=== PATIENT | female | born 1985 | race Caucasian/White ===

== ENCOUNTER 2023-06-25 07:50 | Outpatient (OUT) | payer OTHER, SELFPAY ==
--- NOTE | 2023-06-25 | US_ITS ---
The [address] [address] Patient Name: AMANUEL ERICKSON MRN: [id number] date: 1985 Sex: F Assigned Patient Location: [facility] Current Patient Location: [facility] Accession/Order Number: [id number] Exam Date: 06/25/2023 07:52 Report Date: 06/25/2023 08:45 At the request of: DELICIA ALMAGUER Procedure: US pelvis w/ transvaginal Ultrasound pelvis, non-obstetric CLINICAL: PELVIC PAIN TECHNIQUE: Transabdominal and transvaginal pelvic ultrasound was performed. FINDINGS: Comparison: None. Uterus is nonvisualized, surgically absent. The right ovary measures 2.3 x 1.4 x 1.7 cm with few tiny follicles and tiny amount of internal color flow but Doppler examination was not performed by board certified family physician. The left ovary measures 2.6 x 1.2 x 1.6 cm, with dopplerable arterial flow and resistive index of 0.44. There is a complex cyst with some internal echoes/debris measuring 1.5 x 1.0 cm, with few additional tiny follicles. No adnexal abnormality. No free pelvic fluid. US/US pelvis w/ transvaginal IMPRESSION: 1. 1.5 x 1.0 cm complicated cyst in left ovary that is probably an involuting hemorrhagic cyst . 2. Normal appearance of right ovary. 3. Hysterectomy. Electronically authenticated by: ABHI DEMARCO Date: 06/25/2023 08:45
== END 2023-06-25 07:51 | disposition home or self-care (01) ==
LOC: NOMS 07:50
PROVIDERS: PCP Nurse Practitioner; Visit Provider Obstetrics & Gynecology
DX: R10.2 Pelvic and perineal pain (principal); N83.292 Other ovarian cyst, left side
CPT/HCPCS: 76830; 76856

== ENCOUNTER 2023-07-04 09:48 | Outpatient (OUT) | payer OTHER, SELFPAY ==
--- OUTSIDE RECORDS SUMMARY | 2023-07-04 09:53 | XMS_ITS | CCD ---
Author Name Unknown Address [address] [place] [address] Organization [facility] Care Team Providers Care Software Development Analyst Name Role Phone ANASTASIIA DUNCAN JAN Unavailable Unavailable IZABEL EARL (OSWALDO) Unavailable UnavailIZABEL Marquez (OSWALDO) Unavailable UnavailHarry Tom Attending Physician Unavailable Doug Yeager Primary Care Physician Unavailab MEKA Sanchez Primary Care Physician [phone] NO FAMILY, PHYSICIAN Primary Care Provider Unava ilSANDEE Terrazas Attending Provider [phone] AICHHOLZ, TRANSMISSION BUILDER MEKA Admitting Unavailable AICHHOLZ, TRANSMISSION BUILDER MEKA Attending Unavailable AICHHOLZ, TRANSMISSION BUILDER MEKA Primary Care Unavailable AICHHOLZ, TRANSMISSION BUILDER MEKA Consulting Unavailable AICHHOLZ, TRANSMISSION BUILDER MEKA Primary Care Unavailable NITISH MCCALL Admitting Unavailable NITISH MCCALL Attending Unavailable NITISH MCCALL Consulting Unavailable NILL, DR GOLDEN Admitting Unavailable NILL, DR GOLDEN Attending Unavailable AICHHOLZ, TRANSMISSION BUILDER MEKA Primary Care Unavailable NILL, DR GOLDEN Admitting Unavailable NILL, DR GOLDEN Attending Unavailable AICHHOLZ, TRANSMISSION BUILDER MEKA Primary Care Unavailable NILL, DR GOLDEN Consulting Unavailable STEPHANIE CASTRO Consulting Unavailable ANTON VELÁZQUEZ Consulting Unavailable JERRY WEBB Consulting Unavailable AICHHOLZ, TRANSMISSION BUILDER MEKA Admitting Unavailable AICHHOLZ, TRANSMISSION BUILDER MEKA Attending Unavailable AICHHOLZ, TRANSMISSION BUILDER MEKA Primary Care Unavailable AICHHOLZ, TRANSMISSION BUILDER MEKA Consulting Unavailable DR KODI ROME Consulting Unavailable Gloria Jackson Unavailable Kamila Doung Unavailable NO FAMILY, PHYSICIAN Primary Care Unavailable Gloria Jackson Admitting Unavailable Gloria Jackson Attending Unavailable NO FAMILY, PHYSICIAN Primary Care Unavailable Ananda Vences Admitting Unavailab Ananda Thomson Attending Unavailab DELICIA Agrawal Attending Unavailable DELICIA ALMAGUER Attending Unavailable Allergies Allergy Classification Reported Allergen(s) Allergy Type Date of Onset Reaction(s) Facility (6 sources) nalbuphine; Translations: [Nubain] Drug Allergy 4 vomiting [facility] Repository (6 sources) nalbuphine; Translations: [NALBUPHINE] Drug Allergy 4 AOF, Vomiting, Unknown [facility] Repository (1 source) NO KNOWN ALLERGIES; Translations: [NO KNOWN ALLERGIES] Propensity to adverse reactions to drug (disorder) [facility] Repository (4 sources) nu Propensity to adverse reactions Unknown [employer] Other Medications Current Medications Medication Drug Class(es) Dates Sig (Normalized) Sig (Original) ARIPiprazole 5 mg oral tablet (2 sources) Atypical Antipsychotic Start: 10-08-2021 take 1 tablet by mouth once daily Abilify 5 mg Tab 5 mg = 1 tab(s), Oral, Daily, Refills(s) 0 Start Date: 10/08/21 Status: Ordered FLUoxetine 10 mg oral capsule (2 sources) Serotonin Reuptake Inhibitor Start: 10-08-2021 take 1 capsule by mouth once daily FLUoxetine 10 mg Cap 10 mg = 1 cap(s), Oral, Daily, Refills(s) 0 Start Date: 10/08/21 Status: Ordered traZODone hydrochloride 50 mg oral tablet (1 source) Serotonin Reuptake Inhibitor take 1 tablet by mouth at bedtime for sleep traZODone HCl 50 MG take 1 tablet by mouth at bedtime if needed for sleep Oral for 30 Days Active Completed/Discontinued Medications Medication Drug Class(es) Dates Sig (Normalized) Sig (Original) amoxicillin 875 mg / clavulanate 125 mg oral tablet (2 sources) Penicillin-class Antibacterial Start: 02-09-2023 take 1 tablet by mouth every twelve hours Amoxicillin-Pot Clavulanate 875-125 MG 1 tablet Orally every 12 hrs for 10 day(s) 17 Sep, 2023 Not-Taking busPIRone hydrochloride 10 mg oral tablet (3 sources) Start: 12-10-2018 take 10 mg by mouth three times daily Buspirone 10 MG Oral Three times daily 90 December 10, 2018 Active fluticasone propionate 0.05 mg/actuat metered dose nasal spray (2 sources) Corticosteroid Start: 02-09-2023 take 2 spray(s) nasal route once daily Fluticasone Propionate 50 MCG/ACT 2 sprays Nasally Once a day for 14 day(s) Jan, Not-Taking hydrOXYzine pamoate 50 mg oral capsule (3 sources) Antihistamine Start: 12-10-2018 take 50 mg by mouth every six hours as needed for anxiety Hydroxyzine Pamoate 50 MG Oral Q6H PRN For Anxiety December 10, 2018 Active 24 hr nicotine 0.875 mg/hr transdermal system (3 sources) Cholinergic Nicotinic Agonist Start: 12-10-2018 Nicotine 1 EACH Transdermal Daily December 10, 2018 Active predniSONE 20 mg oral tablet (2 sources) Start: 02-09-2023 take 1 tablet by mouth every twelve hours predniSONE 20 MG 1 tablet Orally bid for 5 day(s) Jan, Not-Taking Triamcinolone (4 sources) Corticosteroid Start: 01-15-2020 Kenalog -40 mg Dec, 60 mg 24 hr venlafaxine 75 mg extended release oral capsule (3 sources) Serotonin and Norepinephrine Reuptake Inhibitor Start: 12-10-2018 take 75 mg by mouth once daily Venlafaxine 75 MG Oral Daily December 10, 2018 Active Problems Active Problems Problem Classification Problem Date Documented Da te Episodic/Chronic Anxiety disorders (4 sources) Generalized anxiety disorder; Translations: [Anxiety] 10-08-2021 Chronic Disorders of teeth and jaw (1 source) Dental caries, unspecified; Translations: [DENTAL CARIES UNSPECIFIED] Onset: 3 Episodic Esophageal disorders (3 sources) Gastroesophageal reflux disease; Translations: [Gastro-esophageal reflux disease without esophagitis] Onset: 2 10-08-2021 Chronic Essential hypertension (3 sources) Hypertensive disorder; Translations: [Essential (primary) hypertension] Onset: 2 10-08-2021 Chronic Genitourinary symptoms and ill-defined conditions (1 source) Gross hematuria; Translations: [Gross hematuria] Onset: 8 Episodic Mood disorders (4 sources) Recurrent major depressive episodes; Translations: [Depressive disorder] 10-08-2021 Chronic Other aftercare (1 source) Other emt intermediate (current) drug therapy; Translations: [OTH PENITENTIARY CURRENT DRUG THERAPY] Onset: 3 Episodic Other ear and sense organ disorders (4 sources) Otalgia, left ear; Translations: [OTALGIA LEFT EAR] Onset: 3 Episodic Other gastrointestinal disorders (2 sources) Irritable bowel syndrome; Translations: [Irritable bowel syndrome without diarrhea] 12-07-2018 Chronic Other nutritional; endocrine; and metabolic disorders (2 sources) Body mass index 30+ - obesity 10-09-2021 Chronic Other nutritional; endocrine; and metabolic disorders (2 sources) Obesity 10-08-2021 Chronic Other nutritional; endocrine; and metabolic disorders (1 source) Obesity, unspecified; Translations: [OBESITY UNSPECIFIED] Onset: 2 Chronic Other skin disorders (4 sources) Hidradenitis suppurativa; Translations: [Hidradenitis suppurativa] Onset: 2 Episodic Other upper respiratory infections (1 source) Chronic sinusitis, unspecified; Translations: [CHRONIC SINUSITIS UNSPECIFIED] Onset: 3 Chronic Residual codes; unclassified (2 sources) Tobacco user 10-08-2021 Episodic Substance-related disorders (1 source) Nicotine dependence, other tobacco product, uncomplicated; Translations: [NICOTINE DEPEND OTH TOB PROD UNCOMP] Onset: 3 Chronic Thyroid disorders (9 sources) Hypothyroidism; Translations: [Hypothyroidism, unspecified] Onset: 2 10-08-2021 Chronic Past or Other Problems Problem Classification Problem Date Documented Da te Episodic/Chronic Nonmalignant breast conditions (4 sources) Unspecified lump in the right breast, upper outer quadrant; Translations: [UNS LUMP IN RT BREAST UP OUTR QUAD] Onset: 10-02-2021 Episodic Other skin disorders (4 sources) Hidradenitis suppurativa; Translations: [HIDRADENITIS SUPPURATIVA] Onset: 11-14-2021 Episodic Other skin disorders (1 source) Epidermal cyst; Translations: [EPIDERMAL CYST] Onset: 06-30-2022 Episodic Other upper respiratory infections (5 sources) Acute pharyngitis, unspecified; Translations: [Acute sinusitis, unspecified] Onset: 06-11-2022 Episodic Unclassified (1 source) Contact with and (suspected) exposure to covid-19 Z20.822 Viral infection (1 source) COVID-19 Results Test Name Value Interpretation Reference Range Facility COVID + FLU Quick Testingon 04-23-2023 SARS-CoV-2 (COVID-19) RNA BRANT+probe Ql (Unsp spec) Positive [facility] [employer] Other COVID + FLU Quick Testing Negative [employer] [facility] [employer] Other Quick Strepon 06-11-2022 S. pyogenes Org specific cx Ql (Throat) Negative [facility] [employer] Other Quick Strep [facility] [employer] Other Throat Cultureon 06-11-2022 Throat culture Moderate Normal Resp iratory Marti 2 Days PERFORMED BY: [place] [address] PATHOLOGIST TIMING ADJUSTER DOMENICO BELL M.D. Normal [facility] Comment on above: Performed By: #### C [place] #### [address] ALDOLASE [id number] 12-18-2021 ALDOLASE 4.6 U/L Normal 1.2-7.6 [facility] Comment on above: Result Comment: REFE RENCE INTERVAL: Aldolase Access complete set of age- and/or gender-specific reference intervals for this test in the [employer] [facility] Test Directory ([place]). Performed By: [facility] [address] [place] [address] Supervisor Slashing Department: Edgar Snell MD, PhD ANAon 12-18-2021 JAMIL PATTERN HOMOGENEOUS Normal [facility] Comment on above: Result Comment: The JACKI IFA JAMIL Hep-2 test utilizes the indirect fluorescent antibody (IFA) method that has been used extensively for detecting the presence of JAMIL in sera of patients with systemic lupus erythematosus (SLE), and other clinically similar connective tissue disorders. In addition, JAMIL may be associated with numerous drug-induced lupus syndromes which clinically mimic the spontaneous form of SLE. Positive JAMIL may be found in healthy individuals. It is therefore imperative that JAMIL results be interpreted in light of the patients clinical condition by medical authority. Performed By: #### 9 9850, 24991, 17995, 95106, 63930 ####[facility] [facility] [place] [address], [facility] JAMIL SCREEN 1:40 Normal <1:40,1:40 [facility] Comment on above: Result Comment: Test performed using [employer] IFA JAMIL Hep-2 Test, a pre-standardized assay designed for the qualitative and semi-quantitative detection of antinuclear antibodies. Performed By: #### 9 9850, 58575, 39023, 97763, 83171 ####[facility] [facility] [place] [address], [facility] ANTI CENTROMERE ABon 022 ANTI CENT AB Negative Normal NEGATIVE [facility] Comment on above: Performed By: #### 9 9850, 81700, 90689, 94125, 43384 ####[facility] [facility] [place] [address], [facility] ANTI DNAon 12-18-2021 ANTI DNA <1:10 Normal <1:10 [facility] Comment on above: Performed By: #### 9 9850, 98036, 89826, 40509, 36434 #### [facility] [address] [facility] [place] [address], [facility] ANTI-ENAon 12-18-2021 ANTI SM Negative Normal NEG,NEGATIVE ,Neg [facility] Comment on above: Performed By: #### 9 9850, 44256, 91605, 78372, 64133 #### [facility] [address] [facility] [place] [address], [facility] ANTI SM/ANTIRNP Negative Normal NEG,NEGATIVE ,Neg [facility] Comment on above: Performed By: #### 9 9850, 92368, 91495, 49770, 13395 #### [facility] [address] [place]. [address] C REACTIVE PROTEINon 022 CRP [Mass/Vol] 4.3 mg/L Normal 0.0-7.0 [facility] Comment on above: Performed By: #### 1 0204, 16560, 61198, 14648 #### [facility] [address] [facility] [place] [address], [facility] COMPLEMENT 3on 12-18-2021 COMPLEMENT 3 96 mg/dL Normal 79-152 [facility] Comment on above: Performed By: #### 1 0204, 76901, 86841, 44012 #### [facility] [address] [facility] [place] [address], [facility] COMPLEMENT 4on 12-18-2021 COMPLEMENT 4 19 mg/dL Normal 16-38 [facility] Comment on above: Performed By: #### 1 0204, 68894, 15662, 24394 #### [facility] [address] [facility]. [address] CPKon 12-18-2021 CK [Catalytic activity/Vol] 78 U/L Normal 30-223 [facility] Comment on above: Performed By: #### 2 5508 ####[facility] CYCLIC CITRULLINATED PEPTIDE AB [id number] 12-18-2021 CYCLIC CIT PEP 1 Units Normal 0-19 [facility] Comment on above: Result Comment: INTE RPRETIVE INFORMATION: Cyclic Citrullinated Peptide Antibody, IgG 19 Units or less ................... Negative 20-39 Units ........................ Weak Positive 40-59 Units ........................ Moderate Positive 60 Units or greater ................ Strong Positive Anti-cyclic citrullinated peptide (anti-CCP), IgG antibodies are present in about 69-83 percent of patients with rheumatoid arthritis (RA) and have specificities of 93-95 percent. These autoantibodies may be present in the preclinical phase of disease, are associated with future RA development, and may predict radiographic joint destruction. Patients with weak positive results should be monitored and testing repeated. Performed By: [facility] [address] [place] [address] Supervisor Slashing Department: Edgar Snell MD, PhD HEPATITIS B CORE ANTIBODYon 12-18-2021 HEP B CORE AB Non-Reactive Normal NONREACTIVE [facility] Comment on above: Performed By: #### 3 1568, 36088, 06225 ####[facility] [facility].[address] HEPATITIS B SURFACE ANTIGEN QUALon 12-18-2021 HEP B SURF AG QUAL Non-Reactive Normal NONREACTIVE [facility] Comment on above: Performed By: #### 3 1568, 77545, 88269 ####[facility] [facility].[address] HEPATITIS C SCREENon 022 ANTI-HCV Non-Reactive Normal NONREACTIVE [facility] Comment on above: Performed By: #### 3 1568, 68633, 42379 ####[facility] [facility].[address] HIV1 AND 2 COMBO 4Gon 2021 HIV COMBO Negative Normal NEGATIVE [facility] Comment on above: Performed By: #### 3 0623 ####[facility] [facility].[address] MPO/PR3 RFLX TO ANCA [id number] on 12-18-2021 MYELOPEROX AB (65515) 0 AU/mL Normal 0-19 [facility] Comment on above: Result Comment: INTE RPRETIVE INFORMATION: Myeloperoxidase Abs, IgG 19 AU/mL or Less ......... Negative 20-25 AU/mL .............. Equivocal 26 AU/mL or Greater ...... Positive Approximately 90% of patients with a P-ANCA pattern by IFA have antibodies specific for MPO. SERINE PROTEINASE 3 0 AU/mL Normal 0-19 [facility] Comment on above: Result Comment: Myel operoxidase (MPO) Antibodies , IgG and Serine Proteinase 3 (PR3), IgG are both negative; therefore, ANCA IFA testing will not be performed. INTERPRETIVE INFORMATION: Serine Proteinase 3, IgG 19 AU/mL or Less ........ Negative 20-25 AU/mL ............. Equivocal 26 AU/mL or Greater ..... Positive Approximately 85% of patients with a C-ANCA pattern by IFA have antibodies specific for PR3. Performed By: [facility] [address] [place] [address] Supervisor Slashing Department: Edgar Snell MD, PhD MYOSITIS EXTENDED PANEL 3001 781on 12-18-2021 EJ AB Negative Normal Negative [facility] FIBRILLARIN (U3 PLANT MAINTENANCE WORKER) AB, IgG Negative Normal Negative [facility] Comment on above: Result Comment: Inte rpretive Information: Fibrillarin (U3 PLANT MAINTENANCE WORKER) Antibody, IgG The presence of fibrillarin (U3-PLANT MAINTENANCE WORKER) IgG antibodies in association with an JAMIL IFA nucleolar pattern is suggestive of systemic sclerosis (SSc). In SSc, these antibodies are associated with distinct clinical features, such as younger age at disease onset, frequent internal organ involvement (pulmonary hypertension, myositis and renal disease). Fibrillarin antibodies are detected more frequently in patients with SSc compared to other ethnic groups. Strong correlation with JAMIL IFA results is recommended. In a multi-ethnic cohort of SSc patients (n=98), U3-PLANT MAINTENANCE WORKER antibodies detected by immunoblot had an agreement of 98.9 percent with the gold standard immunoprecipitation (IP) assay. Approximately 71 percent (5/7) of the borderline U3-PLANT MAINTENANCE WORKER results with JAMIL nucleolar pattern in this cohort were IP negative. This test was developed and its performance characteristics determined by [facility]. It has not been cleared or approved by the [place] Food and Drug Administration. This test was performed in a CLIA certified laboratory and is intended for clinical purposes. Performed By: [facility] [address] [place] [address] Supervisor Slashing Department: Edgar Snell MD, PHD ISAURA-1 AB IGG 0 AU/mL Normal 0-40 [facility] Comment on above: Result Comment: INTE RPRETIVE INFORMATION: Isaura-1 Antibody, IgG 29 AU/mL or less.........Negative 30-40 AU/mL..............Equivocal 41 AU/mL or greater......Positive Presence of Isaura-1 (antihistidyl transfer RNA [t-RNA] synthetase) antibody is associated with polymyositis and may also be seen in patients with dermatomyositis. Iasura-1 antibody is associated with pulmonary involvement (interstitial lung disease), Raynaud phenomenon, arthritis, and bowling alley mechanic's hands (implicated in antisynthetase syndrome). KU AB Negative Normal Negative [facility] MDA5 AB Negative Normal Negative [facility] OR-2 AB Negative Normal Negative [facility] MYOSITIS PANEL INTERP See Note Normal [facility] Comment on above: Result Comment: INTE RPRETIVE INFORMATION: Extended Myositis Panel If present, myositis-specific antibodies (MSA) are specific for myositis, and may be useful in establishing diagnosis as well as prognosis. MSAs are generally regarded as mutually exclusive with rare exceptions; the occurrence of two or more MSAs should be carefully evaluated in the context of patient's clinical presentation. Myositis-associated antibodies (MAA) may be found in patients with CTD including overlap syndromes, and are generally not specific for myositis. The following table will help in identifying the association of any antibodies found as either MSAs or Toni. Antibody Specificity . . . . . . . . . . . . MSA . . . . MAA SSA 52 (Ro) (CHRISTA) Antibody IgG . . . . . . . . . . . . . X SSA 60 (Ro) (CHRISTA) Antibody IgG . . . . . . . . . . . . . X Willoughby/PLANT MAINTENANCE WORKER (CHRISTA) Ab, IgG . . . . . . . . . . . . . . . . X Isaura-1 (histidyl-tRNA synthetase) Ab, IgG . . X PL-12 (alanyl-tRNA synthetase) Antibody . . X PL-7 (threonyl-tRNA synthetase) Antibody . . X EJ (glycyl-tRNA synthetase) Antibody . . . . X OJ (isoleucyl-tRNA synthetase) Antibody . . X SRP (Signal Recognition Particle) Ab . . . . X Ku Antibody . . . . . . . . . . . . . . . . . . . . . . X PM/SCL 100 Antibody, IgG . . . . . . . . . . . . . . . . X Fibrillarin (U3 PLANT MAINTENANCE WORKER) Ab, IgG . . . . . . . . . . . . . . X Mi-2 (nuclear helicase protein) Antibody . . X P155/140 Antibody . . . . . . . . . . . . . X TIF-1 gamma (155 kDa) Ab . . . . . . . . . . X SAE1 (SUMO activating enzyme) Ab . . . . . . X MDA5 (CADM-140) Ab . . . . . . . . . . . . X NXP2 (Nuclear matrix proten-2)Ab . . . . . . X This test was developed and its performance characteristics determined by [facility]. It has not been cleared or approved by the [place] Food and Drug Administration. This test was performed in a CLIA certified laboratory and is intended for clinical purposes. NXP2 AB Negative Normal Negative [facility] OJ AB Negative Normal Negative [facility] P155/140 AB Negative Normal Negative [facility] PL-12 AB Negative Normal Negative [facility] PL-7 AB Negative Normal Negative [facility] PM/SCL 100 AB, IgG Negative Normal Negative [facility] Comment on above: Result Comment: INTE RPRETIVE INFORMATION: PM/Scl-100 Antibody, IgG by Immunoblot The presence of PM/Scl-100 IgG antibody along with a positive JAMIL IFA nucleolar pattern is associated with connective tissue diseases such as polymyositis (PM), dermatomyositis (DM), systemic sclerosis (SSc), and polymyositis/systemic sclerosis overlap syndrome. The clinical relevance of PM/Scl-100 IgG antibody with a negative JAMIL IFA nucleolar pattern is unknown. PM/Scl-100 is the main target epitope of the PM/Scl complex, although antibodies to other targets not detected by this assay may occur. This test was developed and its performance characteristics determined by [facility]. It has not been cleared or approved by the US Food and Drug Administration. This test was performed in a CLIA certified laboratory and is intended for clinical purposes. PLANT MAINTENANCE WORKER AB IGG (CHRISTA) 2 Units Normal 0-19 [facility] Comment on above: Result Comment: INTE RPRETIVE INFORMATION: Willoughby/PLANT MAINTENANCE WORKER (CHRISTA) Antibody, IgG 19 Units or Less ............. Negative 20 to 39 Units ............... Weak Positive 40 to 80 Units ............... Moderate Positive 81 Units or greater .......... Strong Positive Willougbhy/PLANT MAINTENANCE WORKER antibodies are frequently seen in patients with mixed connective tissue disease (MCTD) and are also associated with other systemic autoimmune rheumatic diseases (SARDs) such as systemic lupus erythematosus (SLE), systemic sclerosis, and myositis. Antibodies targeting the Willoughby/PLANT MAINTENANCE WORKER antigenic complex also recognize Willoughby antigens, therefore, the [place]by antibody response must be considered when interpreting these results. SAE1 AB Negative Normal Negative [facility] SRP AB Negative Normal Negative [facility] SSA (RO) AB IGG 0 AU/mL Normal 0-40 [facility] Comment on above: Result Comment: INTE RPRETIVE INFORMATION: SSA-52 (Ro52) (CHRISTA) Antibody, IgG 29 AU/mL or Less ............. Negative 30 - 40 AU/mL ................ Equivocal 41 AU/mL or Greater .......... Positive SSA-52 (Ro52) and/or SSA-60 (Ro60) antibodies are associated with a diagnosis of Sjogren syndrome, systemic lupus erythematosus (SLE), and systemic sclerosis. SSA-52 antibody overlaps significantly with the major SSc-related antibodies. SSA-52 (Ro52) antibody occurs frequently in patients with inflammatory myopathies, often in the presence of interstitial lung disease. SSA 60 (RO) AB IGG 0 AU/mL Normal 0-40 [facility] Comment on above: Result Comment: REFE RENCE INTERVAL: SSA-60 (Ro60) (CHRISTA) Antibody, IgG 29 AU/mL or Less ............. Negative 30 - 40 AU/mL ................ Equivocal 41 AU/mL or Greater .......... Positive TIF-1 GAMMA AB Negative Normal Negative [facility] RHEUMATOID FACTOR SERUMon RA <20 Normal 0-20 [facility] Comment on above: Performed By: #### 1 0204, 00384, 93236, 44148 #### [facility] [address] [facility]. [address] SEDIMENTATION RATEon 022 SED RATE 4 mm/hr Normal 0-20 [facility] Comment on above: Performed By: #### 5 6506 #### [facility] [address] [facility]. [address] SJOGRENS ANTIBODIESon 2021 SS-A Negative Normal NEG,NEGATIVE ,Neg [facility] Comment on above: Performed By: #### 9 9850, 03175, 73855, 28491, 24928 #### [facility] [address] [facility]. [address] SS-B Negative Normal NEG,NEGATIVE ,Neg [facility] Comment on above: Performed By: #### 9 9850, 17972, 84567, 62844, 11132 #### [facility] [address] Ambulatory Visit Summaryon 0 11-23-2021 Ambulatory Visit Summary AMANUEL WRIGHT Deepika :1985 Visit Date:11/23/2021 Ambulatory Visit Instructions Your Care Team Attending Physician - ALEX SINGH, Chantel Lindsey Primary Care Physician - MEKA ROPER CNP This Is Your Medications List aripiprazole (Abilify 5 mg Tab) fluoxetine (FLUoxetine 10 mg Cap) Procedures Performed Arthroscopy of knee, Essure., Excision of cyst, Partial hysterectomy. Medications What How Much When Instructions Unchanged aripiprazole (Abilify 5 mg Tab) 1 Tablets By Mouth Every day Unchanged fluoxetine (FLUoxetine 10 mg Cap) 1 Capsules By Mouth Every day Allergies nalbuphine (Unknown) Problems Ongoing - Any problem that you are currently receiving treatment for. Anxiety BMI 39.0-39.9,adult Depression GERD (gastroesophageal reflux disease) Hidradenitis suppurativa HTN (hypertension) Hypothyroidism Obesity Tobacco user Normal [facility] General Surgery Office/Clini c Noteon 11-23-2021 General Surgery Office/Clinic Note Chief Complaint post operative follow up HPI Staff 9 day post operative follow up post excisional biopsy hidradenitis right breast. Minimal tenderness. Denies bleeding, drainage or significant bruising. History of Present Illness 9 days s/p excision right breast hidradenitis, doing well, mild soreness, no drainage from incision; not taking any pain meds; pathology consistent with scar, chronic inflammation adn small inclusion cyst. Physical Exam skin: incision healing well, no erythema or drainage, no ecchymoses. Assessment/Plan 1. Hidradenitis suppurativa (L73.2: Hidradenitis suppurativa) doing well, sutures removed; steri-strips applied, call with problems/questions. Follow-up No qualifying data available Problem List/Past Medical History Ongoing Anxiety BMI 39.0-39.9,adult Depression GERD (gastroesophageal reflux disease) Hidradenitis suppurativa HTN (hypertension) Hypothyroidism Obesity Tobacco user Historical No qualifying data Procedure/Surgical History Arthroscopy of knee, Essure., Excision of cyst, Partial hysterectomy. Medications Abilify 5 mg Tab, 5 mg= 1 tab(s), Oral, Daily FLUoxetine 10 mg Cap, 10 mg= 1 cap(s), Oral, Daily Allergies nalbuphine (Unknown) Social History Alcohol - Denies Alcohol Use, 10/09/2021 Substance Abuse Current, Marijuana, 1-2 times per week, 10/09/2021 Tobacco Former smoker, quit more than 30 days ago Tobacco Use:. Smokeless tobacco user within last 30 days Smokeless Tobacco Use:. Cigarettes, Vaping, Started age 18.0 Years. Yes, 10/09/2021 Family History Alcoholism: Father. Hypertension: Mother and Father. Normal [facility] Comment on above: Result Comment: Elec tronically Signed By: ALEX SINGH, Chantel Lindsey\.br\Date and Time Signed: 11/23/21 14:24 EDT Pathology Noteon 11-21-2021 Pathology Note [id number]#[id number]:127 [facility] Operative Reporton Operative Report [id number]#[id number]:127 [facility] Provider Letter FTon 11-16 [place] [facility] [place] AMANUEL WRIGHT [address] [place] [id number] AMANUEL WRIGHT 1985 To Whom It May Concern, Please excuse above patient from work 11/16/2021. Sincerely, Dr. Chantel Mayo MD General Surgery [facility] Pre-Certification Formon Pre-Certification Form [id number]:127 [facility] Consent for Procedure/Surger yon 10-11-2021 Consent for Procedure/Surgery [id number]#[id number]:127 [facility] Ambulatory Visit Summaryon 0 10-09-2021 Ambulatory Visit Summary AMANUEL WRIGHT :1985 Visit Date:10/09/2021 Ambulatory Visit Instructions Your Care Team Attending Physician - ALEX SINGH, Chantel Lindsey Primary Care Physician - MEKA ROPER CNP Referring Physician - WERO NOLEN MD This Is Your Medications List Contact prescribing physician if questions or concerns aripiprazole (Abilify 5 mg Tab) fluoxetine (FLUoxetine 10 mg Cap) Procedures Performed Arthroscopy of knee, Essure., Excision of cyst, Partial hysterectomy. Discharge Vitals Heart Rate (Peripheral) 72 Respiratory Rate 16 Blood Pressure 124/80 Height 157.48 cm Height 157.5 cm Weight 98 kg Weight 98.0 kg BMI 39.52 Medications What How Much When Instructions Unchanged aripiprazole (Abilify 5 mg Tab) 1 Tablets By Mouth Every day Contact prescribing physician if questions or concerns Unchanged fluoxetine (FLUoxetine 10 mg Cap) 1 Capsules By Mouth Every day Contact prescribing physician if questions or concerns Allergies nalbuphine (Unknown) Problems Ongoing - Any problem that you are currently receiving treatment for. Anxiety BMI 39.0-39.9,adult Depression GERD (gastroesophageal reflux disease) HTN (hypertension) Hypothyroidism Obesity Tobacco user Normal [facility] Physician Referralon 022 Physician Referral [id number]:127 Normal [facility] MG MAMM TERRENCE DIAG W CADon MG MAMM TERRENCE DIAG W CAD Patient: AMANUEL WRIGHT Exam Date: 10/02/2021 : 1985 Gender:F Ordering : RONY ROPER [facility] Admission #: [id number] Family : Order #: [id number] CLICK HERE TO VIEW EXAM RADIOLOGY REPORT PROCEDURE: MAMMOGRAM BILATERAL DIAGNOSTIC DIGITAL WITH COMPUTER AIDED DETECTION, 10/02/2021, 09:54 ULTRASOUND BREAST RIGHT LIMITED, 10/02/2021, 10:45 COMPARISON: None. INDICATIONS: Lump in upper outer quadrant of right breast Calculator Name NCI Breast Cancer Risk Assessment Tool 5 Year Breast Cancer Risk 0.20% Lifetime Breast Cancer Risk 8.20% Personal Breast Cancer No Personal Ovarian Cancer No Treatments None Family Cancers None LOCATION: [facility] BREAST COMPOSITION: Scattered areas fibroglandular density. FINDINGS: DIAGNOSTIC CATEGORY 3--PROBABLY BENIGN FINDING. THE FOLLOWING FINDING(S) HAS A HIGH PROBABILITY OF A BENIGN ETIOLOGY: RIGHT BREAST: Subtle area of opacity projecting over the upper outer quadrant with overlying skin surface marker corresponding to patient's palpable lump in area of erythema. No appreciable mass or suspicious calcifications on tomography. Ultrasound evaluation demonstrates a 3.0 x 1.9 x 0.4 cm well-defined heterogeneous mass versus fluid collection within the dermal layer of the skin, likely representing phlegmonous changes or abscess. Consider surgical consultation. Ultrasound-guided tissue sampling could be performed if clinically desired. LEFT BREAST: No significant suspicious finding. RECOMMENDATIONS: SURGICAL CONSULTATION. SHORT TERM FOLLOW-UP ULTRASOUND RIGHT BREAST IN 3 MONTHS. PLEASE NOTE: A NORMAL MAMMOGRAM DOES NOT EXCLUDE THE POSSIBILITY OF BREAST CANCER. A CLINICALLY SUSPICIOUS PALPABLE LUMP SHOULD BE BIOPSIED. Dictated by: Kodi Rome M.D. on 10/02/2021 at 10:50 Approved by: Kodi Rome M.D. on 10/02/2021 at 12:01 Normal [facility] US BREAST RIGHT LIMITEDon US BREAST RIGHT LIMITED Patient: AMANUEL WRIGHT Exam Date: 10/02/2021 : 1985 Gender:F Ordering : RONY MEKAMaryan HAYSKathyHEIDI [facility] Admission #: [id number] Family : Order #: [id number] CLICK HERE TO VIEW EXAM RADIOLOGY REPORT PROCEDURE: MAMMOGRAM BILATERAL DIAGNOSTIC DIGITAL WITH COMPUTER AIDED DETECTION, 10/02/2021, 09:54 ULTRASOUND BREAST RIGHT LIMITED, 10/02/2021, 10:45 COMPARISON: None. INDICATIONS: Lump in upper outer quadrant of right breast Calculator Name NCI Breast Cancer Risk Assessment Tool 5 Year Breast Cancer Risk 0.20% Lifetime Breast Cancer Risk 8.20% Personal Breast Cancer No Personal Ovarian Cancer No Treatments None Family Cancers None LOCATION: [facility] BREAST COMPOSITION: Scattered areas fibroglandular density. FINDINGS: DIAGNOSTIC CATEGORY 3--PROBABLY BENIGN FINDING. THE FOLLOWING FINDING(S) HAS A HIGH PROBABILITY OF A BENIGN ETIOLOGY: RIGHT BREAST: Subtle area of opacity projecting over the upper outer quadrant with overlying skin surface marker corresponding to patient's palpable lump in area of erythema. No appreciable mass or suspicious calcifications on tomography. Ultrasound evaluation demonstrates a 3.0 x 1.9 x 0.4 cm well-defined heterogeneous mass versus fluid collection within the dermal layer of the skin, likely representing phlegmonous changes or abscess. Consider surgical consultation. Ultrasound-guided tissue sampling could be performed if clinically desired. LEFT BREAST: No significant suspicious finding. RECOMMENDATIONS: SURGICAL CONSULTATION. SHORT TERM FOLLOW-UP ULTRASOUND RIGHT BREAST IN 3 MONTHS. PLEASE NOTE: A NORMAL MAMMOGRAM DOES NOT EXCLUDE THE POSSIBILITY OF BREAST CANCER. A CLINICALLY SUSPICIOUS PALPABLE LUMP SHOULD BE BIOPSIED. Dictated by: Kodi Rome M.D. on 10/02/2021 at 10:50 Approved by: Kodi Rome M.D. on 10/02/2021 at 12:01 Normal [facility] CBC AUTO DIFFon 09-14-2021 BASO # 0.1 103/ul Normal 0.0-0.1 [facility] Comment on above: Performed By: #### C BC #### [facility] [address] [address] [address] Jaylan Jones Basophils/100 WBC (Bld) 0.7 % Normal 0.2-2.0 [facility] Comment on above: Performed By: #### C BC #### [facility] [address] [address] [address] Jaylan Jones EO # 0.2 103/ul Normal 0.0-0.7 [facility] Comment on above: Performed By: #### C BC #### [facility] [address] [place] [address] Dr. Jaylan Jones Eosinophils/100 WBC (Bld) 3.1 % Normal 0.9-7.0 [facility] Comment on above: Performed By: #### C BC #### [facility] [address] [address] [address] Jaylan Jones Erythrocyte distribution width (RBC) [Ratio] 13.3 % Normal 11.0-15.0 [facility] Comment on above: Performed By: #### C BC #### [facility] [address] [place] [address] Dr. Jaylan Jones Hematocrit (Bld) [Volume fraction] 40.7 % Normal 36.0-48.0 [facility] Comment on above: Performed By: #### C BC #### [facility] [address] [address] [address] Jaylan Jones Hemoglobin (Bld) [Mass/Vol] 13.4 g/dL Normal 12.0-16.0 [facility] Comment on above: Performed By: #### C BC #### [facility] [address] [place] [address] Dr. Jaylan Jones IG # 0.03 10e3/ul Normal 0.00-0.03 [facility] Comment on above: Performed By: #### C BC #### [facility] [address] [place] [address] Dr. Jaylan Jones IG % 0.4 % Normal 0.0-0.5 [facility] Comment on above: Performed By: #### C BC #### [facility] [address] [place] [address] Dr. Jaylan Jones LYMPH # 1.9 103/ul Normal 1.2-3.8 [facility] Comment on above: Performed By: #### C BC #### [facility] [address] [place] [address] Dr. Jaylan Jones Lymphocytes/100 WBC (Bld) 25.4 % Normal 20.5-60.0 [facility] Comment on above: Performed By: #### C BC #### [facility] [address] [place] [address] Dr. Jaylan Jones MANUAL DIFF REQ NO Normal [facility] Comment on above: Performed By: #### C BC #### [facility] [address] [place] [address] Dr. Jaylan Jones MCH (RBC) [Entitic mass] 28.3 pg Normal 26.7-34.0 [facility] Comment on above: Performed By: #### C BC #### [facility] [address] [place] [address] Dr. Jaylan Jones MCHC (RBC) [Mass/Vol] 32.9 g/dL Normal 29.9-35.2 [facility] Comment on above: Performed By: #### C BC #### [facility] [address] [place] [address] Dr. Jaylan Jones MCV (RBC) [Entitic vol] 86.0 fL Normal 81.0-99.0 [facility] Comment on above: Performed By: #### C BC #### [facility] [address] [place] [address] Dr. Jaylan Jones MONO # 0.5 103/ul Normal 0.3-0.8 [facility] Comment on above: Performed By: #### C BC #### [facility] [address] [place] [address] Dr. Jaylan Jones Monocytes/100 WBC (Bld) 6.6 % Normal 1.7-12.0 [facility] Comment on above: Performed By: #### C BC #### [facility] [address] [place] [address] Dr. Jaylan Jones NEUT # 4.8 103/ul Normal 1.4-6.5 [facility] Comment on above: Performed By: #### C BC #### [facility] [address] [place] [address] Dr. Jaylan Jones Neutrophils/100 WBC (Bld) 63.8 % Normal 43.0-75.0 [facility] Comment on above: Performed By: #### C BC #### [facility] [address] [place] [address] Dr. Jaylan Jones Platelet mean volume (Bld) [Entitic vol] 10.1 fL Normal 9.5-13.5 [facility] Comment on above: Performed By: #### C BC #### [facility] [address] [place] [address] Dr. Jaylan Jones PLT 290 103/ul Normal 150-450 [facility] Comment on above: Performed By: #### C BC #### [facility] [address] [place] [address] Dr. Jaylan Jones RBC 4.73 106/ul Normal 4.20-5.40 [facility] Comment on above: Performed By: #### C BC #### [facility] [address] [place] [address] Dr. Jaylan Jones WBC 7.5 103/ul Normal 4.0-11.0 [facility] Comment on above: Performed By: #### C BC #### [facility] [address] [place] [address] Dr. Jaylan Jones FREE T4on 09-14-2021 Free T4 [Mass/Vol] 0.93 ng/dL Normal 0.78-2.19 [facility] Comment on above: Performed By: #### F T4 #### [facility] [address] [place] [address] Dr. Jaylan Jones GLYCOHEMOGLOBIN A1Con 2021 ADA RECOMMENDATION ADA THERAPEUTIC TARGET 6.0 - 7.0 ACTION SUGGESTED > 7.0 Normal [facility] Comment on above: Performed By: #### A 1C #### [facility] [address] [address] [address] Jaylan Jones Glucose [Mass/Vol] 105 mg/dL Normal [facility] Comment on above: Performed By: #### A 1C #### [facility] [address] [address] [address] Jaylan Jones HbA1c (Bld) [Mass fraction] 5.3 % Normal <=6.0 [facility] Comment on above: Performed By: #### A 1C #### [facility] [address] [address] [address] Jaylan Jones LIPID PROFILEon 09-14-2021 CHOL-HDL RATIO NORM SEE BELOW Normal [facility] Comment on above: Result Comment: 3.3 - 4.4 LOW RISK 4.4 - 7.1 AVERAGE RISK 7.1 - 11.0 MODERATE RISK >11.0 HIGH RISK Performed By: #### T SH, LIPID, CMP #### [facility] [address] [address] [address] Jaylan Jones Cholesterol [Mass/Vol] 122 mg/dL Normal <=200 [facility] Comment on above: Performed By: #### T SH, LIPID, CMP #### [facility] [address] [address] [address] Jaylan Jones Cholesterol in HDL [Mass/Vol] 55 mg/dL Normal 40-60 [facility] Comment on above: Performed By: #### T SH, LIPID, CMP #### [facility] [address] [address] [address] Jaylan Jones Cholesterol in LDL [Mass/Vol] 55.2 mg/dL Normal [facility] Comment on above: Performed By: #### T SH, LIPID, CMP #### [facility] [address] [place] [address] Dr. Jaylan Jones Cholesterol.total /Cholesterol in HDL [Mass ratio] 2.2 {ratio} Normal [facility] Comment on above: Performed By: #### T SH, LIPID, CMP #### [facility] [address] [address] [address] Jaylan Jones HDL NORMAL > or = 60 mg/dl - LO W CARDIOVASCULAR RISK <40 mg/dl - HIGH CARDIOVASCULAR RISK Normal [facility] Comment on above: Performed By: #### T SH, LIPID, CMP #### [facility] [address] [address] [address] Jaylan Jones LDL CALC NORMAL SEE BELOW Normal [facility] Comment on above: Result Comment: <100 mg/dl OPTIMAL 100 - 129 mg/dl NEAR OR ABOVE OPTIMAL 130 - 159 mg/dl BORDERLINE HIGH 160 - 189 mg/dl HIGH >190 mg/dl VERY HIGH Performed By: #### T PRISCILA, LIPID, CMP #### [facility] [address] [address] [address] Jaylan Jones Triglyceride [Mass/Vol] 59 mg/dL Normal <=150 [facility] Comment on above: Performed By: #### T PRISCILA, LIPID, CMP #### [facility] [address] [address] [address] Jaylan Jones VLDL CALC 11.8 mg/dL Normal [facility] Comment on above: Performed By: #### T PRISCILA, LIPID, CMP #### [facility] [address] [address] [address] Jaylan Jones PROF 14(COMP METB)on 022 Albumin [Mass/Vol] 3.9 g/dL Normal 3.4-5.0 [facility] Comment on above: Performed By: #### T SH, LIPID, CMP #### [facility] [address] [address] [address] Jaylan Jones Albumin/Globulin [Mass ratio] 1.1 {ratio} Normal [facility] Comment on above: Performed By: #### T SH, LIPID, CMP #### [facility] [address] [address] [address] Jaylan Jones ALP [Catalytic activity/Vol] 64 U/L Normal 46-116 [facility] Comment on above: Performed By: #### T SH, LIPID, CMP #### [facility] [address] [address] [address] Jaylan Jones ALT [Catalytic activity/Vol] 26 U/L Normal 14-59 [facility] Comment on above: Performed By: #### T SH, LIPID, CMP #### [facility] [address] [address] [address] Jaylan Jones Anion gap [Moles/Vol] 13.2 mmol/L Normal [facility] Comment on above: Performed By: #### T SH, LIPID, CMP #### [facility] [address] [address] [address] Jaylan Jones AST [Catalytic activity/Vol] 16 U/L Normal 15-37 [facility] Comment on above: Performed By: #### T SH, LIPID, CMP #### [facility] [address] [place] [address] Dr. Jaylan Jones Bilirubin [Mass/Vol] 0.5 mg/dL Normal 0.2-1.3 [facility] Comment on above: Performed By: #### T SH, LIPID, CMP #### [facility] [address] [place] [address] Dr. Jaylan Jones Calcium [Mass/Vol] 8.9 mg/dL Normal 8.5-10.1 [facility] Comment on above: Performed By: #### T SH, LIPID, CMP #### [facility] [address] [place] [address] Dr. Jaylan Jones Chloride [Moles/Vol] 102 mmol/L Normal 98-107 [facility] Comment on above: Performed By: #### T SH, LIPID, CMP #### [facility] [address] [place] [address] Dr. Jaylan Jones CO2 [Moles/Vol] 25.1 mmol/L Normal 22.0-30.0 [facility] Comment on above: Performed By: #### T SH, LIPID, CMP #### [facility] [address] [place] [address] Dr. Jaylan Jones Creatinine [Mass/Vol] 0.71 mg/dL Normal 0.55-1.02 [facility] Comment on above: Performed By: #### T SH, LIPID, CMP #### [facility] [address] [address] [address] Jaylan Jones EGFR-AF MOZAMBICAN >60 Normal >=60 [facility] Comment on above: Performed By: #### T SH, LIPID, CMP #### [facility] [address] [address] [address] Jaylan Jones EGFR-NON AF MOZAMBICAN >60 Normal >=60 [facility] Comment on above: Performed By: #### T SH, LIPID, CMP #### [facility] [address] [address] [address] Jaylan Jones Globulin (S) [Mass/Vol] 3.5 g/dL Normal [facility] Comment on above: Performed By: #### T SH, LIPID, CMP #### [facility] [address] [address] [address] Jaylan Jones Glucose [Mass/Vol] 85 mg/dL Normal 74-106 [facility] Comment on above: Performed By: #### T SH, LIPID, CMP #### [facility] [address] [address] [address] Jaylan oJnes Potassium [Moles/Vol] 4.3 mmol/L Normal 3.4-5.0 [facility] Comment on above: Performed By: #### T SH, LIPID, CMP #### [facility] [address] [address] [address] Jaylan Jones Protein [Mass/Vol] 7.4 g/dL Normal 6.1-8.2 [facility] Comment on above: Performed By: #### T SH, LIPID, CMP #### [facility] [address] [address] [address] Jaylan Jones Sodium [Moles/Vol] 136 mmol/L Critically low 137-145 [facility] Comment on above: Performed By: #### T SH, LIPID, CMP #### [facility] [address] [address] [address] Jaylan Jones Urea nitrogen [Mass/Vol] 14.0 mg/dL Normal 7.0-18.0 [facility] Comment on above: Performed By: #### T SH, LIPID, CMP #### [facility] [address] [place] [address] Dr. Jaylan Jones Urea nitrogen/Creatini ne [Mass ratio] 19.7 mg/mg Normal [facility] Comment on above: Performed By: #### T SH, LIPID, CMP #### [facility] [address] [place] [address] Dr. Jaylan Jones SED RATE HAZELTONERGRENon 2021 SED RATE 15 mm/hr Normal <=20 [facility] Comment on above: Performed By: #### S EDR #### [facility] [address] [place] [address] Dr. Jaylan Jones TSHon 09-14-2021 TSH 0.846 uIU/mL Normal 0.470-4.680 [facility] Comment on above: Performed By: #### T SH, LIPID, CMP #### [facility] [address] [place] [address] Dr. Jaylan Jones TSH RANGE SEE BELOW Normal [facility] Comment on above: Result Comment: <0.3 4 UIU/ml HYPERTHYROID 0.34-5.60 UIU/ml EUTHYROID >5.60 UIU/ml HYPOTHYROID Performed By: #### T SH, LIPID, CMP #### [facility] [address] [place] [address] UROGRAM WO/W IVCONon 12-25 CT UROGRAM WO/W IVCON * * *Final Report* * *DATE OF EXAM: Jan 16 2018 2:44PM [facility] 0560 - CT UROGRAM WO/W IVCON / REASON: Gross hematuria * * * * Physician Interpretation * * * * EXAMINATION: CT ABDOMEN AND PELVIS WITHOUT AND WITH IV CONTRAST, INCLUDING EXCRETORY PHASE IMAGING (CT UROGRAM)CLINICAL HISTORY: Gross hematuria.TECHNIQUE: CT urogram protocol including unenhanced, renal parenchymal phase and excretory phase renal imaging was obtained following IV contrast. Two-hundred ml of normal saline was also administered. No oral contrast was given.MQ: CTU_2Contrast:IV: 150 ml of Omnipaque 300Oral Contrast: NoneCT Radiation dose: Integrated dose-length product (DLP) for this visit = 2150 mGy*cm.CT Dose Reduction Employed: Automated exposure control(AEC) and iterative reconCOMPARISON: None.RESULT:Kidneys and urinary tract:Right: There are no renal calculi or masses. The opacified calices, renal pelvis and ureter are normal without dilation, filling defect, or stricture.Left: There are no renal calculi or masses. The opacified calices, renal pelvis and ureter are normal without dilation, filling defect, or stricture.Bladder: No filling defect, calculus, focal or diffuse wall thickening.Abdomen and Pelvis:Liver: No mass.Biliary: No bile duct dilation.Spleen: No mass. No splenomegaly.Pancreas: No mass or duct dilation.Adrenals: No mass.GI tract: No dilation or wall thickening.Lymph nodes: No abdominal or pelvic lymphadenopathy.Mesentery/Pe ritoneum: No ascites or mass.Retroperitoneum: No mass.Vasculature: The celiac axis and SMA are patent. The portal vein and branches, splenic vein, SMV, and hepatic veins are patent.Pelvis: No mass, ascites or fluid collection.Bones/Soft Tissues: Fat-containing supraumbilical hernia. Bone islands noted in the right ilium. No suspicious lytic or blastic osseous lesions.Lung Bases: No focal consolidation.IMPRESSION:1. No evidence of renal stones, renal mass, hydronephrosis or hydroureter.2. Fat-containing supraumbilical hernia. Transcripti onist: REED Transcribe Date/Time: Jan 19 2018 2:30PDictated by : VAHID LOGAN MDThis examination was interpreted and the report reviewed and electronically signed by: VAHID LOGAN MD on Jan 19 2018 4:03PM [id number] [facility] PRO[facility] 01-16-2018 Protein mass conc HNO ID: [id number] thor: Hoang (Ct) SHARAD Ruvalcabaervice: (none)Author Type: Clinical TechnicianType: Progress NotesFiled: 01/16/2018 2:46 PMNote Text: Radiology Service Progress NotePATIENT NAME: Amanuel WrightMRN: [id number] OF SERVICE: January 16, 2018TIME: 2:45 PMPATIENT IDENTITY VERIFICATION COMPLETED USING TWO (2) METHODS: Patientconfirmed name verbally and Date of .PATIENT GENDER DATA: Female. status: : NoBreastfeeding status: NO.PATIENT RELEVANT IMPLANT DATA REVIEWED: Not ApplicableCONTRAST INDUCED NEPHROPATHY RISK FACTORS: Not applicableCREATININE: No results found for: CREAT, EGFROTH, EGFRAAP.O.C.T. RESULTS: N/A January 16, 2018RADIOLOGIST NOTIFIED?: NoALLERGIES: Reviewed and unchangedCONTRAST ALLERGY: NO.PERIPHERAL IV ACCESS: Ambulatory: IV type: A peripheral IV was startedin the Right antecubital site with a Angio cath: 22 gauge., Siteassessment: Clean,Dry and Intact, Site disposition DiscontinuedRADIOLOGY DEPARTMENT: CT; Exam(s) Completed: urogram wo/wSIGNED BY: Radha ZAVALETA 2017 2:45 PM Normal [facility] CNOVon 01-13-2018 CNOV Office Visit (UROLAV) ----[facility]AN[facility] WRIGHT ([id number]) 1985 [facility] Department01/13/18 10:20 AM IZABEL EARL) UROLAV During your visit today, we recorded the following information about you: Temperature Pulse Blood pressure Weight 99 degrees 76/minute 131/87 86.2 [facility] 01/13/[facility] 10:23 AM SignedPressure in abdomen. Pt states she can't hold her urine. Has been seeing bloodon and off in urine for about a year.Bilateral flank pain.Izabel Earl PA-C 01/13/2018 12:28 PM Signed [facility] UROLOGICAL INSTITUTEHEMATURIA EVALUATIONAugust 2017 ========CHIEF COMPLAINT: pelvic pressure, flank pain, urinary urgency, gross hematuriaHPI:The patient is 32 year old and is referred for evaluation of gross hematuria,urinary urgency, flank pain, and pelvic pressure.She has had gross hematuria 1-2x per week since September.Was told by multiple doctors that I have blood in my urine. Uncertain if it's blood in urine or vaginal bleeding, but has had hysterectomyand horse riding coach or instructor has told her it's not from that area. She has not tried tampon test.Urine changes from dark and cloudy some days to clear on other days.Denies blood in stool.Hysterectomy September 2015 - for Essure and a lot of issues with the Essure.Adenomyosis history. Heavy bleeding and pain.The pelvic pain started prior to September 2015 - physician said it was due to theEssure device.When her bladder gets full, she has a lot of pressure in her bladder. Then whenher bladder empties - feels a deflating sensation.Pressure in the pelvic area never goes away, but it will lessen.She presented to the ED yesterday for the pelvic pressure but didn't want towait the 3 hours to be seen. She called today to get a sooner appointment.She lives in the [facility] and some results are in Care Everywhere.DTF: 10+NTF: 4-5x per nightUrgency: yesUUI: NOSUI: [id number] - vaginal birthPreeclampsiaBowel movements vary - change all the timeDiarrhea - constipation. I will go days without eatings. No appetite, sometimes in too much pain toeat.(Determine 4 of 8)1-Duration: 94533-Bhvgnwfy: bladder3-Severity: worse4-Quality: Irritative5-Context: Void6-Timing: constantly7-Modifying factors: No treatment prior to referral8-Associated signs AND symptoms: irritative, obstructive and hematuriaPRESENTING HISTORY:Obstructive voiding symptoms: straining to void, feeling of incomplete emptying.Irritative voiding symptoms: frequency, urgency, nocturia and dysuriaFlank Pain: Yes, bilaterallyUrinary retention: noUrinary incontinence: noUrinary tract infection: noRenal calculi: noUrine results from Care Everywhere06/09/17: dipstick - moderate blood06/24/17: dipstick trace blood, moderate bili, ketones, protein DATA REVIEW: RECENT IMAGING:Through CareEverywhereCT abd and pelvis without IV contrast 06/24/16:IMPRESSION:1. No acute abnormalities in the abdomen or pelvis. Specifically, no urinarytract stones or collecting system dilatation.2. There is a small appendicolith in the appendix, however the appendix is notdilated and there is no periappendiceal inflammation.3. Status post hysterectomy.Ultrasound pelvic with transvaginal 09/27/16:IMPRESSION:1.??Status post hysterectomy.2.??Normal ovaries.RECENT URINALYSIS:None in our systemRECENT URINE CULTURE:None in our systemRECENT URINE CYTOLOGY:NoneRECENT CYSTOSCOPY:None PAST MEDICAL HISTORY/COMORBIDITIES:====== Hypothyroidism, thyroid goiterDepressionHysterectomy in 2012[facility].IBUPROFEN (MOTRIN ORAL) Take by mouth as needed. 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 Status: Children: 3Smoker: Active smoker, not every day, but the most she ever did was half packper dayAlcohol Use: NoneCarcinogen Exposure/Second-hand: None=====ROS=====GENERAL: Positive for unintentional weight loss and recent chillsSKIN: Negative for lesions, rash, and itching.RESPIRATORY: Positive for chronic coughingCARDIOVASCULAR: Negative for chest pain or MIGI: Positive for diarrhea, constipationGENITOURINARY: SEE HPIENDOCRINE:Positive for thyroid issuesNEURO: Negative for numbness, tingling, tremorsMUSCULOSKELETAL: Positive for joint pain, back painBLOOD/LYMPHATIC: Easily bruisesPSYCH: anxiety, depression ==PHYSICAL EXAMINATION ===BP 131/87 Pulse 76 Temp 37.2 ?C (99 ?F) (Oral) Wt 86.2 kg (190 lb) BMI 31.66 kg/m?General appearance: Well appearing, alert, in no acute distress andwell-hydrated, well nourishedSkin: Skin color, texture, turgor normal, no suspicious rashes or lesionsHead: Normocephalic, no masses, lesions, tenderness or abnormalitiesNeck: Supple, no adenopathyRespiratory: Normal, no labored breathingCardiovascular: No extremity swelling varices, edema, pallor, or erythemaAbdomen: mild RLQ tenderness to palpation.Extremities: Extremities normal. No deformities, edema, or skin discoloration.Genitourinary: FEMALE EXAM: External genitalia: nl. Hair distribution, nolesionsUrethra without mass, tenderness, scarring.Bladder non-palpable without masses/tenderness.Vaginal appearance normal without discharge. Estrogen normal limitStress Incontinence: noTenderness to palpation of pelvic floor muscles.Urine: trace bloodPVR: 0 ccAssessment AND Plan:ASSESSMENT/PLAN:1. Gross hematuria - ICD9: 599.71, ICD10: R31.0 (primary diagnosis)- I have discussed hematuria with patient and discussed the AUA guidelinesregarding work up with upper tract imaging and cystoscopy if 3 or greater rbcon one properly collected urine specimens or gross hematuria.- Well informed decision on this and plan will proceed accordingly.- Risks of smoking well known and described regarding not only urinary tractdisease but overall health and non-smoking status absolutely indicated.- Patient understands that meticulous followup is mandatory based on the riskof serious conditions being present or developing in certain circumstances.- The procedure, office cystoscopy, and risks including but not limited tobleeding and infection, were reviewed and all questions were answered. Patientwishes to proceed and has been informed that the procedure will be performed bythe staff urologist.- CT urogram described in detail including possible adverse reaction to IVcontrast dye. Patient is agreeable to proceed.- CT UROGRAM WO/W IVCON- IV CONTRAST (RADIOLOGY PROCEDURE)- CYSTO.PANENDO- MYCOPLASMA CULT2. Urinary urgency - ICD9: 788.63, ICD10: R39.15- Patient with intermittent urinary urgency. Varies by the day- Briefly discussed OAB medications.- MYCOPLASMA CULT - rule out infection- CONSULT TO PHYSICAL THERAPY - to help improve urgency3. Pelvic pain - ICD9: [id number], ICD10: R10.2- Patient with multiple year history of pelvic pain which started prior to herhysterectomy in 2016.- Tight pelvic floor muscles on examination; discussed PFPT to help alleviatesome discomfort and loosen up multiples.- CONSULT TO PHYSICAL THERAPY- RTC after 3-4 PFPT sessions.4. Pelvic floor dysfunction - ICD9: 618.83, ICD10: M62.89- See above.- CONSULT TO PHYSICAL THERAPY5. Screening for genitourinary condition - ICD9: V81.6, ICD10: Z13.89- UA DIP, URINE (POC)- URINALYSIS WITH MICROSCOPIC- CYTOLOGY, URINE (XTUBE)- URINE CYTOLOGY VOIDEDElizaOSWALDO Cheng-CReferring Provider: SELF [200]Allergies As of Date: 01/13/2018 Noted Allergy ReactionNALBUPHINE 06/09/2017 11 - VomitingDate Reviewed: 01/13/2018Reviewed by: Kelly Cross Ma - Fully AssessedReason for Visit: Initial Consult [665] Cmt: Gross hematuriaPrimary Visit Diagnosis:Gross hematuria [R31.0] Other Visit Diagnoses:Urinary urgency [R39.15] Pelvic pain [R10.2] Pelvic floor dysfunction [M62.89] Screening for genitourinary condition [Z13.89]Order(s):UA DIP, URINE (POC) [4574482] Order #: [id number]. #:[id number] URINALYSIS WITH MICROSCOPIC [SQUAWMIC] Order #: [id number] CYTOLOGY, URINE (XTUBE) [SQUCYTOL] Order #: [id number] FUTURE URINE CYTOLOGY VOIDED [4126087] Order #: [id number] CT UROGRAM WO/W IVCON [9263059] Order #: [id number] FUTURE iv contrast (will be provided with radiology test)CT Urogram WO/W Inject, intravenously, once for 1 dose.No IV access, insert saline lock prior to the beginning of sedation, infusion, injection of imaging exam. Discontinue saline lock post exam. If Pt. has a central line or IVAD, may access for administration according to line specific nursing protocol. Once exam is complete flush line and de-access according to line specific nursing protocol in the CT contrast administration guidelines link.Disp: 1 EachRfl: 0 CYSTO.PANENDO [59244NUO] Order #: [id number] MYCOPLASMA CULT [SQMYPLAS] Order #: [id number] CONSULT TO PHYSICAL THERAPY [9032] Order #: [id number]: 1Prescriptions as of 01/13/2018 Sig: MOTRIN ORAL Take by mouth as needed. IV CONTRAST (RADIOLOGY PROCED* CT Urogram WO/W Inject, intra*Problem List As Of Date: 01/13/2018(None)Visit Notes:>> Kelly Cross Nalini citlalli Jan 13, 2018 10:13 AM Status: SignedPressure in abdomen. Pt states she can't hold her urine. Has been seeingblood on and off in urine for about a year.Bilateral flank pain.Prescriptions ordered this encounter Disp Refills Start End IV CONTRAST (RADIOLOGY PROCEDURE) 1 Ea* 0 01/13/2018 01/14/2018 Class: In Office Sig: CT Urogram WO/W Inject, intravenously, once for 1 dose.No IV access, insert saline lock prior to the beginning of sedation, infusion, injection of imaging exam. Discontinue saline lock post exam. If Pt. has a central line or IVAD, may access for administration according to line specific nursing protocol. Once exam is complete flush line and de-access according to line specific nursing protocol in the CT contrast administration guidelines link.Disposition: Return in about 3 months (around 04/15/2018) for f/u PF, gross hematuria.Follow-up and Disposition History RecordedEncounter Number: [id number] Status:Closed by IZABEL EARL PA-C on 01/13/18 Normal [facility] CYTOLOGYon 01-13-2018 Body mass index (BMI) [Ratio] [facility] #: [id number] Physician: IZABEL EARLSPECIMEN SUBMITTEDA: URINE, VOIDED FINAL DIAGNOSISA. URINE, VOIDED: - Negative for malignant cells.Tate Joseph MD (Electronic Signature) CLINICAL DATA Gross hematuriaGROSS [id number] clear slight yellow tinged fluidSTAINSA: URINE, VOIDED THIN PREP Non-GynPatient ID #: [id number] of Report: 01/15/2018Date of Procedure: 01/13/2018Date of Receipt: 01/13/2018Submitted by: IZABEL EARLLocation: JOSUE [id number] interpretation performed at [facility], [address] [place] [id number]. Normal [facility] Mycoplasma Culton 01-13-2018 Mycoplasma Cult Sp. Request/Comment: - Specimen received in [place] [facility]. Test Result - Culture negative for Mycoplasma hominis and Ureaplasma urealyticum Normal [facility] Comment on above: Performed By: #### [facility] ####[facility] [address] [place], [place] [phone] PROGRESSon 01-13-2018 Protein mass conc HNO ID: [id number] thor: Izabel Hamilton (Pa): (none)Author Type: Physician AssistantType: Progress NotesFiled: 01/13/2018 12:28 PMNote Text: [facility] UROLOGICAL INSTITUTEHEMATURIA EVALUATIONAugust 2017 ========CHIEF COMPLAINT: pelvic pressure, flank pain, urinary urgency, grosshematuriaHPI:The patient is 32 year old and is referred for evaluation of grosshematuria, urinary urgency, flank pain, and pelvic pressure.She has had gross hematuria 1-2x per week since September.Was told by multiple doctors that I have blood in my urine. Uncertain if it's blood in urine or vaginal bleeding, but has hadhysterectomy and horse riding coach or instructor has told her it's not from that area. She has nottried tampon test.Urine changes from dark and cloudy some days to clear on other days.Denies blood in stool.Hysterectomy September 2015 - for Essure and a lot of issues with the Essure.Adenomyosis history. Heavy bleeding and pain.The pelvic pain started prior to September 2015 - physician said it was due tothe Essure device.When her bladder gets full, she has a lot of pressure in her bladder. Thenwhen her bladder empties - feels a deflating sensation.Pressure in the pelvic area never goes away, but it will lessen.She presented to the ED yesterday for the pelvic pressure but didn't wantto wait the 3 hours to be seen. She called today to get a soonerappointment.She lives in the [facility] and some results are in Care Everywhere.DTF: 10+NTF: 4-5x per nightUrgency: yesUUI: NOSUI: [id number] - vaginal birthPreeclampsiaBowel movements vary - change all the timeDiarrhea - constipation. I will go days without eatings. No appetite, sometimes in too much painto eat.(Determine 4 of 8)1-Duration: 13744-Byswrmqd: bladder3-Severity: worse4-Quality: Irritative5-Context: Void6-Timing: constantly7-Modifying factors: No treatment prior to referral8-Associated signs AND symptoms: irritative, obstructive and hematuriaPRESENTING HISTORY:Obstructive voiding symptoms: straining to void, feeling of incompleteemptying.Irritativ e voiding symptoms: frequency, urgency, nocturia and dysuriaFlank Pain: Yes, bilaterallyUrinary retention: noUrinary incontinence: noUrinary tract infection: noRenal calculi: noUrine results from Care Everywhere06/09/17: dipstick - moderate blood06/24/17: dipstick trace blood, moderate bili, ketones, protein DATA REVIEW: RECENT IMAGING:Through CareEverywhereCT abd and pelvis without IV contrast 06/24/16:IMPRESSION:1. No acute abnormalities in the abdomen or pelvis. Specifically, nourinarytract stones or collecting system dilatation.2. There is a small appendicolith in the appendix, however the appendix isnotdilated and there is no periappendiceal inflammation.3. Status post hysterectomy.Ultrasound pelvic with transvaginal 09/27/16:IMPRESSION:1.??Status post hysterectomy.2.??Normal ovaries.RECENT URINALYSIS:None in our systemRECENT URINE CULTURE:None in our systemRECENT URINE CYTOLOGY:NoneRECENT CYSTOSCOPY:None PAST MEDICAL HISTORY/COMORBIDITIES:====== Hypothyroidism, thyroid goiterDepressionHysterectomy in 2012[facility] surgeries for patellar dislocation.IBUPROFEN (MOTRIN ORAL) Take by mouth as needed. 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 Status: Children: 3Smoker: Active smoker, not every day, but the most she ever did was halfpack per dayAlcohol Use: NoneCarcinogen Exposure/Second-hand: None=====ROS=====GENERAL: Positive for unintentional weight loss and recent chillsSKIN: Negative for lesions, rash, and itching.RESPIRATORY: Positive for chronic coughingCARDIOVASCULAR: Negative for chest pain or MIGI: Positive for diarrhea, constipationGENITOURINARY: SEE HPIENDOCRINE:Positive for thyroid issuesNEURO: Negative for numbness, tingling, tremorsMUSCULOSKELETAL: Positive for joint pain, back painBLOOD/LYMPHATIC: Easily bruisesPSYCH: anxiety, depression ==PHYSICAL EXAMINATION ===BP 131/87 Pulse 76 Temp 37.2 ?C (99 ?F) (Oral) Wt 86.2 kg (190lb) BMI 31.66 kg/m?General appearance: Well appearing, alert, in no acute distress andwell-hydrated, well nourishedSkin: Skin color, texture, turgor normal, no suspicious rashes or lesionsHead: Normocephalic, no masses, lesions, tenderness or abnormalitiesNeck: Supple, no adenopathyRespiratory: Normal, no labored breathingCardiovascular: No extremity swelling varices, edema, pallor, or erythemaAbdomen: mild RLQ tenderness to palpation.Extremities: Extremities normal. No deformities, edema, or skindiscoloration.Genitourin franci: FEMALE EXAM: External genitalia: nl. Hair distribution, nolesionsUrethra without mass, tenderness, scarring.Bladder non-palpable without masses/tenderness.Vaginal appearance normal without discharge. Estrogen normal limitStress Incontinence: noTenderness to palpation of pelvic floor muscles.Urine: trace bloodPVR: 0 ccAssessment AND Plan:ASSESSMENT/PLAN:1. Gross hematuria - ICD9: 599.71, ICD10: R31.0 (primary diagnosis)- I have discussed hematuria with patient and discussed the AUA guidelinesregarding work up with upper tract imaging and cystoscopy if 3 or greaterrbc on one properly collected urine specimens or gross hematuria.- Well informed decision on this and plan will proceed accordingly.- Risks of smoking well known and described regarding not only urinarytract disease but overall health and non-smoking status absolutelyindicated.- Patient understands that meticulous followup is mandatory based on therisk of serious conditions being present or developing in certaincircumstances.- The procedure, office cystoscopy, and risks including but not limited tobleeding and infection, were reviewed and all questions were answered.Patient wishes to proceed and has been informed that the procedure will beperformed by the staff urologist.- CT urogram described in detail including possible adverse reaction to IVcontrast dye. Patient is agreeable to proceed.- CT UROGRAM WO/W IVCON- IV CONTRAST (RADIOLOGY PROCEDURE)- CYSTO.PANENDO- MYCOPLASMA CULT2. Urinary urgency - ICD9: 788.63, ICD10: R39.15- Patient with intermittent urinary urgency. Varies by the day- Briefly discussed OAB medications.- MYCOPLASMA CULT - rule out infection- CONSULT TO PHYSICAL THERAPY - to help improve urgency3. Pelvic pain - ICD9: QMU1336, ICD10: R10.2- Patient with multiple year history of pelvic pain which started prior toher hysterectomy in 2016.- Tight pelvic floor muscles on examination; discussed PFPT to helpalleviate some discomfort and loosen up multiples.- CONSULT TO PHYSICAL THERAPY- RTC after 3-4 PFPT sessions.4. Pelvic floor dysfunction - ICD9: 618.83, ICD10: M62.89- See above.- CONSULT TO PHYSICAL THERAPY5. Screening for genitourinary condition - ICD9: V81.6, ICD10: Z13.89- UA DIP, URINE (POC)- URINALYSIS WITH MICROSCOPIC- CYTOLOGY, URINE (XTUBE)- URINE CYTOLOGY Willy Earl PA-C Normal [facility] Urinalysis with Microscopico n 01-13-2018 Bilirubin, Urine Negative Normal Negative [facility] Comment on above: Performed By: #### U AWMIC ####[facility] [address] [place] [phone] Clarity Clear Normal Clear [facility] Comment on above: Performed By: #### U AWMIC ####[facility] [address] [place] [phone] Color Yellow Normal Yellow [facility] Comment on above: Performed By: #### U AWMIC ####[facility] [address] [place] [phone] Comments SEE COMMENT Normal [facility] Comment on above: Result Comment: N/A Performed By: #### U AWMIC ####[facility] [address] [place] [phone] Glucose Ql (U) Negative Normal Negative [facility] Comment on above: Performed By: #### U AWMIC ####[facility] [phone] Hemoglobin/Blood, Ur 1+ Critically abnormal Negative [facility] Comment on above: Performed By: #### U AWMIC ####[place] [id number] [place] [phone] INR Coag RelTime (Bld) 0-3 Normal 0-3 [facility] Comment on above: Performed By: #### U AWMIC ####[place] [id number] [place] [phone] Ketones Ql (U) Negative Normal Negative [facility] Comment on above: Performed By: #### U AWMIC ####[place] [address] [phone] Leukest Negative Normal Negative [facility] Comment on above: Performed By: #### U AWMIC ####[place] [address] [phone] Nitrites Negative Normal Negative [facility] Comment on above: Performed By: #### U AWMIC ####[place] [address] [address] [phone] pH 7.0 Normal 4.5-8.0 [facility] Comment on above: Performed By: #### U AWMIC ####[place] [address] [address] [place] [phone] Protein, Urine Negative Normal Negative [facility] Comment on above: Performed By: #### U AWMIC ####[place] [address], [place] [phone] Specific [place], Ur 1.008 Normal 1.005-1.030 [facility] Comment on above: Performed By: #### U AWMIC ####[place] [address] [address] [place] [phone] Urine Lazaro Comment SEE COMMENT Normal [facility] Comment on above: Result Comment: N/A Performed By: #### U AWMIC ####[place] [id number], [place] [phone] Urobilinogen Normal Normal Normal [facility] Comment on above: Performed By: #### U AWMIC ####[place] [address] [place], [place] [phone] WBC 0-5 Normal 0-5 [facility] Comment on above: Performed By: #### U AWMIC ####[address] [phone] .UA Microscp Aon 06-09-2017 UA Mucus Present Abnormal Absent [facility] Comment on above: Performed By: #### C [id number] ####[address] [address] UA Squepi Cells Quant 7 /HPF Normal 0-29 [facility] Comment on above: Performed By: #### C [id number] ####[address] [address] UA WBC Quant 0 /HPF Normal 0-5 [facility] Comment on above: Performed By: #### C [id number] ####[address] [address] Urine, erythrocytes 17 /HPF High 0-5 [facility] Comment on above: Performed By: #### C D:[id number] ####[address] [address] .eGFRon 06-09-2017 eGFR (non-black) mL/min/{1.73_m2} Normal >=60 [facility] Comment on above: Result Comment: Resu lt = 0-14.9 mL/min/1.73 m2 Kidney failure or DialysisResult = 15-29 mL/min/1.73 m2 Severe decrease in GFRResult = 30-59 mL/min/1.73 m2 Moderate decrease in GFRResult >= 60 mL/min/1.73 m2 Normal or increased GFRChronic kidney disease is defined as either kidney damage or GFR < 60 mL/min/1.73 m2 for >= 3 months. Kidney damage is defined as pathologic abnormalities or markers of damage including abnormalities in blood or urine tests or imaging studies. This GFR is NOT used for medication dosing. Performed By: #### E GFR ####[place] [address] Result Comment: Resu lt = 0-14.9 mL/min/1.73 m2 Kidney failure or DialysisResult = 15-29 mL/min/1.73 m2 Severe decrease in GFRResult = 30-59 mL/min/1.73 m2 Moderate decrease in GFRResult >= 60 mL/min/1.73 m2 Normal or increased GFR CBC w/ Diffon 06-09-2017 Erythrocyte distribution width Auto Ratio (RBC) 14.0 % Normal 11.6-14.8 [facility] Comment on above: Performed By: #### C BC ####[place] [address] Erythrocytes (RBC) 5.00 x10*6/mcL Normal 3.80-5.20 [facility] Comment on above: Performed By: #### C BC ####[place] [address] Hematocrit (HCT) 42.4 % Normal 36.0-46.[address] [facility] Comment on above: Performed By: #### C BC ####[place] [id number] Hemoglobin mass conc (Bld) 14.6 g/dL Normal 12.0-16.0 [facility] Comment on above: Performed By: #### C BC ####[place] [id number] MCH 29.3 pg Normal 27.0-35.0 [facility] Comment on above: Performed By: #### C BC ####[place] [address] MCHC mass conc (RBC) 34.5 % Normal 31.0-37.0 [facility] Comment on above: Performed By: #### C BC ####[address] [address] MCV 84.9 fL Normal 80.0-100.0 [facility] Comment on above: Performed By: #### C BC ####[address] [address] Platelet mean volume (PMV) 8.1 fL Normal 6.7-10.6 [facility] Comment on above: Performed By: #### C BC ####[address] [address] Platelets 242 x10*3/mcL Normal 150-350 [facility] Comment on above: Performed By: #### C BC ####[address] [address] WBC (Leukocytes) 9.2 x10*3/mcL Normal 4.5-11.0 [facility] Comment on above: Performed By: #### C BC ####[address] [address] CMPon 06-09-2017 Alanine aminotransferase (ALT) 15 U/L Normal 14-54 [facility] Comment on above: Performed By: #### C OMP ####[address] [address] Albumin 4.0 g/dL Normal 3.2-4.9 [facility] Comment on above: Performed By: #### C OMP ####[address] [address] Albumin/Globulin Ratio 1.4 {ratio} Normal 1.1-2.2 [facility] Comment on above: Performed By: #### C OMP ####[address] [address] Alk Phos 40 IU/L Normal 32-91 [facility] Comment on above: Performed By: #### C OMP ####[address] [address] Anion gap 9 mmol/L Normal 7-17 [facility] Comment on above: Performed By: #### C OMP ####[address] [address] Aspartate aminotransferase (AST) 22 U/L Normal 15-41 [facility] Comment on above: Performed By: #### C OMP ####[address] [address] Bili Total 0.5 mg/dL Normal 0.3-1.2 [facility] Comment on above: Performed By: #### C OMP ####[address] [address] BUN/Creatinine Ratio 25.8 mg/mg High 15.0-25.0 [facility] Comment on above: Performed By: #### C OMP ####[address] [address] Calcium 9.0 mg/dL Normal 8.5-10.3 [facility] Comment on above: Performed By: #### C OMP ####[address] [address] Chloride 108 mmol/L Normal 98-110 [facility] Comment on above: Performed By: #### C OMP ####[address] [address] CO2 24 mmol/L Normal 22-32 [facility] Comment on above: Performed By: #### C OMP ####[address] [address] Creatinine 0.66 mg/dL Normal 0.44-1.03 [facility] Comment on above: Performed By: #### C OMP ####[address] [address] Glucose mass conc 95 mg/dL Normal 74-118 [facility] Comment on above: Performed By: #### C OMP ####[address] [address] Potassium molar conc 3.7 mmol/L Normal 3.4-4.8 [facility] Comment on above: Performed By: #### C OMP ####[place] [address] [place] [address] Protein 6.8 g/dL Normal 6.5-8.1 [facility] Comment on above: Performed By: #### C OMP ####[address] [address] [place] [address] Sodium 137 mmol/L Normal 133-142 [facility] Comment on above: Performed By: #### C OMP ####[address] [address] Urea nitrogen 17 mg/dL Normal 8-26 [facility] Comment on above: Performed By: #### C OMP ####[address] [address] [address] Abdomen Pelvis w/ IV Cont kalyn 06-09-2017 CT Abdomen Pelvis w/ IV Contrast HISTORY: Patient is a 31-year-old female with abdominal pain, nausea, vomiting, and diarrhea.TECHNIQUE: CT of the abdomen and pelvis with axial, coronal, and sagittal imaging.CONTRAST ADMINISTERED: 100 mL of Omnipaque 300.COMPARISON: None.FINDINGS: The lung bases are without consolidation or effusion. The visualized cardiac structures are unremarkable without pericardial effusion.The liver and spleen are normal size and overall attenuation. The gallbladder is mildly contracted. The pancreas and adrenal glands are unremarkable. Kidneys are without hydronephrosis, renal calculi, or focal renal lesions. The ureters are nondilated and the urinary bladder is unremarkable. The uterus and adnexal structures appear age-appropriate.Stomach is unremarkable. Loops of small bowel are normal in caliber without evidence for obstruction. The colon contains air and fecal residue and is otherwise unremarkable. There is no intraperitoneal free air or free fluid. The psoas muscles are symmetric. The abdominal aorta is normal in caliber. Inferior vena cava is unremarkable. There is no retroperitoneal or mesenteric adenopathy. The extra-abdominal soft tissues are unremarkable. There is no acute osseous abnormality.IMPRESSION:No acute abdominal or pelvic abnormality.Radiation Dose Estimate:CTDI(mGy):0.852493 / / / kVp:120.264176 / mAs:0.561587 / / / DLP(mGy-cm):6.937247Nczc Part: AbdomenCTDI(mGy):12.188416 / / / kVp:100.448480 / mAs:167.853252 / / / DLP(mGy-cm):598.683639Odcj Part: Abdomen Final Dictated by: Herrera House MD DT/TM: 06.09.2017 9:57 amSigned by: Herrera House MDigned (Electronic Signature): 06.09.2017 10:00 am(If Report Is Signed, Electronically Signed in Other Vendor System) Normal [facility] Diff Autoon 06-09-2017 Baso Absolute 0.1 x10*3/mcL Normal 0.0-0.[address] [facility] Comment on above: Performed By: #### . Automated Diff ####[address] [address] Basophils/100 WBC Auto (Bld) 1.0 % Normal 0.0-1.5 [facility] Comment on above: Performed By: #### . Automated Diff ####[address] [address] Eos Absolute 0.5 x10*3/mcL High 0.0-0.4 [facility] Comment on above: Performed By: #### . Automated Diff ####[address] [address] Eosinophils/100 leukocytes 5.4 % Normal 0.0-5.4 [facility] Comment on above: Performed By: #### . Automated Diff ####[address] [address] Lymphocytes 2.8 x10*3/mcL Normal 1.0-4.8 [facility] Comment on above: Performed By: #### . Automated Diff ####[address] [address] Lymphocytes/100 leukocytes 30.4 % Normal 27.2-40.8 [facility] Comment on above: Performed By: #### . Automated Diff ####[address] [address] [place] Absolute 0.7 x10*3/mcL Normal 0.1-1.[address] [facility] Comment on above: Performed By: #### . Automated Diff ####[place] [address] Monocytes/100 leukocytes 8.0 % Normal 3.7-11.9 [facility] Comment on above: Performed By: #### . Automated Diff ####[place] [address] Neutro Absolute 5.1 x10*3/mcL Normal 1.8-7.7 [facility] Comment on above: Performed By: #### . Automated Diff ####[place] [address] Neutro Auto 55.2 % Normal 47.2-70.8 [facility] Comment on above: Performed By: #### . Automated Diff ####[place] [address] ED Clinical Summaryon 2017 [place] [address] ED Clinical SummaryPerson InformationName: Amanuel Wright/Mary Ellen Age: 31 Years : 1985Sex: Female PCP:Marital Status:Single race:White Ethnicity:Not or Language:EnglishMRN: [id number] Reason:Abdominal pain; Abdominal pain Acuity: 3Enc Type: Emergency Med Service: Emergency MedicineArrival:06/08/2017 21:47:00 Discharge: 06/09/2017 00:51:00 LOS: 000 03:04Checkin:06/08/2017 21:47:00 Checkout: 06/09/2017 00:51:00 Dispo Type: Home or Self CareAddress[facility] [address] [facility] [address] Provider Notes: History of Present IllnessPatient is a?31 year old?female presenting to the emergency department by?private vehicle?complaining of abdominal pain. Patient states the symptoms started 2 days ago. Patient describes the the quality of the symptoms as worsening. Patient rates the symptoms as 7/10. Patient symptoms are aggravated by eating. Patient complains of nausea, vomiting x1, heart burn, diarrhea, constipation, 102F fever. Patient states her son was ill last week. Patient?does have a history of similar symptoms secondary to cholelithiasis 2 months ago diagnosed at [facility]. Patient???s past medical history includes cholelithiasis. Patient denies using EtOH tonight but did have one drink yesterday which caused her symptoms to flare. Patient has an appointment with her PCP tomorrow. Review of SystemsGENERAL: [Positive for 102F fever; Negative for weakness, malaise]EYES: [Negative for injury, pain, redness, discharge]ENT: [Negative for injury, pain , sore throat and discharge]NECK: [Negative for injury, pain, swelling, and stiffness]CARDIOVASCULAR: [Negative for chest pain, palpitations]RESPIRATORY: [Negative for shortness of breath, cough, wheezing, and pleuritic chest pain]ABDOMEN/GI: [Positive for pain, nausea, vomiting x1, diarrhea, constipation, heart burn]BACK: [Negative for injury or bruising]: [Negative for injury, bleeding, discharge, frequency, hematuria, urgency]MUSCULOSKELETAL: [Negative for arthralgias, injury and deformity]SKIN: [Negative for injury, rash, discoloration]NEURO: [Negative for focal weakness, numbness, tingling, and seizure] Physical ExamConstitutional: the patient appears in no acute distress, alert, awake, non-toxic ?Head/face:?exam is negative for obvious evidence of injury or deformity ?Eyes:?Pupils: equal, round, and reactive to light. ?Sclera: no appreciated abnormality ?ENT:?Exam is negative for injury or acute deformity ?Neck:?External neck: no acute changes, Trachea: is midline with no obvious abnormalities, ROM/movement: no acute changes, Meningeal signs: are not present. ?Cardiovascular:?Rate: normal, Rhythm: regular, Pulses: no pulse deficits are appreciated, Heart sounds: normal, Edema: is not appreciated, JVD: is not appreciated. ?Respiratory:?Exam negative for respiratory distress, Respirations: normal, Breath sounds: are normal, no acute changes, throughout. ?Abdomen / GI Exam:?epigastric and RUQ tenderness, voluntary guarding, no peritoneal signs, negative for pulsatile mass, rebound tenderness, Inspection: abdomen appears normal, Bowel sounds: normal, active, Palpitation: abdomen is soft, Indicators: Collier???s sign is negative, McBurney???s point is not-tender. ?Back:?Exam negative for acute changes, CVA tenderness. ?Musculoskeletal/extremity:? Extremities: all appear grossly normal, with no appreciated pain with palpation, Perfusion: the patient is warm, the extremity is warm. ?Sensation intact. DVT exam: no swelling no tenderness,Calves: are non-tender. ?Skin:?Exam negative for cyanosis, any evidence of obvious injury, Appearance: appears normal. ?Neuro:??Orientation: is normal, appropriate for stated age, no acute changes, Mentation: able to follow commands, cerebellar function: is grossly normal, no acute changes, Motor: strength is normal, strength is 5/5 in all extremities, Sensation: no obvious gross deficits. ?Psych:?Exam negative for acute changes, delusions, inappropriate behavior.Diagnosis:1:Abdomin al pain; 2:Constipation; 3:Gallbladder contractionProblems No Problems DocumentedSmoking Status: Smoking Status Current every day smokerFunctional Status:Sensory Deficits:History of Falls:Mobility Assistance Prior to Admission:ADLs:Current Level of Assistance for Self-Care/Mobility:Cognitive Status:Allergies Nubain (Vomiting)Laboratory or Other Results This Visit (last charted value for your 06/08/2017 visit) Hematology 06/08/2017 10:17 PM WBC: 9.2 x10 RBC: 5.00 x10 Neutro Auto: 55.2 % -- Normal range between ( 47.2 and 70.8 ) Lymph Auto: 30.4 % -- Normal range between ( 27.2 and 40.8 ) [place] Auto: 8.0 % -- Normal range between ( 3.7 and 11.9 ) Eos Auto: 5.4 % -- Normal range between ( 0.0 and 5.4 ) Basophil Auto: 1.0 % -- Normal range between ( 0.0 and 1.5 ) Baso Absolute: 0.1 x10 MCV: 84.9 fL -- Normal range between ( 80.0 and 100.0 ) MCHC: 34.5 % -- Normal range between ( 31.0 and 37.0 ) Lymph Absolute: 2.8 x10 Hct: 42.4 % -- Normal range between ( 36.0 and 46.0 ) [place] Absolute: 0.7 x10 MCH: 29.3 pg -- Normal range between ( 27.0 and 35.0 ) Neutro Absolute: 5.1 x10 Hgb: 14.6 g/dL -- Normal range between ( 12.0 and 16.0 ) Mean Platelet Volume: 8.1 fL -- Normal range between ( 6.7 and 10.6 ) Platelet: 242 x10 Eos Absolute: 0.5 x10 RDW: 14.0 % -- Normal range between ( 11.6 and 14.8 ) Urinalysis 06/08/2017 10:17 PM UA Color: Yellow UA Urobilinogen: 0.2 mg/dL UA Bili: Negative UA Ketones: Trace mg/dL UA Leukocyte Esterase: Negative UA Nitrite: Negative UA Glucose: Negative mg/dL UA Protein: Negative mg/dL UA Blood: Small UA Spec Grav: 1.034 -- Normal range between ( 1.003 and 1.035 ) UA pH: 5.0 UA Clarity: Clear UA Source: Clean Catch UA Mucus: Present /LPF UA WBC Quant: 0 /HPF -- Normal range between ( 0 and 5 ) UA RBC Quant: 17 /HPF -- Normal range between ( 0 and 5 ) UA Squepi Cells Quant: 7 /HPF -- Normal range between ( 0 and 29 ) Chemistry 06/08/2017 10:17 PM Creatinine Lvl: 0.66 mg/dL -- Normal range between ( 0.44 and 1.03 ) BUN: 17 mg/dL -- Normal range between ( 8 and 26 ) Glucose Lvl: 95 mg/dL -- Normal range between ( 74 and 118 ) Potassium Lvl: 3.7 mmol/L -- Normal range between ( 3.4 and 4.8 ) AST: 22 IU/L -- Normal range between ( 15 and 41 ) ALT: 15 IU/L -- Normal range between ( 14 and 54 ) Sodium Lvl: 137 mmol/L -- Normal range between ( 133 and 142 ) Lipase Lvl: 20 IU/L -- Normal range between ( 22 and 51 ) Calcium Lvl: 9.0 mg/dL -- Normal range between ( 8.5 and 10.3 ) Albumin Lvl: 4.0 g/dL -- Normal range between ( 3.2 and 4.9 ) Total Protein: 6.8 g/dL -- Normal range between ( 6.5 and 8.1 ) Bili Total: 0.5 mg/dL -- Normal range between ( 0.3 and 1.2 ) Alk Phos: 40 IU/L -- Normal range between ( 32 and 91 ) Chloride: 108 mmol/L -- Normal range between ( 98 and 110 ) CO2: 24 mmol/L -- Normal range between ( 22 and 32 ) Anion Gap: 9 -- Normal range between ( 7 and 17 ) eGFR Non-AA: >60 mL/min/1.73m? eGFR AA: >60 mL/min/1.73m? BUN Crea Ratio: 25.8 -- Normal range between ( 15.0 and 25.0 ) Urine Preg: Negative AG Ratio: 1.4 -- Normal range between ( 1.1 and 2.2 )Measurements:Height:Weight: 86.2 kgBlood Pressure: /85 mmHgBMI:Procedures No Procedures DocumentedImmunizations No Immunizations Documented This VisitFinal Med List:[facility]ations[facility] [address], [address] [place], [place] [phone], [phone] (Bentyl 20 mg oral tablet) 1 Tabs Oral (given by mouth) 3 times a day for 7 Days. Refills: 0.Last Dose: doc usate (Colace 100 mg oral capsule) 1 Capsules Oral (given by mouth) 2 times a day as needed as needed for constipation for 10 Days. Refills: 0.Last Dose: ond ansetron (Zofran 4 mg oral tablet) 1 Tabs Oral (given by mouth) every 8 hours as needed nausea/vomiting for 5 Days. Refills: 0.Last Dose: pol yethylene glycol 3350 (MiraLax oral powder for reconstitution) 17 Gram Oral (given by mouth) every day. dissolve in water before taking. Refills: 0.Last Dose: Med ications that have not changedOther Medicationsacetaminophen (Tylenol Extra Strength 500 mg oral tablet) 2 Tabs Oral (given by mouth) every 4 hours as needed as needed for fever.Last Dose: hyd rocodone-acetaminophen (Vicodin 5 mg-300 mg oral tablet) 1 Tabs Oral (given by mouth) every 6 hours.Last Dose: nap roxen (Aleve 220 mg oral tablet) 2 Tabs Oral (given by mouth) every 8 hours as needed as needed for pain.Last Dose: [facility] [address], [address] [place], [place] [id number], [phone] (Bentyl 20 mg oral tablet) 1 Tabs Oral (given by mouth) 3 times a day for 7 Days. Refills: 0.docusate (Colace 100 mg oral capsule) 1 Capsules Oral (given by mouth) 2 times a day as needed as needed for constipation for 10 Days. Refills: 0.ondansetron (Zofran 4 mg oral tablet) 1 Tabs Oral (given by mouth) every 8 hours as needed nausea/vomiting for 5 Days. Refills: 0.polyethylene glycol 3350 (MiraLax oral powder for reconstitution) 17 Gram Oral (given by mouth) every day. dissolve in water before taking. Refills: 0.Other Medicationsacetaminophen (Tylenol Extra Strength 500 mg oral tablet) 2 Tabs Oral (given by mouth) every 4 hours as needed as needed for fever.hydrocodone-acetaminop hen (Vicodin 5 mg-300 mg oral tablet) 1 Tabs Oral (given by mouth) every 6 hours.naproxen (Aleve 220 mg oral tablet) 2 Tabs Oral (given by mouth) every 8 hours as needed as needed for pain.Care Team Members:Attending Physician: Dakota SINGH, Anastasiia MortonConsulting Physician:Referring Physician:Provider Role Assigned UnassignedDakota SINGH, Anastasiia Morton ED Provider 06/08/2017 21:51:24Penny Watts ED Nurse 06/08/2017 22:10:49Follow up:With: Address: When:Please Follow up with your PCP within 2-3 dyasDischarge Orders:Discharge Patient 06/09/17 0:13:00 EST, Discharge to Home, SelfPatient Education Information:CONSTIPATION (Adult); Abdominal Pain, AdultAAPCC Poison Help line: .[facility] Hotline: [place] Tobacco Quit Line: [facility] ([place], [place]) [address]: [phone] ([place], [place]) [address]: [phone] [place] [address] [address] [place], [place]: [phone] Normal [facility] ED Note-Physicianon 06-09-19 ED Note-Physician Chief Complaint lowe r right side abdominal pain radiating to her backHistory of Present Illness Patient is a 31 year old female presenting to the emergency department by private vehicle complaining of abdominal pain. Patient states the symptoms started 2 days ago. Patient describes the the quality of the symptoms as worsening. Patient rates the symptoms as 7/10. Patient symptoms are aggravated by eating. Patient complains of nausea, vomiting x1, heart burn, diarrhea, constipation, 102F fever. Patient states her son was ill last week. Patient does have a history of similar symptoms secondary to cholelithiasis 2 months ago diagnosed at [facility]. Patient?s past medical history includes cholelithiasis. Patient denies using EtOH tonight but did have one drink yesterday which caused her symptoms to flare. Patient has an appointment with her PCP tomorrow.Review of Systems GENERAL: [Positive for 102F fever; Negative for weakness, malaise] EYES: [Negative for injury, pain, redness, discharge] ENT: [Negative for injury, pain , sore throat and discharge] NECK: [Negative for injury, pain, swelling, and stiffness] CARDIOVASCULAR: [Negative for chest pain, palpitations] RESPIRATORY: [Negative for shortness of breath, cough, wheezing, and pleuritic chest pain] ABDOMEN/GI: [Positive for pain, nausea, vomiting x1, diarrhea, constipation, heart burn] BACK: [Negative for injury or bruising] : [Negative for injury, bleeding, discharge, frequency, hematuria, urgency] MUSCULOSKELETAL: [Negative for arthralgias, injury and deformity] SKIN: [Negative for injury, rash, discoloration] NEURO: [Negative for focal weakness, numbness, tingling, and seizure]Physical Exam Constitutional: the patient appears in no acute distress, alert, awake, non-toxic Head/face: exam is negative for obvious evidence of injury or deformity Eyes: Pupils: equal, round, and reactive to light. Sclera: no appreciated abnormality ENT: Exam is negative for injury or acute deformity Neck: External neck: no acute changes, Trachea: is midline with no obvious abnormalities, ROM/movement: no acute changes, Meningeal signs: are not present. Cardiovascular: Rate: normal, Rhythm: regular, Pulses: no pulse deficits are appreciated, Heart sounds: normal, Edema: is not appreciated, JVD: is not appreciated. Respiratory: Exam negative for respiratory distress, Respirations: normal, Breath sounds: are normal, no acute changes, throughout. Abdomen / GI Exam: epigastric and RUQ tenderness, voluntary guarding, no peritoneal signs, negative for pulsatile mass, rebound tenderness, Inspection: abdomen appears normal, Bowel sounds: normal, active, Palpitation: abdomen is soft, Indicators: Collier?s sign is negative, McBurney?s point is not-tender. Back: Exam negative for acute changes, CVA tenderness. Musculoskeletal/extremity: Extremities: all appear grossly normal, with no appreciated pain with palpation, Perfusion: the patient is warm, the extremity is warm. Sensation intact. DVT exam: no swelling no tenderness,Calves: are non-tender. Skin: Exam negative for cyanosis, any evidence of obvious injury, Appearance: appears normal. Neuro: Orientation: is normal, appropriate for stated age, no acute changes, Mentation: able to follow commands, cerebellar function: is grossly normal, no acute changes, Motor: strength is normal, strength is 5/5 in all extremities, Sensation: no obvious gross deficits. Psych: Exam negative for acute changes, delusions, inappropriate behavior.Vitals & Measurements T: 37.3 ?C (Oral) RR: 16 BP: 130/87 SpO2: 100% HT: 157.7 cm DOSE WT: 86.2 kg Additional Vitals Peripheral Pulse Rate: 77 bpmProcedure No qualifying data available. ASA DocumentationMedical Decision Making Flaquito Monique scribing for and in the presence of Dr. Anastasiia Duncan.Reexamination/Reevalua tion Scribe Attestation: The information in this document, created by the medical technician for me, accurately reflects the services I personally performed and the decisions made by me. This report has been created using voice recognition software. It may contain minor errors which are inherent in voice recognition technology.Assessment/Plan This is a 31-year-old female presented to the emergency department for abdominal pain, on presentation to the emergency department she was noted to be hemodynamically stable, noted to have tenderness to the right upper quadrant, Collier, also noted to have epigastric tenderness, no rebound, or peritoneal signs, laboratory studies which indicated no leukocytosis, no liver enzyme elevation, normal lipase levels, the rest of the laboratory studies were reassuring, I did obtain CT scan of the abdomen and pelvis with by mouth and IV contrast which was consistent with no acute findings per the radiologist noted to have a contracted gallbladder, no evidence of acute cholecystitis, noted to have moderate amount of fecal matter in the colon, I did start the patient on Bentyl Zofran as well as Colace and MiraLAX, she remained hemodynamically stable, her pain improved significantly here in the emergency department and she was discharged in no acute distress to follow-up with her PCP was in one to 2 days. The results of pertinent diagnostic studies and exam findings were discussed. The patient?s provisional diagnosis and plan of care were discussed with the patient and present family. The patient and/or present family expressed understanding of the diagnosis and plan. The nurse was instructed to provide written instructions and appropriate follow-up information. The patient understands their need and responsibility to obtain additional follow-up as instructed. The risks of medications administered and prescribed were discussed with the patient and family present. Patient was discharged in no acute distress and hemodynamically stable. 1. Abdominal pain Ordered: dicyclomine, 1 tabs, Oral, TID, # 21 tabs, 0 Refill(s), Pharmacy: [facility] [id number] docusate, 1 caps, Oral, BID, PRN, # 20 caps, 0 Refill(s), Pharmacy: [facility] [id number] ondansetron, 1 tabs, Oral, q8hr, PRN, # 15 tabs, 0 Refill(s), Pharmacy: [facility] [id number] polyethylene glycol 3350, 17 g, Oral, Daily, dissolve in water before taking, # 527 g, 0 Refill(s), Pharmacy: [facility] [id number] 2. Constipation 3. Gallbladder contraction Orders: sodium chloride, 10 mL, IV Push, Injection, As Indicated, PRN flush, First Dose: 06/08/17 22:02:00 EST, Dispense From Location: [id number] CT Abdomen Pelvis w/ IV Contrast Discharge Patient NPO Peripheral IV Insert and Maintain Vital SignsProblem List/Past Medical History Ongoing No qualifying data Historical No qualifying dataMedications Home Aleve 220 mg oral tablet, 440 mg, 2 tabs, Oral, q8hr, PRN Tylenol Extra Strength 500 mg oral tablet, 1000 mg, 2 tabs, Oral, q4hr, PRN Vicodin 5 mg-300 mg oral tablet, 1 tabs, Oral, q6hr Inpatient morphine preservative-free, 4 mg, 1 mL, IV Push, Once Normal Saline Flush 0.9% injectable solution, 10 mL, IV Push, As Indicated, PRN NS Bolus, 1000 mL, IV Bolus, Once Omnipaque 300, 30 mL, Oral, Once ondansetron, 4 mg, 2 mL, IV Push, Once Prescriptions No active PrescriptionsAllergies Nubain (Vomiting)Diagnostic Results XRay No qualifying data available. Computerized Tomagraphy No qualifying data available. Ultrasound No qualifying data available. Magnetic Resonance Imaging No qualifying data available. ___Flaquito Monique RElectronically signed by Anastasiia Duncan MD 06/09/2017 00:17 EST [facility] Lipaseon 06-09-2017 Lipase Lvl 20 IU/L Low 22-51 [facility] Comment on above: Performed By: #### L IP ####[place] [address] UA w Culture if Indon 2017 UA Blood Small Abnormal Negative [facility] Comment on above: Performed By: #### U CI ####[place] [address] UA Clarity Clear Normal [facility] Comment on above: Performed By: #### U CI ####[place] [id number] UA Leukocyte Esterase Negative Normal Negative [facility] Comment on above: Performed By: #### U CI ####[place] [id number] UA Nitrite Negative Normal Negative [facility] Comment on above: Performed By: #### U CI ####[place] [address] UA pH 5.0 Normal 4.5 - 7.8 [facility] Comment on above: Performed By: #### U CI ####[address] [address] UA Protein Negative Normal Negative [facility] Comment on above: Performed By: #### U CI ####[address] [address] UA Source Clean Catch Normal [facility] Comment on above: Performed By: #### U CI ####[address] [address] UA Spec Grav 1.034 Normal 1.003-1.035 [facility] Comment on above: Performed By: #### U CI ####[address] [address] UA Urobilinogen 0.2 mg/dL Normal 0.2 - 1.0 [facility] Comment on above: Performed By: #### U CI ####[address] [place] [address] Urine, color Yellow Normal [facility] Comment on above: Performed By: #### U CI ####[facility] [facility] [place] [address] Urine, glucose Negative Normal Negative [facility] Comment on above: Performed By: #### U CI ####[facility] [facility] [place] [address] Urine, ketones presence Trace Abnormal Negative [facility] Comment on above: Performed By: #### U CI ####[address] [place] [address] Urine, urobilinogen Negative Normal Negative [facility] Comment on above: Performed By: #### U CI ####[address] [place] [address] Vital Signs Date Time Vital Sign Value Performing Clinician Facility 04-23-2023 09:00-0500 Body height 160.02 cm Kamila Duong Other [facility] Other 04-23-2023 09:00-0500 Body mass index (BMI) [Ratio] 39.14 kg/m2 Kamila Duong Other [facility] Other 04-23-2023 09:00-0500 Body temperature 97.4 [degF] Kamila Duong Other [facility] Other 04-23-2023 09:00-0500 Body weight 100.25 kg Kamila Duong Other [facility] Other 04-23-2023 09:00-0500 Diastolic blood pressure 94 mm[Hg] Kamila Duong Other [facility] Other 04-23-2023 09:00-0500 Respiratory rate 18 /min Kamila Duong Other [facility] Other 04-23-2023 09:00-0500 SaO2% (BldA) [Mass fraction] 99 % Kamila Rhoda Other [facility] Other 04-23-2023 09:00-0500 Systolic blood pressure 143 mm[Hg] Kamila Rhoda Other [facility] Other 02-09-2023 09:00-0400 Body height 160.02 cm Kamila Rhoda Other [facility] Other 02-09-2023 09:00-0400 Body mass index (BMI) [Ratio] 36.77 kg/m2 Kamila Rhoda Other [facility] Other 02-09-2023 09:00-0400 Body temperature 97.4 [degF] Kamila Rhoda Other [facility] Other 02-09-2023 09:00-0400 Body weight 94.17 kg Kamila Rhoda Other [facility] Other 02-09-2023 09:00-0400 Diastolic blood pressure 88 mm[Hg] Kamila Rhoda Other [facility] Other 02-09-2023 09:00-0400 Respiratory rate 18 /min Kamila Rhoda Other [facility] Other 02-09-2023 09:00-0400 SaO2% (BldA) [Mass fraction] 98 % Kamila Rhoda Other [facility] Other 02-09-2023 09:00-0400 Systolic blood pressure 126 mm[Hg] Kamila Rhoda Other [facility] Other 06-11-2022 10:00-0500 Body height 157.48 cm Gloria Jackson Other [facility] Other 06-11-2022 10:00-0500 Body mass index (BMI) [Ratio] 40.23 kg/m2 Gloria Jackson Other [facility] Other 06-11-2022 10:00-0500 Body temperature 97.8 [degF] Gloria Jackson Other [facility] Other 06-11-2022 10:00-0500 Body weight 99.79 kg Gloria Jackson Other [facility] Other 06-11-2022 10:00-0500 Respiratory rate 18 /min Gloria Jackson Other [facility] Other 06-11-2022 10:00-0500 SaO2% (BldA) [Mass fraction] 99 % Gloria Jackson Other [facility] Other 10-09-2021 13:49-0400 Blood Pressure Location Chantel NILL [facility] 10-09-2021 13:49-0400 Diastolic blood pressure 80 mm[Hg] Chantel NILL [facility] [place] 10-09-2021 13:49-0400 Heart rate 72 /min Chantel NILL [facility] [place] 10-09-2021 13:49-0400 Respiratory rate 16 /min Chantel NILL [facility] [place] 10-09-2021 13:49-0400 Systolic blood pressure 124 mm[Hg] Chantel MAYO [facility] [place] NEGATED: Highlighted row BMI (Body Mass Index) [facility] NEGATED: Highlighted row Body Temperature [facility] NEGATED: Highlighted row Body weight Harry Printy [facility] NEGATED: Highlighted row BP Diastolic Harry Printy [facility] NEGATED: Highlighted row BP Systolic Harry Printy [facility] NEGATED: Highlighted row Height Harry Printy [facility] NEGATED: Highlighted row Pulse (Heart Rate) Harry Printy [facility] NEGATED: Highlighted row Pulse Oximetry Harry Printy [facility] NEGATED: Highlighted row Respiratory Rate Harry Printy [facility] Encounters Encounter Date Encounter Type Care Provider Facility Start: 06-23-2023 End: 06-23-2023 ambulatory DELICIA TRIPP Not Available Start: 06-03-2023 End: 06-03-2023 ambulatory DELICIA TRIPP Not Available Start: 04-23-2023 (URG) Urgent Care Visit Kamila herring [facility] Start: 04-23-2023 End: 04-23-2023 ambulatory Kamila Duong Other [facility] Other Start: 02-09-2023 End: 02-09-2023 ambulatory Kamila Duong Other [facility] Other Start: 02-09-2023 Office outpatient vi sit 15 minutes Kamila Duong [facility] Start: 01-07-2023 ambulatory PHYSICIAN NO FAMILY Fac ility:[facility] Start: 06-17-2022 End: 06-17-2022 ambulatory [employer] MEKA SAÚLHHOLPhu Facility: Start: 06-14-2022 End: 06-14-2022 ambulatory Gloria Jackson Other [facility] Other Start: 06-14-2022 Telephone encounter Gloria Jackson [facility] [address] Start: 06-11-2022 Office outpatient vi sit 25 minutes Gloria Jackson [facility] Start: 06-11-2022 End: 06-11-2022 ambulatory PHYSICIAN NO [facility] Facility:[facility] Start: 06-11-2022 End: 06-11-2022 ambulatory PHYSICIAN NO [facility] Work Phone: Start: 06-11-2022 End: 06-11-2022 Departed Referred PHYSICIAN NO [facility] [place] Work Phone: Start: 11-23-2021 End: 11-23-2021 Patient encounter procedure Chantel MAYO [facility] [place] Start: 11-14-2021 End: 11-14-[address] CHANTEL MAYO Facility:[facility] Start: 11-06-2021 Encounter for other preprocedural examination DR CHANTEL MAYO [facility] Start: 11-02-2021 End: 11-03-[address] CHANTEL MAYO Facility:[facility] Start: 11-02-2021 End: 11-03-2021 Encounter for other preprocedural examination DR CHANTEL MAYO Facility:[facility] Start: 10-09-2021 End: 10-09-2021 Patient encounter procedure Chantel MAYO [facility] [place] Start: 10-02-2021 End: 10-03-2021 ambulatory RONY ROPER Facility:[facility] Start: 09-14-2021 End: 09-15-2021 ambulatory RONY ROPER Facility:[facility] Start: 01-16-2018 End: 01-16-2018 Patient encounter IZABEL EARL (PA) [facility] Start: 01-13-2018 End: 01-14-2018 Patient encounter IZABEL EARL (PA) [facility] Start: 06-08-2017 End: 06-09-2017 Emergency department patient visit ANASTASIIA DUNCAN Facility:[facility] Start: 10-02-2015 End: 10-03-2015 Admission to day surgery Harry Huffman [facility] Start: 08-11-2015 End: 08-11-2015 Admission to day surgery Harry Huffman [facility] Start: 12-01-2013 End: 12-01-2013 [facility] Start: 04-06-2013 End: 04-06-2013 Patient encounter procedure [facility] Start: 04-28-2012 End: 04-28-2012 Patient encounter procedure [facility] Start: 10-07-2011 End: 10-07-2011 Emergency department patient visit Harry Huffman [facility] Start: 04-23-2011 End: 04-23-2011 Emergency department patient visit [facility] Start: 04-09-2011 End: 04-09-2011 Emergency department patient visit [facility] Start: 12-10-2010 End: 12-10-2010 Emergency department patient visit [facility] Start: 11-01-2010 End: 11-01-2010 Emergency department patient visit [facility] Start: 03-05-2010 End: 03-05-2010 Emergency department patient visit Harry [facility] Start: 12-12-2009 End: 12-12-2009 Admission to day surgery Harry Huffman [facility] Start: 10-10-2009 End: 10-10-2009 Emergency department patient visit [facility] Start: 03-06-2009 End: 03-06-2009 Emergency department patient visit [facility] Start: 11-09-2008 End: 11-09-2008 Emergency department patient visit [facility] Start: 09-14-2008 Patient encounter procedure [facility] Start: 07-07-2008 End: 07-07-2008 Emergency department patient visit [facility] Start: 06-24-2008 End: 06-24-2008 Emergency department patient visit [facility] Start: 06-04-2008 End: 06-04-2008 Emergency department patient visit [facility] Start: 04-09-2008 End: 04-09-2008 Emergency department patient visit [facility] Start: 12-15-2007 End: 12-28-2007 Discharged Recurring [facility] Start: 12-15-2007 End: 12-15-2007 Emergency department patient visit [facility] Start: 12-05-2007 End: 12-05-2007 Emergency department patient visit [facility] Start: 10-12-2007 End: 10-12-2007 Emergency department patient visit [facility] Start: 09-18-2007 End: 09-18-2007 [facility] Start: 08-16-2007 End: 08-16-2007 [facility] Start: 07-23-2007 End: 07-23-2007 Emergency department patient visit [facility] Start: 06-24-2007 End: 06-25-2007 Emergency department patient visit [facility] Start: 05-23-2007 End: 05-23-2007 Emergency department patient visit [facility] Start: 04-25-2007 End: 05-25-2007 [facility] Start: 04-17-2007 End: 04-17-2007 Emergency department patient visit [facility] Start: 04-04-2007 End: 04-03-2007 Emergency department patient visit [facility] Start: 02-23-2007 End: 03-25-2007 [facility] Start: 02-02-2007 End: 02-01-2007 Emergency department patient visit [facility] Start: 01-24-2007 End: 02-22-2007 Discharged Recurring [facility] Start: 01-20-2007 End: 01-21-2007 Emergency department patient visit [facility] Start: 01-05-2007 End: 01-23-2007 [facility] Start: 12-24-2006 End: 12-24-2006 [facility] Start: 12-18-2006 End: 12-18-2006 [facility] Start: 07-11-2006 End: 07-11-2006 Emergency department patient visit [facility] Start: 03-20-2006 End: 03-20-2006 Emergency department patient visit [facility] Start: 02-27-2006 End: 02-27-2006 [facility] Start: 02-11-2006 End: 02-11-2006 [facility] Start: 01-06-2006 End: 01-06-2006 Emergency department patient visit [facility] Start: 11-23-2005 Patient encounter procedure [facility] Start: 09-07-2005 End: 09-06-2005 [facility] Start: 08-02-2005 End: 08-02-2005 [facility] Start: 07-21-2005 End: 07-20-2005 Emergency [facility] Start: 04-02-2005 End: 04-24-2005 [facility]charged [facility] Start: 02-14-2005 End: 02-14-2005 Emergency department patient visit [facility] Start: 02-02-2005 End: 02-02-2005 Emergency department patient visit [facility] Start: 11-21-2004 End: 11-21-2004 Emergency department patient visit [facility] Start: 02-23-2004 Evaluation and management of inpatient [facility] Start: 02-21-2004 Evaluation and management of inpatient [facility] Start: 02-07-2004 Evaluation and management of inpatient [facility] Start: 03-20-1993 End: 03-26-1993 Discharged Recurring [facility] Procedures Date Procedure Procedure Detail Performing Clinician Start: 03-05-2010 Other incision with drainage of skin and subcutaneous tissue Harry Huffman Start: 12-12-2009 Arthroscopic knee operation Harry Huffman Start: 12-12-2009 Division of joint ca psule, ligament, or cartilage, knee Harry Huffman Arthroscopy of knee Chantel MAYO Excision of cyst Chantel Poe Comment on above: left armpit Partial hysterectomy Chantel MAYO Throat culture Gloria Jackson Other Transcervical sterilization Chantel MAYO Plan of Treatment Date Care Activity Detail Author Start: 06-11-2022 Throat culture Throat Culture [facility] Bacteria identified in Throat by Aerobe culture [facility] Immunizations Immunization Date Immunization Notes Care Provider Wendy meyer 03-31-2022 tetanus toxoid, reduced diphtheria toxoid, and acellular pertussis vaccine, adsorbed Gloria Jackson Other [facility] Other Payers Date Payer Category Payer Self-pay 2022 Medicaid [id number] 2. [id number] 2017 Unknown 1986 Unknown [id number] 2.16.84 [id number] 1986 Unknown [id number] 2.16.84 [id number] 1986 Unknown [id number] 2.16.84 [id number] 1986 Unknown [id number] 2.16.84 [id number] 1986 Unknown [id number] 2.16.84 [id number] 1986 Unknown [id number] 2.16.84 [id number] 1986 Unknown [id number] 2.16.84 [id number] 1959 Unknown [id number] Private Health Insurance [id number] Unknown [id number] Unknown [id number] 2.16.8 [id number] Unknown [id number] 2.16.8 [id number] Social History Date Type Detail Facility Start: 10-09-2021 Tobacco smoking status Ex-smoker (fi nding) [facility] Tobacco smoking status Smokeless tobacco user within last 30 days [facility] Sex Assigned At Female [facility] [place] Start: 12-07-2018 [facility] Start: 1985 Sex Assigned At Female F [facility] Clinical Notes 10-09-2021 to 04-23-2023 Note Date & Type Note Facility 04-23-2023 Evaluation note Encounter Date Diagnosis Assessment Notes Mar, Contact with and (suspected) exposure to covid-19 (ICD-10 - Z20.822) Mar, COVID-19 (ICD-10 - U07.1) Discharge Instructions for COVID-19 (Suspected or Confirmed ) material was printed Drink plenty fluids, get plenty of rest. Take Tylenol or Motrin as needed for aches pains or fevers. You must quarantine for 5 days after the onset of your symptoms of COVID. Follow-up with your family physician if no improvement in 2 to 3 days [facility] Other 09-17-2023 Evaluation note* Encounter Date Diagnosis Assessment Notes Treatment Notes Treatment Clinical Notes Jan, Sore throat (ICD-10 - J02.9) Jan, Acute sinusitis, recurrence not specified, unspecified location (ICD-10 - J01.90) Sinusitis home care material was printed Drink plenty fluids, get plenty of rest. Take the amoxicillin with clavulanate as prescribed until gone. Take the prednisone as prescribed until gone. Use the fluticasone nasal spray until your symptoms improved. Continue take Tylenol or Motrin as needed for aches pains or fevers. You may take Mucinex and/or Sudafed for congestion. Follow-up with your family physician if no improvement in 2 to 3 days [facility] Other 01-17-2023 Evaluation note* Encounter Date Diagnosis Assessment Notes Treatment Notes Treatment Clinical Notes May, Sore throat (ICD-10 - J02.9) May, Viral pharyngitis (ICD-10 - J02.9) Advised patient that rapid Strep test was negative. Will send for throat culture, will call with results in 2-5 days. At time of results, treatment plan may change. Supportive care as directed, increase fluids and rest, Tylenol/Motrin as directed, OTC cough/cold remedies as directed on packaging, cool mist humidifier, throat lozenges. Discussed infection control practices such as good hand washing and mask wearing. Patient to follow up with PCP if symptoms persist or worsen despite treatment. Immediate eval for SOB, difficulty, chest pain, fevers that do not break with antipyretic or any other concerning symptoms as reviewed on patient education handout. Patient verbalizes understanding and is agreeable to treatment plan. Patient left in stable condition [facility] Other 06-22-2022 NoteOPERATIVE NOTE OPERATION DATE: 11/14/2021 PREOPERATIVE DIAGNOSIS: Right breast scar/hidradenitis. POSTOPERATIVE DIAGNOSIS: Right breast scar/hidradenitis. PROCEDURE: Excisional biopsy of scarred hidradenitis right upper outer breast. SURGEON: Chantel Mayo M.D. ANESTHESIA: Local with 0.5% Marcaine plain as well as monitored anesthesia care. ESTIMATED BLOOD LOSS: Less than 5 mL. INDICATIONS AND CONSENT: Patient is a 36-year-old female with a six month history of scarring, intermittent infections of the skin of the right breast in the upper outer quadrant. She does have a history of hidradenitis. Indications, risks, benefits, alternatives of proceeding with excision of the scarred area of hidradenitis explained extensively to the patient, including the risks of bleeding, infection, scarring, pain, recurrence, need for further surgery or anesthetic complications. All of her questions were answered. Informed consent was obtained. PROCEDURE: Patient brought to the operating room, placed in the supine position. The area was prepped and draped in the usual sterile fashion. It was anesthetized with 0.5% Marcaine plain. The scarred area was excised in elliptical fashion down through subcutaneous tissue. Total length of the incision was 3 cm. The wound was irrigated. There was no purulence. Subcutaneous tissue was re-approximated with interrupted 3-0 Monocryl suture. The skin was then closed with 4-0 nylon mattress suture as well as simple sutures, Adaptic with some small amount of Bacitracin and 4 x 4's was applied, as well as Medipore tape. The patient tolerated procedure well, was sent to recovery room in good condition. CC: Meka Roper, [facility] Signed and Approved by: DR CHANTEL MAYO . 11/15/2021 14:02:00[facility]05-17-2022 NoteChief Complaint consultation for breast mass vs infection [facility] Staff 36 year old female presents on consultation from Meka Roper for right breast mass vs infection. Several month history of redness and tenderness to breast. Area has never been biopsied. US completed 09/06- cat. 3. Has seen dermatology and infectious disease specialist without resolution. Was on Doxycycline and a second antibiotic for 4 month duration with no change in redness. History of Present Illness 36 yo female with h/o htn, hypothyroidism, GERD, depression/anxiety, referred for possible breast abscess; recent US with 3 cm area in right breast upper outer quadrant in subcutaneous fat, felt to be phlegmon verses abscess; patient reportedly had been on several doses of antibiotics in past with no change in lump; no drainage, did have some purulent drainage when first started; patient has h/o Hidradenitis involving both axillae; improved; has lost 20 lbs and stopped smoking, but does vape nicotine products, trying to quit; mammogram without suspicious areas; no fmhx of breast or ovarian cancer; denies hormone therapy or ocp use. Review of Systems PHQ Score Initial Depression Screen Score: 0 ROS - Provider Constitutional: no fever, no sweats, no weight loss. Eyes: no glasses, no blurred vision, no visual loss. ENMT: no dentures, no hoarseness, no swallowing difficulties, no hearing loss, no ear infection(s),no nose bleeds. Cardiovascular: normal blood pressure, no chest pain, regular heartbeat, no heart murmur. Respiratory: no shortness of breath, no cough, no asthma, no wheezing. Gastrointestinal: no nausea, no vomiting, no diarrhea, no constipation, no blood in stool, no change in bowel habits, no abdominal pain, no hepatitis. Genitourinary: no kidney stones, no urine infection, no dysuria. Musculoskeletal: no pain, no weakness. Skin: no changing moles, no rash, no skin lumps. Neurologic: no seizures, no epilepsy, no headache. Psychiatric: no emotional or psychiatric problem. Heme/Lymph: no bleeding problems, no anemia, no blood clots, no transfusions. Allergy/Immunologic: no swollen lymph nodes/glands, no IV drug abuse. Other: Additional ROS info: Except as noted in the above Review of Systems and in the History of Present Illness, all other systems have been reviewed and are negative or noncontributory. Physical Exam Vitals & Measurements HR: 72(Peripheral) RR: 16 BP: 124/80 HT: 157.48 cm HT: 157.5 cm WT: 98 kg WT: 98.0 kg BMI: 39.52 HEENT: normal conjunctiva, sclera clear, no scleral icterus, EOM intact, PERRLA. oral mucosa moist without lesions Neck: trachea midline , no mass, symmetric, no thyromegaly or nodules. no adenopathy Respiratory: lungs CTA, respirations non labored. Cardiovascular: regular rate and rhythm, no murmur, , no pedal edema or varicosities. Chest (Breasts): , no discharge, right upper outer quadrant with 2.5 cm firm, irregular, erythematous scar, no fluctuance, no cellulitis, no drainage; no dominant breast masses, no nipple discharge or retraction; left breast without dominant masses, no skin or nipple changes Gastrointestinal: obese, soft, non distended, no tenderness, no masses, no palpable hernias, diastasis recti no, no hepatosplenomegaly. normal bs Lymphatic: no cervical adenopathy, no axillary adenopathy, bilateral axillae with scars from Hidradenitis Musculoskeletal: normalgait, digits and nails without infection, nodes, cyanosis, clubbing. Skin: no rashes, no lesions, no ulcers, no subcutaneous nodules, induration. see breast Psychiatric/Neuro: oriented to time, place, person, judgement normal, affect appropriate for age, insight intact, no focal deficits. Tests: x-rays reviewed, review of old records completed, Discussed surgical options, risks, and possible complications with patient. Assessment/Plan 1. Hidradenitis suppurativa (L73.2: Hidradenitis suppurativa) refractory, painful scarred area right upper outer breast; plan excisional biopsy with primary closure under monitored anesthesia care for definitive diagnosis and treatment, informed consent obtained. Clindamycin 900 mg IV prior to OR. Follow-up No qualifying data available Problem List/Past Medical History Ongoing Anxiety BMI 39.0-39.9,adult Depression GERD (gastroesophageal reflux disease) Hidradenitis suppurativa HTN (hypertension) Hypothyroidism Obesity Tobacco user Historical No qualifying data Procedure/Surgical History Arthroscopy of knee, Essure., Excision of cyst, Partial hysterectomy. Medications Abilify 5 mg Tab, 5 mg= 1 tab(s), Oral, Daily FLUoxetine 10 mg Cap, 10 mg= 1 cap(s), Oral, Daily Allergies nalbuphine (Unknown) Social History Alcohol - Denies Alcohol Use, 10/09/2021 Substance Abuse Current, Marijuana, 1-2 times per week, 10/09/2021 Tobacco Former smoker, quit more than 30 days ago Tobacco Use:. Smokeless tobacco user within last 30 days Smokeless Tobacco Use:. Cigarettes, [place] (more content not included)...[facility]Result Comment: Electronically Signed By: ALEX SIGNH, Chantel Cuevas\Date and Time Signed: 10/09/21 15:43 EDTEvaluation + Plan note No data available for this section General Surgery [place] Evaluation noteNo assessment information available [facility] Work Phone: Evaluation noteNo InformationNortLancaster Rehabilitation Hospital [employer] Other History general Narrative - Reported* Type Description Date Medical History Hypothyroidism Surgical History hysterectomy Surgical History knee arthroscopy Hospitalization History SEE ABOVE [facility] [employer] Other Hospital Discharge instructions No data available for this section General Surgery [place] note No data available for this section General Surgery [place] Summary Purpose Family History No Family History Records Found Relationship Condition Age at Onset Recorded Date/T nichelle Not Specified Bipolar affective disorder Unknown father Depression Unknown Advance Directives No Advanced Directives Records Found Advance Directive Response Recorded Date/ Time Advance Directives No December 07 12:28am Additional Source Comments INFORMATION SOURCE (unrecogn ized section and content) DATE CREATED AUTHOR 11/17/2017 [facility] DATE CREATED AUTHOR AUTHOR'S ORGANIZ ATION 01/21/2018 [facility] DATE CREATED AUTHOR AUTHOR'S ORGANIZ ATION 11/24/2021 [facility] DATE CREATED AUTHOR AUTHOR'S ORGANIZ ATION 12/29/[address] [facility] DATE CREATED AUTHOR AUTHOR'S ORGANIZ ATION 07/02/2022 [facility] DATE CREATED AUTHOR AUTHOR'S ORGANIZ ATION 05/02/2023 [facility] DATE CREATED AUTHOR AUTHOR'S ORGANIZ ATION 06/26/2023 [facility] EPIC Care Team (unrecognized sect ion and content) Team Status: Inactive Member Role Status Dates PHYSICIAN NO FAMILY Primary Care Provider Active Gloria Jackson APRN Attending Provider Active Team Status: Active Member Role Status Dates PHYSICIAN NO FAMILY Primary Care Provider Active Goals (unrecognized section and content) Goals may be documented in a n alternate section REASON FOR VISIT (unrecogniz ed section and content) sore throat, white dots - po ssible strepNo Informationsore throat, head and chest congestionsinus infection, runny nose, fever FOR RECORDS PERTAINING TO PATIENTS WHO ARE OR HAVE BEEN ENROLLED IN A CHEMICAL DEPENDENCY/SUBSTANCEABUSE PROGRAM, SOME INFORMATION MAY BE OMITTED. This clinical summary was aggregated from multiple sources. Caution should be exercised in using it in the provision of clinical care. This summary normalizes information from multiple sources, and as a consequence, information in this document may materially change the coding, format and clinical context of patient data. In addition, data may be omitted in some cases. CLINICAL DECISIONS SHOULD BE BASED ON THE PRIMARY CLINICAL RECORDS. [facility] [employer] [facility]. provides no warranty or guarantee of the accuracy or completeness of information in this document.
--- NOTE | 2023-07-04 10:55 | XR_ITS ---
The [address] [address] Patient Name: AMANUEL ERICKSON MRN: [id number] date: 1985 Sex: F Assigned Patient Location: SURGOUT Current Patient Location: [facility] Accession/Order Number: [id number] Exam Date: 07/04/2023 10:50 Report Date: 07/04/2023 11:05 At the request of: DELICIA ALMAGUER Procedure: XR chest 2V EXAM: XR chest 2V HISTORY: Preop exam COMPARISON: None. TECHNIQUE: PA and lateral views of the chest. FINDINGS: The cardiomediastinal silhouette is normal. No focal consolidation is identified. There is no pneumothorax. No pleural effusion is noted. The osseous structures are intact. XR/XR chest 2V IMPRESSION: No acute cardiopulmonary process. Electronically authenticated by: STEPHIE CONRAD Date: 07/04/2023 11:05
== END 2023-07-04 09:49 | disposition home or self-care (01) ==
LOC: PST 09:51
PROVIDERS: Visit Provider Obstetrics & Gynecology
DX: Z01.810 Encounter for preprocedural cardiovascular examination (principal); R10.2 Pelvic and perineal pain
CPT/HCPCS: 71046

== ENCOUNTER 2023-07-18 07:54 | Day surgery (SDC) | payer OTHER, SELFPAY ==
[2023-07-04 10:31] VITALS: BP 121/85; PULSE 74; RESP 18; TEMP 36.4; O2SAT 98; BMI 36.4
[2023-07-18] VITALS (9 sets, daily range): BP systolic 103–149; BP diastolic 65–100; PULSE 56–79; RESP 14–20; TEMP 35.9–36.4; O2SAT 63–99; BMI 38.4
--- OUTSIDE RECORDS SUMMARY | 2023-07-18 07:56 | XMS_ITS | CCD ---
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 Name Role Phone ANASTASIIA DUNCAN JAN Unavailable Unavailable IZABEL EARL (OSWALDO) Unavailable UnavailIZABEL Marquez (OSWALDO) Unavailable UnavailHarry Tom Attending Physician Unavailable Doug Yeager Primary Care Physician Unavailab MEKA Sanchez Primary Care Physician [phone] NO FAMILY, PHYSICIAN Primary Care Provider Unava ilSANDEE Terrazas Attending Provider AICHHOLZ, POLITICAL ANALYST MEKA Admitting Unavailable AICHHOLZ, POLITICAL ANALYST MEKA Attending Unavailable AICHHOLZ, POLITICAL ANALYST MEKA Primary Care Unavailable AICHHOLZ, POLITICAL ANALYST MEKA Consulting Unavailable AICHHOLZ, POLITICAL ANALYST MEKA Primary Care Unavailable NITISH MCCALL Admitting Unavailable NITISH MCCALL Attending Unavailable NITISH MCCALL Consulting Unavailable NILL, DR GOLDEN Admitting Unavailable NILL, DR GOLDEN Attending Unavailable AICHHOLZ, POLITICAL ANALYST MEKA Primary Care Unavailable NILL, DR GOLDEN Admitting Unavailable NILL, DR GOLDEN Attending Unavailable AICHHOLZ, POLITICAL ANALYST MEKA Primary Care Unavailable NILL, DR GOLDEN Consulting Unavailable STEPHANIE CASTRO Consulting Unavailable ANTON VELÁZQUEZ Consulting Unavailable JERRY WEBB Consulting Unavailable AICHHOLZ, POLITICAL ANALYST MEKA Admitting Unavailable AICHHOLZ, POLITICAL ANALYST MKEA Attending Unavailable AICHHOLZ, POLITICAL ANALYST MEKA Primary Care Unavailable AICHHOLZ, POLITICAL ANALYST MEKA Consulting Unavailable DR KODI ROME Consulting Unavailable Gloria Jackson Unavailable Kamila Duong Unavailable NO FAMILY, PHYSICIAN Primary Care Unavailable Gloria Jackson Admitting Unavailable Gloria Jackson Attending Unavailable NO FAMILY, PHYSICIAN Primary Care Unavailable Ananda Vences Admitting Unavailab Ananda Thomson Attending Unavailab DELICIA Agrawal Attending Unavailable DELICIA ALMAGUER Attending Unavailable Allergies Allergy Classification Reported Allergen(s) Allergy Type Date of Onset Reaction(s) Facility (6 sources) nalbuphine; Translations: [Nubain] Drug Allergy 4 vomiting [facility] Repository (6 sources) nalbuphine; Translations: [NALBUPHINE] Drug Allergy 4 AOF, Vomiting, Unknown [facility] Repository (1 source) NO KNOWN ALLERGIES; Translations: [NO KNOWN ALLERGIES] Propensity to adverse reactions to drug (disorder) [facility] Repository (4 sources) nu Propensity to adverse reactions Unknown [facility] Other Medications Current Medications Medication Drug Class(es) [...] 10-08-2021 Chronic Other aftercare (1 source) Other usp (current) drug therapy; Translations: [[facility] CURRENT DRUG THERAPY] Onset: 3 Episodic Other [...] (COVID-19) RNA BRANT+probe Ql (Unsp spec) Positive [facility] MOBITRAC Other COVID + FLU Quick Testing Negative [facility] MOBITRAC Other Quick Strepon 06-11-2022 S. pyogenes Org specific cx Ql (Throat) Negative [facility] Other Quick Strep [facility] Other Throat Cultureon 06-11-2022 Throat culture Moderate Normal Resp iratory Marti 2 Days PERFORMED BY: [place] [address] PATHOLOGIST MAINTENANCE SERVICE TECHNICIAN DOMENICO BELL M.D. Normal [facility] Comment on above: Performed By: #### C HI #### [address] ALDOLASE [id number] 12-18-2021 ALDOLASE 4.6 U/L Normal 1.2-7.6 [facility] Comment on above: Result Comment: REFE RENCE INTERVAL: Aldolase Access complete set of age- and/or gender-specific reference intervals for this test in the [facility] Test Directory ([facility]). Performed By: [facility] [address] [place] [address] 15133 Coat Padder: Edgar Snell MD, PhD ANAon 12-18-2021 JAMIL PATTERN HOMOGENEOUS Normal [facility] Comment on above: Result Comment: The JACKI [...] medical authority. Performed By: #### 9 9850, 08207, 91767, 83690, 40469 ####[facility] [place] [address], [facility] JAMIL SCREEN 1:40 Normal <1:40,1:40 [facility] Comment on above: Result Comment: Test performed using [employer] IFA JAMIL Hep-2 Test, a pre-standardized assay designed for the qualitative and semi-quantitative detection of antinuclear antibodies. Performed By: #### 9 9850, 55466, 99137, 13578, 01925 ####[facility] [place] [place] [address], [facility] ANTI CENTROMERE ABon 022 ANTI CENT AB Negative Normal NEGATIVE [facility] Comment on above: Performed By: #### 9 9850, 49946, 38362, 12127, 11343 ####[facility] [place] [address], [facility] ANTI DNAon 12-18-2021 ANTI DNA <1:10 Normal <1:10 [facility] Comment on above: Performed By: #### 9 9850, 21417, 47934, 82395, 69276 #### [facility] [address] [facility] [place] [place] [address], [facility] ANTI-ENAon 12-18-2021 ANTI SM Negative Normal NEG,NEGATIVE ,Neg [facility] Comment on above: Performed By: #### 9 9850, 93535, 71634, 53921, 19121 #### [facility] [address] [facility] [place] [address], [facility] ANTI SM/ANTIRNP Negative Normal NEG,NEGATIVE ,Neg [facility] Comment on above: Performed By: #### 9 9850, 83250, 08644, 03507, 37213 #### [facility] [address] [employer] [address]. [address] C REACTIVE PROTEINon 022 CRP [Mass/Vol] 4.3 mg/L Normal 0.0-7.0 [facility] Comment on above: Performed By: #### 1 0204, 27495, 31623, 80094 #### [facility] [address] [facility] [place] [address], [facility] COMPLEMENT 3on 12-18-2021 COMPLEMENT 3 96 mg/dL Normal 79-152 [facility] Comment on above: Performed By: #### 1 0204, 09001, 10691, 42013 #### [facility] [address] [facility] [place] [address], [facility] COMPLEMENT 4on 12-18-2021 COMPLEMENT 4 19 mg/dL Normal 16-38 [facility] Comment on above: Performed By: #### 1 0204, 66525, 61805, 00740 #### [facility] [address] [facility] [address] CPKon 12-18-2021 CK [Catalytic activity/Vol] 78 U/L Normal 30-223 [facility] Comment on above: Performed By: #### 2 5508 ####[facility] [address] [place] [id number] 12-18-2021 CYCLIC CIT PEP 1 Units Normal 0-19 [facility] Comment on above: Result Comment: INTE [...] be monitored and testing repeated. Performed By: [facility] [address] [place] [address] Coat Padder: Edgar Snell MD, PhD HEPATITIS B CORE ANTIBODYon 12-18-2021 HEP B CORE AB Non-Reactive Normal NONREACTIVE [facility] Comment on above: Performed By: #### 3 1568, 42378, 18564 ####[facility].[address] HEPATITIS B SURFACE ANTIGEN QUALon 12-18-2021 HEP B SURF AG QUAL Non-Reactive Normal NONREACTIVE [facility] Comment on above: Performed By: #### 3 1568, 85800, 99497 ####[facility].[address] HEPATITIS C SCREENon 022 ANTI-HCV Non-Reactive Normal NONREACTIVE [facility] Comment on above: Performed By: #### 3 1568, 27968, 20221 ####[facility].[address] HIV1 AND 2 COMBO 4Gon 2021 HIV COMBO Negative Normal NEGATIVE [facility] Comment on above: Performed By: #### 3 0615 ####[facility].[address] MPO/PR3 RFLX TO ANCA [id number] on 12-18-2021 MYELOPEROX AB (06322) 0 AU/mL Normal 0-19 [facility] Comment on above: Result Comment: INTE RPRETIVE INFORMATION: Myeloperoxidase Abs, IgG 19 AU/mL or Less ......... Negative 20-25 AU/mL .............. Equivocal 26 AU/mL or Greater ...... Positive Approximately 90% of patients with a P-ANCA pattern by IFA have antibodies specific for MPO. SERINE PROTEINASE 3 0 AU/mL Normal 0-19 [facility] Comment on above: Result Comment: Myel operoxidase [...] have antibodies specific for PR3. Performed By: [facility] [address] [place] [address]86 Coat Padder: Edgar Snell MD, PhD MYOSITIS EXTENDED PANEL 3001 781on 12-18-2021 EJ AB Negative Normal Negative [facility] FIBRILLARIN (U3 MARKETING DATA SPECIALIST) AB, IgG Negative Normal Negative [facility] Comment on above: Result Comment: Inte rpretive Information: Fibrillarin (U3 MARKETING DATA SPECIALIST) Antibody, IgG The presence of fibrillarin (U3-MARKETING DATA SPECIALIST) IgG antibodies in association with an JAMIL [...] a multi-ethnic cohort of SSc patients (n=98), U3-MARKETING DATA SPECIALIST antibodies detected by immunoblot had an agreement of 98.9 percent with the gold standard immunoprecipitation (IP) assay. Approximately 71 percent (5/7) of the borderline U3-MARKETING DATA SPECIALIST results with JAMIL nucleolar pattern in this cohort were IP negative. This test was developed and its performance characteristics determined by [facility]. It has not been cleared or approved by the [place] Food and Drug Administration. This test was performed in a CLIA certified laboratory and is intended for clinical purposes. Performed By: [facility] [address] [place] [address]457 Coat Padder: Edgar Snell MD, PHD ISAURA-1 AB IGG 0 AU/mL Normal 0-40 [facility] Comment on above: Result Comment: INTE RPRETIVE INFORMATION: Isaura-1 Antibody, IgG 29 AU/mL or less.........Negative 30-40 AU/mL..............Equivocal 41 AU/mL or greater......Positive Presence of Isaura-1 (antihistidyl transfer RNA [t-RNA] synthetase) antibody is associated with polymyositis and may also be seen in patients with dermatomyositis. Isaura-1 antibody is associated with pulmonary involvement (interstitial lung disease), Raynaud phenomenon, arthritis, and dental equipment mechanic's hands (implicated in antisynthetase syndrome). KU AB Negative Normal Negative [facility] MDA5 AB Negative Normal Negative [facility] MD-2 AB Negative Normal Negative [facility] MYOSITIS PANEL INTERP See Note Normal [facility] Comment on above: Result Comment: INTE [...] . . . . . . X [place]/MARKETING DATA SPECIALIST (CHRISTA) Ab, IgG . . . . [...] . . . . X Fibrillarin (U3 MARKETING DATA SPECIALIST) Ab, IgG . . . . . [...] developed and its performance characteristics determined by [facility]. It has not been cleared or approved by the [place] Food and Drug Administration. This test was performed in a CLIA certified laboratory and is intended for clinical purposes. NXP2 AB Negative Normal Negative [facility] OJ AB Negative Normal Negative [facility] P155/140 AB Negative Normal Negative [facility] PL-12 AB Negative Normal Negative [facility] PL-7 AB Negative Normal Negative [facility] PM/SCL 100 AB, IgG Negative Normal Negative [facility] Comment on above: Result Comment: INTE [...] developed and its performance characteristics determined by [facility]. It has not been cleared or approved by the [place] Food and Drug Administration. This test was performed in a CLIA certified laboratory and is intended for clinical purposes. MARKETING DATA SPECIALIST AB IGG (CHRISTA) 2 Units Normal 0-19 [facility] Comment on above: Result Comment: INTE RPRETIVE INFORMATION: [place]by/MARKETING DATA SPECIALIST (CHRISTA) Antibody, IgG 19 Units or Less ............. Negative 20 to 39 Units ............... Weak Positive 40 to 80 Units ............... Moderate Positive 81 Units or greater .......... Strong Positive [place]oughby/MARKETING DATA SPECIALIST antibodies are frequently seen in patients with mixed connective tissue disease (MCTD) and are also associated with other systemic autoimmune rheumatic diseases (SARDs) such as systemic lupus erythematosus (SLE), systemic sclerosis, and myositis. Antibodies targeting the Willoughby/MARKETING DATA SPECIALIST antigenic complex also recognize Willoughby antigens, therefore, the [place] antibody response must be considered when interpreting these results. SAE1 AB Negative Normal Negative [facility] SRP AB Negative Normal Negative [facility] SSA (RO) AB IGG 0 AU/mL Normal 0-40 [facility] Comment on above: Result Comment: INTE [...] AB IGG 0 AU/mL Normal 0-40 [facility] Comment on above: Result Comment: REFE RENCE INTERVAL: SSA-60 (Ro60) (CHRISTA) Antibody, IgG 29 AU/mL or Less ............. Negative 30 - 40 AU/mL ................ Equivocal 41 AU/mL or Greater .......... Positive TIF-1 GAMMA AB Negative Normal Negative [facility] RHEUMATOID FACTOR SERUMon RA <20 Normal 0-20 [facility] Comment on above: Performed By: #### 1 0204, 42248, 19905, 05728 #### [facility] [address] [facility]. [address] SEDIMENTATION RATEon 022 SED RATE 4 mm/hr Normal 0-20 [facility] Comment on above: Performed By: #### 5 6506 #### [facility] [address] [facility]. [address] SJOGRENS ANTIBODIESon 2021 SS-A Negative Normal NEG,NEGATIVE ,Neg [facility] Comment on above: Performed By: #### 9 9850, 91716, 21297, 01564, 20623 #### [facility] [address] [facility]. [address] SS-B Negative Normal NEG,NEGATIVE ,Neg [facility] Comment on above: Performed By: #### 9 9850, 71360, 51421, 10324, 26894 #### [facility] [address] Ambulatory Visit Summaryon 0 11-23-2021 Ambulatory [...] HTN (hypertension) Hypothyroidism Obesity Tobacco user Normal [facility] General Surgery Office/Clini c Noteon 11-23-2021 General [...] Alcoholism: Father. Hypertension: Mother and Father. Normal [facility] Comment on above: Result Comment: Elec tronically Signed By: ALEX SINGH, Chantel Lindsey\.br\Date and Time Signed: 11/23/21 14:24 EDT Pathology Noteon 11-21-2021 Pathology Note [id number]:127 [facility] Operative Reporton Operative Report [id number]:127 [facility] Provider Letter FTon 11-16 Provider Letter [facility] November 16, 2021 AMANUEL WRIGHT [address] [place] [id number] AMANUEL WRIGHT 1985 To Whom It May Concern, Please excuse above patient from work 11/16/2021. Sincerely, Dr. Chantel Mayo MD General Surgery [facility] Pre-Certification Formon Pre-Certification Form [id number]:127 [facility] Consent for Procedure/Surger yon 10-11-2021 Consent for Procedure/Surgery [id number]:127 [facility] Ambulatory Visit Summaryon 0 10-09-2021 Ambulatory Visit [...] HTN (hypertension) Hypothyroidism Obesity Tobacco user Normal [facility] Physician Referralon 022 Physician Referral [id number]:127 Normal [facility] MG MAMM TERRENCE DIAG W CADon MG MAMM TERRENCE DIAG W CAD Patient: AMANUEL WRIGHT Exam Date: 10/02/2021 : 1985 Gender:F Ordering : RONY ROPER [facility] Admission #: [id number] Family : Order #: [id number] CLICK HERE TO VIEW EXAM RADIOLOGY REPORT [...] Treatments None Family Cancers None LOCATION: [facility] BREAST COMPOSITION: Scattered areas fibroglandular density. FINDINGS: [...] M.D. on 10/02/2021 at 12:01 Normal [facility] US BREAST RIGHT LIMITEDon US BREAST RIGHT LIMITED Patient: AMANUEL WRIGHT Exam Date: 10/02/2021 : 1985 Gender:F Ordering : RONY MEKAMaryan HAYSKathyHEIDI [facility] Admission #: [id number] Family : Order #: [id number] CLICK HERE TO VIEW EXAM RADIOLOGY REPORT [...] Treatments None Family Cancers None LOCATION: [facility] BREAST COMPOSITION: Scattered areas fibroglandular density. FINDINGS: [...] M.D. on 10/02/2021 at 12:01 Normal [facility] CBC AUTO DIFFon 09-14-2021 BASO # 0.1 103/ul Normal 0.0-0.[address] [facility] Comment on above: Performed By: #### C BC #### [facility] [address] [address] [address] Jaylan Jones Basophils/100 WBC (Bld) 0.7 % Normal 0.2-2.0 [facility] Comment on above: Performed By: #### C BC #### [facility] [address] [address] [address] Jaylan Jones EO # 0.2 103/ul Normal 0.0-0.7 [facility] Comment on above: Performed By: #### C BC #### [facility] [address] [place] [address] Dr. Jaylan Jones Eosinophils/100 WBC (Bld) 3.1 % Normal 0.9-7.0 [facility] Comment on above: Performed By: #### C BC #### [facility] [address] [address] [address] Jaylan Jones Erythrocyte distribution width (RBC) [Ratio] 13.3 % Normal 11.0-15.[address] [facility] Comment on above: Performed By: #### C BC #### [facility] [address] [place] [address] Dr. Jaylan Jones Hematocrit (Bld) [Volume fraction] 40.7 % Normal 36.0-48.[address] [facility] Comment on above: Performed By: #### C BC #### [facility] [address] [address] [address] Jaylan Jones Hemoglobin (Bld) [Mass/Vol] 13.4 g/dL Normal 12.0-16.0 [facility] Comment on above: Performed By: #### C BC #### [facility] [address] [place] [address] Dr. Jaylan Jones IG # 0.03 10e3/ul Normal 0.00-0.03 [facility] Comment on above: Performed By: #### C BC #### [facility] [address] [place] [address] Dr. Jaylan Jones IG % 0.4 % Normal 0.0-0.5 [facility] Comment on above: Performed By: #### C BC #### [facility] [address] [place] [address] Dr. Jaylan Jones LYMPH # 1.9 103/ul Normal 1.2-3.8 [facility] Comment on above: Performed By: #### C BC #### [facility] [address] [place] [address] Dr. Jaylna Jones Lymphocytes/100 WBC (Bld) 25.4 % Normal 20.5-60.0 [facility] Comment on above: Performed By: #### C BC #### [facility] [address] [place] [address] Dr. Jaylan Jones MANUAL DIFF REQ NO Normal [facility] Comment on above: Performed By: #### C BC #### [facility] [address] [place] [address] Dr. Jaylan Jones MCH (RBC) [Entitic mass] 28.3 pg Normal 26.7-34.[address] [facility] Comment on above: Performed By: #### C BC #### [facility] [address] [place] [address] Dr. Jaylan Jones MCHC (RBC) [Mass/Vol] 32.9 g/dL Normal 29.9-35.2 [facility] Comment on above: Performed By: #### C BC #### [facility] [address] [place] [address] Dr. Jaylan Jones MCV (RBC) [Entitic vol] 86.0 fL Normal 81.0-99.0 [facility] Comment on above: Performed By: #### C BC #### [facility] [address] [place] [address] Dr. Jaylan Jones MONO # 0.5 103/ul Normal 0.3-0.8 [facility] Comment on above: Performed By: #### C BC #### [facility] [address] [place] [address] Dr. Jaylan Jones Monocytes/100 WBC (Bld) 6.6 % Normal 1.7-12.0 [facility] Comment on above: Performed By: #### C BC #### [facility] [address] [place] [address] Dr. Jaylan Jones NEUT # 4.8 103/ul Normal 1.4-6.[address] [facility] Comment on above: Performed By: #### C BC #### [facility] [address] [place] [address] Dr. Jaylan Jones Neutrophils/100 WBC (Bld) 63.8 % Normal 43.0-75.0 [facility] Comment on above: Performed By: #### C BC #### [facility] [address] [place] [address] Dr. Jaylan Jones Platelet mean volume (Bld) [Entitic vol] 10.1 fL Normal 9.5-13.5 [facility] Comment on above: Performed By: #### C BC #### [facility] [address] [place] [address] Dr. Jaylan Jones PLT 290 103/ul Normal 150-450 [facility] Comment on above: Performed By: #### C BC #### [facility] [address] [place] [address] Dr. Jaylan Jones RBC 4.73 106/ul Normal 4.20-5.40 [facility] Comment on above: Performed By: #### C BC #### [facility] [address] [place] [address] Dr. Jaylan Jones WBC 7.5 103/ul Normal 4.0-11.0 [facility] Comment on above: Performed By: #### C BC #### [facility] [address] [place] [address] Dr. Jaylan Jones FREE T4on 09-14-2021 Free T4 [Mass/Vol] 0.93 ng/dL Normal 0.78-2.19 [facility] Comment on above: Performed By: #### F T4 #### [facility] [address] [place] [address] Dr. Jaylan Jones GLYCOHEMOGLOBIN A1Con 2021 ADA RECOMMENDATION ADA THERAPEUTIC TARGET 6.0 - 7.0 ACTION SUGGESTED > 7.[address] [facility] Comment on above: Performed By: #### A 1C #### [facility] [address] [address] [address] Jaylan Jones Glucose [Mass/Vol] 105 mg/dL Normal [facility] Comment on above: Performed By: #### A 1C #### [facility] [address] [address] [address] Jaylan Jones HbA1c (Bld) [Mass fraction] 5.3 % Normal <=6.[address] [facility] Comment on above: Performed By: #### A 1C #### [facility] [address] [address] [address] Jaylan Jones LIPID PROFILEon 09-14-2021 CHOL-HDL RATIO NORM SEE BELOW Normal [facility] Comment on above: Result Comment: 3.3 - 4.4 LOW RISK 4.4 - 7.1 AVERAGE RISK 7.1 - 11.0 MODERATE RISK >11.0 HIGH RISK Performed By: #### T SH, LIPID, CMP #### [facility] [address] [address] [address] Jaylan Jones Cholesterol [Mass/Vol] 122 mg/dL Normal <=[address] [facility] Comment on above: Performed By: #### T SH, LIPID, CMP #### [facility] [address] [address] [address] Jaylan Jones Cholesterol in HDL [Mass/Vol] 55 mg/dL Normal 40-60 [facility] Comment on above: Performed By: #### T SH, LIPID, CMP #### [facility] [address] [address] [address] Jaylan Jones Cholesterol in LDL [Mass/Vol] 55.2 mg/dL Normal [facility] Comment on above: Performed By: #### T SH, LIPID, CMP #### [facility] [address] [place] [address] Dr. Jaylan Jones Cholesterol.total /Cholesterol in HDL [Mass ratio] 2.2 {ratio} Normal [facility] Comment on above: Performed By: #### T SH, LIPID, CMP #### [facility] [address] [address] [address] Jaylan Jones HDL NORMAL > or = 60 mg/dl - LO W CARDIOVASCULAR RISK <40 mg/dl - HIGH CARDIOVASCULAR RISK Normal [facility] Comment on above: Performed By: #### T SH, LIPID, CMP #### [facility] [address] [address] [address] Jaylan Jones LDL CALC NORMAL SEE BELOW Normal [facility] Comment on above: Result Comment: <100 mg/dl OPTIMAL 100 - 129 mg/dl NEAR OR ABOVE OPTIMAL 130 - 159 mg/dl BORDERLINE HIGH 160 - 189 mg/dl HIGH >190 mg/dl VERY HIGH Performed By: #### T PRISCILA, LIPID, CMP #### [facility] [address] [address] [address] Jaylan Jones Triglyceride [Mass/Vol] 59 mg/dL Normal <=150 [facility] Comment on above: Performed By: #### T PRISCILA, LIPID, CMP #### [facility] [address] [address] [address] Jaylan Jones VLDL CALC 11.8 mg/dL Normal [facility] Comment on above: Performed By: #### T PRISCILA, LIPID, CMP #### [facility] [address] [address] [address] Jaylan Jones PROF 14(COMP METB)on 022 Albumin [Mass/Vol] 3.9 g/dL Normal 3.4-5.[address] [facility] Comment on above: Performed By: #### T SH, LIPID, CMP #### [facility] [address] [address] [address] Jaylan Jones Albumin/Globulin [Mass ratio] 1.1 {ratio} Normal [facility] Comment on above: Performed By: #### T SH, LIPID, CMP #### [facility] [address] [address] [address] Jaylan Jones ALP [Catalytic activity/Vol] 64 U/L Normal 46-116 [facility] Comment on above: Performed By: #### T SH, LIPID, CMP #### [facility] [address] [address] [address] Jaylan Jones ALT [Catalytic activity/Vol] 26 U/L Normal 14-59 [facility] Comment on above: Performed By: #### T SH, LIPID, CMP #### [facility] [address] [address] [address] Jaylan Jones Anion gap [Moles/Vol] 13.2 mmol/L Normal [facility] Comment on above: Performed By: #### T SH, LIPID, CMP #### [facility] [address] [address] [address] Jaylan Jones AST [Catalytic activity/Vol] 16 U/L Normal 15-37 [facility] Comment on above: Performed By: #### T SH, LIPID, CMP #### [facility] [address] [place] [address] Dr. Jaylan Jones Bilirubin [Mass/Vol] 0.5 mg/dL Normal 0.2-1.3 [facility] Comment on above: Performed By: #### T SH, LIPID, CMP #### [facility] [address] [place] [address] Dr. Jaylan Jones Calcium [Mass/Vol] 8.9 mg/dL Normal 8.5-10.1 [facility] Comment on above: Performed By: #### T SH, LIPID, CMP #### [facility] [address] [place] [address] Dr. Jaylan Jones Chloride [Moles/Vol] 102 mmol/L Normal 98-107 [facility] Comment on above: Performed By: #### T SH, LIPID, CMP #### [facility] [address] [place] [address] Dr. Jaylan Jones CO2 [Moles/Vol] 25.1 mmol/L Normal 22.0-30.0 [facility] Comment on above: Performed By: #### T SH, LIPID, CMP #### [facility] [address] [place] [address] Dr. Jaylan Jones Creatinine [Mass/Vol] 0.71 mg/dL Normal 0.55-1.02 [facility] Comment on above: Performed By: #### T SH, LIPID, CMP #### [facility] [address] [address] [address] Jaylan Jones EGFR-AF ST LUCIAN >60 Normal >=60 [facility] Comment on above: Performed By: #### T SH, LIPID, CMP #### [facility] [address] [address] [address] Jaylan Jones EGFR-NON AF ST LUCIAN >60 Normal >=60 [facility] Comment on above: Performed By: #### T SH, LIPID, CMP #### [facility] [address] [address] [address] Jaylan Jones Globulin (S) [Mass/Vol] 3.5 g/dL Normal [facility] Comment on above: Performed By: #### T SH, LIPID, CMP #### [facility] [address] [address] [address] Jaylan Jones Glucose [Mass/Vol] 85 mg/dL Normal 74-[address] [facility] Comment on above: Performed By: #### T SH, LIPID, CMP #### [facility] [address] [address] [address] Jaylan Jones Potassium [Moles/Vol] 4.3 mmol/L Normal 3.4-5.[address] [facility] Comment on above: Performed By: #### T SH, LIPID, CMP #### [facility] [address] [address] [address] Jaylan Jones Protein [Mass/Vol] 7.4 g/dL Normal 6.1-8.2 [facility] Comment on above: Performed By: #### T SH, LIPID, CMP #### [facility] [address] [address] [address] Jaylan Jones Sodium [Moles/Vol] 136 mmol/L Critically low 137-145 [facility] Comment on above: Performed By: #### T SH, LIPID, CMP #### [facility] [address] [address] [address] Jaylan Jones Urea nitrogen [Mass/Vol] 14.0 mg/dL Normal 7.0-18.[address] [facility] Comment on above: Performed By: #### T SH, LIPID, CMP #### [facility] [address] [place] [address] Dr. Jaylan Jones Urea nitrogen/Creatini ne [Mass ratio] 19.7 mg/mg Normal [facility] Comment on above: Performed By: #### T SH, LIPID, CMP #### [facility] [address] [place] [address] Dr. Jaylan Jones SED RATE MAZEPPAERGRENon 2021 SED RATE 15 mm/hr Normal <=[address] [facility] Comment on above: Performed By: #### S EDR #### [facility] [address] [place] [address] Dr. Jaylan Jones TSHon 09-14-2021 TSH 0.846 uIU/mL Normal 0.470-4.680 [facility] Comment on above: Performed By: #### T SH, LIPID, CMP #### [facility] [address] [place] [address] Dr. Jaylan Jones TSH RANGE SEE BELOW Normal [facility] Comment on above: Result Comment: <0.3 4 UIU/ml HYPERTHYROID 0.34-5.60 UIU/ml EUTHYROID >5.60 UIU/ml HYPOTHYROID Performed By: #### T SH, LIPID, CMP #### [facility] [address] [place] [address] UROGRAM WO/W IVCONon 12-25 CT UROGRAM WO/W IVCON * * *Final Report* * *DATE OF EXAM: Jan 16 2018 2:44PM [facility] 0560 - CT UROGRAM WO/W IVCON [...] LOGAN MD on Jan 19 2018 4:03PM [id number] Normal [facility] PROGRESSon 01-16-2018 Protein mass conc HNO ID: [id number] thor: Hoang (Ct) SHARAD Ruvalcabaervice: (none)Author Type: Clinical TechnicianType: Progress NotesFiled: 01/16/2018 2:46 PMNote Text: Radiology Service Progress NotePATIENT NAME: Amanuel WrightMRN: [id number] OF SERVICE: January 16, 2018TIME: 2:45 PMPATIENT [...] BY: Radha ZAVALETA 2017 2:45 PM Normal [facility] CNOVon 01-13-2018 CNOV Office Visit (UROLAV) ----AMANUEL WRIGHT ([id number]) [address] [facility] Provider Department01/13/18 10:20 AM IZABEL EARL) UROLAV During your visit today, we recorded the following information about you: Temperature Pulse Blood pressure Weight 99 degrees 76/minute 131/87 86.[facility] 01/13/[facility] 10:23 AM SignedPressure in abdomen. Pt states she can't hold her urine. Has been seeing bloodon and off in urine for about a year.Bilateral flank pain.Izabel Earl PA-C 01/13/2018 12:28 PM Signed [facility] UROLOGICAL INSTITUTEHEMATURIA EVALUATIONAugust 2017 ========CHIEF COMPLAINT: pelvic [...] or vaginal bleeding, but has had hysterectomyand executive vice president and chief financial officer has told her it's not from that [...] get a sooner appointment.She lives in the [facility] and some results are in Care Everywhere.DTF: 10+NTF: 4-5x per nightUrgency: yesUUI: NOSUI: [id number] - vaginal birthPreeclampsiaBowel movements vary - change all the timeDiarrhea - constipation. I will go days without eatings. No appetite, sometimes in too much pain toeat.(Determine 4 of 8)1-Duration: 12799-Ovnceejq: bladder3-Severity: worse4-Quality: Irritative5-Context: Void6-Timing: constantly7-Modifying factors: No [...] PAST MEDICAL HISTORY/COMORBIDITIES:====== Hypothyroidism, thyroid goiterDepressionHysterectomy in 2012Formerly [facility].IBUPROFEN (MOTRIN ORAL) [...] help improve urgency3. Pelvic pain - ICD9: [id number], ICD10: R10.2- Patient with multiple year history [...] for genitourinary condition [Z13.89]Order(s):UA DIP, URINE (POC) [7794721] Order #: [id number]. #:[id number] URINALYSIS WITH MICROSCOPIC [SQUAWMIC] Order #: [id number] CYTOLOGY, URINE (XTUBE) [SQUCYTOL] Order #: [id number] FUTURE URINE CYTOLOGY VOIDED [2803085] Order #: [id number] CT UROGRAM WO/W IVCON [6378144] Order #: [id number] FUTURE iv contrast (will be provided with [...] administration guidelines link.Disp: 1 EachRfl: 0 CYSTO.PANENDO [26168IEQ] Order #: [id number] MYCOPLASMA CULT [SQMYPLAS] Order #: [id number] CONSULT TO PHYSICAL THERAPY [9032] Order #: [id number]: 1Prescriptions as of 01/13/2018 Sig: MOTRIN ORAL [...] gross hematuria.Follow-up and Disposition History RecordedEncounter Number: [id number] Status:Closed by IZABEL EARL PA-C on 01/13/18 Normal [facility] CYTOLOGYon 01-13-2018 Body mass index (BMI) [Ratio] [facility] ansonn #: [id number] Physician: IZABEL EARLSPECIMEN SUBMITTEDA: URINE, VOIDED FINAL DIAGNOSISA. URINE, VOIDED: - Negative for malignant cells.Tate Joseph MD (Electronic Signature) CLINICAL DATA Gross hematuriaGROSS [id number] clear slight yellow tinged fluidSTAINSA: URINE, VOIDED THIN PREP Non-GynPatient ID #: [id number] of Report: 01/15/2018Date of Procedure: 01/13/2018Date of Receipt: 01/13/2018Submitted by: IZABEL EARLLocation: JOSUE CYK52Nmalzlgklu interpretation performed at [facility], [address] [place] [address]. Normal [facility] Mycoplasma Culton 01-13-2018 Mycoplasma Cult Sp. Request/Comment: - Specimen received in [employer] [facility]. Test Result - Culture negative for Mycoplasma hominis and Ureaplasma urealyticum Normal [facility] Comment on above: Performed By: #### M [facility] ####[facility] [address] [place], [place] [phone] PROGRESSon 01-13-2018 Protein mass conc HNO ID: [id number] thor: Izabel Hamilton (Pa): (none)Author Type: Physician AssistantType: Progress NotesFiled: 01/13/2018 12:28 PMNote Text: [facility] UROLOGICAL INSTITUTEHEMATURIA EVALUATIONAugust 2017 ========CHIEF COMPLAINT: pelvic [...] or vaginal bleeding, but has hadhysterectomy and executive vice president and chief financial officer has told her it's not from that [...] to get a soonerappointment.She lives in the [facility] and some results are in Care Everywhere.DTF: 10+NTF: 4-5x per nightUrgency: yesUUI: NOSUI: [id number] - vaginal birthPreeclampsiaBowel movements vary - change all the timeDiarrhea - constipation. I will go days without eatings. No appetite, sometimes in too much painto eat.(Determine 4 of 8)1-Duration: 02600-Owwipavc: bladder3-Severity: worse4-Quality: Irritative5-Context: Void6-Timing: constantly7-Modifying factors: No [...] help improve urgency3. Pelvic pain - ICD9: [id number], ICD10: R10.2- Patient with multiple year history [...] (XTUBE)- URINE CYTOLOGY Willy Earl PA-C Normal [facility] Urinalysis with Microscopico n 01-13-2018 Bilirubin, Urine Negative Normal Negative [facility] Comment on above: Performed By: #### U AWMIC ####[facility] [address] [place] [phone] Clarity Clear Normal Clear [facility] Comment on above: Performed By: #### U AWMIC ####[facility] [address] [phone] Color Yellow Normal Yellow [facility] Comment on above: Performed By: #### U AWMIC ####[facility] [address] [phone] Comments SEE COMMENT Normal [facility] Comment on above: Result Comment: N/A Performed By: #### U AWMIC ####[facility] [address] [phone] Glucose Ql (U) Negative Normal Negative [facility] Comment on above: Performed By: #### U AWMIC ####[facility] [phone] Hemoglobin/Blood, Ur 1+ Critically abnormal Negative [facility] Comment on above: Performed By: #### U AWMIC ####[address] [phone] INR Coag RelTime (Bld) 0-3 Normal 0-3 [facility] Comment on above: Performed By: #### U AWMIC ####[address] [phone] Ketones Ql (U) Negative Normal Negative [facility] Comment on above: Performed By: #### U AWMIC ####[address] [address] [address] [phone] Leukest Negative Normal Negative [facility] Comment on above: Performed By: #### U AWMIC ####[address] [address] [address] [phone] Nitrites Negative Normal Negative [facility] Comment on above: Performed By: #### U AWMIC ####[address] [address] [address] [phone] pH 7.0 Normal 4.5-8.0 [facility] Comment on above: Performed By: #### U AWMIC ####[address] [address] [address] [phone] Protein, Urine Negative Normal Negative [facility] Comment on above: Performed By: #### U AWMIC ####[address] [address] [address]CB[place], [place] [phone] Specific [place], Ur 1.008 Normal 1.005-1.030 [facility] Comment on above: Performed By: #### U AWMIC ####[address] [address] [address] [phone] Urine Lazaro Comment SEE COMMENT Normal [facility] Comment on above: Result Comment: N/A Performed By: #### U AWMIC ####[address] [place], [place] [phone] Urobilinogen Normal Normal Normal [facility] Comment on above: Performed By: #### U AWMIC ####[address] [place], [place] [phone] WBC 0-5 Normal 0-5 [facility] Comment on above: Performed By: #### U AWMIC ####[address] [phone] .UA Microscp Aon 06-09-2017 UA Mucus Present Abnormal Absent [facility] Comment on above: Performed By: #### C D:[id number] ####[address] [address] UA Squepi Cells Quant 7 /HPF Normal 0-29 [facility] Comment on above: Performed By: #### C D:[id number] ####[address] [address] UA WBC Quant 0 /HPF Normal 0-5 [facility] Comment on above: Performed By: #### C D:[id number] ####[address] [address] Urine, erythrocytes 17 /HPF High 0-5 [facility] Comment on above: Performed By: #### C D:[id number] ####[address] [address] .eGFRon 06-09-2017 eGFR (non-black) mL/min/{1.73_m2} Normal >=60 [facility] Comment on above: Result Comment: Resu lt [...] medication dosing. Performed By: #### E GFR ####[place] [address] Result Comment: Resu lt = 0-14.9 mL/min/1.73 m2 Kidney failure or DialysisResult = 15-29 mL/min/1.73 m2 Severe decrease in GFRResult = 30-59 mL/min/1.73 m2 Moderate decrease in GFRResult >= 60 mL/min/1.73 m2 Normal or increased GFR CBC w/ Diffon 06-09-2017 Erythrocyte distribution width Auto Ratio (RBC) 14.0 % Normal 11.6-14.8 [facility] Comment on above: Performed By: #### C BC ####[place] [address] Erythrocytes (RBC) 5.00 x10*6/mcL Normal 3.80-5.20 [facility] Comment on above: Performed By: #### C BC ####[place] [address] Hematocrit (HCT) 42.4 % Normal 36.0-46.0 [facility] Comment on above: Performed By: #### C BC ####[address] [id number] Hemoglobin mass conc (Bld) 14.6 g/dL Normal 12.0-16.0 [facility] Comment on above: Performed By: #### C BC ####[address] [address] MCH 29.3 pg Normal 27.0-35.0 [facility] Comment on above: Performed By: #### C BC ####[address] [address] MCHC mass conc (RBC) 34.5 % Normal 31.0-37.0 [facility] Comment on above: Performed By: #### C BC ####[address] [address] MCV 84.9 fL Normal 80.0-100.0 [facility] Comment on above: Performed By: #### C BC ####[address] [address] Platelet mean volume (PMV) 8.1 fL Normal 6.7-10.6 [facility] Comment on above: Performed By: #### C BC ####[address] [address] Platelets 242 x10*3/mcL Normal 150-350 [facility] Comment on above: Performed By: #### C BC ####[address] [address] WBC (Leukocytes) 9.2 x10*3/mcL Normal 4.5-11.0 [facility] Comment on above: Performed By: #### C BC ####[address] [address] CMPon 06-09-2017 Alanine aminotransferase (ALT) 15 U/L Normal 14-54 [facility] Comment on above: Performed By: #### C OMP ####[address] [address] Albumin 4.0 g/dL Normal 3.2-4.9 [facility] Comment on above: Performed By: #### C OMP ####[address] [address] Albumin/Globulin Ratio 1.4 {ratio} Normal 1.1-2.2 [facility] Comment on above: Performed By: #### C OMP ####[address] [address] Alk Phos 40 IU/L Normal 32-91 [facility] Comment on above: Performed By: #### C OMP ####[address] [address] Anion gap 9 mmol/L Normal 7-17 [facility] Comment on above: Performed By: #### C OMP ####[address] [address] Aspartate aminotransferase (AST) 22 U/L Normal 15-41 [facility] Comment on above: Performed By: #### C OMP ####[address] [address] Bili Total 0.5 mg/dL Normal 0.3-1.2 [facility] Comment on above: Performed By: #### C OMP ####[address] [address] BUN/Creatinine Ratio 25.8 mg/mg High 15.0-25.0 [facility] Comment on above: Performed By: #### C OMP ####[address] [address] Calcium 9.0 mg/dL Normal 8.5-10.3 [facility] Comment on above: Performed By: #### C OMP ####[address] [address] Chloride 108 mmol/L Normal 98-110 [facility] Comment on above: Performed By: #### C OMP ####[address] [address] CO2 24 mmol/L Normal 22-32 [facility] Comment on above: Performed By: #### C OMP ####[address] [address] Creatinine 0.66 mg/dL Normal 0.44-1.03 [facility] Comment on above: Performed By: #### C OMP ####[address] [address] Glucose mass conc 95 mg/dL Normal 74-118 [facility] Comment on above: Performed By: #### C OMP ####[address] [address] Potassium molar conc 3.7 mmol/L Normal 3.4-4.8 [facility] Comment on above: Performed By: #### C OMP ####[address] [place] [address] Protein 6.8 g/dL Normal 6.5-8.1 [facility] Comment on above: Performed By: #### C OMP ####[address] [place] [address] Sodium 137 mmol/L Normal 133-142 [facility] Comment on above: Performed By: #### C OMP ####[address] [address] Urea nitrogen 17 mg/dL Normal 8-26 [facility] Comment on above: Performed By: #### C OMP ####[address] [address] [address] Abdomen Pelvis w/ IV Cont kalyn [...] abnormality.IMPRESSION:No acute abdominal or pelvic abnormality.Radiation Dose Estimate:CTDI(mGy):0.786937 / / / kVp:120.289967 / mAs:0.080915 / / / DLP(mGy-cm):6.346807Tdrq Part: AbdomenCTDI(mGy):12.055653 / / / kVp:100.485216 / mAs:167.727123 / / / DLP(mGy-cm):598.463373Idde Part: Abdomen Final Dictated by: Herrera House MD DT/TM: 06.09.2017 9:57 amSigned by: Herrera House MDigned (Electronic Signature): 06.09.2017 10:00 am(If Report Is Signed, Electronically Signed in Other Vendor System) Normal [facility] Diff Autoon 06-09-2017 Baso Absolute 0.1 x10*3/mcL Normal 0.0-0.2 [facility] Comment on above: Performed By: #### . Automated Diff ####[address] [address] Basophils/100 WBC Auto (Bld) 1.0 % Normal 0.0-1.5 [facility] Comment on above: Performed By: #### . Automated Diff ####[address] [address] Eos Absolute 0.5 x10*3/mcL High 0.0-0.4 [facility] Comment on above: Performed By: #### . Automated Diff ####[address] [address] Eosinophils/100 leukocytes 5.4 % Normal 0.0-5.4 [facility] Comment on above: Performed By: #### . Automated Diff ####[address] [address] Lymphocytes 2.8 x10*3/mcL Normal 1.0-4.8 [facility] Comment on above: Performed By: #### . Automated Diff ####[address] [address] Lymphocytes/100 leukocytes 30.4 % Normal 27.2-40.8 [facility] Comment on above: Performed By: #### . Automated Diff ####[address] [address] [place] Absolute 0.7 x10*3/mcL Normal 0.1-1.1 [facility] Comment on above: Performed By: #### . Automated Diff ####[place] [address] Monocytes/100 leukocytes 8.0 % Normal 3.7-11.9 [facility] Comment on above: Performed By: #### . Automated Diff ####[place] [address] Neutro Absolute 5.1 x10*3/mcL Normal 1.8-7.7 [facility] Comment on above: Performed By: #### . Automated Diff ####[place] [address] Neutro Auto 55.2 % Normal 47.2-70.8 [facility] Comment on above: Performed By: #### . Automated Diff ####[place] [address] ED Clinical Summaryon 2017 [place] [address] ED Clinical SummaryPerson InformationName: Amanuel Wright/Mary Ellen Age: 31 Years : 1985Sex: Female PCP:Marital Status:Single race:White Ethnicity:Not or Language:EnglishMRN: [id number] Reason:Abdominal pain; Abdominal pain Acuity: 3Enc Type: Emergency Med Service: Emergency MedicineArrival:06/08/2017 21:47:00 Discharge: 06/09/2017 00:51:00 LOS: 000 03:04Checkin:06/08/2017 21:47:00 Checkout: 06/09/2017 00:51:00 Dispo Type: Home or Self CareAddress:[facility] [address] Provider Notes: History of Present IllnessPatient is [...] to cholelithiasis 2 months ago diagnosed at [facility]. Patient???s past medical history includes cholelithiasis. [...] range between ( 27.2 and 40.8 ) [place] Auto: 8.0 % -- Normal range between [...] range between ( 36.0 and 46.0 ) [place] Absolute: 0.7 x10 MCH: 29.3 pg -- [...] No Immunizations Documented This VisitFinal Med List:New MedicationsK[facility] CenterTravel [facility], [address] [place], [place] [id number], [phone] (Bentyl 20 mg oral tablet) 1 Tabs [...] as needed as needed for pain.Last Dose: [facility] [address], [address] [place], [place] [id number], [phone] (Bentyl 20 mg oral tablet) 1 Tabs [...] (Adult); Abdominal Pain, AdultAAPCC Poison Help line: .[facility] Hotline: [place] Tobacco Quit Line: [facility] ([place], [place]) [address]: [phone] ([place], [place]) [address]: [phone] [place] [place] [address] [address], [place]: [phone] Normal [facility] ED Note-Physicianon 06-09-19 ED Note-Physician Chief Complaint [...] to cholelithiasis 2 months ago diagnosed at [facility]. Patient?s past medical history includes cholelithiasis. [...] in this document, created by the medical reimbursement manager for me, accurately reflects the services I [...] TID, # 21 tabs, 0 Refill(s), Pharmacy: [facility] [id number] docusate, 1 caps, Oral, BID, PRN, # 20 caps, 0 Refill(s), Pharmacy: [facility] [id number] ondansetron, 1 tabs, Oral, q8hr, PRN, # 15 tabs, 0 Refill(s), Pharmacy: [facility] [id number] polyethylene glycol 3350, 17 g, Oral, Daily, dissolve in water before taking, # 527 g, 0 Refill(s), Pharmacy: [facility] [id number] 2. Constipation 3. Gallbladder contraction Orders: sodium chloride, 10 mL, IV Push, Injection, As Indicated, PRN flush, First Dose: 06/08/17 22:02:00 EST, Dispense From Location: [id number] CT Abdomen Pelvis w/ IV Contrast Discharge [...] by Anastasiia Duncan MD 06/09/2017 00:17 EST [facility] Lipaseon 06-09-2017 Lipase Lvl 20 IU/L Low 22-51 [facility] Comment on above: Performed By: #### L IP ####[place] [address] UA w Culture if Indon 2017 UA Blood Small Abnormal Negative [facility] Comment on above: Performed By: #### U CI ####[place] [address] UA Clarity Clear Normal [facility] Comment on above: Performed By: #### U CI ####[place] [id number] UA Leukocyte Esterase Negative Normal Negative [facility] Comment on above: Performed By: #### U CI ####[place] [id number] UA Nitrite Negative Normal Negative [facility] Comment on above: Performed By: #### U CI ####[place] [address] UA pH 5.0 Normal 4.5 - 7.8 [facility] Comment on above: Performed By: #### U CI ####[address] [address] UA Protein Negative Normal Negative [facility] Comment on above: Performed By: #### U CI ####[address] [address] UA Source Clean Catch Normal [facility] Comment on above: Performed By: #### U CI ####[address] [address] UA Spec Grav 1.034 Normal 1.003-1.035 [facility] Comment on above: Performed By: #### U CI ####[address] [address] UA Urobilinogen 0.2 mg/dL Normal 0.2 - 1.0 [facility] Comment on above: Performed By: #### U CI ####[address] [place] [address] Urine, color Yellow Normal [facility] Comment on above: Performed By: #### U CI ####[facility] [place] [address] Urine, glucose Negative Normal Negative [facility] Comment on above: Performed By: #### U CI ####[facility] [place] [address] Urine, ketones presence Trace Abnormal Negative [facility] Comment on above: Performed By: #### U CI ####[address] [place] [address] Urine, urobilinogen Negative Normal Negative [facility] Comment on above: Performed By: #### U CI ####[address] [place] [address] Vital Signs Date Time Vital Sign Value Performing Clinician Facility 04-23-2023 09:00-0500 Body height 160.02 cm Kamila Duong Other [facility] Other 04-23-2023 09:00-0500 Body mass index (BMI) [Ratio] 39.14 kg/m2 Kamila Duong Other [facility] Other 04-23-2023 09:00-0500 Body temperature 97.4 [degF] Kamila Duong Other [facility] Other 04-23-2023 09:00-0500 Body weight 100.25 kg Kamila Duong Other [facility] Other 04-23-2023 09:00-0500 Diastolic blood pressure 94 mm[Hg] Kamila Duong Other [facility] Other 04-23-2023 09:00-0500 Respiratory rate 18 /min Kamila Duong Other [facility] Other 04-23-2023 09:00-0500 SaO2% (BldA) [Mass fraction] 99 % Kamila Rhoda Other [facility] Other 04-23-2023 09:00-0500 Systolic blood pressure 143 mm[Hg] Kamila Rhoda Other [facility] Other 02-09-2023 09:00-0400 Body height 160.02 cm Kamila Rhoda Other [facility] Other 02-09-2023 09:00-0400 Body mass index (BMI) [Ratio] 36.77 kg/m2 Kamila Rhoda Other [facility] Other 02-09-2023 09:00-0400 Body temperature 97.4 [degF] Kamila Rhoda Other [facility] Other 02-09-2023 09:00-0400 Body weight 94.17 kg Kamila Rhoda Other [facility] Other 02-09-2023 09:00-0400 Diastolic blood pressure 88 mm[Hg] Kamila Rhoda Other [facility] Other 02-09-2023 09:00-0400 Respiratory rate 18 /min Kamila Rhoda Other [facility] Other 02-09-2023 09:00-0400 SaO2% (BldA) [Mass fraction] 98 % Kamila Rhoda Other [facility] Other 02-09-2023 09:00-0400 Systolic blood pressure 126 mm[Hg] Kamila Rhoda Other [facility] Other 06-11-2022 10:00-0500 Body height 157.48 cm Gloria Jackson Other [facility] Other 06-11-2022 10:00-0500 Body mass index (BMI) [Ratio] 40.23 kg/m2 Gloria Jackson Other [facility] Other 06-11-2022 10:00-0500 Body temperature 97.8 [degF] Gloria Jackson Other [facility] Other 06-11-2022 10:00-0500 Body weight 99.79 kg Gloria Jackson Other [facility] Other 06-11-2022 10:00-0500 Respiratory rate 18 /min Gloria Jackson Other [facility] Other 06-11-2022 10:00-0500 SaO2% (BldA) [Mass fraction] 99 % Gloria Jackson Other [facility] Other 10-09-2021 13:49-0400 Blood Pressure Location Chantel NILL [facility] 10-09-2021 13:49-0400 Diastolic blood pressure 80 mm[Hg] Chantel NILL [facility] [place] 10-09-2021 13:49-0400 Heart rate 72 /min Chantel NILL [facility] [place] 10-09-2021 13:49-0400 Respiratory rate 16 /min Chantel NILL [facility] [place] 10-09-2021 13:49-0400 Systolic blood pressure 124 mm[Hg] Chantel MAYO [facility] NEGATED: Highlighted row BMI (Body Mass Index) [facility] NEGATED: Highlighted row Body Temperature [facility] NEGATED: Highlighted row Body weight Harry Printy [facility] NEGATED: Highlighted row BP Diastolic Harry Printy [facility] NEGATED: Highlighted row BP Systolic Harry Printy [facility] NEGATED: Highlighted row Height Harry Printy [facility] NEGATED: Highlighted row Pulse (Heart Rate) Harry Printy [facility] NEGATED: Highlighted row Pulse Oximetry Harry Printy [facility] NEGATED: Highlighted row Respiratory Rate Harry Printy [facility] Encounters Encounter Date Encounter Type Care Provider Facility Start: 06-23-2023 End: 06-23-2023 ambulatory DELICIA TRIPP Not Available Start: 06-03-2023 End: 06-03-2023 ambulatory DELICIA TRIPP Not Available Start: 04-23-2023 (URG) Urgent Care Visit Kamila herring [facility] Start: 04-23-2023 End: 04-23-2023 ambulatory Kamila Duong Other [facility] Other Start: 02-09-2023 End: 02-09-2023 ambulatory Kamila Duong Other [facility] Other Start: 02-09-2023 Office outpatient vi sit 15 minutes Kamila Duong [facility] Start: 01-07-2023 ambulatory PHYSICIAN NO FAMILY Fac ility:[facility] Start: 06-17-2022 End: 06-17-2022 ambulatory POLITICAL ANALYST MEKA SAÚLHHOLPhu Facility: Start: 06-14-2022 End: 06-14-2022 ambulatory Gloria Jackson Other [facility] Other Start: 06-14-2022 Telephone encounter Gloria Jackson [facility] [address] Start: 06-11-2022 Office outpatient vi sit 25 minutes Gloria Jackson [facility] Start: 06-11-2022 End: 06-11-2022 ambulatory PHYSICIAN NO [facility] Facility:[facility] Start: 06-11-2022 End: 06-11-2022 ambulatory PHYSICIAN NO [facility] Work Phone: Start: 06-11-2022 End: 06-11-2022 Departed Referred PHYSICIAN NO [facility] [place] Work Phone: Start: 11-23-2021 End: 11-23-2021 Patient encounter procedure Chantel MAYO [facility]aid [place] Start: 11-14-2021 End: 11-14-[address] CHANTEL MAYO Facility:[facility] Start: 11-06-2021 Encounter for other preprocedural examination DR CHANTEL MAYO [facility] Start: 11-02-2021 End: 11-03-[address] CHANTEL MAYO Facility:[facility] Start: 11-02-2021 End: 11-03-2021 Encounter for other preprocedural examination DR CHANTEL MAYO Facility:[facility] Start: 10-09-2021 End: 10-09-2021 Patient encounter procedure Chantel MAYO [facility] N[facility]Said [place] Start: 10-02-2021 End: 10-03-2021 ambulatory RONY ROPER Facility:[facility] Start: 09-14-2021 End: 09-15-2021 ambulatory RONY ROPER Facility:[facility] Start: 01-16-2018 End: 01-16-2018 Patient encounter IZABEL EARL (PA) [facility] Start: 01-13-2018 End: 01-14-2018 Patient encounter IZABEL EARL (PA) [facility] Start: 06-08-2017 End: 06-09-2017 Emergency department patient visit ANASTASIIA DUNCAN Facility:[facility] Start: 10-02-2015 End: 10-03-2015 Admission to day surgery Harry Huffman [facility] Start: 08-11-2015 End: 08-11-2015 Admission to day surgery Harry Huffman [facility] Start: 12-01-2013 End: 12-01-2013 Emergency department [facility] Start: 04-06-2013 End: 04-06-2013 Patient encounter procedure [facility] Start: 04-28-2012 End: 04-28-2012 Patient encounter procedure [facility] Start: 10-07-2011 End: 10-07-2011 Emergency department patient visit Harry Huffman [facility] Start: 04-23-2011 End: 04-23-2011 Emergency department patient visit [facility] Start: 04-09-2011 End: 04-09-2011 Emergency department patient visit [facility] Start: 12-10-2010 End: 12-10-2010 Emergency department patient visit [facility] Start: 11-01-2010 End: 11-01-2010 Emergency department patient visit [facility] Start: 03-05-2010 End: 03-05-2010 Emergency department patient visit Harry [facility] Start: 12-12-2009 End: 12-12-2009 Admission to day surgery Harry Huffman [facility] Start: 10-10-2009 End: 10-10-2009 Emergency department patient visit [facility] Start: 03-06-2009 End: 03-06-2009 Emergency department patient visit [facility] Start: 11-09-2008 End: 11-09-2008 Emergency department patient visit [facility] Start: 09-14-2008 Patient encounter procedure [facility] Start: 07-07-2008 End: 07-07-2008 Emergency department patient visit [facility] Start: 06-24-2008 End: 06-24-2008 Emergency department patient visit [facility] Start: 06-04-2008 End: 06-04-2008 Emergency department patient visit [facility] Start: 04-09-2008 End: 04-09-2008 Emergency department patient visit [facility] Start: 12-15-2007 End: 12-28-2007 Discharged Recurring [facility] Start: 12-15-2007 End: 12-15-2007 Emergency department patient visit [facility] Start: 12-05-2007 End: 12-05-2007 Emergency department patient visit [facility] Start: 10-12-2007 End: 10-12-2007 Emergency department patient visit [facility] Start: 09-18-2007 End: 09-18-2007 [facility] Start: 08-16-2007 End: 08-16-2007 Emergency department [facility] Start: 07-23-2007 End: 07-23-2007 Emergency department patient visit [facility] Start: 06-24-2007 End: 06-25-2007 Emergency department patient visit [facility] Start: 05-23-2007 End: 05-23-2007 Emergency department patient visit [facility] Start: 04-25-2007 End: 05-25-2007 Discharged Recurring [facility] Start: 04-17-2007 End: 04-17-2007 Emergency department patient visit [facility] Start: 04-04-2007 End: 04-03-2007 Emergency department patient visit [facility] Start: 02-23-2007 End: 03-25-2007 Discharged Recurring [facility] Start: 02-02-2007 End: 02-01-2007 Emergency department patient visit [facility] Start: 01-24-2007 End: 02-22-2007 Discharged Recurring [facility] Start: 01-20-2007 End: 01-21-2007 Emergency department patient visit [facility] Start: 01-05-2007 End: 01-23-2007 Discharged Recurring [facility] Start: 12-24-2006 End: 12-24-2006 Emergency department [facility] visit [facility] Start: 12-18-2006 End: 12-18-2006 Emergency department [facility] Start: 07-11-2006 End: 07-11-2006 Emergency department patient visit [facility] Start: 03-20-2006 End: 03-20-2006 Emergency department patient visit [facility] Start: 02-27-2006 End: 02-27-2006 Emergency department [facility] Start: 02-11-2006 End: 02-11-2006 Emergency department [facility] visit [facility] Start: 01-06-2006 End: 01-06-2006 Emergency department patient visit [facility] Start: 11-23-2005 Patient encounter procedure [facility] Start: 09-07-2005 End: 09-06-2005 Emergency department [facility] Start: 08-02-2005 End: 08-02-2005 Emergency department patient visit [facility] Start: 07-21-2005 End: 07-20-2005 Emergency department patient visit [facility] Start: 04-02-2005 End: 04-24-2005 Discharged Recurring [facility] Start: 02-14-2005 End: 02-14-2005 Emergency department patient visit [facility] Start: 02-02-2005 End: 02-02-2005 Emergency department patient visit [facility] Start: 11-21-2004 End: 11-21-2004 Emergency department patient visit [facility] Start: 02-23-2004 Evaluation and management of inpatient [facility] Start: 02-21-2004 Evaluation and management of inpatient [facility] Start: 02-07-2004 Evaluation and management of inpatient [facility] Start: 03-20-1993 End: 03-26-1993 Discharged Recurring [facility] Procedures Date Procedure Procedure Detail [...] Author Start: 06-11-2022 Throat culture Throat Culture [facility] Bacteria identified in Throat by Aer[facility] culture [facility] Immunizations Immunization Date Immunization Notes Care Provider Wendy meyer 03-31-2022 tetanus toxoid, reduced diphtheria toxoid, and acellular pertussis vaccine, adsorbed Gloria Jackson Other [facility] Other Payers Date Payer Category Payer Self-pay 2022 Medicaid [id number] 2. [id number] 2017 Unknown 1986 Unknown [id number] 2.16.84 [id number] 1986 Unknown [id number] 2.16.84 [id number] 1986 Unknown [id number] 2.16.84 [id number] 1986 Unknown [id number] 2.16.84 [id number] 1986 Unknown [id number] 2.16.84 [id number] 1986 Unknown [id number] 2.16.84 [id number] 1986 Unknown [id number] 2.16.84 [id number] 1959 Unknown [id number] Private Health Insurance [id number] Unknown [id number] Unknown [id number] 2.16.8 [id number] Unknown [id number] 2.16.8 [id number] Social History Date Type Detail Facility Start: 10-09-2021 Tobacco smoking status Ex-smoker (fi nding) [facility] Tobacco smoking status Smokeless tobacco user within last 30 days [facility] [place] Sex Assigned At Female Gen[facility] Start: 12-07-2018 [facility] Start: 1985 Sex Assigned At Female [facility] Clinical Notes 10-09-2021 to 04-23-2023 Note Date [...] no improvement in 2 to 3 days [facility] Other 09-17-2023 Evaluation note* Encounter Date Diagnosis [...] no improvement in 2 to 3 days [facility] Other 01-17-2023 Evaluation note* Encounter Date Diagnosis [...] treatment plan. Patient left in stable condition [facility] Other 06-22-2022 NoteOPERATIVE NOTE OPERATION DATE: 11/14/2021 [...] room in good condition. CC: Meka Roper, [facility] Signed and Approved by: DR CHANTEL MAYO . 11/15/2021 14:02:00[facility]05-17-2022 NoteChief Complaint consultation for breast mass vs infection [facility] Staff 36 year old female presents [...] Tobacco Use:. [place]ig[place], [place] (more content not included)...[facility]Result Comment: Electronically Signed By: ALEX SINGH, Chantel Cuevas\Date and Time Signed: 10/09/21 15:43 EDTEvaluation + Plan note No data available for this section [facility] Evaluation noteNo assessment information available [facility] Work Phone: Evaluation noteNo InformationNortAmerican [facility] Other History general Narrative - Reported* Type Description Date Medical History Hypothyroidism Surgical History hysterectomy Surgical History knee arthroscopy Hospitalization History SEE ABOVE [facility] Other Hospital Discharge instructions No data available for this section [facility] Progress note No data available for this section [facility] [place] Summary Purpose Family History No Family History Records Found Relationship Condition Age at Onset Recorded Date/T nichelle Not Specified Bipolar affective disorder Unknown father Depression Unknown Advance Directives No Advanced Directives Records Found Advance Directive Response Recorded Date/ Time Advance Directives No December 07 12:28am Additional Source Comments INFORMATION SOURCE (unrecogn ized section and content) DATE CREATED AUTHOR 11/17/2017 [facility] DATE CREATED AUTHOR AUTHOR'S ORGANIZ ATION 01/21/2018 [facility] DATE CREATED AUTHOR AUTHOR'S ORGANIZ ATION 11/24/2021 [facility] DATE CREATED AUTHOR AUTHOR'S ORGANIZ ATION 12/29/2021 [facility] DATE CREATED AUTHOR AUTHOR'S ORGANIZ ATION 07/02/2022 [facility] DATE CREATED AUTHOR AUTHOR'S ORGANIZ ATION 05/02/2023 [facility] DATE CREATED AUTHOR AUTHOR'S ORGANIZ ATION 06/26/2023 [facility] dical Specialists EPIC Care Team (unrecognized [...] BE BASED ON THE PRIMARY CLINICAL RECORDS. [facility]. provides no warranty or guarantee of the accuracy or completeness of information in this document.
[2023-07-18 08:07] LABS: Basophils Absolute Auto 0.1 10^3/uL (0.0-0.1); Basophils Percent Auto 0.6 % (0.2-2.0); Eosinophils Absolute Auto 0.2 10^3/uL (0.0-0.7); Hematocrit 42.7 % (36.0-48.0); Hemoglobin 14.1 g/dL (12.0-16.0); Immature Granulocytes Abs Auto 0.02 10^3/uL (0.00-0.03); Immature Granulocytes Pct Auto 0.2 % (0.0-0.5); Lymphocytes Absolute Auto 2.2 10^3/uL (1.2-3.8); Lymphocytes Percent Auto 22.3 % (20.5-60.0); Mean Corpuscular Hemoglobin 28.3 pg (26.7-34.0); Mean Corpuscular Volume 85.7 fL (81.0-99.0); Mean Platelet Volume 9.3 fL (9.5-13.5); Monocytes Absolute Auto 0.5 10^3/uL (0.3-0.8); Monocytes Percent Auto 5.1 % (1.7-12.0); Neutrophils Percent Auto 69.8 % (43.0-75.0); Platelet Count 325 10^3/uL (150-450); Red Blood Count 4.98 10^6/uL (4.20-5.40); Red Cell Distribution Width 13.4 % (11.0-15.0); White Blood Count 10.1 10^3/uL (4.0-11.0)
[2023-07-18] MEDS: LACTATED RINGER'S SOLUTION 1,000 ML 50 ML IV (08:25)
--- NOTE | 2023-07-18 10:00 | PM.ONB ---
Brief Operative Note Date of procedure: 07/18/23 Pre-op diagnosis: pelvic pain Post-op diagnosis: same as pre-op Procedure: NAME OF PROCEDURE: [diagnostic laparoscopy ] PROCEDURE: The patient was taken back to the Operating Room where she was placed in dorsal lithotomy position after given general anesthesia. The patient was prepped and draped in normal sterile fashion. A sponge stick was placed into the patient's vagina. Attention was turned to the patient's abdomen, where a small umbilical incision was made. The fascia was tented using Ralph clamps and the fascia was entered sharply. Confirmation of intraabdominal placement of the 10 mm port was confirmed under direct visualization using a laparoscope. The patient's abdomen was then insufflated using CO2 gas with approximately 4 liters. A second port was placed left laterally, this was done under direct visualization with a 5 mm port. Survey of the patient's abdomen demonstrated normal liver and gallbladder. Survey of the patient's pelvic anatomy demonstrated normal appearing rt and lt ovary, absent uterus and tubes, normal appearing appendix. No endometrial implants could be noted, no evidence of any pelvic disease was seen, normal appearing pelvic cavity. All instruments were removed from the patient's abdomen. The patient's abdomen was deinsufflated of CO2 gas. The patient tolerated the procedure well. Sponge stick was removed from the patient's vagina. The patient's infraumbilical fascia was closed using #0 Vicryl on a GI needle. The patient's skin was closed laterally and infraumbilically using 4-0 Vicryl. The patient tolerated the procedure well. Sponge, lap and needle counts were correct x 2. The patient was taken to Recovery Room in stable condition. Anesthesia: CAMPOS Surgeon: Cl Estrada Manager Terminal: Sophia Alejandro Estimated blood loss (mL): 5 Pathology: none sent Condition: stable Disposition: PACU Urinary Catheter Management Urinary Catheter Management Urethral: Cath placed during this visit: no
[2023-07-18] MEDS: PROMETHAZINE HCL 25 MG TABLET PO (10:19)
== END 2023-07-18 11:03 | disposition home or self-care (01) ==
PROVIDERS: Visit Provider Obstetrics & Gynecology
PROC: (CPT 840; principal; 2023-07-18 08:35)
DX: R10.2 Pelvic and perineal pain (principal); E03.9 Hypothyroidism, unspecified; F41.9 Anxiety disorder, unspecified; F17.210 Nicotine dependence, cigarettes, uncomplicated; Z90.710 Acquired absence of both cervix and uterus
CPT/HCPCS: 49320; 36415; 85025; J1100; J1885; J2250; J2405; J2704; J3010; Q0169

== ENCOUNTER 2023-07-19 18:42 | Emergency (ER) | payer OTHER, SELFPAY ==
[2023-07-19 18:45] VITALS: BP 161/100; PULSE 81; RESP 24; TEMP 36.5; O2SAT 100; BMI 39.0
[2023-07-19 18:52] VITALS: PULSE 69
--- OUTSIDE RECORDS SUMMARY | 2023-07-19 18:52 | XMS_ITS | CCD ---
Author Name Unknown Address [address] [place] [address] Organization [facility] Care Team Providers Care Family Law Attorney Name Role Phone ANASTASIIA DUNCAN JAN Unavailable Unavailable IZABEL EARL (OSWALDO) Unavailable UnavailIZABEL Marquez (OSWALDO) Unavailable UnavailHarry Tom Attending Physician Unavailable Doug Yeager Primary Care Physician Unavailab MEKA Sanchez Primary Care Physician NO FAMILY, PHYSICIAN Primary Care Provider Unava ilSANDEE Terrazas Attending Provider AICHHOLZ, PROFESSOR OF SURGERY MEKA Admitting Unavailable AICHHOLZ, PROFESSOR OF SURGERY MEKA Attending Unavailable AICHHOLZ, PROFESSOR OF SURGERY MEKA Primary Care Unavailable AICHHOLZ, PROFESSOR OF SURGERY MEKA Consulting Unavailable AICHHOLZ, PROFESSOR OF SURGERY MEKA Primary Care Unavailable NITISH MCCALL Admitting Unavailable NITISH MCCALL Attending Unavailable NITISH MCCALL Consulting Unavailable NILL, DR GOLDEN Admitting Unavailable NILL, DR GOLDEN Attending Unavailable AICHHOLZ, PROFESSOR OF SURGERY MEKA Primary Care Unavailable NILL, DR GOLDEN Admitting Unavailable NILL, DR GOLDEN Attending Unavailable AICHHOLZ, PROFESSOR OF SURGERY MEKA Primary Care Unavailable NILL, DR GOLDEN Consulting Unavailable STEPHANIE CASTRO Consulting Unavailable ANTON VELÁZQUEZ Consulting Unavailable JERRY WEBB Consulting Unavailable AICHHOLZ, PROFESSOR OF SURGERY MEKA Admitting Unavailable AICHHOLZ, PROFESSOR OF SURGERY MEKA Attending Unavailable AICHHOLZ, PROFESSOR OF SURGERY MEKA Primary Care Unavailable AICHHOLZ, PROFESSOR OF SURGERY MEKA Consulting Unavailable DR KODI ROME Consulting [...] nalbuphine; Translations: [Nubain] Drug Allergy 4 vomiting [facility] Repository (6 sources) nalbuphine; Translations: [NALBUPHINE] Drug Allergy 4 AOF, Vomiting, Unknown [facility] Repository (1 source) NO KNOWN ALLERGIES; Translations: [NO KNOWN ALLERGIES] Propensity to adverse reactions to drug (disorder) [facility] Repository (4 sources) nu Propensity to adverse reactions Unknown [employer] Other Medications Current Medications Medication Drug Class(es) [...] 10-08-2021 Chronic Other aftercare (1 source) Other alf (current) drug therapy; Translations: [OTH LONGTERM CURRENT DRUG THERAPY] Onset: 3 Episodic Other [...] (COVID-19) RNA BRANT+probe Ql (Unsp spec) Positive [facility] [employer] Other COVID + FLU Quick Testing Negative [employer] [facility] Other Quick Strepon 06-11-2022 S. pyogenes Org specific cx Ql (Throat) Negative [facility] [employer] Other Quick Strep [facility] [employer] Other Throat Cultureon 06-11-2022 Throat culture Moderate Normal Resp iratory Marti 2 Days PERFORMED BY: [place] [address] PATHOLOGIST SILVERWARE WASHER DOMENICO BELL M.D. Normal [facility] Comment on above: Performed By: #### C [place] #### [address] ALDOLASE 53100oc 12-18-2021 ALDOLASE 4.6 U/L Normal 1.2-7.6 [facility] Comment on above: Result Comment: REFE RENCE INTERVAL: Aldolase Access complete set of age- and/or gender-specific reference intervals for this test in the [facility] Test Directory ([employer]). Performed By: [facility] [address] [place] [id number] System Development Engineer: Edgar Snell MD, PhD ANAon 12-18-2021 JAMIL PATTERN HOMOGENEOUS Normal [facility] Comment on above: Result Comment: The [...] medical authority. Performed By: #### 9 9850, 85758, 55255, 97059, 71608 ####[facility] [place] [address], [facility] JAMIL SCREEN 1:40 Normal <1:40,1:40 [facility] Comment on above: Result Comment: Test performed using [employer] IFA JAMIL Hep-2 Test, a pre-standardized assay designed for the qualitative and semi-quantitative detection of antinuclear antibodies. Performed By: #### 9 9850, 29057, 95911, 12155, 28088 ####[facility] [place] [address], [facility] ANTI CENTROMERE ABon 022 ANTI CENT AB Negative Normal NEGATIVE [facility] Comment on above: Performed By: #### 9 9850, 35231, 80650, 88620, 93585 ####[facility] [facility] [place] [address], [facility] ANTI DNAon 12-18-2021 ANTI DNA <1:10 Normal <1:10 [facility] Comment on above: Performed By: #### 9 9850, 08390, 26835, 67046, 77216 #### [facility] [address] [place] [address], [facility] ANTI-ENAon 12-18-2021 ANTI SM Negative Normal NEG,NEGATIVE ,Neg [facility] Comment on above: Performed By: #### 9 9850, 32786, 62556, 23111, 57817 #### [facility] [address] [place] [address], [facility] ANTI SM/ANTIRNP Negative Normal NEG,NEGATIVE ,Neg [facility] Comment on above: Performed By: #### 9 9850, 70214, 34334, 43267, 36392 #### [facility] [address] [place]. [address] C REACTIVE PROTEINon 022 CRP [Mass/Vol] 4.3 mg/L Normal 0.0-7.0 [facility] Comment on above: Performed By: #### 1 0204, 06245, 93770, 92274 #### [facility] [address] [place] [address], [facility] COMPLEMENT 3on 12-18-2021 COMPLEMENT 3 96 mg/dL Normal 79-152 [facility] Comment on above: Performed By: #### 1 0204, 42077, 26243, 62545 #### [facility] [address] [facility] [place] [address], [facility] COMPLEMENT 4on 12-18-2021 COMPLEMENT 4 19 mg/dL Normal 16-38 [facility] Comment on above: Performed By: #### 1 0204, 50912, 47045, 96680 #### [facility] [address] CPKon 12-18-2021 CK [Catalytic activity/Vol] 78 U/L Normal 30-223 [facility] Comment on above: Performed By: #### 2 5508 ####[facility] CYCLIC [place]IN[place] PEPT[place] [address]rd 12-18-2021 CYCLIC CIT PEP 1 Units Normal 0-19 [facility] Comment on above: Result Comment: [...] be monitored and testing repeated. Performed By: [facility] [address] [place] [address] System Development Engineer: Edgar Snell MD, PhD HEPATITIS B CORE ANTIBODYon 12-18-2021 HEP B CORE AB Non-Reactive Normal NONREACTIVE [facility] Comment on above: Performed By: #### 3 1568, 23307, 23009 ####[facility] [facility].[address] HEPATITIS B SURFACE ANTIGEN QUALon 12-18-2021 HEP B SURF AG QUAL Non-Reactive Normal NONREACTIVE [facility] Comment on above: Performed By: #### 3 1568, 97413, 45522 ####[facility] [facility].[address] HEPATITIS C SCREENon 022 ANTI-HCV Non-Reactive Normal NONREACTIVE [facility] Comment on above: Performed By: #### 3 1568, 57817, 27316 ####[facility] [facility].[address] HIV1 AND 2 COMBO 4Gon 2021 HIV COMBO Negative Normal NEGATIVE [facility] Comment on above: Performed By: #### 3 0638 ####[facility] [facility].[address] MPO/PR3 RFLX TO ANCA [id number] on 12-18-2021 MYELOPEROX AB (62285) 0 AU/mL Normal 0-19 [facility] Comment on above: Result Comment: INTE RPRETIVE INFORMATION: Myeloperoxidase Abs, IgG 19 AU/mL or Less ......... Negative 20-25 AU/mL .............. Equivocal 26 AU/mL or Greater ...... Positive Approximately 90% of patients with a P-ANCA pattern by IFA have antibodies specific for MPO. SERINE PROTEINASE 3 0 AU/mL Normal 0-19 [facility] Comment on above: Result Comment: Myel [...] have antibodies specific for PR3. Performed By: [facility] [address] [place] [address] System Development Engineer: Edgar Snell MD, PhD MYOSITIS EXTENDED PANEL 3001 781on 12-18-2021 EJ AB Negative Normal Negative [facility] FIBRILLARIN (U3 AUTO BODY PAINTER) AB, IgG Negative Normal Negative [facility] Comment on above: Result Comment: Inte rpretive Information: Fibrillarin (U3 AUTO BODY PAINTER) Antibody, IgG The presence of fibrillarin (U3-AUTO BODY PAINTER) IgG antibodies in association with an JAMIL [...] a multi-ethnic cohort of SSc patients (n=98), U3-AUTO BODY PAINTER antibodies detected by immunoblot had an agreement of 98.9 percent with the gold standard immunoprecipitation (IP) assay. Approximately 71 percent (5/7) of the borderline U3-AUTO BODY PAINTER results with JAMIL nucleolar pattern in this cohort were IP negative. This test was developed and its performance characteristics determined by [facility]. It has not been cleared or approved by the [place] Food and Drug Administration. This test was performed in a CLIA certified laboratory and is intended for clinical purposes. Performed By: [facility] [address] [place] [address] System Development Engineer: Edgar Snell MD, PHD ISAURA-1 AB IGG 0 AU/mL Normal 0-40 [facility] Comment on above: Result Comment: INTE RPRETIVE INFORMATION: Isaura-1 Antibody, IgG 29 AU/mL or less.........Negative 30-40 AU/mL..............Equivocal 41 AU/mL or greater......Positive Presence of Isaura-1 (antihistidyl transfer RNA [t-RNA] synthetase) antibody is associated with polymyositis and may also be seen in patients with dermatomyositis. Isaura-1 antibody is associated with pulmonary involvement (interstitial lung disease), Raynaud phenomenon, arthritis, and avionics mechanic's hands (implicated in antisynthetase syndrome). KU AB Negative Normal Negative [facility] MDA5 AB Negative Normal Negative [facility] WI-2 AB Negative Normal Negative [facility] MYOSITIS PANEL INTERP See Note Normal [facility] Comment on above: Result Comment: [...] . . . . . . X [place]by/AUTO BODY PAINTER (CHRISTA) Ab, IgG . . . . [...] . . . . X Fibrillarin (U3 AUTO BODY PAINTER) Ab, IgG . . . . . [...] developed and its performance characteristics determined by [facility]. It has not been cleared or approved by the [place] Food and Drug Administration. This test was performed in a CLIA certified laboratory and is intended for clinical purposes. NXP2 AB Negative Normal Negative [facility] OJ AB Negative Normal Negative [facility] P155/140 AB Negative Normal Negative [facility] PL-12 AB Negative Normal Negative [facility] PL-7 AB Negative Normal Negative [facility] PM/SCL 100 AB, IgG Negative Normal Negative [facility] Comment on above: Result Comment: [...] developed and its performance characteristics determined by [facility]. It has not been cleared or approved by the US Food and Drug Administration. This test was performed in a CLIA certified laboratory and is intended for clinical purposes. AUTO BODY PAINTER AB IGG (CHRISTA) 2 Units Normal 0-19 [facility] Comment on above: Result Comment: INTE RPRETIVE INFORMATION: Willoughby/AUTO BODY PAINTER (CHRISTA) Antibody, IgG 19 Units or Less ............. Negative 20 to 39 Units ............... Weak Positive 40 to 80 Units ............... Moderate Positive 81 Units or greater .......... Strong Positive Willoughby/AUTO BODY PAINTER antibodies are frequently seen in patients with mixed connective tissue disease (MCTD) and are also associated with other systemic autoimmune rheumatic diseases (SARDs) such as systemic lupus erythematosus (SLE), systemic sclerosis, and myositis. Antibodies targeting the Willoughby/AUTO BODY PAINTER antigenic complex also recognize Willoughby antigens, therefore, the [place]by antibody response must be considered when interpreting these results. SAE1 AB Negative Normal Negative [facility] SRP AB Negative Normal Negative [facility] SSA (RO) AB IGG 0 AU/mL Normal 0-40 [facility] Comment on above: Result Comment: INTE RPRETIVE [...] AB IGG 0 AU/mL Normal 0-40 [facility] Comment on above: Result Comment: REFE RENCE INTERVAL: SSA-60 (Ro60) (CHRISTA) Antibody, IgG 29 AU/mL or Less ............. Negative 30 - 40 AU/mL ................ Equivocal 41 AU/mL or Greater .......... Positive TIF-1 GAMMA AB Negative Normal Negative [facility] RHEUMATOID FACTOR SERUMon RA <20 Normal 0-20 [facility] Comment on above: Performed By: #### 1 0204, 18369, 58180, 94309 #### [facility] [address] [facility]. [address] SEDIMENTATION RATEon 022 SED RATE 4 mm/hr Normal 0-20 [facility] Comment on above: Performed By: #### 5 6506 #### [facility] [address] [facility]. [address] SJOGRENS ANTIBODIESon 2021 SS-A Negative Normal NEG,NEGATIVE ,Neg [facility] Comment on above: Performed By: #### 9 9850, 14643, 21045, 83717, 91487 #### [facility] [address] [facility]. [address] SS-B Negative Normal NEG,NEGATIVE ,Neg [facility] Comment on above: Performed By: #### 9 9850, 64298, 17144, 28327, 99794 #### [facility] [address] Ambulatory Visit Summaryon 0 11-23-2021 Ambulatory [...] HTN (hypertension) Hypothyroidism Obesity Tobacco user Normal [facility] General Surgery Office/Clini c Noteon 11-23-2021 [...] Alcoholism: Father. Hypertension: Mother and Father. Normal [facility] Comment on above: Result Comment: Elec tronically Signed By: ALEX SINGH, Chantel Lindsey\.br\Date and Time Signed: 11/23/21 14:24 EDT Pathology Noteon 11-21-2021 Pathology Note [id number]#1.00CD:127 [facility] Operative Reporton Operative Report [id number]#1.00CD:127 [facility] Provider Letter FTon 11-16 Provider Letter [facility] November 16, 2021 AMANUEL WRIGHT [address] [place] [id number] AMANUEL WRIGHT 1985 To Whom It May Concern, Please excuse above patient from work 11/16/2021. Sincerely, Dr. Chantel Mayo MD General Surgery [facility] Pre-Certification Formon Pre-Certification Form [id number]#1.00CD:127 [facility] Consent for Procedure/Surger yon 10-11-2021 Consent for Procedure/Surgery [id number]#1.00CD:127 [facility] Ambulatory Visit Summaryon 0 10-09-2021 Ambulatory [...] HTN (hypertension) Hypothyroidism Obesity Tobacco user Normal [facility] Physician Referralon 022 Physician Referral [id number]#[id number]:127 Normal [facility] MG MAMM TERRENCE DIAG W CADon MG MAMM TERRENCE DIAG W CAD Patient: AMANUEL WRIGHT Exam Date: 10/02/2021 : 1985 Gender:F Ordering : RONY ROPER [facility] Admission #: [id number] Family : Order #: [id number] CLICK HERE TO VIEW EXAM RADIOLOGY REPORT [...] Treatments None Family Cancers None LOCATION: The BREAST COMPOSITION: Scattered areas fibroglandular density. FINDINGS: [...] M.D. on 10/02/2021 at 12:01 Normal The US BREAST RIGHT LIMITEDon US BREAST RIGHT LIMITED Patient: AMANUEL WRIGHT Exam Date: 10/02/2021 : 1985 Gender:F Ordering : RONY MEKAMaryan HAYSKathyHEIDI [facility] Admission #: [id number] Family : Order #: [id number] CLICK HERE TO VIEW EXAM RADIOLOGY REPORT [...] Treatments None Family Cancers None LOCATION: The BREAST COMPOSITION: Scattered areas fibroglandular density. FINDINGS: [...] M.D. on 10/02/2021 at 12:01 Normal The CBC AUTO DIFFon 09-14-2021 BASO # 0.1 103/ul Normal 0.0-0.[address] [facility] Comment on above: Performed By: #### C BC #### Laboratory [address] [address] [address] Jaylan Jones Basophils/100 WBC (Bld) 0.7 % Normal 0.2-2.0 The Comment on above: Performed By: #### C BC #### Laboratory [address] [address] [address] Jaylan Jones EO # 0.2 103/ul Normal 0.0-0.7 The Comment on above: Performed By: #### C BC #### Laboratory [address] [place] [address] Dr. Jaylan Jones Eosinophils/100 WBC (Bld) 3.1 % Normal 0.9-7.0 The Comment on above: Performed By: #### C BC #### [facility] [address] [address] [address] Jaylan Jones Erythrocyte distribution width (RBC) [Ratio] 13.3 % Normal 11.0-15.[address] [facility] Comment on above: Performed By: #### C BC #### Laboratory [address] [place] [address] Dr. Jaylan Jones Hematocrit (Bld) [Volume fraction] 40.7 % Normal 36.0-48.[address] [facility] Comment on above: Performed By: #### C BC #### [facility] [address] [address] [address] Jaylan Jones Hemoglobin (Bld) [Mass/Vol] 13.4 g/dL Normal 12.0-16.0 The Comment on above: Performed By: #### C BC #### Laboratory [address] [place] [address] Dr. Jaylan Jones IG # 0.03 10e3/ul Normal 0.00-0.03 The Comment on above: Performed By: #### C BC #### Laboratory [address] [place] [address] Dr. Jaylan Jones IG % 0.4 % Normal 0.0-0.5 The Comment on above: Performed By: #### C BC #### Laboratory [address] [place] [address] Dr. Jaylan Jones LYMPH # 1.9 103/ul Normal 1.2-3.8 The Comment on above: Performed By: #### C BC #### Laboratory [address] [place] [address] Dr. Jaylan Jones Lymphocytes/100 WBC (Bld) 25.4 % Normal 20.5-60.0 The Comment on above: Performed By: #### C BC #### Laboratory [address] [place] [address] Dr. Jaylan Jones MANUAL DIFF REQ NO Normal [facility] Comment on above: Performed By: #### C BC #### Laboratory [address] [place] [address] Dr. Jaylan Jones MCH (RBC) [Entitic mass] 28.3 pg Normal 26.7-34.[address] [facility] Comment on above: Performed By: #### C BC #### Laboratory [address] [place] [address] Dr. Jaylan Jones MCHC (RBC) [Mass/Vol] 32.9 g/dL Normal 29.9-35.2 The Comment on above: Performed By: #### C BC #### Laboratory [address] [place] [address] Dr. Jaylan Jones MCV (RBC) [Entitic vol] 86.0 fL Normal 81.0-99.0 The Comment on above: Performed By: #### C BC #### Laboratory [address] [place] [address] Dr. Jaylan Jones MONO # 0.5 103/ul Normal 0.3-0.8 The Comment on above: Performed By: #### C BC #### Laboratory [address] [place] [address] Dr. Jaylan Jones Monocytes/100 WBC (Bld) 6.6 % Normal 1.7-12.0 The Comment on above: Performed By: #### C BC #### Laboratory [address] [place] [address] Dr. Jaylan Jones NEUT # 4.8 103/ul Normal 1.4-6.[address] [facility] Comment on above: Performed By: #### C BC #### Laboratory [address] [place] [address] Dr. Jaylan Jones Neutrophils/100 WBC (Bld) 63.8 % Normal 43.0-75.0 The Comment on above: Performed By: #### C BC #### Laboratory [address] [place] [address] Dr. Jaylan Jones Platelet mean volume (Bld) [Entitic vol] 10.1 fL Normal 9.5-13.5 The Comment on above: Performed By: #### C BC #### Laboratory [address] [place] [address] Dr. Jaylan Jones PLT 290 103/ul Normal 150-450 The Comment on above: Performed By: #### C BC #### Laboratory [address] [place] [address] Dr. Jaylan Jones RBC 4.73 106/ul Normal 4.20-5.40 The Comment on above: Performed By: #### C BC #### Laboratory [address] [place] [address] Dr. Jaylan Jones WBC 7.5 103/ul Normal 4.0-11.0 The Comment on above: Performed By: #### C BC #### Laboratory [address] [place] [address] Dr. Jaylan Jones FREE T4on 09-14-2021 Free T4 [Mass/Vol] 0.93 ng/dL Normal 0.78-2.19 The Comment on above: Performed By: #### F T4 #### Laboratory [address] [place] [address] Dr. Jaylan Jones GLYCOHEMOGLOBIN A1Con 2021 ADA RECOMMENDATION ADA THERAPEUTIC TARGET 6.0 - 7.0 ACTION SUGGESTED > 7.[address] [facility] Comment on above: Performed By: #### A 1C #### Laboratory [address] [address] [address] Jaylan Jones Glucose [Mass/Vol] 105 mg/dL Normal [facility] Comment on above: Performed By: #### A 1C #### Laboratory [address] [address] [address] Jaylan Jones HbA1c (Bld) [Mass fraction] 5.3 % Normal <=6.[address] [facility] Comment on above: Performed By: #### A 1C #### Laboratory [address] [address] [address] Jaylan Jones LIPID PROFILEon 09-14-2021 CHOL-HDL RATIO NORM SEE BELOW Normal [facility] Comment on above: Result Comment: 3.3 - 4.4 LOW RISK 4.4 - 7.1 AVERAGE RISK 7.1 - 11.0 MODERATE RISK >11.0 HIGH RISK Performed By: #### T SH, LIPID, CMP #### [facility] [address] [address] [address] Jaylan Jones Cholesterol [Mass/Vol] 122 mg/dL Normal <=[address] [facility] Comment on above: Performed By: #### T SH, LIPID, CMP #### [facility] [address] [address] [address] Jaylan Jones Cholesterol in HDL [Mass/Vol] 55 mg/dL Normal 40-60 The Comment on above: Performed By: #### T SH, LIPID, CMP #### [facility] [address] [address] [address] Jaylan Jones Cholesterol in LDL [Mass/Vol] 55.2 mg/dL Normal [facility] Comment on above: Performed By: #### T SH, LIPID, CMP #### Laboratory [address] [place] [address] Dr. Jaylan Jones Cholesterol.total /Cholesterol in HDL [Mass ratio] 2.2 {ratio} Normal [facility] Comment on above: Performed By: #### T SH, LIPID, CMP #### [facility] [address] [address] [address] Jaylan Jones HDL NORMAL > or = 60 mg/dl - LO W CARDIOVASCULAR RISK <40 mg/dl - HIGH CARDIOVASCULAR RISK Normal [facility] Comment on above: Performed By: #### T SH, LIPID, CMP #### Laboratory [address] [address] [address] Jaylan Jones LDL CALC NORMAL SEE BELOW Normal [facility] Comment on above: Result Comment: <100 mg/dl OPTIMAL 100 - 129 mg/dl NEAR OR ABOVE OPTIMAL 130 - 159 mg/dl BORDERLINE HIGH 160 - 189 mg/dl HIGH >190 mg/dl VERY HIGH Performed By: #### T PRISCILA, LIPID, CMP #### [facility] [address] [address] [address] Jaylan Jones Triglyceride [Mass/Vol] 59 mg/dL Normal <=150 The Comment on above: Performed By: #### T PRISCILA, LIPID, CMP #### [facility] [address] [address] [address] Jaylan Jones VLDL CALC 11.8 mg/dL Normal [facility] Comment on above: Performed By: #### T PRISCILA, LIPID, CMP #### Laboratory [address] [address] [address] Jaylan Jones PROF 14(COMP METB)on 022 Albumin [Mass/Vol] 3.9 g/dL Normal 3.4-5.[address] [facility] Comment on above: Performed By: #### T SH, LIPID, CMP #### Laboratory [address] [address] [address] Jaylan Jones Albumin/Globulin [Mass ratio] 1.1 {ratio} Normal The Comment on above: Performed By: #### T SH, LIPID, CMP #### Laboratory [address] [address] [address] Jaylan Jones ALP [Catalytic activity/Vol] 64 U/L Normal 46-116 The Comment on above: Performed By: #### T SH, LIPID, CMP #### Laboratory [address] [address] [address] Jaylan Jones ALT [Catalytic activity/Vol] 26 U/L Normal 14-59 The Comment on above: Performed By: #### T SH, LIPID, CMP #### Laboratory [address] [address] [address] Jaylan Jones Anion gap [Moles/Vol] 13.2 mmol/L Normal The Comment on above: Performed By: #### T SH, LIPID, CMP #### Laboratory [address] [address] [address] Jaylan Jones AST [Catalytic activity/Vol] 16 U/L Normal 15-37 The Comment on above: Performed By: #### T SH, LIPID, CMP #### Laboratory [address] [place] [address] Dr. Jaylan Jones Bilirubin [Mass/Vol] 0.5 mg/dL Normal 0.2-1.3 The Comment on above: Performed By: #### T SH, LIPID, CMP #### Laboratory [address] [place] [address] Dr. Jaylan Jones Calcium [Mass/Vol] 8.9 mg/dL Normal 8.5-10.1 The Comment on above: Performed By: #### T SH, LIPID, CMP #### Laboratory [address] [place] [address] Dr. Jaylan Jones Chloride [Moles/Vol] 102 mmol/L Normal 98-107 The Comment on above: Performed By: #### T SH, LIPID, CMP #### Laboratory [address] [place] [address] Dr. Jaylan Jones CO2 [Moles/Vol] 25.1 mmol/L Normal 22.0-30.0 [facility] Comment on above: Performed By: #### T SH, LIPID, CMP #### Laboratory [address] [place] [address] Dr. Jaylan Jones Creatinine [Mass/Vol] 0.71 mg/dL Normal 0.55-1.02 The Comment on above: Performed By: #### T SH, LIPID, CMP #### Laboratory [address] [address] [address] Jaylan Jones EGFR-AF ARGENTINE >60 Normal >=60 [facility] Comment on above: Performed By: #### T SH, LIPID, CMP #### Laboratory [address] [address] [address] Jaylan Jones EGFR-NON AF ARGENTINE >60 Normal >=60 The Comment on above: Performed By: #### T SH, LIPID, CMP #### Laboratory [address] [address] [address] Jaylan Jones Globulin (S) [Mass/Vol] 3.5 g/dL Normal [facility] Comment on above: Performed By: #### T SH, LIPID, CMP #### Laboratory [address] [address] [address] Jaylan Jones Glucose [Mass/Vol] 85 mg/dL Normal 74-[address] [facility] Comment on above: Performed By: #### T SH, LIPID, CMP #### Laboratory [address] [address] [address] Jaylan Jones Potassium [Moles/Vol] 4.3 mmol/L Normal 3.4-5.[address] [facility] Comment on above: Performed By: #### T SH, LIPID, CMP #### Laboratory [address] [address] [address] Jaylan Jones Protein [Mass/Vol] 7.4 g/dL Normal 6.1-8.2 The Comment on above: Performed By: #### T SH, LIPID, CMP #### Laboratory [address] [address] [address] Jaylan Jones Sodium [Moles/Vol] 136 mmol/L Critically low 137-145 The Comment on above: Performed By: #### T SH, LIPID, CMP #### Laboratory [address] [address] [address] Jaylan Jones Urea nitrogen [Mass/Vol] 14.0 mg/dL Normal 7.0-18.[address] [facility] Comment on above: Performed By: #### T SH, LIPID, CMP #### Laboratory [address] [place] [address] Dr. Jaylan Jones Urea nitrogen/Creatini ne [Mass ratio] 19.7 mg/mg Normal [facility] Comment on above: Performed By: #### T SH, LIPID, CMP #### Laboratory [address] [place] [address] Dr. Jaylan Jones SED RATE KENTERGRENon 2021 SED RATE 15 mm/hr Normal <=[address] [facility] Comment on above: Performed By: #### S EDR #### Laboratory [address] [place] [address] Dr. Jaylan Jones TSHon 09-14-2021 TSH 0.846 uIU/mL Normal 0.470-4.680 [facility] Comment on above: Performed By: #### T SH, LIPID, CMP #### Laboratory [address] [place] [address] Dr. Jaylan Jones TSH RANGE SEE BELOW Normal [facility] Comment on above: Result Comment: <0.3 4 UIU/ml HYPERTHYROID 0.34-5.60 UIU/ml EUTHYROID >5.60 UIU/ml HYPOTHYROID Performed By: #### T SH, LIPID, CMP #### Laboratory [address] [place] [address] UROGRAM WO/W IVCONon 12-25 CT UROGRAM WO/W IVCON * * *Final Report* * *DATE OF EXAM: Jan 16 2018 2:44PM [facility] 0560 - CT UROGRAM WO/W IVCON [...] Date/Time: Jan 19 2018 2:30PDictated by : VAHDI LOGAN MDThis examination was interpreted and the report reviewed and electronically signed by: VAHID LOGAN MD on Jan 19 2018 4:03PM [id number] [facility] PROGRESSon 01-16-2018 Protein mass conc HNO ID: [id number] thor: Hoang (Ct) SHARAD Ruvalcabaervice: (none)Author Type: Clinical TechnicianType: Progress NotesFiled: 01/16/2018 2:46 PMNote Text: Radiology Service Progress NotePATIENT NAME: Amanuel WrightMRN: [id number] OF SERVICE: January 16, 2018TIME: 2:45 PMPATIENT [...] BY: Radha ZAVALETA 2017 2:45 PM Normal [facility] CNOVon 01-13-2018 CNOV Office Visit (UROLAV) ----AMANUEL WRIGHT ([id number]) 1985 [facility] Department01/13/18 10:20 AM IZABEL EARL) UROLAV During your visit today, we recorded the following information about you: Temperature Pulse Blood pressure Weight 99 degrees 76/minute 131/87 86.2 kgErica [facility] 01/13/2018 10:23 AM SignedPressure in abdomen. Pt states she can't hold her urine. Has been seeing bloodon and off in urine for about a year.Bilateral flank pain.Izabel Earl PA-C 01/13/2018 12:28 PM Signed [facility] EVALUATIONAugust 2017 ========CHIEF COMPLAINT: pelvic [...] or vaginal bleeding, but has had hysterectomyand bruise trimmer has told her it's not from that [...] get a sooner appointment.She lives in the [facility] and some results are in Care Everywhere.DTF: 10+NTF: 4-5x per nightUrgency: yesUUI: NOSUI: [id number] - vaginal birthPreeclampsiaBowel movements vary - change all the timeDiarrhea - constipation. I will go days without eatings. No appetite, sometimes in too much pain toeat.(Determine 4 of 8)1-Duration: 86094-Eqbbvoib: bladder3-Severity: worse4-Quality: Irritative5-Context: Void6-Timing: constantly7-Modifying factors: No [...] PAST MEDICAL HISTORY/COMORBIDITIES:====== Hypothyroidism, thyroid goiterDepressionHysterectomy in 2012[facility].IBUPROFEN (MOTRIN ORAL) [...] help improve urgency3. Pelvic pain - ICD9: FRG8025, ICD10: R10.2- Patient with multiple year history [...] for genitourinary condition [Z13.89]Order(s):UA DIP, URINE (POC) [2779059] Order #: [id number]. #:[id number] URINALYSIS WITH MICROSCOPIC [SQUAWMIC] Order #: [id number] CYTOLOGY, URINE (XTUBE) [SQUCYTOL] Order #: [id number] FUTURE URINE CYTOLOGY VOIDED [1818943] Order #: [id number] CT UROGRAM WO/W IVCON [8426697] Order #: [id number] FUTURE iv contrast (will be provided with [...] administration guidelines link.Disp: 1 EachRfl: 0 CYSTO.PANENDO [49176NTI] Order #: [id number] MYCOPLASMA CULT [SQMYPLAS] Order #: [id number] CONSULT TO PHYSICAL THERAPY [9032] Order #: [id number]: 1Prescriptions as of 01/13/2018 Sig: MOTRIN ORAL [...] gross hematuria.Follow-up and Disposition History RecordedEncounter Number: [id number] Status:Closed by IZABEL EARL PA-C on 01/13/18 Normal [facility] CYTOLOGYon 01-13-2018 Body mass index (BMI) [Ratio] [facility] #: [id number] Physician: IZABEL EARLSPECIMEN SUBMITTEDA: URINE, VOIDED FINAL DIAGNOSISA. URINE, VOIDED: - Negative for malignant cells.Tate Joseph MD (Electronic Signature) CLINICAL DATA Gross hematuriaGROSS HPDSPZBQNHC04al clear slight yellow tinged fluidSTAINSA: URINE, VOIDED THIN PREP Non-GynPatient ID #: [id number] of Report: 01/15/2018Date of Procedure: 01/13/2018Date of Receipt: 01/13/2018Submitted by: IZABEL EARLLocation: JOSUE [id number] interpretation performed at [facility], [address] [place] [address]. Normal [facility] Mycoplasma Culton 01-13-2018 Mycoplasma Cult Sp. Request/Comment: - Specimen received in [employer]. Test Result - Culture negative for Mycoplasma hominis and Ureaplasma urealyticum Normal [facility] Comment on above: Performed By: #### M [facility] ####[facility] [address] [place], [place] [phone] PROGRESSon 01-13-2018 Protein mass conc HNO ID: [id number] thor: Izabel Hamilton (Pa): (none)Author Type: Physician AssistantType: Progress NotesFiled: 01/13/2018 12:28 PMNote Text: [facility] EVALUATIONAugust 2017 ========CHIEF COMPLAINT: pelvic [...] or vaginal bleeding, but has hadhysterectomy and bruise trimmer has told her it's not from that [...] to get a soonerappointment.She lives in the [facility] and some results are in Care Everywhere.DTF: 10+NTF: 4-5x per nightUrgency: yesUUI: NOSUI: firnexU8J3 - vaginal birthPreeclampsiaBowel movements vary - change all the timeDiarrhea - constipation. I will go days without eatings. No appetite, sometimes in too much painto eat.(Determine 4 of 8)1-Duration: 59074-Bmcdjtzd: bladder3-Severity: worse4-Quality: Irritative5-Context: Void6-Timing: constantly7-Modifying factors: No [...] Extremities normal. No deformities, edema, or skindiscoloration.Genitourin farnci: FEMALE EXAM: External genitalia: nl. Hair distribution, [...] help improve urgency3. Pelvic pain - ICD9: KPT4618, ICD10: R10.2- Patient with multiple year history [...] (XTUBE)- URINE CYTOLOGY Willy Earl PA-C Normal [facility] Urinalysis with Microscopico n 01-13-2018 Bilirubin, Urine Negative Normal Negative [facility] Comment on above: Performed By: #### U AWMIC ####[facility] [address] [place] [phone] Clarity Clear Normal Clear [facility] Comment on above: Performed By: #### U AWMIC ####[facility] [address] [phone] Color Yellow Normal Yellow [facility] Comment on above: Performed By: #### U AWMIC ####[facility] [address] [phone] Comments SEE COMMENT Normal [facility] Comment on above: Result Comment: N/A Performed By: #### U AWMIC ####[facility] [address] [phone] Glucose Ql (U) Negative Normal Negative [facility] Comment on above: Performed By: #### U AWMIC ####[facility] [phone] Hemoglobin/Blood, Ur 1+ Critically abnormal Negative [facility] Comment on above: Performed By: #### U AWMIC ####[address] [phone] INR Coag RelTime (Bld) 0-3 Normal 0-3 [facility] Comment on above: Performed By: #### U AWMIC ####[address] [phone] Ketones Ql (U) Negative Normal Negative [facility] Comment on above: Performed By: #### U AWMIC ####[address] [address] [address] [phone] Leukest Negative Normal Negative [facility] Comment on above: Performed By: #### U AWMIC ####[address] [address] [address] [phone] Nitrites Negative Normal Negative [facility] Comment on above: Performed By: #### U AWMIC ####[address] [address] [address] [phone] pH 7.0 Normal 4.5-8.0 [facility] Comment on above: Performed By: #### U AWMIC ####[address] [address] [address] [phone] Protein, Urine Negative Normal Negative [facility] Comment on above: Performed By: #### U AWMIC ####[address] [address] [address], [place] [phone] Specific [place], Ur 1.008 Normal 1.005-1.030 [facility] Comment on above: Performed By: #### U AWMIC ####[address] [address] [address] [phone] Urine Lazaro Comment SEE COMMENT Normal [facility] Comment on above: Result Comment: N/A Performed By: #### U AWMIC ####[address], [place] [phone] Urobilinogen Normal Normal Normal [facility] Comment on above: Performed By: #### U AWMIC ####[address] [place], [place] [phone] WBC 0-5 Normal 0-5 [facility] Comment on above: Performed By: #### U AWMIC ####[address] [phone] .UA Microscp Aon 06-09-2017 UA Mucus Present Abnormal Absent [facility] Comment on above: Performed By: #### C D:[id number] ####[address] [address] UA Squepi Cells Quant 7 /HPF Normal 0-29 [facility] Comment on above: Performed By: #### C D:[id number] ####[address] [address] UA WBC Quant 0 /HPF Normal 0-5 [facility] Comment on above: Performed By: #### C D:[id number] ####[address] [address] Urine, erythrocytes 17 /HPF High 0-5 [facility] Comment on above: Performed By: #### C D:[id number] ####[address] [address] .eGFRon 06-09-2017 eGFR (non-black) mL/min/{1.73_m2} Normal >=60 [facility] Comment on above: Result Comment: Resu lt [...] medication dosing. Performed By: #### E GFR ####[place] [address] Result Comment: Resu lt = 0-14.9 mL/min/1.73 m2 Kidney failure or DialysisResult = 15-29 mL/min/1.73 m2 Severe decrease in GFRResult = 30-59 mL/min/1.73 m2 Moderate decrease in GFRResult >= 60 mL/min/1.73 m2 Normal or increased GFR CBC w/ Diffon 06-09-2017 Erythrocyte distribution width Auto Ratio (RBC) 14.0 % Normal 11.6-14.8 [facility] Comment on above: Performed By: #### C BC ####[place] [address] Erythrocytes (RBC) 5.00 x10*6/mcL Normal 3.80-5.20 [facility] Comment on above: Performed By: #### C BC ####[place] [address] Hematocrit (HCT) 42.4 % Normal 36.0-46.0 [facility] Comment on above: Performed By: #### C BC ####[address] [address] Hemoglobin mass conc (Bld) 14.6 g/dL Normal 12.0-16.0 [facility] Comment on above: Performed By: #### C BC ####[address] [address] MCH 29.3 pg Normal 27.0-35.0 [facility] Comment on above: Performed By: #### C BC ####[address] [address] MCHC mass conc (RBC) 34.5 % Normal 31.0-37.0 [facility] Comment on above: Performed By: #### C BC ####[address] [address] MCV 84.9 fL Normal 80.0-100.0 [facility] Comment on above: Performed By: #### C BC ####[address] [address] Platelet mean volume (PMV) 8.1 fL Normal 6.7-10.6 [facility] Comment on above: Performed By: #### C BC ####[address] [address] Platelets 242 x10*3/mcL Normal 150-350 [facility] Comment on above: Performed By: #### C BC ####[address] [address] WBC (Leukocytes) 9.2 x10*3/mcL Normal 4.5-11.0 [facility] Comment on above: Performed By: #### C BC ####[address] [address] CMPon 06-09-2017 Alanine aminotransferase (ALT) 15 U/L Normal 14-54 [facility] Comment on above: Performed By: #### C OMP ####[address] [address] Albumin 4.0 g/dL Normal 3.2-4.9 [facility] Comment on above: Performed By: #### C OMP ####[address] [address] Albumin/Globulin Ratio 1.4 {ratio} Normal 1.1-2.2 [facility] Comment on above: Performed By: #### C OMP ####[address] [address] Alk Phos 40 IU/L Normal 32-91 [facility] Comment on above: Performed By: #### C OMP ####[address] [address] Anion gap 9 mmol/L Normal 7-17 [facility] Comment on above: Performed By: #### C OMP ####[address] [address] Aspartate aminotransferase (AST) 22 U/L Normal 15-41 [facility] Comment on above: Performed By: #### C OMP ####[address] [address] Bili Total 0.5 mg/dL Normal 0.3-1.2 [facility] Comment on above: Performed By: #### C OMP ####[address] [address] BUN/Creatinine Ratio 25.8 mg/mg High 15.0-25.0 [facility] Comment on above: Performed By: #### C OMP ####[address] [address] Calcium 9.0 mg/dL Normal 8.5-10.3 [facility] Comment on above: Performed By: #### C OMP ####[address] [address] Chloride 108 mmol/L Normal 98-110 [facility] Comment on above: Performed By: #### C OMP ####[address] [address] CO2 24 mmol/L Normal 22-32 [facility] Comment on above: Performed By: #### C OMP ####[address] [address] Creatinine 0.66 mg/dL Normal 0.44-1.03 [facility] Comment on above: Performed By: #### C OMP ####[address] [address] Glucose mass conc 95 mg/dL Normal 74-118 [facility] Comment on above: Performed By: #### C OMP ####[address] [address] Potassium molar conc 3.7 mmol/L Normal 3.4-4.8 [facility] Comment on above: Performed By: #### C OMP ####[address] [place] [address] Protein 6.8 g/dL Normal 6.5-8.1 [facility] Comment on above: Performed By: #### C OMP ####[address] [place] [address] Sodium 137 mmol/L Normal 133-142 [facility] Comment on above: Performed By: #### C OMP ####[address] [address] Urea nitrogen 17 mg/dL Normal 8-26 [facility] Comment on above: Performed By: #### C OMP ####[address] [address] [address] Abdomen Pelvis w/ IV Cont kalyn [...] abnormality.IMPRESSION:No acute abdominal or pelvic abnormality.Radiation Dose Estimate:CTDI(mGy):0.722010 / / / kVp:120.238773 / mAs:0.426579 / / / DLP(mGy-cm):6.067380Inrq Part: AbdomenCTDI(mGy):12.282628 / / / kVp:100.374187 / mAs:167.684406 / / / DLP(mGy-cm):598.256043Sfjv Part: Abdomen Final Dictated by: Herrera House MD DT/TM: 06.09.2017 9:57 amSigned by: Herrera House MDigned (Electronic Signature): 06.09.2017 10:00 am(If Report Is Signed, Electronically Signed in Other Vendor System) Normal [facility] Diff Autoon 06-09-2017 Baso Absolute 0.1 x10*3/mcL Normal 0.0-0.2 [facility] Comment on above: Performed By: #### . Automated Diff ####[address] [address] Basophils/100 WBC Auto (Bld) 1.0 % Normal 0.0-1.5 [facility] Comment on above: Performed By: #### . Automated Diff ####[address] [address] Eos Absolute 0.5 x10*3/mcL High 0.0-0.4 [facility] Comment on above: Performed By: #### . Automated Diff ####[address] [address] Eosinophils/100 leukocytes 5.4 % Normal 0.0-5.4 [facility] Comment on above: Performed By: #### . Automated Diff ####[address] [address] Lymphocytes 2.8 x10*3/mcL Normal 1.0-4.8 [facility] Comment on above: Performed By: #### . Automated Diff ####[address] [address] Lymphocytes/100 leukocytes 30.4 % Normal 27.2-40.8 [facility] Comment on above: Performed By: #### . Automated Diff ####[address] [address] [place] Absolute 0.7 x10*3/mcL Normal 0.1-1.1 [facility] Comment on above: Performed By: #### . Automated Diff ####[address] [place] [address] Monocytes/100 leukocytes 8.0 % Normal 3.7-11.9 [facility] Comment on above: Performed By: #### . Automated Diff ####[address] [address] Neutro Absolute 5.1 x10*3/mcL Normal 1.8-7.7 [facility] Comment on above: Performed By: #### . Automated Diff ####[place] [address] Neutro Auto 55.2 % Normal 47.2-70.8 [facility] Comment on above: Performed By: #### . Automated Diff ####[address] [place] [id number] ED Clinical Summaryon 2017 [place] [address] ED Clinical SummaryPerson InformationName: Amanuel Wright/Mary Ellen Age: 31 Years : 1985Sex: Female PCP:Marital Status:Single race:White Ethnicity:Not or Language:EnglishMRN: [id number] Reason:Abdominal pain; Abdominal pain Acuity: 3Enc Type: Emergency Med Service: Emergency MedicineArrival:06/08/2017 21:47:00 Discharge: 06/09/2017 00:51:00 LOS: 000 03:04Checkin:06/08/2017 21:47:00 Checkout: 06/09/2017 00:51:00 Dispo Type: Home or Self CareAddress:[facility] [address] Provider Notes: History of Present IllnessPatient is [...] range between ( 27.2 and 40.8 ) [place] Auto: 8.0 % -- Normal range between [...] range between ( 36.0 and 46.0 ) [place] Absolute: 0.7 x10 MCH: 29.3 pg -- [...] No Immunizations Documented This VisitFinal Med List:[facility]ations[facility] [address], [address] [place], [place] [id number], [phone] (Bentyl 20 mg oral tablet) 1 Tabs [...] as needed as needed for pain.Last Dose: [facility] [address], [address], [place] [id number], [phone] (Bentyl 20 mg oral tablet) 1 Tabs [...] Abdominal Pain, AdultAAPCC Poison Help line: .[facility] Hotline: [place] Tobacco Quit Line: [facility] ([place], [place]) [address]: [phone] ([place], [place]) [address]: [phone] [place] [address] [address] [place], [place]: [phone] Normal [facility] ED Note-Physicianon 06-09-19 ED Note-Physician Chief [...] in this document, created by the medical research associate for me, accurately reflects the services I [...] TID, # 21 tabs, 0 Refill(s), Pharmacy: [facility] [address] docusate, 1 caps, Oral, BID, PRN, # 20 caps, 0 Refill(s), Pharmacy: [facility] [address] ondansetron, 1 tabs, Oral, q8hr, PRN, # 15 tabs, 0 Refill(s), Pharmacy: [facility] [address] polyethylene glycol 3350, 17 g, Oral, Daily, dissolve in water before taking, # 527 g, 0 Refill(s), Pharmacy: [facility] [address] 2. Constipation 3. Gallbladder contraction Orders: sodium chloride, 10 mL, IV Push, Injection, As Indicated, PRN flush, First Dose: 06/08/17 22:02:00 EST, Dispense From Location: [id number] CT Abdomen Pelvis w/ IV Contrast Discharge [...] by Anastasiia Duncan MD 06/09/2017 00:17 EST [facility] Lipaseon 06-09-2017 Lipase Lvl 20 IU/L Low 22-51 [facility] Comment on above: Performed By: #### L IP ####[place] [address] UA w Culture if Indon 2017 UA Blood Small Abnormal Negative [facility] Comment on above: Performed By: #### U CI ####[place] [address] UA Clarity Clear Normal [facility] Comment on above: Performed By: #### U CI ####[address] [address] UA Leukocyte Esterase Negative Normal Negative [facility] Comment on above: Performed By: #### U CI ####[address] [address] UA Nitrite Negative Normal Negative [facility] Comment on above: Performed By: #### U CI ####[place] [address] UA pH 5.0 Normal 4.5 - 7.8 [facility] Comment on above: Performed By: #### U CI ####[address] [address] UA Protein Negative Normal Negative [facility] Comment on above: Performed By: #### U CI ####[address] [address] UA Source Clean Catch Normal [facility] Comment on above: Performed By: #### U CI ####[address] [address] UA Spec Grav 1.034 Normal 1.003-1.035 [facility] Comment on above: Performed By: #### U CI ####[address] [address] UA Urobilinogen 0.2 mg/dL Normal 0.2 - 1.0 [facility] Comment on above: Performed By: #### U CI ####[address] [place] [address] Urine, color Yellow Normal [facility] Comment on above: Performed By: #### U CI ####[facility] [facility] [place] [address] Urine, glucose Negative Normal Negative [facility] Comment on above: Performed By: #### U CI ####[facility] [facility] [place] [address] Urine, ketones presence Trace Abnormal Negative [facility] Comment on above: Performed By: #### U CI ####[address] [place] [address] Urine, urobilinogen Negative Normal Negative [facility] Comment on above: Performed By: #### U CI ####[address] [place] [address] Vital Signs Date Time Vital Sign Value Performing Clinician Facility 04-23-2023 09:00-0500 Body height 160.02 cm Kamila Duong Other [facility] Other 04-23-2023 09:00-0500 Body mass index (BMI) [Ratio] 39.14 kg/m2 Kamila Duong Other [facility] Other 04-23-2023 09:00-0500 Body temperature 97.4 [degF] Kamila Duong Other [facility] Other 04-23-2023 09:00-0500 Body weight 100.25 kg Kamila Duong Other [facility] Other 04-23-2023 09:00-0500 Diastolic blood pressure 94 mm[Hg] Kamila Duong Other [facility] Other 04-23-2023 09:00-0500 Respiratory rate 18 /min Kamila Duong Other [facility] Other 04-23-2023 09:00-0500 SaO2% (BldA) [Mass fraction] 99 % Kamila Rhoda Other [facility] Other 04-23-2023 09:00-0500 Systolic blood pressure 143 mm[Hg] Kamila Rhoda Other [facility] Other 02-09-2023 09:00-0400 Body height 160.02 cm Kamila Rhoda Other [facility] Other 02-09-2023 09:00-0400 Body mass index (BMI) [Ratio] 36.77 kg/m2 Kamila Rhoda Other [facility] Other 02-09-2023 09:00-0400 Body temperature 97.4 [degF] Kamila Rhoda Other [facility] Other 02-09-2023 09:00-0400 Body weight 94.17 kg Kamila Rhoda Other [facility] Other 02-09-2023 09:00-0400 Diastolic blood pressure 88 mm[Hg] Kamila Rhoda Other [facility] Other 02-09-2023 09:00-0400 Respiratory rate 18 /min Kamila Rhoda Other [facility] Other 02-09-2023 09:00-0400 SaO2% (BldA) [Mass fraction] 98 % Kamila Rhoda Other [facility] Other 02-09-2023 09:00-0400 Systolic blood pressure 126 mm[Hg] Kamila Rhoda Other [facility] Other 06-11-2022 10:00-0500 Body height 157.48 cm Gloria Jackson Other [facility] Other 06-11-2022 10:00-0500 Body mass index (BMI) [Ratio] 40.23 kg/m2 Gloria Jackson Other [facility] Other 06-11-2022 10:00-0500 Body temperature 97.8 [degF] Gloria Jackson Other [facility] Other 06-11-2022 10:00-0500 Body weight 99.79 kg Gloria Jackson Other [facility] Other 06-11-2022 10:00-0500 Respiratory rate 18 /min Gloria Jackson Other [facility] Other 06-11-2022 10:00-0500 SaO2% (BldA) [Mass fraction] 99 % Gloria Jackson Other [facility] Other 10-09-2021 13:49-0400 Blood Pressure Location Chantel NILL [facility] 10-09-2021 13:49-0400 Diastolic blood pressure 80 mm[Hg] Chantel NILL General Surgery [address] 10-09-2021 13:49-0400 Heart rate 72 /min Chantel NILL General Surgery [address] 10-09-2021 13:49-0400 Respiratory rate 16 /min Chantel NILL General Surgery [facility] 10-09-2021 13:49-0400 Systolic blood pressure 124 mm[Hg] Chantel MAYO General Surgery [facility] NEGATED: Highlighted row BMI (Body Mass Index) [facility] NEGATED: Highlighted row Body Temperature [facility] NEGATED: Highlighted row Body weight [facility] NEGATED: Highlighted row BP Diastolic [facility] NEGATED: Highlighted row BP Systolic [facility] NEGATED: Highlighted row Height [facility] NEGATED: Highlighted row Pulse (Heart Rate) [facility] NEGATED: Highlighted row Pulse Oximetry [facility] NEGATED: Highlighted row Respiratory Rate [facility] Encounters Encounter Date Encounter Type Care Provider Facility Start: 06-23-2023 End: 06-23-2023 ambulatory DELICIA TRIPP Not Available Start: 06-03-2023 End: 06-03-2023 ambulatory DELICIA TRIPP Not Available Start: 04-23-2023 (URG) Urgent Care Visit Kamila herring [facility] Start: 04-23-2023 End: 04-23-2023 ambulatory Kamila Duong Other [facility] Other Start: 02-09-2023 End: 02-09-2023 ambulatory Kamila Duong Other [facility] Other Start: 02-09-2023 Office outpatient vi sit 15 minutes Kamila Duong [facility] Start: 01-07-2023 ambulatory PHYSICIAN NO FAMILY Fac ility:[facility] Start: 06-17-2022 End: 06-17-2022 ambulatory PROFESSOR OF SURGERY MEKA SAÚLHHOLPhu Facility: Start: 06-14-2022 End: 06-14-2022 ambulatory Gloria Jackson Other [facility] Other Start: 06-14-2022 Telephone encounter Gloria Jackson [facility] [address] Start: 06-11-2022 Office outpatient vi sit 25 minutes Gloria Jackson [facility] Start: 06-11-2022 End: 06-11-2022 ambulatory PHYSICIAN NO [facility] Facility:[facility] Start: 06-11-2022 End: 06-11-2022 ambulatory PHYSICIAN NO [facility] Work Phone: Start: 06-11-2022 End: 06-11-2022 Departed Referred PHYSICIAN NO [facility] [place] Work Phone: Start: 11-23-2021 End: 11-23-2021 Patient encounter procedure Chantel MAYO General Surgery Nill/Said [facility] Start: 11-14-2021 End: 11-14-[address] CHANTEL MAYO Facility:[facility] Start: 11-06-2021 Encounter for other preprocedural examination DR CHANTEL MAYO [facility] Start: 11-02-2021 End: 11-03-[address] CHANTEL MAYO Facility:[facility] Start: 11-02-2021 End: 11-03-2021 Encounter for other preprocedural examination DR CHANTEL MAYO Facility:[facility] Start: 10-09-2021 End: 10-09-2021 Patient encounter procedure Chantel MAYO General Surgery Nill/Said [facility] Start: 10-02-2021 End: 10-03-2021 ambulatory RONY ROPER Facility:[facility] Start: 09-14-2021 End: 09-15-2021 ambulatory RONY ROPER Facility:[facility] Start: 01-16-2018 End: 01-16-2018 Patient encounter IZABEL EARL ([place]) [facility] Start: 01-13-2018 End: 01-14-2018 Patient encounter IZABEL EARL ([place]) [facility] Start: 06-08-2017 End: 06-09-2017 Emergency department patient visit ANASTASIIA DUNCAN Facility:[facility] Start: 10-02-2015 End: 10-03-2015 Admission to day surgery Harry Huffman [facility] Start: 08-11-2015 End: 08-11-2015 Admission to day surgery Harry Huffman [facility] Start: 12-01-2013 End: 12-01-2013 [facility] Start: 04-06-2013 End: 04-06-2013 Patient encounter procedure Harry [facility] Start: 04-28-2012 End: 04-28-2012 Patient encounter procedure Harry [facility] Start: 10-07-2011 End: 10-07-2011 Emergency department patient visit Harry Huffman [facility] Start: 04-23-2011 End: 04-23-2011 Emergency department patient visit Harry [facility] Start: 04-09-2011 End: 04-09-2011 Emergency department patient visit Harry [facility] Start: 12-10-2010 End: 12-10-2010 Emergency department patient visit Harry [facility] Start: 11-01-2010 End: 11-01-2010 Emergency department patient visit Harry [facility] Start: 03-05-2010 End: 03-05-2010 Emergency department patient visit Harry [facility] Start: 12-12-2009 End: 12-12-2009 Admission to day surgery Harry Huffman [facility] Start: 10-10-2009 End: 10-10-2009 Emergency department patient visit Harry [facility] Start: 03-06-2009 End: 03-06-2009 Emergency department patient visit Harry [facility] Start: 11-09-2008 End: 11-09-2008 Emergency department patient visit Harry [facility] Start: 09-14-2008 Patient encounter procedure Harry [facility] Start: 07-07-2008 End: 07-07-2008 Emergency department patient visit Harry [facility] Start: 06-24-2008 End: 06-24-2008 Emergency department patient visit Harry [facility] Start: 06-04-2008 End: 06-04-2008 Emergency department patient visit Harry [facility] Start: 04-09-2008 End: 04-09-2008 Emergency department patient visit Harry [facility] Start: 12-15-2007 End: 12-28-2007 Discharged Recurring Harry [facility] Start: 12-15-2007 End: 12-15-2007 Emergency department patient visit Harry [facility] Start: 12-05-2007 End: 12-05-2007 Emergency department patient visit Harry [facility] Start: 10-12-2007 End: 10-12-2007 Emergency department patient visit Harry [facility] Start: 09-18-2007 End: 09-18-2007 [facility] Start: 08-16-2007 End: 08-16-2007 [facility] Start: 07-23-2007 End: 07-23-2007 Emergency department patient visit Harry [facility] Start: 06-24-2007 End: 06-25-2007 Emergency department patient visit Harry [facility] Start: 05-23-2007 End: 05-23-2007 Emergency department patient visit Harry [facility] Start: 04-25-2007 End: 05-25-2007 [facility] Start: 04-17-2007 End: 04-17-2007 Emergency department patient visit Harry [facility] Start: 04-04-2007 End: 04-03-2007 Emergency department patient visit Harry [facility] Start: 02-23-2007 End: 03-25-2007 [facility] Start: 02-02-2007 End: 02-01-2007 Emergency department patient visit Harry [facility] Start: 01-24-2007 End: 02-22-2007 Discharged Recurring [facility] Start: 01-20-2007 End: 01-21-2007 Emergency department patient visit Harry [facility] Start: 01-05-2007 End: 01-23-2007 [facility] Start: 12-24-2006 End: 12-24-2006 [facility] Start: 12-18-2006 End: 12-18-2006 [facility] Start: 07-11-2006 End: 07-11-2006 Emergency department patient visit [facility] Start: 03-20-2006 End: 03-20-2006 Emergency department patient visit Harry [facility] Start: 02-27-2006 End: 02-27-2006 [facility] Start: 02-11-2006 End: 02-11-2006 [facility] Start: 01-06-2006 End: 01-06-2006 Emergency department patient visit [facility] Start: 11-23-2005 Patient encounter procedure [facility] Start: 09-07-2005 End: 09-06-2005 [facility] Start: 08-02-2005 End: 08-02-2005 [facility] Start: 07-21-2005 End: 07-20-2005 [facility] Start: 04-02-2005 End: 04-24-2005 [facility] Start: 02-14-2005 End: 02-14-2005 Emergency department patient visit [facility] Start: 02-02-2005 End: 02-02-2005 Emergency department patient visit [facility] Start: 11-21-2004 End: 11-21-2004 Emergency department patient visit [facility] Start: 02-23-2004 Evaluation and management of inpatient [facility] Start: 02-21-2004 Evaluation and management of inpatient [facility] Start: 02-07-2004 Evaluation and management of inpatient [facility] Start: 03-20-1993 End: 03-26-1993 Discharged Recurring [facility] Procedures Date Procedure Procedure Detail [...] Author Start: 06-11-2022 Throat culture Throat Culture [facility] Bacteria identified in Throat by Aerobe culture [facility] Immunizations Immunization Date Immunization Notes Care Provider Wendy meyer 03-31-2022 tetanus toxoid, reduced diphtheria toxoid, and acellular pertussis vaccine, adsorbed Gloria Jackson Other [facility] Other Payers Date Payer Category Payer Self-pay 2022 Medicaid [id number] 2. [id number] 2017 Unknown 1985 Unknown [id number] 2.16.84 [id number] 1985 Unknown [id number] 2.16.84 [id number] 1986 Unknown [id number] 2.16.84 [id number] 1986 Unknown [id number] 2.16.84 [id number] 1986 Unknown [id number] 2.16.84 [id number] 1986 Unknown [id number] 2.16.84 [id number] 1986 Unknown [id number] 2.16.84 [id number] 1959 Unknown [id number] Private Health Insurance [id number] Unknown [id number] Unknown [id number] 2.16.8 [id number] Unknown [id number] 2.16.8 [id number] Social History Date Type Detail Facility Start: 10-09-2021 Tobacco smoking status Ex-smoker (fi nding) [facility] Tobacco smoking status Smokeless tobacco user within last 30 days [address] Sex Assigned At Female Genera l Surgery [facility] Start: 12-07-2018 Tobacco smoking stat [email or web address]IS Smoker (finding) [facility] Start: 1985 Sex Assigned At Female F [facility] Clinical Notes 10-09-2021 to 04-23-2023 Note [...] no improvement in 2 to 3 days [facility] Other 09-17-2023 Evaluation note* Encounter Date Diagnosis [...] no improvement in 2 to 3 days [facility] Other 01-17-2023 Evaluation note* Encounter Date Diagnosis [...] treatment plan. Patient left in stable condition [facility] Other 06-22-2022 NoteOPERATIVE NOTE OPERATION DATE: 11/14/2021 [...] room in good condition. CC: Meka Roper, [facility] Signed and Approved by: DR CHANTEL MAYO . 11/15/2021 14:02:00[facility]05-17-2022 NoteChief Complaint consultation for breast mass vs infection [facility] Staff 36 year old female presents on [...] Tobacco Use:. Cig[place], [place] (more content not included)...[facility]Result Comment: Electronically Signed By: ALEX SINGH, Chantel Cuevas\Date and Time Signed: 10/09/21 15:43 EDTEvaluation + Plan note No data available for this section General Surgery [facility] Evaluation noteNo assessment information available [facility] Work Phone: Evaluation noteNo InformationNortEncompass Health [facility] Other History general Narrative - Reported* Type Description Date Medical History Hypothyroidism Surgical History hysterectomy Surgical History knee arthroscopy Hospitalization History SEE ABOVE [facility] Other Hospital Discharge instructions No data available for this section General Surgery [facility] Progress note No data available for this section General Surgery [address] Summary Purpose Family History No Family History Records Found Relationship Condition Age at Onset Recorded Date/T nichelle Not Specified Bipolar affective disorder Unknown father Depression Unknown Advance Directives No Advanced Directives Records Found Advance Directive Response Recorded Date/ Time Advance Directives No December 07 12:28am Additional Source Comments INFORMATION SOURCE (unrecogn ized section and content) DATE CREATED AUTHOR 11/17/2017 [facility] DATE CREATED AUTHOR AUTHOR'S ORGANIZ ATION 01/21/2018 [facility] DATE CREATED AUTHOR AUTHOR'S ORGANIZ ATION 11/24/2021 [facility] DATE CREATED AUTHOR AUTHOR'S ORGANIZ ATION 12/29/2021 [facility] DATE CREATED AUTHOR AUTHOR'S ORGANIZ ATION 07/02/2022 [facility] DATE CREATED AUTHOR AUTHOR'S ORGANIZ ATION 05/02/2023 [facility] DATE CREATED AUTHOR AUTHOR'S ORGANIZ ATION 06/26/2023 [facility] Care Team (unrecognized [...] BE BASED ON THE PRIMARY CLINICAL RECORDS. [facility] [employer] [facility]. provides no warranty or guarantee of the accuracy or completeness of information in this document.
--- NOTE | 2023-07-19 18:59 | ECG_ITS ---
[facility] Test Date: 2023-07-19 Pat Name: AMANUEL ERICKSON Department: Room: - Gender: Female Car Stower: : 1985 Requested By: [id number] Order Number: [id number] Reading MD: LAMAR MCKNIGHT Measurements Intervals [place] Rate: 69 P: 66 NM: 138 QRS: 68 QRSD: 90 T: 60 QT: 374 QTc: 393 Interpretive Statements 1100 Sinus rhythm 9110 normal ECG No previous ECG available for comparison Electronically Signed On 07-20-2023 7:36:56 EST by LAMAR MCKNIGHT
--- NOTE | 2023-07-19 19:00 | ED_ITS ---
HPI - Chest Pain General Chief Complaint: Chest Pain Stated Complaint: CHEST PRESSURE, DIZZINESS Time Seen by Provider: 07/19/23 18:45 Source: patient Mode of arrival: walk-in Limitations: no limitations History of Present Illness HPI narrative: Patient is a 37-year-old female who presents to the emergency department for chest pain, dizziness, palpitations after a diagnostic laparoscopy yesterday. She had the procedure performed for pelvic pain. She states since the procedure she has been feeling chest discomfort, palpitations, dizziness. She was anxious prior to the procedure and has a history of anxiety but states since the procedure she is feeling different than her typical anxiety. She reports some tenderness to the abdomen but no severe pain. No fevers or vomiting. Related Data Home Medications Medication Instructions Recorded Confirmed cariprazine 1.5 mg capsule 1.5 mg PO DAILY 07/04/23 07/19/23 (Vraylar) metformin 500 mg tablet,extended 500 mg PO DAILY 07/04/23 07/19/23 release 24 hr Previous Rx's Medication Instructions Recorded hydrocodone 5 mg-acetaminophen 325 1 tab PO Q4H PRN pain 4 days #16 07/18/23 mg tablet tabs ibuprofen 800 mg tablet 800 mg PO Q8H PRN pain 14 days #40 07/18/23 tabs ketorolac 10 mg tablet 10 mg PO TID PRN pain #10 tabs 07/19/23 lorazepam 0.5 mg tablet (Ativan) 0.5 mg PO TID PRN anxiety 3 days 07/19/23 #10 tabs ondansetron 4 mg disintegrating 4 mg PO Q6H PRN nausea and 07/19/23 tablet vomiting #12 tabs Allergies Allergy/AdvReac Type Severity Reaction Status Date / Time codeine Allergy Rash Verified 07/04/23 10:09 [email or web address] [From Nubain] AdvReac Vomiting Verified 07/04/23 10:14 Review of Systems ROS Constitutional Denies: fever or chills Ears, nose, mouth, and throat Denies: throat pain or nasal congestion Cardiovascular Reports: chest pain, palpitations and lightheadedness Respiratory Denies: shortness of breath or cough Gastrointestinal Reports: abdominal pain; Denies: nausea or vomiting Musculoskeletal Denies: back pain or neck pain Integumentary/Breast Denies: rash Neurological Reports: dizziness; Denies: headache Endocrine Denies: excessive urination Hematologic/Lymphatic Denies: easy bruising or easy bleeding PFSH PFSH Medical History (Updated 07/19/23 @ 20:54 by OSWALDO Sexton) Anemia ?D64.9 - Anemia, unspecified (ICD-10) Insomnia ?G47.00 - Insomnia, unspecified (ICD-10) PTSD (post-traumatic stress disorder) ?F43.10 - Post-traumatic stress disorder, unspecified (ICD-10) OCD (obsessive compulsive disorder) ?F42.9 - Obsessive-compulsive disorder, unspecified (ICD-10) Bipolar disorder ?F31.9 - Bipolar disorder, unspecified (ICD-10) Depression ?F32.A - Depression, unspecified (ICD-10) Electronic cigarette use ?Z78.9 - Other specified health status (ICD-10) COVID-19 ?U07.1 - COVID-19 (ICD-10) Pelvic pain ?R10.2 - Pelvic and perineal pain (ICD-10) Heartburn ?R12 - Heartburn (ICD-10) GERD (gastroesophageal reflux disease) ?K21.9 - Gastro-esophageal reflux disease without esophagitis (ICD-10) Goiter ?E04.9 - Nontoxic goiter, unspecified (ICD-10) Hypothyroidism ?E03.9 - Hypothyroidism, unspecified (ICD-10) Panic attacks ?F41.0 - Panic disorder [episodic paroxysmal anxiety] (ICD-10) Anxiety ?F41.9 - Anxiety disorder, unspecified (ICD-10) Surgical History (Updated 07/04/23 @ 10:21 by Angelic Sears NP) H/O removal of cyst ?Z98.890 - Other specified postprocedural states (ICD-10) History of arthroscopy of knee ?Z98.890 - Other specified postprocedural states (ICD-10) History of dilation and curettage ?Z98.890 - Other specified postprocedural states (ICD-10) History of tubal ligation ?Z98.51 - Tubal ligation status (ICD-10) History of hysterectomy ?Z90.710 - Acquired absence of both cervix and uterus (ICD-10) Family History (Updated 07/04/23 @ 10:21 by Angelic Sears NP) Other Bipolar 1 disorder CHF (congestive heart failure) Family history of DVT Family history of diabetes mellitus Family history of hypertension Family history of myocardial infarction Motorcycle accident Social History Within the past year, how often did you have a drink containing alcohol: monthly or less Do you use any of these nicotine containing products: vaping products Non-prescribed substance use: cannabis (any form) 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 Steri-Strips in place, no bleeding or dehiscence, no erythema Extremities: Moves extremities equally, no pedal edema Psych: Normal mood and affect Neuro: No focal neuro deficit Skin: Warm, dry, intact Constitutional Vital Signs, click to edit/add: Last Vital Signs Temp 97.7 F 07/19/23 18:45 Pulse 63 07/19/23 20:26 Resp 16 07/19/23 20:26 BP 141/90 07/19/23 20:26 Pulse Ox 100 07/19/23 20:26 O2 Del Method Room Air 07/19/23 20:26 Course Vital Signs Vital signs: Vital Signs Temperature 97.7 F 07/19/23 18:45 Pulse Rate 81 07/19/23 18:45 Respiratory Rate 24 07/19/23 18:45 Blood Pressure 161/100 H 07/19/23 18:45 Pulse Oximetry 100 07/19/23 18:45 Oxygen Delivery Method Room Air 07/19/23 18:45 Temperature 97.7 F 07/19/23 18:45 Pulse Rate 63 07/19/23 20:26 Respiratory Rate 16 07/19/23 20:26 Blood Pressure 141/90 07/19/23 20:26 Pulse Oximetry 100 07/19/23 20:26 Oxygen Delivery Method Room Air 07/19/23 20:26 MDM - Chest Pain MDM Narrative Medical decision making narrative: Patient medicated with IV fluids, Ativan. She had improvement of her anxiety and was resting more comfortably but did continue to have chest discomfort. Lab studies including D-dimer and troponin are within normal limits. Additional Toradol and Norflex given for comfort. Abdominal incisions appear to be healing well, patient with no pain out of proportion on abdominal exam. She has stable vital signs in the ER. She was given education and reassurance and discharged home To follow-up with PCP and [facility] [employer]. Return to the ER if symptoms change or worsen. Medical Records Data Attestation: I reviewed the patient's medical records. Lab Data Attestation: I reviewed the patient's lab results. Labs: Lab Results 07/19/23 Range/Units 18:58 WBC 11.6 H (4.0-11.0) 10^3/uL RBC 4.44 (4.20-5.40) 10^6/uL Hgb 12.5 (12.0-16.0) g/dL Hct 37.9 (36.0-48.0) % MCV 85.4 (81.0-99.0) fL MCH 28.2 (26.7-34.0) pg MCHC 33.0 (29.9-35.2) g/dL RDW 13.6 (11.0-15.0) % Plt Count 298 (150-450) 10^3/uL MPV 9.6 (9.5-13.5) fL Neut % (Auto) 56.7 (43.0-75.0) % Lymph % (Auto) 35.6 (20.5-60.0) % [place] % (Auto) 5.9 (1.7-12.0) % Eos % (Auto) 0.9 (0.9-7.0) % Baso % (Auto) 0.6 (0.2-2.0) % Neut # (Auto) 6.6 H (1.4-6.5) 10^3/uL Lymph # (Auto) 4.1 H (1.2-3.8) 10^3/uL [place] # (Auto) 0.7 (0.3-0.8) 10^3/uL Eos # (Auto) 0.1 (0.0-0.7) 10^3/uL Baso # (Auto) 0.1 (0.0-0.1) 10^3/uL Abs Immat Gran (auto) 0.03 (0.00-0.03) 10^3/uL Imm/Tot Granulo (auto) 0.3 (0.0-0.5) % PT 10.5 (9.0-11.6) sec INR 0.99 D-Dimer 0.24 (<=0.59) mg/L FEU Sodium 144 (136-145) mmol/L Potassium 3.3 L (3.5-5.1) mmol/L Chloride 106 (98-107) mmol/L Carbon Dioxide 27.3 (21.0-32.0) mmol/L Anion Gap 14.0 BUN 19.0 H (7.0-18.0) mg/dL Creatinine 0.89 (0.55-1.02) mg/dL Est GFR ( Amer) >60 (>=60) Est GFR (Non-Af Amer) >60 (>=60) BUN/Creatinine Ratio 21.3 Glucose 92 (74-106) mg/dL Lactate 1.0 (0.4-2.0) mmol/L Calcium 8.7 (8.5-10.1) mg/dL Magnesium 2.0 (1.8-2.4) mg/dL Total Bilirubin 0.4 (0.2-1.0) mg/dL AST 16 (15-37) U/L ALT 14 (14-59) U/L Alkaline Phosphatase 53 (46-116) U/L Troponin I High Sens 6.2 (4.0-51.3) pg/mL Total Protein 7.2 (6.4-8.2) g/dL Albumin 3.6 (3.4-5.0) g/dL Globulin 3.6 g/dL Albumin/Globulin Ratio 1.0 TSH 1.594 (0.358-3.740) uIU/mL Imaging Data Chest x-ray: Attestation: I have reviewed the pertinent imaging results. Radiologist's impression: ITS Impressions Chest X-Ray 07/19/23 19:38 IMPRESSION: No acute findings. Electronically authenticated by: CARMEN BURTON Date: 07/19/2023 20:47 ECG Data Attestation: I personally reviewed and interpreted this ECG as follows: (Normal sinus rhythm at a rate of 69, no acute ST elevation or ectopy. EKG reviewed by attending physician) Heart Score History: Slightly/Non-Suspicious ECG: Normal Age: <45 years Risk Factors: 1 or 2 Risk Factors Troponin: <Normal Limit Total Heart Score Recommendations & Risks:: 1 Discharge Plan Discharge Chief Complaint: Chest Pain Clinical Impression: Chest pain Patient Disposition: Home, Self-Care Time of Disposition Decision: 21:02 Condition: Good Prescriptions / Home Meds: New ketorolac 10 mg tablet 10 mg PO TID PRN (Reason: pain) Qty: 10 0RF Rx Instructions: Do not take with other NSAIDS lorazepam [Ativan] 0.5 mg tablet 0.5 mg PO TID PRN (Reason: anxiety) 3 Days Qty: 10 0RF Rx Instructions: DX: F41.9 ondansetron 4 mg tablet,disintegrating 4 mg PO Q6H PRN (Reason: nausea and vomiting) Qty: 12 0RF No Action Vraylar 1.5 mg capsule 1.5 mg PO DAILY metformin 500 mg tablet extended release 24 hr 500 mg PO DAILY ibuprofen 800 mg tablet 800 mg PO Q8H PRN (Reason: pain) 14 Days Qty: 40 0RF hydrocodone-acetaminophen 5-325 mg tablet 1 tab PO Q4H PRN (Reason: pain) 4 Days Qty: 16 0RF Instructions: Chest Pain (ED) Stand Alone Forms: Portal Instructions Referrals: Physician,Non-Staff, MD [Primary Care Provider] - 1 week
[2023-07-19 19:15] LABS: Basophils Absolute Auto 0.1 10^3/uL (0.0-0.1); Basophils Percent Auto 0.6 % (0.2-2.0); Eosinophils Absolute Auto 0.1 10^3/uL (0.0-0.7); Eosinophils Percent Auto 0.9 % (0.9-7.0); Hematocrit 37.9 % (36.0-48.0); Hemoglobin 12.5 g/dL (12.0-16.0); Immature Granulocytes Abs Auto 0.03 10^3/uL (0.00-0.03); Immature Granulocytes Pct Auto 0.3 % (0.0-0.5); Lymphocytes Absolute Auto 4.1 10^3/uL (1.2-3.8); Lymphocytes Percent Auto 35.6 % (20.5-60.0); Mean Corpuscular Hemoglobin 28.2 pg (26.7-34.0); Mean Corpuscular Volume 85.4 fL (81.0-99.0); Mean Platelet Volume 9.6 fL (9.5-13.5); Monocytes Absolute Auto 0.7 10^3/uL (0.3-0.8); Monocytes Percent Auto 5.9 % (1.7-12.0); Neutrophils Absolute Auto 6.6 10^3/uL (1.4-6.5); Neutrophils Percent Auto 56.7 % (43.0-75.0); Platelet Count 298 10^3/uL (150-450); Red Blood Count 4.44 10^6/uL (4.20-5.40); Red Cell Distribution Width 13.6 % (11.0-15.0); White Blood Count 11.6 10^3/uL (4.0-11.0)
[2023-07-19] MEDS: 0.9 % SODIUM CHLORIDE 1,000 ML 999 ML IV (19:16)
[2023-07-19] MEDS: LORAZEPAM 2 MG/ML 1 ML VIAL 1 MG IV (19:17)
--- NOTE | 2023-07-19 19:27 | PC.NURSE ---
Patient was diaphoretic and was doing pursed lip breathing to try and calm herself.
[2023-07-19 19:30] LABS: D Dimer 0.24 mg/L FEU (<=0.59); INR 0.99; Prothrombin Time 10.5 sec (9.0-11.6)
--- NOTE | 2023-07-19 19:38 | XR_ITS ---
[address] [address] Patient Name: AMANUEL ERICKSON MRN: [id number] date: 1985 Sex: F Assigned Patient Location: ER Current Patient Location: ER Accession/Order Number: [id number] Exam Date: 07/19/2023 19:45 Report Date: 07/19/2023 20:47 At the request of: JORGE AYALA Procedure: XR chest 1V PORTABLE CHEST X-RAY. INDICATION: Chest pain. COMPARISON: None. TECHNIQUE: Single AP portable chest radiograph. FINDINGS: TUBES AND LINES: None. LUNGS: Lungs are clear. PLEURA: No effusions or pneumothorax. HEART AND MEDIASTINUM: Within normal limits for portable technique. OSSEOUS STRUCTURES: No acute abnormality. XR/XR chest 1V IMPRESSION: No acute findings. Electronically authenticated by: CARMEN BURTON Date: 07/19/2023 20:47
[2023-07-19 19:40] LABS: Alanine Aminotransferase 14 U/L (14-59); Albumin Level 3.6 g/dL (3.4-5.0); Alkaline Phosphatase 53 U/L (46-116); Aspartate Amino Transferase 16 U/L (15-37); BUN Creatinine Ratio 21.3; Bilirubin Total 0.4 mg/dL (0.2-1.0); Calcium 8.7 mg/dL (8.5-10.1); Carbon Dioxide 27.3 mmol/L (21.0-32.0); Chloride 106 mmol/L (98-107); Estimated GFR (African America >60 (>=60); Estimated GFR (Non-African Ame >60 (>=60); Globulin 3.6 g/dL; Glucose 92 mg/dL (74-106); Potassium 3.3 mmol/L (3.5-5.1); Sodium 144 mmol/L (136-145); Thyroid Stimulating Hormone 1.594 uIU/mL (0.358-3.740); Total Protein 7.2 g/dL (6.4-8.2); Troponin I High Sensitivity 6.2 pg/mL (4.0-51.3)
[2023-07-19 20:02] VITALS: BP 125/78; PULSE 63; RESP 18; O2SAT 97
[2023-07-19] MEDS: KETOROLAC TROMETHAMINE 30 MG/ML VIAL IVP (20:21)
[2023-07-19] MEDS: ORPHENADRINE 60 MG/ 2 ML VIAL IV (20:22)
[2023-07-19 20:26] VITALS: BP 141/90; PULSE 63; RESP 16; O2SAT 100
[2023-07-19 21:20] VITALS: BP 118/80; PULSE 67; RESP 20; TEMP 36.8; O2SAT 98
[2023-07-19] MEDS: ONDANSETRON 4 MG RAPDIS TABLET SL (21:26)
[2023-07-19] MEDS: LORAZEPAM 0.5 MG TABLET PO (21:26)
== END 2023-07-19 21:32 | disposition home or self-care (01) ==
PROVIDERS: Physician Assistant; Emergency Provider Emergency Medicine
DX: R07.9 Chest pain, unspecified (principal); Z98.890 Other specified postprocedural states; F41.9 Anxiety disorder, unspecified; Z79.84 Long term (current) use of oral hypoglycemic drugs; G47.00 Insomnia, unspecified; F43.10 Post-traumatic stress disorder, unspecified; F31.9 Bipolar disorder, unspecified; F42.9 Obsessive-compulsive disorder, unspecified; Z86.16 Personal history of COVID-19; F17.290 Nicotine dependence, other tobacco product, uncomplicated; R12 Heartburn; K21.9 Gastro-esophageal reflux disease without esophagitis; E03.9 Hypothyroidism, unspecified; F41.0 Panic disorder [episodic paroxysmal anxiety]; Z98.51 Tubal ligation status; Z90.710 Acquired absence of both cervix and uterus
CPT/HCPCS: 36415; 71045; 80053; 83605; 83735; 84443; 84484; 85025; 85378; 85610; 93005; 96361; 96374; 96375; 99285; J1885; J2060; J2360; Q0162

== ENCOUNTER 2023-11-20 04:13 | Emergency (ER) | payer OTHER, SELFPAY ==
[2023-11-20 04:16] VITALS: BP 133/97; PULSE 84; TEMP 36.7; O2SAT 99; BMI 38.8
--- OUTSIDE RECORDS SUMMARY | 2023-11-20 04:23 | XMS_ITS ---
Patient Summarization (C-CDA 2.1 CCD) Created on: November 20, 2023 AMANUEL WRIGHT : 1985 Sex: Female Author Organization Sample organization Care Team Providers Care Check Inspector Name Role Phone ANASTASIIA DUNCAN Unavailable Unavailable IZABEL EARL (OSWALDO) Unavailable UnavailIZABEL Marquez (OSWALDO) Unavailable UnavailHarry Tom Attending Physician Unavailable Doug Yeager Primary Care Physician Unavailab MEKA Sanchez Primary Care Physician NO FAMILY, PHYSICIAN Primary Care Provider Unava ilable SANDEE Jackson Attending Provider [phone] AICHHOLZ, [employer] MEKA Admitting Unavailable AICHHOLZ, [employer] MEKA Attending Unavailable AICHHOLZ, [employer] MEKA Primary Care Unavailable AICHHOLZ, [employer] MEKA Consulting Unavailable AICHHOLZ, [employer] MEKA Primary Care Unavailable NITISH MCCALL Admitting Unavailable NITISH MCCALL Attending Unavailable NITISH MCCALL Consulting Unavailable NILLDR GOLDEN Admitting Unavailable NILL, DR GOLDEN Attending Unavailable AICHHOLZ, [employer] MEKA Primary Care Unavailable NILLDR GOLDEN Admitting Unavailable NILL, DR GOLDEN Attending Unavailable AICHHOLZ, [employer]ER MEKA Primary Care Unavailable NILL, DR GOLDEN Consulting Unavailable AGUBRAMSES, STEPHANIE Consulting Unavailable ANTON VELÁZQUEZ Consulting Unavailable JERRY WEBB Consulting Unavailable AICHHOLZ, [employer] MEKA Admitting Unavailable AICHHOLZ, [employer] MEKA Attending Unavailable AICHHOLZ, [employer] MEKA Primary Care Unavailable AICHHOLZ, [employer]ER MEKA Consulting Unavailable DR KODI ROME Consulting Unavailable Gloria Jackson Unavailable Kamila Duong Unavailable NO FAMILY, PHYSICIAN Primary Care Unavailable Gloria Jackson Admitting Unavailable Gloria Jackson Attending Unavailable NO FAMILY, PHYSICIAN Primary Care Unavailable Ananda Vences Admitting Unavailab Ananda Thomson Attending Unavailab DELICIA Agrawal Attending Unavailable DELICIA ALMAGUER Attending Unavailable [place] EM Attending Unavailable [place] EM Attending Unavailable Allergies Allergy Classification Reported Allergen(s) Allergy Type Date of Onset Reaction(s) Facility (6 sources) nalbuphine; Translations: [Nubain] Drug Allergy 4 vomiting [facility] Repository (6 sources) nalbuphine; Translations: [NALBUPHINE] Drug Allergy 4 AOF, Vomiting, Unknown [facility] Repository (1 source) NO KNOWN ALLERGIES; Translations: [NO KNOWN ALLERGIES] Propensity to adverse reactions to drug (disorder) [facility] Repository (4 sources) nu Propensity to adverse reactions Unknown Track Other Encounters Encounter Date Encounter Type Care Provider Facility Start: 08-14-2023 End: 08-14-2023 ambulatory [place] EM Not Available Start: 08-04-2023 End: 08-04-2023 ambulatory [place] MARIA ANTONIA Not Available Start: 06-23-2023 End: 06-23-2023 ambulatory DELICIA TRIPP Not Available Start: 06-03-2023 End: 06-03-2023 ambulatory DELICIA TRIPP Not Available Start: 04-23-2023 (URG) Urgent Care Visit Kamila herring [facility] Start: 04-23-2023 End: 04-23-2023 ambulatory Kamila Duong Other Track Other Start: 02-09-2023 End: 02-09-2023 ambulatory Kamila Duong Other Track Other Start: 02-09-2023 Office outpatient vi sit 15 minutes Kamila Duong [facility] Start: 01-07-2023 ambulatory PHYSICIAN NO FAMILY Fac ility:[facility] Start: 06-17-2022 End: 06-17-2022 ambulatory RONY ROPER Facility:[facility] Start: 06-14-2022 End: 06-14-2022 ambulatory Gloria Jackson Other [facility] Other Start: 06-14-2022 Telephone encounter Gloria Jackson [facility] [address] Start: 06-11-2022 Office outpatient vi sit 25 minutes Gloria Jackson [facility] Start: 06-11-2022 End: 06-11-2022 ambulatory PHYSICIAN NO [facility] Facility:[facility] Start: 06-11-2022 End: 06-11-2022 ambulatory PHYSICIAN NO [facility] Work Phone: Start: 06-11-2022 End: 06-11-2022 Departed Referred PHYSICIAN NO [facility] [place] Work Phone: Start: 11-23-2021 End: 11-23-2021 Patient encounter procedure Chantel MAYO General [facility] Nill/Said Lance Start: 11-14-2021 End: 11-14-[address] CHANTEL MAYO Facility:[facility] Start: 11-06-2021 Encounter for other preprocedural examination DR CHANTEL MAYO [facility] Start: 11-02-2021 End: 11-03-[address] CHANTEL MAYO Facility:[facility] Start: 11-02-2021 End: 11-03-2021 Encounter for other preprocedural examination DR CHANTEL MAYO Facility:[facility] Start: 10-09-2021 End: 10-09-2021 Patient encounter procedure Chantel MAYO General Surgery Nill/Said [facility] Start: 10-02-2021 End: 10-03-2021 ambulatory RONY ROPER Facility:[facility] Start: 09-14-2021 End: 09-15-2021 ambulatory [employer] MEKA AUDREY Facility:[facility] Start: 01-16-2018 End: 01-16-2018 Patient encounter IZABEL EARL ([place]) [facility] Start: 01-13-2018 End: 01-14-2018 Patient encounter IZABEL EARL ([place]) [facility] Start: 06-08-2017 End: 06-09-2017 Emergency department patient visit ANASTASIIA AMINBRIDGETT Facility:[facility] Start: 10-02-2015 End: 10-03-2015 Admission to day surgery Harry Huffman [facility] Start: 08-11-2015 End: 08-11-2015 Admission to day surgery Harry [facility] Start: 12-01-2013 End: 12-01-2013 Emergency department patient visit Harry [facility] Start: 04-06-2013 End: 04-06-2013 Patient encounter procedure Harry [facility] Start: 04-28-2012 End: 04-28-2012 Patient encounter procedure Harry [facility] Start: 10-07-2011 End: 10-07-2011 Emergency department patient visit Harry [facility] Start: 04-23-2011 End: 04-23-2011 Emergency department patient visit Harry [facility] Start: 04-09-2011 End: 04-09-2011 Emergency department patient visit Harry [facility] Start: 12-10-2010 End: 12-10-2010 Emergency department patient visit Harry [facility] Start: 11-01-2010 End: 11-01-2010 Emergency department patient visit Harry [facility] Start: 03-05-2010 End: 03-05-2010 Emergency department patient visit Harry [facility] Start: 12-12-2009 End: 12-12-2009 Admission to day surgery Harry [facility] Start: 10-10-2009 End: 10-10-2009 [facility] Start: 03-06-2009 End: 03-06-2009 [facility] Start: 11-09-2008 End: 11-09-2008 [facility] Start: 09-14-2008 Patient encounter procedure [facility] Start: 07-07-2008 End: 07-07-2008 Emergency department patient visit [facility] Start: 06-24-2008 End: 06-24-2008 Emergency department patient visit [facility] Start: 06-04-2008 End: 06-04-2008 Emergency department patient visit [facility] Start: 04-09-2008 End: 04-09-2008 Emergency department patient visit [facility] Start: 12-15-2007 End: 12-28-2007 Discharged Recurring [facility] Start: 12-15-2007 End: 12-15-2007 Emergency department patient visit [facility] Start: 12-05-2007 End: 12-05-2007 Emergency department patient visit [facility] Start: 10-12-2007 End: 10-12-2007 Emergency department patient visit [facility] Start: 09-18-2007 End: 09-18-2007 Emergency department patient visit [facility] Start: 08-16-2007 End: 08-16-2007 Emergency department patient visit Harry [facility] Start: 07-23-2007 End: 07-23-2007 Emergency department patient visit Harry [facility] Start: 06-24-2007 End: 06-25-2007 [facility] Start: 05-23-2007 End: 05-23-2007 [facility] Start: 04-25-2007 End: 05-25-2007 Discharged Recurring [facility] Start: 04-17-2007 End: 04-17-2007 Emergency department patient visit [facility] Start: 04-04-2007 End: 04-03-2007 Emergency department patient visit [facility] Start: 02-23-2007 End: 03-25-2007 Discharged Recurring [facility] Start: 02-02-2007 End: 02-01-2007 [facility] Start: 01-24-2007 End: 02-22-2007 Discharged Recurring [facility] Start: 01-20-2007 End: 01-21-2007 Emergency department patient visit [facility] Start: 01-05-2007 End: 01-23-2007 Discharged Recurring [facility] Start: 12-24-2006 End: 12-24-2006 Emergency department patient visit [facility] Start: 12-18-2006 End: 12-18-2006 Emergency department patient visit Harry [facility] Start: 07-11-2006 End: 07-11-2006 Emergency department patient visit Harry [facility] Start: 03-20-2006 End: 03-20-2006 Emergency department patient visit Harry [facility] Start: 02-27-2006 End: 02-27-2006 Emergency department patient visit Harry [facility] Start: 02-11-2006 End: 02-11-2006 Emergency department patient visit Harry [facility] Start: 01-06-2006 End: 01-06-2006 Emergency department patient visit Harry [facility] Start: 11-23-2005 Patient encounter procedure Harry [facility] Start: 09-07-2005 End: 09-06-2005 Emergency department patient visit Harry [facility] Start: 08-02-2005 End: 08-02-2005 Emergency department patient visit Harry [facility] Start: 07-21-2005 End: 07-20-2005 Emergency department patient visit Harry [facility] Start: 04-02-2005 End: 04-24-2005 Discharged Recurring Harry [facility] Start: 02-14-2005 End: 02-14-2005 Emergency department patient visit Harry [facility] Start: 02-02-2005 End: 02-02-2005 [facility] Start: 11-21-2004 End: 11-21-2004 [facility] Start: 02-23-2004 Evaluation and management of inpatient [facility] Start: 02-21-2004 Evaluation and management of inpatient [facility] Start: 02-07-2004 Evaluation and management of inpatient [facility] Start: 03-20-1993 End: 03-26-1993 Discharged Recurring [facility] Immunizations Immunization Date Immunization Notes Care Provider Wendy meyer 03-31-2022 tetanus toxoid, reduced diphtheria toxoid, and acellular pertussis vaccine, adsorbed Gloria Jackson Other Track Other Medications Current Medications Medication Drug Class(es) [...] Orally every 12 hrs for 10 day(s) Jan, Not-Taking busPIRone hydrochloride 10 mg oral tablet [...] once daily Venlafaxine 75 MG Oral Daily 30 December 10, 2018 Active Payers Date Payer Category Payer Self-pay 2022 Medicaid [id number] 2017 Unknown 1985 Unknown [id number] 2.16.84 [id number] 1985 Unknown [id number] 2.16.84 [id number] 1985 Unknown [id number] 2.16.84 [id number] 1985 Unknown [id number] 2.16.84 [id number] 1985 Unknown [id number] 2.16.84 [id number] 1985 Unknown [id number] 2.16.84 [id number] 1985 Unknown [id number] 2.16.84 [id number] 1985 Unknown [id number] 2.16.84 [id number] 1985 Unknown [id number] 2.16.84 [id number] 1959 Unknown [id number] Private Health Insurance [id number] Unknown [id number] Unknown [id number] 2.16.8 [id number] Unknown [id number] 2.16.8 [id number] Plan of Treatment Date Care Activity Detail Author Start: 06-11-2022 Throat culture Throat Culture [facility] Bacteria identified in Throat by Aerobe culture [facility] Problems Active Problems Problem Classification Problem Date [...] 10-08-2021 Chronic Other aftercare (1 source) Other [facility] (current) drug therapy; Translations: [OTH CUSTODIAL CURRENT DRUG THERAPY] Onset: 3 Episodic Other [...] source) Epidermal cyst; Translations: [EPIDERMAL CYST] Onset: 11-22-2021 Episodic Other upper respiratory infections (5 sources) Acute pharyngitis, unspecified; Translations: [Acute sinusitis, unspecified] Onset: 06-11-2022 Episodic Unclassified (1 source) Contact with and (suspected) exposure to covid-19 Z20.822 Viral infection (1 source) COVID-19 Procedures Date Procedure Procedure Detail Performing Clinician Start: 03-05-2010 Other incision with drainage of skin and subcutaneous tissue Harry Nathanael Start: 12-12-2009 Arthroscopic knee operation Harry Huffman Start: 12-12-2009 Division of joint ca psule, ligament, or cartilage, knee Harry Nathanael Arthroscopy of knee Chantel MAYO Excision of cyst Chantel Poe Comment on above: left armpit Partial hysterectomy Chantel MAYO Throat culture Gloria Jackson Other Transcervical sterilization Chantel MAYO Results Test Name Value Interpretation Reference Range Facility COVID + FLU Quick Testingon 04-23-2023 SARS-CoV-2 (COVID-19) RNA BRANT+probe Ql (Unsp spec) Positive [facility] Other COVID + FLU Quick Testing Negative [facility] Other Quick Strepon 06-11-2022 S. pyogenes Org specific cx Ql (Throat) Negative [facility] Other Quick Strep [facility] Other Throat Cultureon 06-11-2022 Throat culture Moderate Normal Resp iratory Marti 2 Days PERFORMED BY: [place] [address] PATHOLOGIST DYE BECK REEL OPERATOR DOMENICO BELL M.D. Normal [facility] Comment on above: Performed By: #### C [place] #### [address] ALDOLASE [id number] 12-18-2021 ALDOLASE 4.6 U/L Normal 1.2-7.6 [facility] Comment on above: Result Comment: REFE RENCE INTERVAL: Aldolase Access complete set of age- and/or gender-specific reference intervals for this test in the [facility] Test Directory (Social Media Simplified). Performed By: [facility] [address] [place] [id number] User Interface Engineer: Edgar Snell MD, PhD ANAon 12-18-2021 JAMIL PATTERN HOMOGENEOUS Normal [facility] Comment on above: Result Comment: The [...] medical authority. Performed By: #### 9 9850, 55940, 39315, 96788, 57170 ####[facility] [address] JAMIL SCREEN 1:40 Normal <1:40,1:40 [facility] Comment on above: Result Comment: Test performed using JACKI IFA JAMIL Hep-2 Test, a pre-standardized assay designed for the qualitative and semi-quantitative detection of antinuclear antibodies. Performed By: #### 9 9850, 53572, 44682, 00622, 97772 ####[facility] [address] ANTI CENTROMERE ABon 022 ANTI CENT AB Negative Normal NEGATIVE [facility] Comment on above: Performed By: #### 9 9850, 47105, 77342, 27929, 12174 ####[facility] [place] [address], [facility] ANTI DNAon 12-18-2021 ANTI DNA <1:10 Normal <1:10 [facility] Comment on above: Performed By: #### 9 9850, 53079, 96495, 92869, 00629 #### [facility] [address] [place] [address], [facility] ANTI-ENAon 12-18-2021 ANTI SM Negative Normal NEG,NEGATIVE ,Neg [facility] Comment on above: Performed By: #### 9 9850, 90609, 63845, 18251, 23542 #### [facility] [address] [place] [address], [facility] ANTI SM/ANTIRNP Negative Normal NEG,NEGATIVE ,Neg [facility] Comment on above: Performed By: #### 9 9850, 04262, 02613, 31826, 39968 #### [facility] [address] [place] [address], [facility] C REACTIVE PROTEINon 022 CRP [Mass/Vol] 4.3 mg/L Normal 0.0-7.0 [facility] Comment on above: Performed By: #### 1 0204, 04280, 68840, 99333 #### [facility] [address] [facility] [place] [place] [address], [facility] COMPLEMENT 3on 12-18-2021 COMPLEMENT 3 96 mg/dL Normal 79-152 [facility] Comment on above: Performed By: #### 1 0204, 81937, 03984, 96343 #### [facility] [address] [facility] [place] [address], [facility] COMPLEMENT 4on 12-18-2021 COMPLEMENT 4 19 mg/dL Normal 16-38 [facility] Comment on above: Performed By: #### 1 0204, 43635, 73251, 06645 #### [facility] [address] [place] [id number], [facility] CPKon 12-18-2021 CK [Catalytic activity/Vol] 78 U/L Normal 30-223 [facility] Comment on above: Performed By: #### 2 5508 ####[facility] [place] [address], [facility] CYCLIC CITRULLINATED PEPTIDE [place] [id number] 12-18-2021 CYCLIC CIT PEP 1 Units Normal 0-19 [facility] Comment on above: Result Comment: INTE RPRETIVE [...] be monitored and testing repeated. Performed By: [facility] [address] [place] [id number] User Interface Engineer: Edgar Snell MD, PhD HEPATITIS B CORE ANTIBODYon 12-18-2021 HEP B CORE AB Non-Reactive Normal NONREACTIVE [facility] Comment on above: Performed By: #### 3 1568, 09805, 60870 ####[facility] [address] HEPATITIS B SURFACE ANTIGEN QUALon 12-18-2021 HEP B SURF AG QUAL Non-Reactive Normal NONREACTIVE [facility] Comment on above: Performed By: #### 3 1568, 40769, 02831 ####[facility].[address] HEPATITIS C SCREENon 022 ANTI-HCV Non-Reactive Normal NONREACTIVE [facility] Comment on above: Performed By: #### 3 1568, 92640, 65645 ####[facility] [address] HIV1 AND 2 COMBO 4Gon 2021 HIV COMBO Negative Normal NEGATIVE [facility] Comment on above: Performed By: #### 3 0625 ####[facility] [place] [address] MPO/PR3 RFLX TO ANCA [id number] on 12-18-2021 MYELOPEROX AB (11012) 0 AU/mL Normal 0-19 [facility] Comment on above: Result Comment: INTE RPRETIVE INFORMATION: Myeloperoxidase Abs, IgG 19 AU/mL or Less ......... Negative 20-25 AU/mL .............. Equivocal 26 AU/mL or Greater ...... Positive Approximately 90% of patients with a P-ANCA pattern by IFA have antibodies specific for MPO. SERINE PROTEINASE 3 0 AU/mL Normal 0-19 [facility] Comment on above: Result Comment: Myel [...] have antibodies specific for PR3. Performed By: [facility] [address] [place] [address] User Interface Engineer: Edgar Snell MD, PhD MYOSITIS EXTENDED PANEL 3001 781on 12-18-2021 EJ AB Negative Normal Negative [facility] FIBRILLARIN (U3 FLAME BRAZING MACHINE OPERATOR) AB, IgG Negative Normal Negative [facility] Comment on above: Result Comment: Inte rpretive Information: Fibrillarin (U3 FLAME BRAZING MACHINE OPERATOR) Antibody, IgG The presence of fibrillarin (U3-FLAME BRAZING MACHINE OPERATOR) IgG antibodies in association with an JAMIL [...] a multi-ethnic cohort of SSc patients (n=98), U3-FLAME BRAZING MACHINE OPERATOR antibodies detected by immunoblot had an agreement of 98.9 percent with the gold standard immunoprecipitation (IP) assay. Approximately 71 percent (5/7) of the borderline U3-FLAME BRAZING MACHINE OPERATOR results with JAMIL nucleolar pattern in this cohort were IP negative. This test was developed and its performance characteristics determined by [facility]. It has not been cleared or approved by the [place] Food and Drug Administration. This test was performed in a CLIA certified laboratory and is intended for clinical purposes. Performed By: [facility] [address] [place] [id number] User Interface Engineer: Edgar Snell MD, PHD ISAURA-1 AB IGG 0 AU/mL Normal 0-40 [facility] Comment on above: Result Comment: INTE RPRETIVE INFORMATION: Isaura-1 Antibody, IgG 29 AU/mL or less.........Negative 30-40 AU/mL..............Equivocal 41 AU/mL or greater......Positive Presence of Isaura-1 (antihistidyl transfer RNA [t-RNA] synthetase) antibody is associated with polymyositis and may also be seen in patients with dermatomyositis. Isaura-1 antibody is associated with pulmonary involvement (interstitial lung disease), Raynaud phenomenon, arthritis, and mechanical engineering intern's hands (implicated in antisynthetase syndrome). KU AB Negative Normal Negative [facility] MDA5 AB Negative Normal Negative [facility] OR-2 AB Negative Normal Negative [facility] MYOSITIS PANEL INTERP See Note Normal [facility] Comment on above: Result Comment: INTE [...] . . . . . . X Willoughby/FLAME BRAZING MACHINE OPERATOR (CHRISTA) Ab, IgG . . . . [...] . . . . X Fibrillarin (U3 FLAME BRAZING MACHINE OPERATOR) Ab, IgG . . . . . [...] developed and its performance characteristics determined by [facility] [facility]. It has not been cleared or approved by the [place] Food and Drug Administration. This test was performed in a CLIA certified laboratory and is intended for clinical purposes. NXP2 AB Negative Normal Negative [facility] OJ AB Negative Normal Negative [facility] P155/140 AB Negative Normal Negative [facility] PL-12 AB Negative Normal Negative [facility] PL-7 AB Negative Normal Negative [facility] PM/SCL 100 AB, IgG Negative Normal Negative [facility] Comment on above: Result Comment: INTE [...] developed and its performance characteristics determined by [facility] [facility]. It has not been cleared or approved by the US Food and Drug Administration. This test was performed in a CLIA certified laboratory and is intended for clinical purposes. FLAME BRAZING MACHINE OPERATOR AB IGG (CHRISTA) 2 Units Normal 0-19 [facility] Comment on above: Result Comment: INTE RPRETIVE INFORMATION: Willoughby/FLAME BRAZING MACHINE OPERATOR (CHRISTA) Antibody, IgG 19 Units or Less ............. Negative 20 to 39 Units ............... Weak Positive 40 to 80 Units ............... Moderate Positive 81 Units or greater .......... Strong Positive Willoughby/FLAME BRAZING MACHINE OPERATOR antibodies are frequently seen in patients with mixed connective tissue disease (MCTD) and are also associated with other systemic autoimmune rheumatic diseases (SARDs) such as systemic lupus erythematosus (SLE), systemic sclerosis, and myositis. Antibodies targeting the Willoughby/FLAME BRAZING MACHINE OPERATOR antigenic complex also recognize Willoughby antigens, therefore, the Willoughby antibody response must be considered when interpreting these results. SAE1 AB Negative Normal Negative [facility] SRP AB Negative Normal Negative [facility] SSA (RO) AB IGG 0 AU/mL Normal 0-40 [facility] Comment on above: Result Comment: INTE [...] AB IGG 0 AU/mL Normal 0-40 [facility] Comment on above: Result Comment: REFE RENCE INTERVAL: SSA-60 (Ro60) (CHRISTA) Antibody, IgG 29 AU/mL or Less ............. Negative 30 - 40 AU/mL ................ Equivocal 41 AU/mL or Greater .......... Positive TIF-1 GAMMA AB Negative Normal Negative [facility] RHEUMATOID FACTOR SERUMon RA <20 Normal 0-20 [facility] Comment on above: Performed By: #### 1 0204, 08698, 96478, 22872 #### [facility] [address] [place] [address], [facility] SEDIMENTATION RATEon 022 SED RATE 4 mm/hr Normal 0-20 [facility] Comment on above: Performed By: #### 5 6506 #### [facility] [address] [facility] [place] [address], [facility] SJOGRENS ANTIBODIESon 2021 SS-A Negative Normal NEG,NEGATIVE ,Neg [facility] Comment on above: Performed By: #### 9 9850, 35951, 91603, 42956, 96150 #### [facility] [address] [place] [address], [facility] SS-B Negative Normal NEG,NEGATIVE ,Neg [facility] Comment on above: Performed By: #### 9 9850, 76217, 40107, 94412, 09694 #### [facility] [address] [place] [address], [facility] Ambulatory Visit Summaryon 0 11-23-2021 Ambulatory Visit Summary AMANUEL WRIGHT :1985 Visit Date:11/23/2021 Ambulatory Visit Instructions Your [...] suppurativa HTN (hypertension) Hypothyroidism Obesity Tobacco user Sherrie [facility] General Surgery Office/Clini c Noteon 11-23-2021 General [...] History Alcoholism: Father. Hypertension: Mother and Father. [facility] Comment on above: Result Comment: Elec tronically Signed By: ALEX SINGH, Chantel Geronimobr\Date and Time Signed: 11/23/21 14:24 EDT Pathology Noteon 11-21-2021 Pathology Note [id number]#[id number]:127 [facility] Operative Reporton Operative Report [id number]#1.00CD:127 [facility] Provider Letter FTon 11-16 Provider Letter [employer] November 16, 2021 AMANUEL WRIGHT [address] [place] [id number] AMANUEL WRIGHT 1985 To Whom It May Concern, Please excuse above patient from work 11/16/2021. Sincerely, Dr. Chantel Mayo MD General Surgery [facility] Pre-Certification Formon Pre-Certification Form [id number]#[id number]:127 [facility] Consent for Procedure/Surger yon 10-11-2021 Consent for Procedure/Surgery [id number]#1.00CD:127 [facility] Ambulatory Visit Summaryon 0 10-09-2021 Ambulatory Visit Summary AMANUEL WRIGHT :1985 Visit Date:10/09/2021 Ambulatory Visit Instructions Your Care Team Attending Physician - ALEX SINGH, Chantel Lindsey Primary Care Physician - AUDREY URIBE, MEKA Dawson Referring Physician - WERO NOLEN MD This [...] HTN (hypertension) Hypothyroidism Obesity Tobacco user Normal [facility] Physician Referralon 022 Physician Referral [id number]:127 Normal [facility] MG MAMM TERRENCE DIAG W CADon MG MAMM TERRENCE DIAG W CAD Patient: AMANUEL WRIGHT Exam Date: 10/02/2021 : 1985 Gender:F Ordering : RONY [employer]OPER [employer] Admission #: [id number] Family : Order #: [id number] CLICK HERE TO VIEW EXAM RADIOLOGY REPORT [...] Treatments None Family Cancers None LOCATION: [facility] BREAST COMPOSITION: Scattered areas fibroglandular density. FINDINGS: [...] M.D. on 10/02/2021 at 12:01 Normal [facility] US BREAST RIGHT LIMITEDon US BREAST RIGHT LIMITED Patient: AMANUEL WRIGHT Exam Date: 10/02/2021 : 1985 Gender:F Ordering : RONY ROPER [facility] Admission #: [id number] Family : Order #: [id number] CLICK HERE TO VIEW EXAM RADIOLOGY REPORT [...] Treatments None Family Cancers None LOCATION: [facility] BREAST COMPOSITION: Scattered areas fibroglandular density. FINDINGS: [...] M.D. on 10/02/2021 at 12:01 Normal [facility] CBC AUTO DIFFon 09-14-2021 BASO # 0.1 103/ul Normal 0.0-0.1 [facility] Comment on above: Performed By: #### C BC #### [facility] [address] [place] [address] Dr. Jaylan Jones Basophils/100 WBC (Bld) 0.7 % Normal 0.2-2.0 [facility] Comment on above: Performed By: #### C BC #### [facility] [address] [address] [address] Jaylan Jones EO # 0.2 103/ul Normal 0.0-0.7 [facility] Comment on above: Performed By: #### C BC #### [facility] [address] [address] [address] Jaylan Jones Eosinophils/100 WBC (Bld) 3.1 % Normal 0.9-7.0 [facility] Comment on above: Performed By: #### C BC #### [facility] [address] [address] [address] Jaylan Jones Erythrocyte distribution width (RBC) [Ratio] 13.3 % Normal 11.0-15.0 [facility] Comment on above: Performed By: #### C BC #### [facility] [address] [place] [address] Dr. Jaylan Jones Hematocrit (Bld) [Volume fraction] 40.7 % Normal 36.0-48.0 [facility] Comment on above: Performed By: #### C BC #### [facility] [address] [place] [address] Dr. Jaylan Jones Hemoglobin (Bld) [Mass/Vol] 13.4 g/dL Normal 12.0-16.0 [facility] Comment on above: Performed By: #### C BC #### [facility] [address] [place] [address] Dr. Jaylan Jones IG # 0.03 10e3/ul Normal 0.00-0.03 [facility] Comment on above: Performed By: #### C BC #### [facility] [address] [place] [address] Dr. Jaylan Jones IG % 0.4 % Normal 0.0-0.5 [facility] Comment on above: Performed By: #### C BC #### [facility] [address] [place] [address] Dr. Jaylan Jones LYMPH # 1.9 103/ul Normal 1.2-3.8 [facility] Comment on above: Performed By: #### C BC #### [facility] [address] [place] [address] Dr. Jaylan Jones Lymphocytes/100 WBC (Bld) 25.4 % Normal 20.5-60.0 [facility] Comment on above: Performed By: #### C BC #### [facility] [address] [place] [address] Dr. Jaylan Jones MANUAL DIFF REQ NO Normal [facility] Comment on above: Performed By: #### C BC #### [facility] [address] [place] [address] Dr. Jaylan Jones MCH (RBC) [Entitic mass] 28.3 pg Normal 26.7-34.0 [facility] Comment on above: Performed By: #### C BC #### [facility] [address] [place] [address] Dr. Jyalan Jones MCHC (RBC) [Mass/Vol] 32.9 g/dL Normal 29.9-35.2 [facility] Comment on above: Performed By: #### C BC #### [facility] [address] [address] [address] Jaylan Jones MCV (RBC) [Entitic vol] 86.0 fL Normal 81.0-99.0 [facility] Comment on above: Performed By: #### C BC #### [facility] [address] [address] [address] Jaylan Jones MONO # 0.5 103/ul Normal 0.3-0.8 [facility] Comment on above: Performed By: #### C BC #### [facility] [address] [place] [address] Dr. Jaylan Jones Monocytes/100 WBC (Bld) 6.6 % Normal 1.7-12.0 [facility] Comment on above: Performed By: #### C BC #### [facility] [address] [place] [address] Dr. Jaylan Jones NEUT # 4.8 103/ul Normal 1.4-6.5 [facility] Comment on above: Performed By: #### C BC #### [facility] [address] [place] [address] Dr. Jaylan Jones Neutrophils/100 WBC (Bld) 63.8 % Normal 43.0-75.0 [facility] Comment on above: Performed By: #### C BC #### [facility] [address] [place] [address] Dr. Jaylan Jones Platelet mean volume (Bld) [Entitic vol] 10.1 fL Normal 9.5-13.5 [facility] Comment on above: Performed By: #### C BC #### [facility] [address] [place] [address] Dr. Jaylan Jones PLT 290 103/ul Normal 150-450 [facility] Comment on above: Performed By: #### C BC #### [facility] [address] [place] [address] Dr. Jaylan Jones RBC 4.73 106/ul Normal 4.20-5.40 [facility] Comment on above: Performed By: #### C BC #### [facility] [address] [place] [address] Dr. Jaylan Jones WBC 7.5 103/ul Normal 4.0-11.0 [facility] Comment on above: Performed By: #### C BC #### [facility] [address] [address] [address] Jaylan Jones FREE T4on 09-14-2021 Free T4 [Mass/Vol] 0.93 ng/dL Normal 0.78-2.19 [facility] Comment on above: Performed By: #### F T4 #### [facility] [address] [address] [address] Jaylan Jones GLYCOHEMOGLOBIN A1Con 2021 ADA RECOMMENDATION ADA THERAPEUTIC TARGET 6.0 - 7.0 ACTION SUGGESTED > 7.0 Normal [facility] Comment on above: Performed By: #### A 1C #### [facility] [address] [place] [address] Dr. Jaylan Jones Glucose [Mass/Vol] 105 mg/dL Normal [facility] Comment on above: Performed By: #### A 1C #### [facility] [address] [place] [address] Dr. Jaylan Jones HbA1c (Bld) [Mass fraction] 5.3 % Normal <=6.0 [facility] Comment on above: Performed By: #### A 1C #### [facility] [address] [place] [address] Dr. Jaylan Jones LIPID PROFILEon 09-14-2021 CHOL-HDL RATIO NORM SEE BELOW Normal [facility] Comment on above: Result Comment: 3.3 - 4.4 LOW RISK 4.4 - 7.1 AVERAGE RISK 7.1 - 11.0 MODERATE RISK >11.0 HIGH RISK Performed By: #### T SH, LIPID, CMP #### [facility] [address] [place] [address] Dr. Jaylan Jones Cholesterol [Mass/Vol] 122 mg/dL Normal <=200 [facility] Comment on above: Performed By: #### T SH, LIPID, CMP #### [facility] [address] [place] [address] Dr. Jaylan Jones Cholesterol in HDL [Mass/Vol] 55 mg/dL Normal 40-60 [facility] Comment on above: Performed By: #### T SH, LIPID, CMP #### [facility] [address] [address] [address] Jaylan Jones Cholesterol in LDL [Mass/Vol] 55.2 mg/dL Normal [facility] Comment on above: Performed By: #### T SH, LIPID, CMP #### [facility] [address] [address] [address] Jaylan Jones Cholesterol.total /Cholesterol in HDL [Mass ratio] 2.2 {ratio} Normal [facility] Comment on above: Performed By: #### T SH, LIPID, CMP #### [facility] [address] [place] [address] Dr. Jaylan Jones HDL NORMAL > or = 60 mg/dl - LO W CARDIOVASCULAR RISK <40 mg/dl - HIGH CARDIOVASCULAR RISK Normal [facility] Comment on above: Performed By: #### T SH, LIPID, CMP #### [facility] [address] [address] [address] aJylan Jones LDL CALC NORMAL SEE BELOW Normal [facility] Comment on above: Result Comment: <100 mg/dl OPTIMAL 100 - 129 mg/dl NEAR OR ABOVE OPTIMAL 130 - 159 mg/dl BORDERLINE HIGH 160 - 189 mg/dl HIGH >190 mg/dl VERY HIGH Performed By: #### T SH, LIPID, CMP #### [facility] [address] [place] [address] Dr. Jaylan Jones Triglyceride [Mass/Vol] 59 mg/dL Normal <=150 [facility] Comment on above: Performed By: #### T SH, LIPID, CMP #### [facility] [address] [place] [address] Dr. Jaylan Jones VLDL CALC 11.8 mg/dL Normal [facility] Comment on above: Performed By: #### T SH, LIPID, CMP #### [facility] [address] [place] [address] Dr. Jaylan Jones PROF 14(COMP METB)on 022 Albumin [Mass/Vol] 3.9 g/dL Normal 3.4-5.0 [facility] Comment on above: Performed By: #### T SH, LIPID, CMP #### [facility] [address] [address] [address] Jaylan Jones Albumin/Globulin [Mass ratio] 1.1 {ratio} Normal [facility] Comment on above: Performed By: #### T SH, LIPID, CMP #### [facility] [address] [address] [address] Jaylan Jones ALP [Catalytic activity/Vol] 64 U/L Normal 46-116 [facility] Comment on above: Performed By: #### T SH, LIPID, CMP #### [facility] [address] [address] [address] Jaylan Jones ALT [Catalytic activity/Vol] 26 U/L Normal 14-59 [facility] Comment on above: Performed By: #### T SH, LIPID, CMP #### [facility] [address] [address] [address] Jaylan Jones Anion gap [Moles/Vol] 13.2 mmol/L Normal [facility] Comment on above: Performed By: #### T SH, LIPID, CMP #### [facility] [address] [address] [address] Jaylan Jones AST [Catalytic activity/Vol] 16 U/L Normal 15-37 [facility] Comment on above: Performed By: #### T SH, LIPID, CMP #### [facility] [address] [address] [address] Jaylan Jones Bilirubin [Mass/Vol] 0.5 mg/dL Normal 0.2-1.3 [facility] Comment on above: Performed By: #### T SH, LIPID, CMP #### [facility] [address] [address] [address] Jaylan Jones Calcium [Mass/Vol] 8.9 mg/dL Normal 8.5-10.1 [facility] Comment on above: Performed By: #### T SH, LIPID, CMP #### [facility] [address] [address] [address] Jaylan Jones Chloride [Moles/Vol] 102 mmol/L Normal 98-107 [facility] Comment on above: Performed By: #### T SH, LIPID, CMP #### [facility] [address] [address] [address] Jaylan Jones CO2 [Moles/Vol] 25.1 mmol/L Normal 22.0-30.0 [facility] Comment on above: Performed By: #### T SH, LIPID, CMP #### [facility] [address] [place] [address] Dr. Jaylan Jones Creatinine [Mass/Vol] 0.71 mg/dL Normal 0.55-1.02 [facility] Comment on above: Performed By: #### T SH, LIPID, CMP #### [facility] [address] [place] [address] Dr. aJylan Jones EGFR-AF PALAUAN >60 Normal >=60 [facility] Comment on above: Performed By: #### T SH, LIPID, CMP #### [facility] [address] [place] [address] Dr. Jaylan Jones EGFR-NON AF PALAUAN >60 Normal >=60 [facility] Comment on above: Performed By: #### T SH, LIPID, CMP #### [facility] [address] [place] [address] Dr. Jaylan oJnes Globulin (S) [Mass/Vol] 3.5 g/dL Normal [facility] Comment on above: Performed By: #### T SH, LIPID, CMP #### [facility] [address] [place] [address] Dr. Jaylan Jones Glucose [Mass/Vol] 85 mg/dL Normal 74-106 [facility] Comment on above: Performed By: #### T SH, LIPID, CMP #### [facility] [address] [place] [address] Dr. Jaylan Jones Potassium [Moles/Vol] 4.3 mmol/L Normal 3.4-5.0 [facility] Comment on above: Performed By: #### T SH, LIPID, CMP #### [facility] [address] [place] [address] Dr. Jaylan Jones Protein [Mass/Vol] 7.4 g/dL Normal 6.1-8.2 [facility] Comment on above: Performed By: #### T PRISCILA LIPID, CMP #### [facility] [address] [place] [address] Dr. Jaylan Jones Sodium [Moles/Vol] 136 mmol/L Critically low 137-145 [facility] Comment on above: Performed By: #### T PRISCILA, LIPID, CMP #### [facility] [address] [place] [address] Dr. Jaylan Jones Urea nitrogen [Mass/Vol] 14.0 mg/dL Normal 7.0-18.0 [facility] Comment on above: Performed By: #### T PRISCILA LIPID, CMP #### [facility] [address] [place] [address] Dr. Jaylan Jones Urea nitrogen/Creatini ne [Mass ratio] 19.7 mg/mg Normal [facility] Comment on above: Performed By: #### T PRISCILA LIPID, CMP #### [facility] [address] [place] [address] Dr. Jaylan Jones SED [facility] 2021 SED RATE 15 mm/hr Normal <=20 [facility] Comment on above: Performed By: #### S EDR #### [facility] [address] [place] [address] Dr. Jaylan Jones TSHon 09-14-2021 TSH 0.846 uIU/mL Normal 0.470-4.680 [facility] Comment on above: Performed By: #### T PRISCILA LIPID, CMP #### [facility] [address] [place] [address] Dr. Jaylan Jones TSH RANGE SEE BELOW Normal [facility] Comment on above: Result Comment: <0.3 4 UIU/ml HYPERTHYROID 0.34-5.60 UIU/ml EUTHYROID >5.60 UIU/ml HYPOTHYROID Performed By: #### T PRISCILA, LIPID, CMP #### [facility] [address] [place] [address] UROGRAM WO/W IVCONon 12-25 CT UROGRAM WO/W IVCON * * *Final Report* * *DATE OF EXAM: Jan 16 2018 2:44PM [facility] - [facility] URO[facility] WO/W IVCON [...] LOGAN MD on Jan 19 2018 4:03PM [id number] Normal [facility] PROGRESSon 01-16-2018 Protein mass conc HNO ID: [id number] thor: Hoang (Ct) SHARAD Ruvalcabaervice: (none)Author Type: Clinical TechnicianType: Progress NotesFiled: 01/16/2018 2:46 PMNote Text: Radiology Service Progress NotePATIENT NAME: Amanuel WrightMRN: [id number] OF SERVICE: January 16, 2018TIME: 2:45 PMPATIENT [...] BY: Radha ZAVALETA 2017 2:45 PM Normal [facility] CNOVon 01-13-2018 CNOV Office Visit (UROLAV) ----WRIGHTAMANUEL GRANADOS ([id number]) 1985 FDate Time Provider Department01/13/18 10:20 AM IZABEL EARL) UROLAV During your visit today, we recorded the following information about you: Temperature Pulse Blood pressure Weight 99 degrees 76/minute 131/87 86.2 kgKelly Cross Ma 01/13/2018 10:23 AM SignedPressure in abdomen. Pt states she can't hold her urine. Has been seeing bloodon and off in urine for about a year.Bilateral flank pain.Izabel Earl PA-C 01/13/2018 12:28 PM Signed [facility] UROLOGICAL SPRING GLENHEMATURIA EVALUATIONAugust 2017 ========CHIEF COMPLAINT: pelvic pressure, flank [...] or vaginal bleeding, but has had hysterectomyand peoplesoft functional analyst has told her it's not from that [...] get a sooner appointment.She lives in the [facility] and some results are in Care Everywhere.DTF: 10+NTF: 4-5x per nightUrgency: yesUUI: NOSUI: [id number] - vaginal birthPreeclampsiaBowel movements vary - change all the timeDiarrhea - constipation. I will go days without eatings. No appetite, sometimes in too much pain toeat.(Determine 4 of 8)1-Duration: 79095-Kiqcrjcq: bladder3-Severity: worse4-Quality: Irritative5-Context: Void6-Timing: constantly7-Modifying factors: No [...] PAST MEDICAL HISTORY/COMORBIDITIES:====== Hypothyroidism, thyroid goiterDepressionHysterectomy in 2012[facility].IBUPROFEN (MOTRIN ORAL) [...] help improve urgency3. Pelvic pain - ICD9: [id number], ICD10: R10.2- Patient with multiple year history of pelvic pain which started prior to herhysterectomy in 2015.- Tight pelvic floor muscles on examination; discussed PFPT to help alleviatesome discomfort and loosen up multiples.- CONSULT TO PHYSICAL THERAPY- RTC after 3-4 PFPT sessions.4. Pelvic floor dysfunction - ICD9: 618.83, ICD10: M62.89- See above.- CONSULT TO PHYSICAL THERAPY5. Screening for genitourinary condition - ICD9: V81.6, ICD10: Z13.89- UA DIP, URINE (POC)- URINALYSIS WITH MICROSCOPIC- CYTOLOGY, URINE (XTUBE)- URINE CYTOLOGY OSWALDO Leary-CReferring Provider: SELF [200]Allergies As of Date: 01/13/2018 Noted Allergy ReactionNALBUPHINE 06/09/2017 11 - VomitingDate Reviewed: 01/13/2018Reviewed by: Kelly Cross Ma - Fully AssessedReason for Visit: Initial Consult [665] Cmt: Gross hematuriaPrimary Visit Diagnosis:Gross hematuria [R31.0] Other Visit Diagnoses:Urinary urgency [R39.15] Pelvic pain [R10.2] Pelvic floor dysfunction [M62.89] Screening for genitourinary condition [Z13.89]Order(s):UA DIP, URINE (POC) [6016761] Order #: [id number]. #:[id number] URINALYSIS WITH MICROSCOPIC [SQUAWMIC] Order #: [id number] CYTOLOGY, URINE (XTUBE) [SQUCYTOL] Order #: [id number] FUTURE URINE CYTOLOGY VOIDED [0265024] Order #: [id number] CT UROGRAM WO/W IVCON [6557549] Order #: [id number] FUTURE iv contrast (will be provided with [...] administration guidelines link.Disp: 1 EachRfl: 0 CYSTO.PANENDO [60118IJX] Order #: [id number] MYCOPLASMA CULT [SQMYPLAS] Order #: [id number] CONSULT TO PHYSICAL THERAPY [9032] Order #: [id number]: 1Prescriptions as of 01/13/2018 Sig: MOTRIN ORAL Take by mouth as needed. IV CONTRAST (RADIOLOGY PROCED* CT Urogram WO/W Inject, intra*Problem List As Of Date: 01/13/2018(None)Visit Notes:>> Kelly Reddy Jan 13, 2018 10:13 AM Status: SignedPressure [...] gross hematuria.Follow-up and Disposition History RecordedEncounter Number: [id number] Status:Closed by IZABEL EARL PA-C on 01/13/18 Normal [facility] CYTOLOGYon 01-13-2018 Body mass index (BMI) [Ratio] [facility]: [id number] Physician: IZABEL EARLSPECNESTOR SUBMITTEDA: URINE, VOIDED FINAL DIAGNOSISA. URINE, VOIDED: - Negative for malignant cells.Tate Joseph MD (Electronic Signature) CLINICAL DATA Gross hematuriaGROSS NIQUIACHRRU16hi clear slight yellow tinged fluidSTAINSA: URINE, VOIDED THIN PREP Non-GynPatient ID #: [id number] of Report: 01/15/2018Date of Procedure: 01/13/2018Date of Receipt: 01/13/2018Submitted by: IZABEL EARLLocation: JOSUE PAI49Yapjpuvgnz interpretation performed at [facility], [address] [facility] [address]. Normal [facility] Mycoplasma Culton 01-13-2018 Mycoplasma Cult Sp. Request/Comment: - Specimen received in [facility] [employer] [facility]. Test Result - Culture negative for Mycoplasma hominis and Ureaplasma urealyticum Normal [facility] Comment on above: Performed By: #### M [facility] ####[facility] [address] [place], [place] [phone] PROGRESSon 01-13-2018 Protein mass conc HNO ID: [id number] thor: Izabel Zheng) Joy: (none)Author Type: Physician AssistantType: Progress NotesFiled: 01/13/2018 12:28 PMNote Text: [facility] GLENHEMATURIA EVALUATIONAugust 2017 ========CHIEF COMPLAINT: pelvic pressure, flank pain, urinary urgency, grosshematuriaHPI:The patient is 32 year old and is referred for evaluation of grosshematuria, urinary urgency, flank pain, and pelvic pressure.She has had gross hematuria 1-2x per week since September.Was told by multiple doctors that I have blood in my urine. Uncertain if it's blood in urine or vaginal bleeding, but has hadhysterectomy and peoplesoft functional analyst has told her it's not from that [...] to get a soonerappointment.She lives in the [facility] and some results are in Care Everywhere.DTF: 10+NTF: 4-5x per nightUrgency: yesUUI: NOSUI: [id number] - vaginal birthPreeclampsiaBowel movements vary - change all the timeDiarrhea - constipation. I will go days without eatings. No appetite, sometimes in too much painto eat.(Determine 4 of 8)1-Duration: 42471-Xdilfnnu: bladder3-Severity: worse4-Quality: Irritative5-Context: Void6-Timing: constantly7-Modifying factors: No [...] PAST MEDICAL HISTORY/COMORBIDITIES:====== Hypothyroidism, thyroid goiterDepressionHysterectomy in 2012[facility] surgeries for patellar dislocation.IBUPROFEN (MOTRIN ORAL) [...] help improve urgency3. Pelvic pain - ICD9: [id number], ICD10: R10.2- Patient with multiple year history [...] WITH MICROSCOPIC- CYTOLOGY, URINE (XTUBE)- URINE CYTOLOGY OSWALDO Leary-Stephan Normal [facility] Urinalysis with Microscopico n 01-13-2018 Bilirubin, Urine Negative Normal Negative Faiza herring [facility] Comment on above: Performed By: #### U AWMIC ####[facility] [address] [place], [place] [phone] Clarity Clear Normal Clear [facility] Comment on above: Performed By: #### U AWMIC ####[facility] [address] [place], [place] [phone] Color Yellow Normal Yellow [facility] Comment on above: Performed By: #### U AWMIC ####[place] [address] [address] [place] [phone] Comments SEE COMMENT Normal [facility] Comment on above: Result Comment: N/A Performed By: #### U AWMIC ####[place] [address] [address] [place] [phone] Glucose Ql (U) Negative Normal Negative [facility] Comment on above: Performed By: #### U AWMIC ####[place] [phone] Hemoglobin/Blood, Ur 1+ Critically abnormal Negative [facility] Comment on above: Performed By: #### U AWMIC ####[place] [address] [address] [place] [phone] INR Coag RelTime (Bld) 0-3 Normal 0-3 [facility] Comment on above: Performed By: #### U AWMIC ####[place] [address] [address] [place] [phone] Ketones Ql (U) Negative Normal Negative [facility] Comment on above: Performed By: #### U AWMIC ####[place] [address] [address] [place] [phone] Leukest Negative Normal Negative [facility] Comment on above: Performed By: #### U AWMIC ####[place] [id number] [place] [phone] Nitrites Negative Normal Negative [facility] Comment on above: Performed By: #### U AWMIC ####[place] [address] [address] [place] [phone] pH 7.0 Normal 4.5-8.0 [facility] Comment on above: Performed By: #### U AWMIC ####[place] [address] [address], [place] [phone] Protein, Urine Negative Normal Negative [facility] Comment on above: Performed By: #### U AWMIC ####[address] [place], [place] [phone] Specific Piercy, Ur 1.008 Normal 1.005-1.030 [facility] Comment on above: Performed By: #### U AWMIC ####[place] [address] [address] [place] [phone] Urine Lazaro Comment SEE COMMENT Normal [facility] Comment on above: Result Comment: N/A Performed By: #### U AWMIC ####[place] [phone] Urobilinogen Normal Normal Normal [facility] Comment on above: Performed By: #### U AWMIC ####[place] [phone] WBC 0-5 Normal 0-5 [facility] Comment on above: Performed By: #### U AWMIC ####[address] [phone] .UA Microscp Aon 06-09-2017 UA Mucus Present Abnormal Absent [facility] Comment on above: Performed By: #### C D:[id number] ####[address] [address] UA Squepi Cells Quant 7 /HPF Normal 0-29 [facility] Comment on above: Performed By: #### C D:[id number] ####[place] [address] [place] [address] UA WBC Quant 0 /HPF Normal 0-5 [facility] Comment on above: Performed By: #### C D:[id number] ####[address] [address] Urine, erythrocytes 17 /HPF High 0-5 [facility] Comment on above: Performed By: #### C D:[id number] ####[address] [address] .eGFRon 06-09-2017 eGFR (non-black) mL/min/{1.73_m2} Normal >=60 [facility] Comment on above: Result Comment: Resu [...] medication dosing. Performed By: #### E GFR ####[place] [address] Result Comment: Resu lt = 0-14.9 mL/min/1.73 m2 Kidney failure or DialysisResult = 15-29 mL/min/1.73 m2 Severe decrease in GFRResult = 30-59 mL/min/1.73 m2 Moderate decrease in GFRResult >= 60 mL/min/1.73 m2 Normal or increased GFR CBC w/ Diffon 06-09-2017 Erythrocyte distribution width Auto Ratio (RBC) 14.0 % Normal 11.6-14.8 [facility] Comment on above: Performed By: #### C BC ####[place] [id number] Erythrocytes (RBC) 5.00 x10*6/mcL Normal 3.80-5.20 [facility] Comment on above: Performed By: #### C BC ####[address] [address] Hematocrit (HCT) 42.4 % Normal 36.0-46.0 [facility] Comment on above: Performed By: #### C BC ####[place] [id number] Hemoglobin mass conc (Bld) 14.6 g/dL Normal 12.0-16.0 [facility] Comment on above: Performed By: #### C BC ####[place] [id number] MCH 29.3 pg Normal 27.0-35.0 [facility] Comment on above: Performed By: #### C BC ####[place] [id number] MCHC mass conc (RBC) 34.5 % Normal 31.0-37.0 [facility] Comment on above: Performed By: #### C BC ####[place] [id number] MCV 84.9 fL Normal 80.0-100.0 [facility] Comment on above: Performed By: #### C BC ####[place] [id number] Platelet mean volume (PMV) 8.1 fL Normal 6.7-10.6 [facility] Comment on above: Performed By: #### C BC ####[place] [id number] Platelets 242 x10*3/mcL Normal 150-350 [facility] Comment on above: Performed By: #### C BC ####[address] [address] WBC (Leukocytes) 9.2 x10*3/mcL Normal 4.5-11.0 [facility] Comment on above: Performed By: #### C BC ####[address] [address] CMPon 06-09-2017 Alanine aminotransferase (ALT) 15 U/L Normal 14-54 [facility] Comment on above: Performed By: #### C OMP ####[address] [address] Albumin 4.0 g/dL Normal 3.2-4.9 [facility] Comment on above: Performed By: #### C OMP ####[address] [address] Albumin/Globulin Ratio 1.4 {ratio} Normal 1.1-2.2 [facility] Comment on above: Performed By: #### C OMP ####[address] [address] Alk Phos 40 IU/L Normal 32-91 [facility] Comment on above: Performed By: #### C OMP ####[address] [address] Anion gap 9 mmol/L Normal 7-17 [facility] Comment on above: Performed By: #### C OMP ####[address] [address] Aspartate aminotransferase (AST) 22 U/L Normal 15-41 [facility] Comment on above: Performed By: #### C OMP ####[address] [address] Bili Total 0.5 mg/dL Normal 0.3-1.2 [facility] Comment on above: Performed By: #### C OMP ####[address] [address] BUN/Creatinine Ratio 25.8 mg/mg High 15.0-25.0 [facility] Comment on above: Performed By: #### C OMP ####[address] [address] Calcium 9.0 mg/dL Normal 8.5-10.3 [facility] Comment on above: Performed By: #### C OMP ####[address] [address] Chloride 108 mmol/L Normal 98-110 [facility] Comment on above: Performed By: #### C OMP ####[address] [address] CO2 24 mmol/L Normal 22-32 [facility] Comment on above: Performed By: #### C OMP ####[address] [address] Creatinine 0.66 mg/dL Normal 0.44-1.03 [facility] Comment on above: Performed By: #### C OMP ####[address] [address] Glucose mass conc 95 mg/dL Normal 74-118 [facility] Comment on above: Performed By: #### C OMP ####[address] [address] Potassium molar conc 3.7 mmol/L Normal 3.4-4.8 [facility] Comment on above: Performed By: #### C OMP ####[place] [id number] Protein 6.8 g/dL Normal 6.5-8.1 [facility] Comment on above: Performed By: #### C OMP ####[address] [address] Sodium 137 mmol/L Normal 133-142 [facility] Comment on above: Performed By: #### C OMP ####[address] [address] Urea nitrogen 17 mg/dL Normal 8-26 [facility] Comment on above: Performed By: #### C OMP ####[address] [address] [address] Abdomen Pelvis w/ IV Cont kalyn [...] abnormality.IMPRESSION:No acute abdominal or pelvic abnormality.Radiation Dose Estimate:CTDI(mGy):0.188982 / / / kVp:120.491402 / mAs:0.931191 / / / DLP(mGy-cm):6.458848Ztji Part: AbdomenCTDI(mGy):12.043717 / / / kVp:100.118662 / mAs:167.836163 / / / DLP(mGy-cm):598.655355Lsip Part: Abdomen Final Dictated by: Herrera House MDctated DT/TM: 06.09.2017 9:57 amSigned by: Herrera House MDigned (Electronic Signature): 06.09.2017 10:00 am(If Report Is Signed, Electronically Signed in Other Vendor System) Normal [facility] Diff Autoon 06-09-2017 Baso Absolute 0.1 x10*3/mcL Normal 0.0-0.2 [facility] Comment on above: Performed By: #### . Automated Diff ####[address] [address] Basophils/100 WBC Auto (Bld) 1.0 % Normal 0.0-1.5 [facility] Comment on above: Performed By: #### . Automated Diff ####[address] [address] Eos Absolute 0.5 x10*3/mcL High 0.0-0.4 [facility] Comment on above: Performed By: #### . Automated Diff ####[address] [address] Eosinophils/100 leukocytes 5.4 % Normal 0.0-5.4 [facility] Comment on above: Performed By: #### . Automated Diff ####[address] [address] Lymphocytes 2.8 x10*3/mcL Normal 1.0-4.8 [facility] Comment on above: Performed By: #### . Automated Diff ####[address] [address] Lymphocytes/100 leukocytes 30.4 % Normal 27.2-40.8 [facility] Comment on above: Performed By: #### . Automated Diff ####[address] [address] [place] Absolute 0.7 x10*3/mcL Normal 0.1-1.1 [facility] Comment on above: Performed By: #### . Automated Diff ####[address] [address] Monocytes/100 leukocytes 8.0 % Normal 3.7-11.9 [facility] Comment on above: Performed By: #### . Automated Diff ####[address] [address] Neutro Absolute 5.1 x10*3/mcL Normal 1.8-7.7 [facility] Comment on above: Performed By: #### . Automated Diff ####[place] [id number] Neutro Auto 55.2 % Normal 47.2-70.8 [facility] Comment on above: Performed By: #### . Automated Diff ####[place] [id number] ED Clinical Summaryon 2017 [place] [address] ED Clinical SummaryPerson InformationName: Amanuel Wright/Mary Ellen Age: 31 Years : 1985Sex: Female PCP:Marital Status:Single race:White Ethnicity:Not or Language:EnglishMRN: [id number] Reason:Abdominal pain; Abdominal pain Acuity: 3Enc Type: Emergency Med Service: Emergency MedicineArrival:06/08/2017 21:47:00 Discharge: 06/09/2017 00:51:00 LOS: 000 03:04Checkin:06/08/2017 21:47:00 Checkout: 06/09/2017 00:51:00 Dispo Type: Home or Self CareAddress[facility] [address] [facility] [address] Provider Notes: History of Present IllnessPatient is [...] to cholelithiasis 2 months ago diagnosed at [facility]. Patient???s past medical history includes cholelithiasis. [...] range between ( 27.2 and 40.8 ) [place] Auto: 8.0 % -- Normal range between [...] range between ( 36.0 and 46.0 ) [place] Absolute: 0.7 x10 MCH: 29.3 pg -- [...] No Immunizations Documented This VisitFinal Med List:[facility], [address] [place], [place] [id number], [phone] (Bentyl 20 mg oral tablet) 1 Tabs [...] as needed as needed for pain.Last Dose: [facility] [address], [address] [place], [place] [id number], [phone] (Bentyl 20 mg oral tablet) 1 Tabs [...] as needed for pain.Care Team Members:Attending Physician: Anastasiia Duncan MDConsulting Physician:Referring Physician:Provider Role Assigned UnassignedAnastasiia Duncan MD ED Provider 06/08/2017 21:51:24[facility] ED Nurse 06/08/2017 22:10:49Follow up:With: Address: When:Please Follow up with your PCP within 2-3 dyasDischarge Orders:Discharge Patient 06/09/17 0:13:00 EST, Discharge to Home, SelfPatient Education Information:CONSTIPATION (Adult); Abdominal Pain, AdultAAPCC Poison Help line: .[facility] Hotline: [place] Tobacco Quit Line: [place], [place]) [address]: [phone], [place]) [address]: [phone] [place] [address] [address] [place], [place]: [phone] [facility] ED Note-Physicianon 06-09-19 ED Note-Physician Chief [...] to cholelithiasis 2 months ago diagnosed at [facility]. Patient?s past medical history includes cholelithiasis. [...] in this document, created by the medical instrument cable fabricator for me, accurately reflects the services I [...] TID, # 21 tabs, 0 Refill(s), Pharmacy: [facility] [address] docusate, 1 caps, Oral, BID, PRN, # 20 caps, 0 Refill(s), Pharmacy: [facility] [address] ondansetron, 1 tabs, Oral, q8hr, PRN, # 15 tabs, 0 Refill(s), Pharmacy: [facility] [address] polyethylene glycol 3350, 17 g, Oral, Daily, dissolve in water before taking, # 527 g, 0 Refill(s), Pharmacy: [facility] [address] 2. Constipation 3. Gallbladder contraction Orders: sodium chloride, 10 mL, IV Push, Injection, As Indicated, PRN flush, First Dose: 06/08/17 22:02:00 EST, Dispense From Location: [id number] CT Abdomen Pelvis w/ IV Contrast Discharge [...] by Anastasiia Duncan MD 06/09/2017 00:17 EST Normal [facility] Lipaseon 06-09-2017 Lipase Lvl 20 IU/L Low 22-51 [facility] Comment on above: Performed By: #### L IP ####[address] [address] UA w Culture if Indon 2017 UA Blood Small Abnormal Negative [facility] Comment on above: Performed By: #### U CI ####[address] [address] UA Clarity Clear Normal [facility] Comment on above: Performed By: #### U CI ####[address] [address] UA Leukocyte Esterase Negative Normal Negative [facility] Comment on above: Performed By: #### U CI ####[address] [address] UA Nitrite Negative Normal Negative [facility] Comment on above: Performed By: #### U CI ####[address] [address] UA pH 5.0 Normal 4.5 - 7.8 [facility] Comment on above: Performed By: #### U CI ####[address] [address] UA Protein Negative Normal Negative [facility] Comment on above: Performed By: #### U CI ####[address] [address] UA Source Clean Catch Normal [facility] Comment on above: Performed By: #### U CI ####[address] [address] UA Spec Grav 1.034 Normal 1.003-1.035 [facility] Comment on above: Performed By: #### U CI ####[address] [address] UA Urobilinogen 0.2 mg/dL Normal 0.2 - 1.0 [facility] Comment on above: Performed By: #### U CI ####[address] [place] [address] Urine, color Yellow Normal [facility] Comment on above: Performed By: #### U CI ####[address] [place] [address] Urine, glucose Negative Normal Negative [facility] Comment on above: Performed By: #### U CI ####[address] [place] [address] Urine, ketones presence Trace Abnormal Negative [facility] Comment on above: Performed By: #### U CI ####[address] [place] [address] Urine, urobilinogen Negative Normal Negative [facility] Comment on above: Performed By: #### U CI ####[address] [place] [address] Social History Date Type Detail Facility Start: 10-09-2021 Tobacco smoking status Ex-smoker (fi nding) [facility] Start: 12-07-2018 Tobacco smoking stat us NHIS Smoker (finding) [facility] Start: 1985 Sex Assigned At Female F [facility] Tobacco smoking status Smokeless tobacco user within last 30 days [facility] Sex Assigned At Female [facility] Vital Signs Date Time Vital Sign Value Performing Clinician Facility 04-23-2023 09:00-0500 Body height 160.02 cm Kamila Rhoda Other Track Other 04-23-2023 09:00-0500 Body mass index (BMI) [Ratio] 39.14 kg/m2 Kamila Rhoda Other Track Other 04-23-2023 09:00-0500 Body temperature 97.4 [degF] Kamila Rhoda Other Track Other 04-23-2023 09:00-0500 Body weight 100.25 kg Kamila Rhoda Other Track Other 04-23-2023 09:00-0500 Diastolic blood pressure 94 mm[Hg] Kamila Rhoda Other Track Other 04-23-2023 09:00-0500 Respiratory rate 18 /min Kamila Rhoda Other Track Other 04-23-2023 09:00-0500 SaO2% (BldA) [Mass fraction] 99 % Kamila Rhoda Other Track Other 04-23-2023 09:00-0500 Systolic blood pressure 143 mm[Hg] Kamila Rhoda Other Track Other 02-09-2023 09:00-0400 Body height 160.02 cm Kamila Rhoda Other Track Other 02-09-2023 09:00-0400 Body mass index (BMI) [Ratio] 36.77 kg/m2 Kamila Rhoda Other Track Other 09-17-2023 09:00-0400 Body temperature 97.4 [degF] Kamila Duong Other Track Other 02-09-2023 09:00-0400 Body weight 94.17 kg Kamila Duong Other Track Other 02-09-2023 09:00-0400 Diastolic blood pressure 88 mm[Hg] Kamila Duong Other Track Other 02-09-2023 09:00-0400 Respiratory rate 18 /min Kamila Duong Other Track Other 02-09-2023 09:00-0400 SaO2% (BldA) [Mass fraction] 98 % Kamila Duong Other Track Other 02-09-2023 09:00-0400 Systolic blood pressure 126 mm[Hg] Kamila Duong Other Track Other 06-11-2022 10:00-0500 Body height 157.48 cm Gloria Jackson Other Track Other 06-11-2022 10:00-0500 Body mass index (BMI) [Ratio] 40.23 kg/m2 Gloria Jackson Other Track Other 06-11-2022 10:00-0500 Body temperature 97.8 [degF] Gloria Jackson Other Track Other 06-11-2022 10:00-0500 Body weight 99.79 kg Gloria Jackson Other Track Other 06-11-2022 10:00-0500 Respiratory rate 18 /min Gloria Jackson Other Track Other 06-11-2022 10:00-0500 SaO2% (BldA) [Mass fraction] 99 % Gloria Jackson Other Track Other 10-09-2021 13:49-0400 Blood Pressure Location Chantel NILL [facility] 10-09-2021 13:49-0400 Diastolic blood pressure 80 mm[Hg] Chantel NILL [facility] 10-09-2021 13:49-0400 Heart rate 72 /min Chantel NILL [facility] 10-09-2021 13:49-0400 Respiratory rate 16 /min Chantel NILL [facility] 10-09-2021 13:49-0400 Systolic blood pressure 124 mm[Hg] Chantel NILL [facility] NEGATED: Highlighted row BMI (Body Mass Index) Harry [facility] NEGATED: Highlighted row Body Temperature Harry [facility] NEGATED: Highlighted row Body weight Harry [facility] NEGATED: Highlighted row BP Diastolic Harry [facility] NEGATED: Highlighted row BP Systolic Harry [facility] NEGATED: Highlighted row Height Harry [facility] NEGATED: Highlighted row Pulse (Heart Rate) [facility] NEGATED: Highlighted row Pulse Oximetry Harry [facility] NEGATED: Highlighted row Respiratory Rate Harry [facility] Clinical Notes 10-09-2021 to 04-23-2023 Note Date [...] no improvement in 2 to 3 days Track Other 09-17-2023 Evaluation note* Encounter Date Diagnosis [...] no improvement in 2 to 3 days Track Other 01-17-2023 Evaluation note* Encounter Date Diagnosis [...] treatment plan. Patient left in stable condition Track Other 06-22-2022 NoteOPERATIVE NOTE OPERATION DATE: 11/14/2021 [...] room in good condition. CC: Meka Roper, [facility] Signed and Approved by: DR CHANTEL MAYO . 11/15/2021 14:02:00[facility]05-17-2022 NoteChief Complaint consultation for breast mass vs infection [facility] Staff 36 year old female presents on [...] Tobacco Use:. Cigarettes, [place] (more content not included)...[facility]:Result Comment: Electronically Signed By: ALEX SINGH, Chantel Cuevas\Date and Time Signed: 10/09/21 15:43 EDTEvaluation + Plan note No data available for this section [facility] Evaluation noteNo assessment information available [facility] Work Phone: Evaluation noteNo InformationNortEncompass Health Rehabilitation [facility] Other History general Narrative - Reported* Type Description Date Medical History Hypothyroidism Surgical History hysterectomy Surgical History knee arthroscopy Hospitalization History SEE ABOVE Track Other Hospital Discharge instructions No data available for this section [facility] Progress note No data available for this section [facility] Summary Purpose Family History No Family History Records Found Relationship Condition Age at Onset Recorded Date/T nichelle Not Specified Bipolar affective disorder Unknown father Depression Unknown Advance Directives No Advanced Directives Records Found Advance Directive Response Recorded Date/ Time Advance Directives No December 07 12:28am Additional Source Comments INFORMATION SOURCE (unrecogn ized section and content) DATE CREATED AUTHOR 11/17/2017 [facility] DATE CREATED AUTHOR AUTHOR'S ORGANIZ ATION 01/21/2018 [facility] DATE CREATED AUTHOR AUTHOR'S ORGANIZ ATION 11/24/2021 [facility] DATE CREATED AUTHOR AUTHOR'S ORGANIZ ATION 12/29/2021 [facility] DATE CREATED AUTHOR AUTHOR'S ORGANIZ ATION 07/02/2022 [facility] DATE CREATED AUTHOR AUTHOR'S ORGANIZ ATION 05/02/2023 [facility] DATE CREATED AUTHOR AUTHOR'S PAVITHRA PARKINSON 08/16/2023 [facility] Care Team (unrecognized sect ion and content) [...] BE BASED ON THE PRIMARY CLINICAL RECORDS. [employer] provides no warranty or guarantee of the accuracy or completeness of information in this document.
--- NOTE | 2023-11-20 04:25 | PC.NURSE ---
Pt has large red blotchy spots near bilateral axilla and areas of breasts and abd. Denies change in diet or environmental factors.
[2023-11-20] MEDS: METHYLPREDNISOLONE SOD SUCC PF 125 MG/2 ML VIAL IVP (05:05)
[2023-11-20] MEDS: KETOROLAC TROMETHAMINE 30 MG/ML VIAL IVP (05:06)
[2023-11-20] MEDS: 0.9 % SODIUM CHLORIDE 1,000 ML 1000 ML IV (05:06)
[2023-11-20] MEDS: FAMOTIDINE/PF 20 MG/2 ML VIAL 40 MG IV (05:07)
[2023-11-20] MEDS: DIPHENHYDRAMINE HCL 50 MG/ML VIAL 25 MG IV (05:07)
--- NOTE | 2023-11-20 05:31 | ED_ITS ---
HPI - Skin/Abscess/Foreign Bdy General Chief complaint: Skin/Abscess/Foreign Body Stated complaint: RASH Time Seen by Provider: 11/20/23 04:25 Source: patient Mode of arrival: walk-in Limitations: no limitations History of Present Illness HPI narrative: This 38-year-old female presents for evaluation of a diffuse erythematous initially pruritic and now painful burning rash. The patient states the rash started in her axilla bilaterally last week when it was extremely hot. The patient states she had a similar outbreak of a similar rash last year during the extremely hot weather. The rash started in her axilla and spread onto her chest wall and is now on her abdomen, somewhat on her back and starting on her feet. She denies any difficulty breathing or swallowing. She was seen at urgent care and given a dose of IM steroids. She states that since that time she is not feeling any better and states she thinks she is feeling somewhat worse. She is not on any antibiotics. She does take 2 psychiatric medications that she states she has not exactly compliant with but she has been on for a period of time and are not new for her. She denies any new foods, clothing, detergents, antiperspirants or deodorants. She denies the possibility of because she has had a partial hysterectomy. She did buy a new bathing suit this year but has not worn it yet as far she can recall and did not go swimming or into any hot tubs prior to developing the rash. She has no chest pain or shortness of breath. She states that she does work at [employer] where it is very hot and has taken the last 2 days off to stay at home where it is cool but her symptoms are not improving and seem to be spreading. Related Data Home Medications ?Medication ?Instructions ?Recorded ?Confirmed cariprazine 1.5 mg capsule 1.5 mg PO DAILY 07/04/23 07/19/23 (Vraylar) metformin 500 mg tablet,extended 500 mg PO DAILY 07/04/23 07/19/23 release 24 hr Previous Rx's ?Medication ?Instructions ?Recorded hydrocodone 5 mg-acetaminophen 325 1 tab PO Q4H PRN pain 4 days #16 07/18/23 mg tablet tabs ibuprofen 800 mg tablet 800 mg PO Q8H PRN pain 14 days #40 07/18/23 tabs ketorolac 10 mg tablet 10 mg PO TID PRN pain #10 tabs 07/19/23 lorazepam 0.5 mg tablet (Ativan) 0.5 mg PO TID PRN anxiety 3 days 07/19/23 #10 tabs ondansetron 4 mg disintegrating 4 mg PO Q6H PRN nausea and 07/19/23 tablet vomiting #12 tabs Allergies Allergy/AdvReac Type Severity Reaction Status Date / Time codeine Allergy Rash Verified 11/20/23 04:18 [email or web address] [From Nubain] AdvReac Vomiting Verified 11/20/23 04:18 Review of Systems ROS Status of ROS 10 or more systems reviewed and unremark able except as noted in history and below [facility] Medical History (Updated 11/20/23 @ 05:54 by Caitlin Diaz MD) Anemia ?D64.9 - Anemia, unspecified (ICD-10) Insomnia ?G47.00 - Insomnia, unspecified (ICD-10) PTSD (post-traumatic stress disorder) ?F43.10 - Post-traumatic stress disorder, unspecified (ICD-10) OCD (obsessive compulsive disorder) ?F42.9 - Obsessive-compulsive disorder, unspecified (ICD-10) Bipolar disorder ?F31.9 - Bipolar disorder, unspecified (ICD-10) Depression ?F32.A - Depression, unspecified (ICD-10) Electronic cigarette use ?Z78.9 - Other specified health status (ICD-10) COVID-19 ?U07.1 - COVID-19 (ICD-10) Pelvic pain ?R10.2 - Pelvic and perineal pain (ICD-10) Heartburn ?R12 - Heartburn (ICD-10) GERD (gastroesophageal reflux disease) ?K21.9 - Gastro-esophageal reflux disease without esophagitis (ICD-10) Goiter ?E04.9 - Nontoxic goiter, unspecified (ICD-10) Hypothyroidism ?E03.9 - Hypothyroidism, unspecified (ICD-10) Panic attacks ?F41.0 - Panic disorder [episodic paroxysmal anxiety] (ICD-10) Anxiety ?F41.9 - Anxiety disorder, unspecified (ICD-10) Surgical History (Updated 07/04/23 @ 10:21 by Angelic Sears NP) H/O removal of cyst ?Z98.890 - Other specified postprocedural states (ICD-10) History of arthroscopy of knee ?Z98.890 - Other specified postprocedural states (ICD-10) History of dilation and curettage ?Z98.890 - Other specified postprocedural states (ICD-10) History of tubal ligation ?Z98.51 - Tubal ligation status (ICD-10) History of hysterectomy ?Z90.710 - Acquired absence of both cervix and uterus (ICD-10) Family History (Updated 07/04/23 @ 10:21 by Angelic Sears NP) Other Bipolar 1 disorder CHF (congestive heart failure) Family history of DVT Family history of diabetes mellitus Family history of hypertension Family history of myocardial infarction Motorcycle accident Social History Within the past year, how often did you have a drink containing alcohol: monthly or less Do you use any of these nicotine containing products: vaping products Non-prescribed substance use: cannabis (any form) 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 Highest level of school completed/degree received: Associate degree: academic program Exam Narrative Exam Narrative: Vital signs and Nursing Notes reviewed: Patient is afebrile with a normal pulse, blood pressure is elevated at 133/97, she is not hypoxic with pulse ox of 99% on room air General: Awake, alert, oriented, nontoxic but uncomfortable appearing female, no respiratory distress HEENT: Normocephalic atraumatic, mucous membranes are moist and pink, eyes are clear, normal conjunctiva, vision is grossly intact, lips are dry, there are no oral lesions or swelling of the tongue, uvula or pharyngeal soft tissues Neck: Supple, no meningeal signs, no anterior or posterior cervical lymphadenopathy Chest: Lungs are clear to auscultation with good air entry, there is no wheezing rhonchi or rales appreciated no accessory muscle use, patient is speaking in complete sentences-no chest wall tenderness to palpation CVS: Regular rate and rhythm S1-S2, no murmurs rubs or gallops, pulses are brisk and equal bilaterally ABD: Soft, nondistended, nontender, no rebound guarding or rigidity, bowel sounds are normal, no pulsatile masses appreciated Extremities: Moving all extremities, no lower extremity tenderness or swelling noted, negative Homans' sign, pulses are brisk and equal bilaterally Skin: There is a red, patchy, maculopapular rash on the patient's chest wall around her breasts, abdominal wall, marginally on her back with a few papules on her right foot. This is confluent in both axilla and appears to extend from the axilla onto her chest wall and back. There are no petechia or purpura. There is no sign of cellulitis or abscess. There is no rash in her inguinal area Neuro: No focal deficits Constitutional Vital Signs, click to edit/add: Last Vital Signs Temp 98.1 F 11/20/23 04:16 Pulse 84 11/20/23 04:16 Resp 16 11/20/23 04:16 BP 133/97 H 11/20/23 04:16 Pulse Ox 99 11/20/23 04:16 O2 Del Method Room Air 11/20/23 04:16 Course Vital Signs Vital signs: Vital Signs Temperature 98.1 F 11/20/23 04:16 Pulse Rate 84 11/20/23 04:16 Respiratory Rate 16 11/20/23 04:16 Blood Pressure 133/97 H 11/20/23 04:16 Pulse Oximetry 99 11/20/23 04:16 Oxygen Delivery Method Room Air 11/20/23 04:16 Temperature 98.1 F 11/20/23 04:16 Pulse Rate 84 11/20/23 04:16 Respiratory Rate 16 11/20/23 04:16 Blood Pressure 133/97 H 11/20/23 04:16 Pulse Oximetry 99 11/20/23 04:16 Oxygen Delivery Method Room Air 11/20/23 04:16 MDM - Skin/Abscess/Foreign Bdy MDM Narrative Medical decision making narrative: This 38-year-old female presents for evaluation of a diffuse rash that started a week ago when the temperature outside was very hot. She works at [employer] and states the rash started as a heat rash in her armpits. Since then it has become worse and become confluent in her armpits and spread onto her chest wall, breasts, somewhat onto her back, abdominal wall and right foot. She has no difficulty breathing or swallowing. She was seen in urgent care and given a dose of steroid. Since that time she feels the symptoms have become worse. She has no swelling of her tongue, uvular pharyngeal soft tissues. Her vital signs are stable. An IV was placed and she was medicated with IV fluids, Solu-Medrol, Benadryl, Pepcid and Toradol for her discomfort. She denies any change in detergents, medications or foods and had a similar rash last year when it was hot. She has not seen a diamond selector for this rash. The rash does not appear to be infectious or fungal in nature. It was dry, flat, macular papular and confluent in the axilla with otherwise patchy areas on the abdomen, chest wall and back. On reevaluation she is less flushed and feeling better. She now feels cool. I explained to her that her symptoms will likely take over a week to resolve. She feels comfortable being discharged home. 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 She was encouraged to follow-up closely with her family physician and request a referral to outpatient dermatology. Discharge Plan Discharge Stand Alone Forms: Portal Instructions Chief Complaint: Skin/Abscess/Foreign Body Clinical Impression: Dermatitis Patient Disposition: Home, Self-Care Time of Disposition Decision: 05:54 Condition: Good Prescriptions / Home Meds: No Action ketorolac 10 mg tablet 10 mg PO TID PRN (Reason: pain) Qty: 10 0RF Rx Instructions: Do not take with other NSAIDS lorazepam [Ativan] 0.5 mg tablet 0.5 mg PO TID PRN (Reason: anxiety) 3 Days Qty: 10 0RF Rx Instructions: DX: F41.9 ondansetron 4 mg tablet,disintegrating 4 mg PO Q6H PRN (Reason: nausea and vomiting) Qty: 12 0RF Vraylar 1.5 mg capsule 1.5 mg PO DAILY metformin 500 mg tablet extended release 24 hr 500 mg PO DAILY ibuprofen 800 mg tablet 800 mg PO Q8H PRN (Reason: pain) 14 Days Qty: 40 0RF hydrocodone-acetaminophen 5-325 mg tablet 1 tab PO Q4H PRN (Reason: pain) 4 Days Qty: 16 0RF Print Language: Croatian Instructions: Dermatitis (ED) Referrals: Physician,Non-Staff, MD [Primary Care Provider] - 1 week
[2023-11-20 06:08] VITALS: BP 134/84; PULSE 73; O2SAT 99
== END 2023-11-20 06:08 | disposition home or self-care (01) ==
PROVIDERS: Emergency Provider Emergency Medicine
DX: L30.9 Dermatitis, unspecified (principal); Z90.711 Acquired absence of uterus with remaining cervical stump
CPT/HCPCS: 96374; 96375; 99284; J1200; J1885; J2919

== ENCOUNTER 2023-11-26 08:10 | Emergency (ER) | payer OTHER, SELFPAY ==
[2023-11-26 08:18] VITALS: BP 143/96; PULSE 95; TEMP 36.7; O2SAT 99; BMI 40.2
--- OUTSIDE RECORDS SUMMARY | 2023-11-26 08:25 | XMS_ITS | CCD ---
Author Organization [facility] Care Team Providers [employer] Name Role Phone KATIA DUNCAN Unavailable Unavailable IZABEL EARL (OSWALDO) Unavailable UnavailIZABEL Marquez (OSWALDO) Unavailable UnavailHarry Tom Attending Physician Unavailable Doug Yeager Primary Care Physician Unavailab MEKA Sanchez Primary Care Physician NO FAMILY, PHYSICIAN Primary Care Provider Unava ilable SANDEE Jackson Attending Provider [phone] AICHHOLZ, CLASSIFICATION OFFICER MEKA Admitting Unavailable AICHHOLZ, CLASSIFICATION OFFICER MEKA Attending Unavailable AICHHOLZ, CLASSIFICATION OFFICER MEKA Primary Care Unavailable AICHHOLZ, CLASSIFICATION OFFICER MEKA Consulting Unavailable AICHHOLZ, CLASSIFICATION OFFICER MEKA Primary Care Unavailable NITISH MCCALL Admitting Unavailable NITISH MCCALL Attending Unavailable NITISH MCCALL Consulting Unavailable NILL, DR GOLDEN Admitting Unavailable NILL, DR GOLDEN Attending Unavailable AICHHOLZ, CLASSIFICATION OFFICER MEKA Primary Care Unavailable NILL, DR GOLDEN Admitting Unavailable NILL, DR GOLDEN Attending Unavailable AICHHOLZ, CLASSIFICATION OFFICER MEKA Primary Care Unavailable NILL, DR GOLDEN Consulting Unavailable AGUBOSIHoracio, STEPHANIE Consulting Unavailable ANTON VELÁZQUEZ Consulting Unavailable JERRY WEBB Consulting Unavailable AICHHOLZ, CLASSIFICATION OFFICER MEKA Admitting Unavailable AICHHOLZ, CLASSIFICATION OFFICER MEKA Attending Unavailable AICHHOLZ, CLASSIFICATION OFFICER MEKA Primary Care Unavailable AICHHOLZ, CLASSIFICATION OFFICER MEKA Consulting Unavailable DR DANIELLE [place] Consulting Unavailable Gloria Jackson Unavailable Kamila [...] nalbuphine; Translations: [Nubain] Drug Allergy 4 vomiting [facility] Repository (7 sources) nalbuphine; Translations: [NALBUPHINE] Drug Allergy 4 AOF, Vomiting, Unknown [facility] Repository (1 source) NO KNOWN ALLERGIES; Translations: [NO KNOWN ALLERGIES] Propensity to adverse reactions to drug (disorder) [facility] Repository (5 sources) nu Propensity to adverse reactions 4 Unknown, Unknown Reaction [facility] Medications Current Medications Medication Drug Class(es) Dates Sig (Normalized) Sig (Original) ARIPiprazole 5 mg oral tablet (2 sources) Atypical Antipsychotic Start: 10-08-2021 take 1 tablet by mouth once daily Abilify 5 mg Tab 5 mg = 1 tab(s), Oral, Daily, Refills(s) 0 Start Date: 10/08/21 Status: Ordered busPIRone hydrochloride 10 mg oral tablet (4 sources) Start: 12-10-2018 take 10 mg by mouth three times daily Buspirone Active 10 MG PO Three times daily 90 December 10, 2018 12:00am cariprazine 3 mg oral capsule (1 source) Atypical Antipsychotic Start: 11-18-2023 Cariprazine (Vraylar) 3 mg capsule Active MG PO November 18, 2023 12:00am FLUoxetine 10 mg oral capsule (2 sources) Serotonin Reuptake Inhibitor Start: 10-08-2021 take 1 capsule by mouth once daily FLUoxetine 10 mg Cap 10 mg = 1 cap(s), Oral, Daily, Refills(s) 0 Start Date: 10/08/21 Status: Ordered hydrOXYzine pamoate 50 mg oral capsule (4 sources) Antihistamine Start: 12-10-2018 take 50 mg by mouth every six hours Hydroxyzine Pamoate Active 50 MG PO Q6H December 10, 2018 12:00am 24 hr nicotine 0.875 mg/hr transdermal system (4 sources) Cholinergic Nicotinic Agonist Start: 12-10-2018 Nicotine Active 1 EACH TRANSDERML Daily December 10, 2018 12:00am traZODone hydrochloride 50 mg oral tablet (1 source) Serotonin Reuptake Inhibitor take 1 tablet by mouth at bedtime for sleep traZODone HCl 50 MG take 1 tablet by mouth at bedtime if needed for sleep Oral for 30 Days Active 24 hr venlafaxine 75 mg extended release oral capsule (4 sources) Serotonin and Norepinephrine Reuptake Inhibitor Start: 12-10-2018 take 75 mg by mouth once daily Venlafaxine Active 75 MG PO Daily December 10, 2018 12:00am Completed/Discontinued Medications Medication Drug Class(es) Dates Sig (Normalized) Sig (Original) amoxicillin 875 mg / clavulanate 125 mg oral tablet (2 sources) Penicillin-class Antibacterial Start: 02-09-2023 take 1 tablet by mouth every twelve hours Amoxicillin-Pot Clavulanate 875-125 MG 1 tablet Orally every 12 hrs for 10 day(s) Jan, Not-Taking fluticasone propionate 0.05 mg/actuat metered dose nasal spray (2 sources) Corticosteroid Start: 02-09-2023 take 2 spray(s) nasal route once daily Fluticasone Propionate 50 MCG/ACT 2 sprays Nasally Once a day for 14 day(s) Jan, Not-Taking predniSONE 20 mg oral tablet (2 sources) Start: 02-09-2023 take 1 tablet by mouth every twelve hours predniSONE 20 MG 1 tablet Orally bid for 5 day(s) Jan, Not-Taking Triamcinolone (4 sources) Corticosteroid Start: 01-15-2020 Kenalog -40 mg Dec, 60 mg Problems Active Problems Problem Classification Problem Date Documented Da te Episodic/Chronic Allergic reactions (2 sources) Allergic disorder of skin; Translations: [Allergic contact dermatitis, unspecified cause] 11-18-2023 Episodic Anxiety disorders (5 sources) Generalized anxiety disorder; Translations: [Anxiety] 10-08-2021 [...] [Gross hematuria] Onset: 8 Episodic Mood disorders (5 sources) Recurrent major depressive episodes; Translations: [Depressive disorder] 10-08-2021 Chronic Other aftercare (1 source) Other mechanic (current) drug therapy; Translations: [OTH [facility] CURRENT DRUG THERAPY] Onset: 3 Episodic Other ear and sense organ disorders (4 sources) Otalgia, left ear; Translations: [OTALGIA LEFT EAR] Onset: 3 Episodic Other gastrointestinal disorders (3 sources) Irritable bowel syndrome; Translations: [Irritable bowel [...] PROD UNCOMP] Onset: 3 Chronic Thyroid disorders (10 sources) Hypothyroidism; Translations: [Hypothyroidism, unspecified] Onset: 2 [...] (COVID-19) RNA BRANT+probe Ql (Unsp spec) Positive [facility] Other COVID + FLU Quick Testing Negative [facility] Other Quick Strepon 06-11-2022 S. pyogenes Org specific cx Ql (Throat) Negative [facility] Other Quick Strep Teespring [facility] Other Throat Cultureon 06-11-2022 Throat culture Moderate Normal Resp iratory Marti 2 Days PERFORMED BY: [place] [address] PATHOLOGIST PERSONNEL ADVISER DOMENICO BELL M.D. Normal [facility] Comment on above: Performed By: #### C LA #### [address] ALDOLASE [id number] 12-18-2021 ALDOLASE 4.6 U/L Normal 1.2-7.6 [facility] Comment on above: Result Comment: REFE RENCE INTERVAL: Aldolase Access complete set of age- and/or gender-specific reference intervals for this test in the [facility] Test Directory (Seeq). Performed By: [facility] [address] [place] [address] Hand Alterations Tailor: Edgar Snell MD, PhD ANAon 12-18-2021 JAMIL PATTERN HOMOGENEOUS Normal [facility] Comment on above: Result Comment: The JACKI [...] medical authority. Performed By: #### 9 9850, 51512, 68773, 28946, 43778 ####[facility] [facility] [address], [facility] JAMIL SCREEN 1:40 Normal <1:40,1:40 [facility] Comment on above: Result Comment: Test performed using JACKI IFA JAMIL Hep-2 Test, a pre-standardized assay designed for the qualitative and semi-quantitative detection of antinuclear antibodies. Performed By: #### 9 9850, 50472, 05395, 07118, 65990 ####[facility] [place] [address], [facility] ANTI CENTROMERE ABon 022 ANTI CENT AB Negative Normal NEGATIVE [facility] Comment on above: Performed By: #### 9 9850, 91508, 90581, 67220, 34993 ####[facility] [facility] [address], [facility] ANTI DNAon 12-18-2021 ANTI DNA <1:10 Normal <1:10 [facility] Comment on above: Performed By: #### 9 9850, 93368, 66428, 04731, 05594 #### [facility] [address] [place] [id number], [place] ANTI-ENAon 12-18-2021 ANTI SM Negative Normal NEG,NEGATIVE ,Neg [facility] Comment on above: Performed By: #### 9 9850, 89579, 04574, 86766, 70004 #### [facility] [address] ANTI SM/ANTIRNP Negative Normal NEG,NEGATIVE ,Neg [facility] Comment on above: Performed By: #### 9 9850, 47129, 43747, 90953, 87033 #### [facility] [address] [facility]. [address] C REACTIVE PROTEINon 022 CRP [Mass/Vol] 4.3 mg/L Normal 0.0-7.0 [facility] Comment on above: Performed By: #### 1 0204, 77687, 94089, 32562 #### [facility] [address] COMPLEMENT 3on 12-18-2021 COMPLEMENT 3 96 mg/dL Normal 79-152 [facility] Comment on above: Performed By: #### 1 0204, 39980, 15745, 75493 #### [facility] [address] [facility] [place] [address], [facility] COMPLEMENT 4on 12-18-2021 COMPLEMENT 4 19 mg/dL Normal 16-38 [facility] Comment on above: Performed By: #### 1 0204, 48294, 64823, 60019 #### [facility] [address] CPKon 12-18-2021 CK [Catalytic activity/Vol] 78 U/L Normal 30-223 [facility] Comment on above: Performed By: #### 2 5508 ####[facility] [place]CLIC [place] PEPT[place] [id number] 12-18-2021 CYCLIC CIT PEP 1 Units Normal 0-19 [facility] Comment on above: Result Comment: INTE RPRETIVE [...] be monitored and testing repeated. Performed By: [facility] [address] [place] [address]87 Hand Alterations Tailor: Edgar Snell MD, PhD HEPATITIS B CORE ANTIBODYon 12-18-2021 HEP B CORE AB Non-Reactive Normal NONREACTIVE [facility] Comment on above: Performed By: #### 3 1568, 86071, 60878 ####[facility] HEPATITIS B SURFACE ANTIGEN QUALon 12-18-2021 HEP B SURF AG QUAL Non-Reactive Normal NONREACTIVE [facility] Comment on above: Performed By: #### 3 1568, 69587, 96163 ####[facility] [facility].[address] HEPATITIS C SCREENon 022 ANTI-HCV Non-Reactive Normal NONREACTIVE [facility] Comment on above: Performed By: #### 3 1568, 56936, 26260 ####[facility] [facility].[address] HIV1 AND 2 COMBO 4Gon 2021 HIV COMBO Negative Normal NEGATIVE [facility] Comment on above: Performed By: #### 3 0634 ####[facility] MPO/PR3 RFLX TO ANCA [id number] on 12-18-2021 MYELOPEROX AB (80843) 0 AU/mL Normal 0-19 [facility] Comment on above: Result Comment: INTE RPRETIVE INFORMATION: Myeloperoxidase Abs, IgG 19 AU/mL or Less ......... Negative 20-25 AU/mL .............. Equivocal 26 AU/mL or Greater ...... Positive Approximately 90% of patients with a P-ANCA pattern by IFA have antibodies specific for MPO. SERINE PROTEINASE 3 0 AU/mL Normal 0-19 [facility] Comment on above: Result Comment: Myel operoxidase [...] have antibodies specific for PR3. Performed By: [facility] [address] [place], [place] [id number] Hand Alterations Tailor: Edgar Snell MD, PhD MYOSITIS EXTENDED PANEL 3001 781on 12-18-2021 EJ AB Negative Normal Negative [facility] FIBRILLARIN (U3 SKEIN INSPECTOR) AB, IgG Negative Normal Negative [facility] Comment on above: Result Comment: Inte rpretive Information: Fibrillarin (U3 SKEIN INSPECTOR) Antibody, IgG The presence of fibrillarin (U3-SKEIN INSPECTOR) IgG antibodies in association with an JAMIL [...] a multi-ethnic cohort of SSc patients (n=98), U3-SKEIN INSPECTOR antibodies detected by immunoblot had an agreement of 98.9 percent with the gold standard immunoprecipitation (IP) assay. Approximately 71 percent (5/7) of the borderline U3-SKEIN INSPECTOR results with JAMIL nucleolar pattern in this cohort were IP negative. This test was developed and its performance characteristics determined by [facility]. It has not been cleared or approved by the [place] Food and Drug Administration. This test was performed in a CLIA certified laboratory and is intended for clinical purposes. Performed By: [facility] [address] [place] [address]185 Hand Alterations Tailor: Edgar Snell MD, PHD ISAURA-1 AB IGG 0 AU/mL Normal 0-40 [facility] Comment on above: Result Comment: INTE RPRETIVE INFORMATION: Isaura-1 Antibody, IgG 29 AU/mL or less.........Negative 30-40 AU/mL..............Equivocal 41 AU/mL or greater......Positive Presence of Isaura-1 (antihistidyl transfer RNA [t-RNA] synthetase) antibody is associated with polymyositis and may also be seen in patients with dermatomyositis. Isaura-1 antibody is associated with pulmonary involvement (interstitial lung disease), Raynaud phenomenon, arthritis, and rubberizing mechanic's hands (implicated in antisynthetase syndrome). KU AB Negative Normal Negative [facility] MDA5 AB Negative Normal Negative [facility] VA-2 AB Negative Normal Negative [facility] MYOSITIS PANEL INTERP See Note Normal [facility] Comment on above: Result Comment: INTE RPRETIVE [...] . . . . . . X Willoughby/SKEIN INSPECTOR (CHRISTA) Ab, IgG . . . . [...] . . . . X Fibrillarin (U3 SKEIN INSPECTOR) Ab, IgG . . . . . [...] developed and its performance characteristics determined by [facility]. It has not been cleared or approved by the US Food and Drug Administration. This test was performed in a CLIA certified laboratory and is intended for clinical purposes. NXP2 AB Negative Normal Negative [facility] OJ AB Negative Normal Negative [facility] P155/140 AB Negative Normal Negative [facility] PL-12 AB Negative Normal Negative [facility] PL-7 AB Negative Normal Negative [facility] PM/SCL 100 AB, IgG Negative Normal Negative [facility] Comment on above: Result Comment: INTE RPRETIVE [...] developed and its performance characteristics determined by [facility]. It has not been cleared or approved by the US Food and Drug Administration. This test was performed in a CLIA certified laboratory and is intended for clinical purposes. SKEIN INSPECTOR AB IGG (CHRISTA) 2 Units Normal 0-19 [facility] Comment on above: Result Comment: INTE RPRETIVE INFORMATION: Willoughby/SKEIN INSPECTOR (CHRISTA) Antibody, IgG 19 Units or Less ............. Negative 20 to 39 Units ............... Weak Positive 40 to 80 Units ............... Moderate Positive 81 Units or greater .......... Strong Positive Willoughby/SKEIN INSPECTOR antibodies are frequently seen in patients with mixed connective tissue disease (MCTD) and are also associated with other systemic autoimmune rheumatic diseases (SARDs) such as systemic lupus erythematosus (SLE), systemic sclerosis, and myositis. Antibodies targeting the Willoughby/SKEIN INSPECTOR antigenic complex also recognize Willoughby antigens, therefore, the Willoughby antibody response must be considered when interpreting these results. SAE1 AB Negative Normal Negative [facility] SRP AB Negative Normal Negative [facility] SSA (RO) AB IGG 0 AU/mL Normal 0-40 [facility] Comment on above: Result Comment: INTE RPRETIVE [...] AB IGG 0 AU/mL Normal 0-40 [facility] Comment on above: Result Comment: REFE RENCE INTERVAL: SSA-60 (Ro60) (CHRISTA) Antibody, IgG 29 AU/mL or Less ............. Negative 30 - 40 AU/mL ................ Equivocal 41 AU/mL or Greater .......... Positive TIF-1 GAMMA AB Negative Normal Negative [facility] RHEUMATOID FACTOR SERUMon RA <20 Normal 0-20 [facility] Comment on above: Performed By: #### 1 0204, 53690, 80912, 33555 #### [facility] [address] SEDIMENTATION RATEon 022 SED RATE 4 mm/hr Normal 0-20 [facility] Comment on above: Performed By: #### 5 6506 #### [facility] [address] [place] [address], [facility] SJOGRENS ANTIBODIESon 2021 SS-A Negative Normal NEG,NEGATIVE ,Neg [facility] Comment on above: Performed By: #### 9 9850, 37325, 06245, 96533, 95415 #### [facility] [address] [place] [address], [facility] SS-B Negative Normal NEG,NEGATIVE ,Neg [facility] Comment on above: Performed By: #### 9 9850, 99692, 11667, 21160, 42133 #### [facility] [address] [facility] [address] Ambulatory Visit Summaryon 0 11-23-2021 Ambulatory Visit Summary KERI WRIGHT :1985 Visit Date:11/23/2021 Ambulatory Visit Instructions Your Care Team Attending Physician - ALEX SINGH, Chantel Lindsey Primary Care Physician - AUDREY URIBE, MEKA Dawson This Is Your Medications List aripiprazole (Abilify [...] HTN (hypertension) Hypothyroidism Obesity Tobacco user Normal [facility] General Surgery Office/Clini c Noteon [...] History Alcoholism: Father. Hypertension: Mother and Father. [facility] Comment on above: Result Comment: Elec tronically Signed By: ALEX SINGH, Chantel Lindsey\.br\Date and Time Signed: 11/23/21 14:24 EDT Pathology Noteon 11-21-2021 Pathology Note [id number]#[id number]:127 [facility] Operative Reporton Operative Report [id number]#1.00CD:127 [facility] Provider Letter FTMCon 11-16 Provider Letter [facility] November 16, 2021 [address] [place] [id number] KERI WRIGHT 1985 To Whom It May Concern, Please excuse above patient from work 11/16/2021. Sincerely, Dr. Chantel Mayo MD General Surgery [facility] Pre-Certification Formon Pre-Certification Form [id number]#[id number]:127 [facility] Consent for Procedure/Surger yon 10-11-2021 Consent for Procedure/Surgery [id number]#[id number]:127 [facility] Ambulatory Visit Summaryon 0 10-09-2021 Ambulatory Visit Summary KERI WRIGHT :1985 Visit Date:10/09/2021 Ambulatory Visit Instructions [...] HTN (hypertension) Hypothyroidism Obesity Tobacco user Normal [facility] Physician Referralon 022 Physician Referral [id number]#[id number]:127 Normal [facility] MG MAMM TERRENCE DIAG W CADon MG MAMM TERRENCE DIAG W CAD Patient: KERI WRIGHT Exam Date: 10/02/2021 : 1985 Gender:F Ordering : RONY ROPER [facility] Admission #: [id number] Family : Order #: [id number] CLICK HERE TO VIEW EXAM RADIOLOGY REPORT [...] Treatments None Family Cancers None LOCATION: [facility] BREAST COMPOSITION: Scattered areas fibroglandular density. [...] PALPABLE LUMP SHOULD BE BIOPSIED. Dictated by: Danielle [place] M.D. on 10/02/2021 at 10:50 Approved by: Danielle [place] M.D. on 10/02/2021 at 12:01 Normal [facility] US BREAST RIGHT LIMITEDon US BREAST RIGHT LIMITED Patient: KERI WRIGHT Exam Date: 10/02/2021 : 1985 Gender:F Ordering : RONY ROPER [facility] Admission #: [id number] Family : Order #: [id number] CLICK HERE TO VIEW EXAM RADIOLOGY REPORT [...] Treatments None Family Cancers None LOCATION: [facility] BREAST COMPOSITION: Scattered areas fibroglandular density. [...] PALPABLE LUMP SHOULD BE BIOPSIED. Dictated by: Danielle [place] M.D. on 10/02/2021 at 10:50 Approved by: Danielle [place] M.D. on 10/02/2021 at 12:01 Normal [facility] CBC AUTO DIFFon 09-14-2021 BASO # 0.1 103/ul Normal 0.0-0.1 [facility] Comment on above: Performed By: #### C BC #### [facility] [address] [place] [address] [address] Jaylan Jones Basophils/100 WBC (Bld) 0.7 % Normal 0.2-2.0 [facility] Comment on above: Performed By: #### C BC #### [facility] [address] [place] [address] [address] Jaylan Jones EO # 0.2 103/ul Normal 0.0-0.7 [facility] Comment on above: Performed By: #### C BC #### [facility] [address] [place] [address] [address] Jaylan Jones Eosinophils/100 WBC (Bld) 3.1 % Normal 0.9-7.0 [facility] Comment on above: Performed By: #### C BC #### [facility] [address] [place] [address] [address] Jaylan Jones Erythrocyte distribution width (RBC) [Ratio] 13.3 % Normal 11.0-15.0 [facility] Comment on above: Performed By: #### C BC #### [facility] [address] [place] [address] Dr. Jaylan Jones Hematocrit (Bld) [Volume fraction] 40.7 % Normal 36.0-48.0 [facility] Comment on above: Performed By: #### C BC #### [facility] [address] [place] [id number] Jaylan Jones Hemoglobin (Bld) [Mass/Vol] 13.4 g/dL Normal 12.0-16.0 [facility] Comment on above: Performed By: #### C BC #### [facility] [address] [place] [address] Dr. Jaylan Jones IG # 0.03 10e3/ul Normal 0.00-0.03 [facility] Comment on above: Performed By: #### C BC #### [facility] [address] [place] [address] Dr. Jaylan Jones IG % 0.4 % Normal 0.0-0.5 [facility] Comment on above: Performed By: #### C BC #### [facility] [address] [place] [address] Dr. Jaylan Jones LYMPH # 1.9 103/ul Normal 1.2-3.8 [facility] Comment on above: Performed By: #### C BC #### [facility] [address] [place] [address] Dr. Jaylan Jones Lymphocytes/100 WBC (Bld) 25.4 % Normal 20.5-60.0 [facility] Comment on above: Performed By: #### C BC #### [facility] [address] [place] [address] Dr. Jaylan Jones MANUAL DIFF REQ NO Normal [facility] Comment on above: Performed By: #### C BC #### [facility] [address] [place] [address] Dr. Jaylan Jones MCH (RBC) [Entitic mass] 28.3 pg Normal 26.7-34.0 [facility] Comment on above: Performed By: #### C BC #### [facility] [address] [place] [address] Dr. Jaylan Jones MCHC (RBC) [Mass/Vol] 32.9 g/dL Normal 29.9-35.2 [facility] Comment on above: Performed By: #### C BC #### [facility] [address] [place] [address] Dr. Jaylan Jones MCV (RBC) [Entitic vol] 86.0 fL Normal 81.0-99.0 [facility] Comment on above: Performed By: #### C BC #### [facility] [address] [place] [address] Dr. Jaylan Jones MONO # 0.5 103/ul Normal 0.3-0.8 [facility] Comment on above: Performed By: #### C BC #### [facility] [address] [place] [address] Dr. Jaylan Jones Monocytes/100 WBC (Bld) 6.6 % Normal 1.7-12.0 [facility] Comment on above: Performed By: #### C BC #### [facility] [address] [place] [address] Dr. Jaylan Jones NEUT # 4.8 103/ul Normal 1.4-6.5 [facility] Comment on above: Performed By: #### C BC #### [facility] [address] [place] [address] Dr. Jaylan Jones Neutrophils/100 WBC (Bld) 63.8 % Normal 43.0-75.0 [facility] Comment on above: Performed By: #### C BC #### [facility] [address] [place] [address] Dr. Jaylan Jones Platelet mean volume (Bld) [Entitic vol] 10.1 fL Normal 9.5-13.5 [facility] Comment on above: Performed By: #### C BC #### [facility] [address] [place] [address] Dr. Jaylan Jones PLT 290 103/ul Normal 150-450 [facility] Comment on above: Performed By: #### C BC #### [facility] [address] [place] [address] Dr. Jaylan Jones RBC 4.73 106/ul Normal 4.20-5.40 [facility] Comment on above: Performed By: #### C BC #### [facility] [address] [place] [address] Dr. Jaylan Jones WBC 7.5 103/ul Normal 4.0-11.0 [facility] Comment on above: Performed By: #### C BC #### [facility] [address] [place] [address] Dr. Jaylan Jones FREE T4on 04-22-2022 Free T4 [Mass/Vol] 0.93 ng/dL Normal 0.78-2.19 [facility] Comment on above: Performed By: #### F T4 #### [facility] [address] [place] [address] Dr. Jaylan Jones GLYCOHEMOGLOBIN A1Con 2021 ADA RECOMMENDATION ADA THERAPEUTIC TARGET 6.0 - 7.0 ACTION SUGGESTED > 7.0 Normal [facility] Comment on above: Performed By: #### A 1C #### [facility] [address] [place] [address] Dr. Jaylan Jones Glucose [Mass/Vol] 105 mg/dL Normal [facility] Comment on above: Performed By: #### A 1C #### [facility] [address] [place] [address] Dr. Jaylan Jones HbA1c (Bld) [Mass fraction] 5.3 % Normal <=6.0 [facility] Comment on above: Performed By: #### A 1C #### [facility] [address] [place] [address] Dr. Jaylan Jones LIPID PROFILEon 09-14-2021 CHOL-HDL RATIO NORM SEE BELOW Normal [facility] Comment on above: Result Comment: 3.3 - 4.4 LOW RISK 4.4 - 7.1 AVERAGE RISK 7.1 - 11.0 MODERATE RISK >11.0 HIGH RISK Performed By: #### T SH, LIPID, CMP #### [facility] [address] [place] [address] Dr. Jaylan Jones Cholesterol [Mass/Vol] 122 mg/dL Normal <=200 [facility] Comment on above: Performed By: #### T SH, LIPID, CMP #### [facility] [address] [place] [address] Dr. Jaylan Jones Cholesterol in HDL [Mass/Vol] 55 mg/dL Normal 40-60 [facility] Comment on above: Performed By: #### T SH, LIPID, CMP #### [facility] [address] [place] [address] Dr. Jaylan Jones Cholesterol in LDL [Mass/Vol] 55.2 mg/dL Normal [facility] Comment on above: Performed By: #### T PRISCILA, LIPID, CMP #### [facility] [address] [address] [address] Jaylan Jones Cholesterol.total /Cholesterol in HDL [Mass ratio] 2.2 {ratio} Normal [facility] Comment on above: Performed By: #### T PRISCILA, LIPID, CMP #### [facility] [address] [address] [address] Jaylan Jones HDL NORMAL > or = 60 mg/dl - LO W CARDIOVASCULAR RISK <40 mg/dl - HIGH CARDIOVASCULAR RISK Normal [facility] Comment on above: Performed By: #### T PRISCILA, LIPID, CMP #### [facility] [address] [address] [address] Jaylan Jones LDL CALC NORMAL SEE BELOW Normal [facility] Comment on above: Result Comment: <100 mg/dl OPTIMAL 100 - 129 mg/dl NEAR OR ABOVE OPTIMAL 130 - 159 mg/dl BORDERLINE HIGH 160 - 189 mg/dl HIGH >190 mg/dl VERY HIGH Performed By: #### T PRISCILA, LIPID, CMP #### [facility] [address] [address] [address] Jaylan Jones Triglyceride [Mass/Vol] 59 mg/dL Normal <=150 [facility] Comment on above: Performed By: #### T PRISCILA, LIPID, CMP #### [facility] [address] [place] [address] Dr. Jaylan Jones VLDL CALC 11.8 mg/dL Normal [facility] Comment on above: Performed By: #### T SH, LIPID, CMP #### [facility] [address] [place] [address] Dr. Jaylan Jones PROF 14(COMP METB)on 022 Albumin [Mass/Vol] 3.9 g/dL Normal 3.4-5.0 [facility] Comment on above: Performed By: #### T PRISCILA, LIPID, CMP #### [facility] [address] [place] [address] Dr. Jaylan Jones Albumin/Globulin [Mass ratio] 1.1 {ratio} Normal [facility] Comment on above: Performed By: #### T SH, LIPID, CMP #### [facility] [address] [address] [address] Jaylan Jones ALP [Catalytic activity/Vol] 64 U/L Normal 46-116 [facility] Comment on above: Performed By: #### T SH, LIPID, CMP #### [facility] [address] [address] [address] Jaylan Jones ALT [Catalytic activity/Vol] 26 U/L Normal 14-59 [facility] Comment on above: Performed By: #### T SH, LIPID, CMP #### [facility] [address] [address] [address] Jaylan Jones Anion gap [Moles/Vol] 13.2 mmol/L Normal [facility] Comment on above: Performed By: #### T SH, LIPID, CMP #### [facility] [address] [place] [address] Dr. Jaylan Jones AST [Catalytic activity/Vol] 16 U/L Normal 15-37 [facility] Comment on above: Performed By: #### T SH, LIPID, CMP #### [facility] [address] [address] [address] Jaylan Jones Bilirubin [Mass/Vol] 0.5 mg/dL Normal 0.2-1.3 [facility] Comment on above: Performed By: #### T SH, LIPID, CMP #### [facility] [address] [place] [address] Dr. Jaylan Jones Calcium [Mass/Vol] 8.9 mg/dL Normal 8.5-10.1 [facility] Comment on above: Performed By: #### T SH, LIPID, CMP #### [facility] [address] [address] [address] Jaylan Jones Chloride [Moles/Vol] 102 mmol/L Normal 98-107 [facility] Comment on above: Performed By: #### T SH, LIPID, CMP #### [facility] [address] [address] [address] Jaylan Jones CO2 [Moles/Vol] 25.1 mmol/L Normal 22.0-30.0 [facility] Comment on above: Performed By: #### T SH, LIPID, CMP #### [facility] [address] [address] [address] Jaylan Jones Creatinine [Mass/Vol] 0.71 mg/dL Normal 0.55-1.02 [facility] Comment on above: Performed By: #### T SH, LIPID, CMP #### [facility] [address] [address] [address] Jaylan Jones EGFR-AF NICARAGUAN >60 Normal >=60 [facility] Comment on above: Performed By: #### T SH, LIPID, CMP #### [facility] [address] [address] [address] Jaylan Jones EGFR-NON AF NICARAGUAN >60 Normal >=60 [facility] Comment on above: Performed By: #### T SH, LIPID, CMP #### [facility] [address] [address] [address] Jaylan Jones Globulin (S) [Mass/Vol] 3.5 g/dL Normal [facility] Comment on above: Performed By: #### T SH, LIPID, CMP #### [facility] [address] [address] [address] Jaylan Jones Glucose [Mass/Vol] 85 mg/dL Normal 74-106 [facility] Comment on above: Performed By: #### T SH, LIPID, CMP #### [facility] [address] [address] [address] Jaylan Jones Potassium [Moles/Vol] 4.3 mmol/L Normal 3.4-5.0 [facility] Comment on above: Performed By: #### T SH, LIPID, CMP #### [facility] [address] [address] [address] Jaylan Jones Protein [Mass/Vol] 7.4 g/dL Normal 6.1-8.2 [facility] Comment on above: Performed By: #### T SH, LIPID, CMP #### [facility] [address] [address] [address] Jaylan Jones Sodium [Moles/Vol] 136 mmol/L Critically low 137-145 [facility] Comment on above: Performed By: #### T SH, LIPID, CMP #### [facility] [address] [place] [address] Dr. Jaylan Jones Urea nitrogen [Mass/Vol] 14.0 mg/dL Normal 7.0-18.0 [facility] Comment on above: Performed By: #### T SH, LIPID, CMP #### [facility] [address] [place] [address] Dr. Jaylan Jones Urea nitrogen/Creatini ne [Mass ratio] 19.7 mg/mg Normal [facility] Comment on above: Performed By: #### T SH, LIPID, CMP #### [facility] [address] [place] [address] Dr. Jaylan Jones SED RATE THOUSAND OAKSERGRENon 2021 SED RATE 15 mm/hr Normal <=20 [facility] Comment on above: Performed By: #### S EDR #### [facility] [address] [place] [address] Dr. Jaylan Jones TSHon 09-14-2021 TSH 0.846 uIU/mL Normal 0.470-4.680 [facility] Comment on above: Performed By: #### T SH, LIPID, CMP #### [facility] [address] [place] [address] Dr. Jaylan Jones TSH RANGE SEE BELOW Normal [facility] Comment on above: Result Comment: <0.3 4 UIU/ml HYPERTHYROID 0.34-5.60 UIU/ml EUTHYROID >5.60 UIU/ml HYPOTHYROID Performed By: #### T SH, LIPID, CMP #### [facility] [address] [place] [address] UROGRAM WO/W IVCONon 12-25 CT UROGRAM WO/W IVCON * * *Final Report* * *DATE OF EXAM: Jan 16 2018 2:44PM [facility] UROGRAM WO/W IVCON / [...] or hydroureter.2. Fat-containing supraumbilical hernia. Transcripti onist: PSCB Transcribe Date/Time: Jan 19 2018 2:30PDictated by : VAHID LOGAN MDThis examination was interpreted and the report reviewed and electronically signed by: VAHID LOGAN MD on Jan 19 2018 4:03PM [id number] Normal [facility] PROGRESSon 01-16-2018 Protein mass conc HNO ID: [id number] thor: Hoang (Ct) SHARAD Ruvalcabaervice: (none)Author Type: Clinical TechnicianType: Progress NotesFiled: 01/16/2018 2:46 PMNote Text: Radiology Service Progress NotePATIENT NAME: Keri WrightMRN: [id number] OF SERVICE: January 16, 2018TIME: 2:45 PMPATIENT IDENTITY VERIFICATION COMPLETED USING TWO (2) METHODS: Patientconfirmed name verbally and Date of .PATIENT GENDER DATA: Female. status: : NoBreastfeeding status: NO.PATIENT RELEVANT IMPLANT DATA REVIEWED: Not ApplicableCONTRAST INDUCED NEPHROPATHY RISK FACTORS: Not applicableCREATININE: No results found for: CREAT, EGFROTH, EGFRAAP.O.C.T. RESULTS: N/A January 16, 2018RADIOLOGIST NOTIFIED?: RicardoERGIES: Reviewed and unchangedCONTRAST ALLERGY: NO.PERIPHERAL IV ACCESS: Ambulatory: IV type: A peripheral IV was startedin the Right antecubital site with a Angio cath: 22 gauge., Siteassessment: Clean,Dry and Intact, Site disposition DiscontinuedRADIOLOGY DEPARTMENT: CT; Exam(s) Completed: urogram wo/wSIGNED BY: Radha ZAVALETA 2017 2:45 PM Normal [facility] CNOVon 01-13-2018 CNOV Office Visit (UROLAV) ----KERI WRIGHT ([id number]) 1985 FDate Time Provider Department01/13/18 10:20 AM IZABEL EARL) UROLAV During your visit today, we recorded the following information about you: Temperature Pulse Blood pressure Weight 99 degrees 76/minute 131/87 86.2 kgErica Tay Gayle 01/13/2018 10:23 AM SignedPressure in abdomen. Pt states she can't hold her urine. Has been seeing bloodon and off in urine for about a year.Bilateral flank pain.Izabel Earl PA-C 01/13/2018 12:28 PM Signed [facility] MAPLEVILLEHEMATURIA EVALUATIONAugust 2017 ========CHIEF COMPLAINT: pelvic pressure, flank [...] or vaginal bleeding, but has had hysterectomyand tapping machine operator automatic has told her it's not from that [...] a sooner appointment.She lives in the [facility] [place] and some results are in Care Everywhere.DTF: 10+NTF: 4-5x per nightUrgency: yesUUI: NOSUI: [id number] - vaginal birthPreeclampsiaBowel movements vary - change all the timeDiarrhea - constipation. I will go days without eatings. No appetite, sometimes in too much pain toeat.(Determine 4 of 8)1-Duration: 88420-Hkbflubn: bladder3-Severity: worse4-Quality: Irritative5-Context: Void6-Timing: constantly7-Modifying factors: No [...] PAST MEDICAL HISTORY/COMORBIDITIES:====== Hypothyroidism, thyroid goiterDepressionHysterectomy in [address] [place] [address] surgeries for patellar dislocation.IBUPROFEN (MOTRIN ORAL) Take [...] help improve urgency3. Pelvic pain - ICD9: [id number], ICD10: R10.2- Patient with multiple year history [...] WITH MICROSCOPIC- CYTOLOGY, URINE (XTUBE)- URINE CYTOLOGY JANNIEEDOSWALDO Robbins-CReferring Provider: SELF [200]Allergies As of Date: 01/13/2018 Noted Allergy ReactionNALBUPHINE 06/09/2017 11 - VomitingDate Reviewed: 01/13/2018Reviewed by: Kelly Cross Ma - Fully AssessedReason for Visit: Initial Consult [665] Cmt: Gross hematuriaPrimary Visit Diagnosis:Gross hematuria [R31.0] Other Visit Diagnoses:Urinary urgency [R39.15] Pelvic pain [R10.2] Pelvic floor dysfunction [M62.89] Screening for genitourinary condition [Z13.89]Order(s):UA DIP, URINE (POC) [1467945] Order #: [id number]. #:[id number] URINALYSIS WITH MICROSCOPIC [SQUAWMIC] Order #: [id number] CYTOLOGY, URINE (XTUBE) [SQUCYTOL] Order #: [id number] FUTURE URINE CYTOLOGY VOIDED [4334684] Order #: [id number] CT UROGRAM WO/W IVCON [8163275] Order #: [id number] FUTURE iv contrast (will be provided with [...] administration guidelines link.Disp: 1 EachRfl: 0 CYSTO.PANENDO [23919VGL] Order #: [id number] MYCOPLASMA CULT [SQMYPLAS] Order #: [id number] CONSULT TO PHYSICAL THERAPY [9032] Order #: [id number]: 1Prescriptions as of 01/13/2018 Sig: MOTRIN ORAL Take by mouth as needed. IV CONTRAST (RADIOLOGY PROCED* CT Urogram WO/W Inject, intra*Problem List As Of Date: 01/13/2018(None)Visit Notes:>> Kelly Tay Gayle citlalli Jan 13, 2018 10:13 AM Status: [...] gross hematuria.Follow-up and Disposition History RecordedEncounter Number: [id number] Status:Closed by IZABEL EARL PA-C on 01/13/18 Normal [facility] CYTOLOGYon 01-13-2018 Body mass index (BMI) [Ratio] [facility]: [id number] Physician: IZABEL CARMEN SUBMITTEDA: URINE, VOIDED FINAL DIAGNOSISA. URINE, VOIDED: - Negative for malignant cells.Tate Joseph MD (Electronic Signature) CLINICAL DATA Gross hematuriaGROSS [id number] clear slight yellow tinged fluidSTAINSA: URINE, VOIDED THIN PREP Non-GynPatient ID #: [id number] of Report: 01/15/2018Date of Procedure: 01/13/2018Date of Receipt: 01/13/2018Submitted by: IZABEL EARLLocation: JOSUE [id number] interpretation performed at [facility], [address] [place] [address]. Normal [facility] Mycoplasma Culton 01-13-2018 Mycoplasma Cult Sp. Request/Comment: - Specimen received in [facility]. Test Result - Culture negative for Mycoplasma hominis and Ureaplasma urealyticum Normal [facility] Comment on above: Performed By: #### M YPLAS ####[facility] [address], [place] [phone] PROGRESSon 01-13-2018 Protein mass conc HNO ID: [id number] thor: Izabel Hamilton (Pa): (none)Author Type: Physician AssistantType: Progress NotesFiled: 01/13/2018 12:28 PMNote Text: [facility]ICAL MAPLEVILLEHEMATURIA EVALUATIONAugust 2017 ========CHIEF COMPLAINT: pelvic pressure, flank pain, urinary urgency, grosshematuriaHPI:The patient is 32 year old and is referred for evaluation of grosshematuria, urinary urgency, flank pain, and pelvic pressure.She has had gross hematuria 1-2x per week since September.Was told by multiple doctors that I have blood in my urine. Uncertain if it's blood in urine or vaginal bleeding, but has hadhysterectomy and tapping machine operator automatic has told her it's not from that [...] get a soonerappointment.She lives in the [facility] [place] and some results are in Care Everywhere.DTF: 10+NTF: 4-5x per nightUrgency: yesUUI: NOSUI: [id number] - vaginal birthPreeclampsiaBowel movements vary - change all the timeDiarrhea - constipation. I will go days without eatings. No appetite, sometimes in too much painto eat.(Determine 4 of 8)1-Duration: 93624-Hsltcwdx: bladder3-Severity: worse4-Quality: Irritative5-Context: Void6-Timing: constantly7-Modifying factors: No [...] help improve urgency3. Pelvic pain - ICD9: [id number], ICD10: R10.2- Patient with multiple year history [...] (XTUBE)- URINE CYTOLOGY Willy Earl PA-C Normal [facility] Urinalysis with Microscopico n 01-13-2018 Bilirubin, Urine Negative Normal [facility] Comment on above: Performed By: #### U AWMIC ####[facility], [place] [phone] Clarity Clear Normal Clear [facility] Comment on above: Performed By: #### U AWMIC ####[facility] [address] [place], [place] [phone] Color Yellow Normal Yellow [facility] Comment on above: Performed By: #### U AWMIC ####[facility] [place], [place] [phone] Comments SEE COMMENT Normal [facility] Comment on above: Result Comment: N/A Performed By: #### U AWMIC ####[facility] [address], [place] [phone] Glucose Ql (U) Negative Normal Negative [facility] Comment on above: Performed By: #### U AWMIC ####[facility], [place] [phone] Hemoglobin/Blood, Ur 1+ Critically abnormal Negative [facility] Comment on above: Performed By: #### U AWMIC ####[place] [address] [phone] INR Coag RelTime (Bld) 0-3 Normal 0-3 [facility] Comment on above: Performed By: #### U AWMIC ####[place] [address] [address] [phone] Ketones Ql (U) Negative Normal Negative [facility] Comment on above: Performed By: #### U AWMIC ####[facility] [phone] Leukest Negative Normal Negative [facility] Comment on above: Performed By: #### U AWMIC ####[facility] [phone] Nitrites Negative Normal Negative [facility] Comment on above: Performed By: #### U AWMIC ####[address] [address], [place] [phone] pH 7.0 Normal 4.5-8.0 [facility] Comment on above: Performed By: #### U AWMIC ####[address] [address], [place] [phone] Protein, Urine Negative Normal Negative [facility] Comment on above: Performed By: #### U AWMIC ####[address] [address] [address], [place] [phone] Specific [place], Ur 1.008 Normal 1.005-1.030 [facility] Comment on above: Performed By: #### U AWMIC ####[address] [phone] Urine Lazaro Comment SEE COMMENT Normal [facility] Comment on above: Result Comment: N/A Performed By: #### U AWMIC ####[address] [phone] Urobilinogen Normal Normal Normal [facility] Comment on above: Performed By: #### U AWMIC ####[place] [phone] WBC 0-5 Normal 0-5 [facility] Comment on above: Performed By: #### U AWMIC ####[address] [phone] .UA Microscp Aon 06-09-2017 UA Mucus Present Abnormal Absent [facility] Comment on above: Performed By: #### C [id number] ####[address] [address] UA Squepi Cells Quant 7 /HPF Normal 0-29 [facility] Comment on above: Performed By: #### C [id number] ####[address] [address] UA WBC Quant 0 /HPF Normal 0-5 [facility] Comment on above: Performed By: #### C [id number] ####[address] [address] Urine, erythrocytes 17 /HPF High 0-5 [facility] Comment on above: Performed By: #### C D:[id number] ####[address] [address] .eGFRon 06-09-2017 eGFR (non-black) mL/min/{1.73_m2} Normal >=60 [facility] Comment on above: Result Comment: [...] medication dosing. Performed By: #### E GFR ####[place] [address] Result Comment: Resu lt = 0-14.9 mL/min/1.73 m2 Kidney failure or DialysisResult = 15-29 mL/min/1.73 m2 Severe decrease in GFRResult = 30-59 mL/min/1.73 m2 Moderate decrease in GFRResult >= 60 mL/min/1.73 m2 Normal or increased GFR CBC w/ Diffon 06-09-2017 Erythrocyte distribution width Auto Ratio (RBC) 14.0 % Normal 11.6-14.8 [facility] Comment on above: Performed By: #### C BC ####[place] [id number] Erythrocytes (RBC) 5.00 x10*6/mcL Normal 3.80-5.20 [facility] Comment on above: Performed By: #### C BC ####[place] [address] Hematocrit (HCT) 42.4 % Normal 36.0-46.[address] [facility] Comment on above: Performed By: #### C BC ####[place] [address] Hemoglobin mass conc (Bld) 14.6 g/dL Normal 12.0-16.0 [facility] Comment on above: Performed By: #### C BC ####[place] [address] MCH 29.3 pg Normal 27.0-35.0 [facility] Comment on above: Performed By: #### C BC ####[address] [address] MCHC mass conc (RBC) 34.5 % Normal 31.0-37.0 [facility] Comment on above: Performed By: #### C BC ####[address] [address] MCV 84.9 fL Normal 80.0-100.0 [facility] Comment on above: Performed By: #### C BC ####[address] [address] Platelet mean volume (PMV) 8.1 fL Normal 6.7-10.6 [facility] Comment on above: Performed By: #### C BC ####[address] [address] Platelets 242 x10*3/mcL Normal 150-350 [facility] Comment on above: Performed By: #### C BC ####[address] [address] WBC (Leukocytes) 9.2 x10*3/mcL Normal 4.5-11.0 [facility] Comment on above: Performed By: #### C BC ####[address] [address] CMPon 06-09-2017 Alanine aminotransferase (ALT) 15 U/L Normal 14-54 [facility] Comment on above: Performed By: #### C OMP ####[address] [address] Albumin 4.0 g/dL Normal 3.2-4.9 [facility] Comment on above: Performed By: #### C OMP ####[place] [address] Albumin/Globulin Ratio 1.4 {ratio} Normal 1.1-2.2 [facility] Comment on above: Performed By: #### C OMP ####[place] [address] Alk Phos 40 IU/L Normal 32-91 [facility] Comment on above: Performed By: #### C OMP ####[address] [address] Anion gap 9 mmol/L Normal 7-17 [facility] Comment on above: Performed By: #### C OMP ####[address] [address] Aspartate aminotransferase (AST) 22 U/L Normal 15-41 [facility] Comment on above: Performed By: #### C OMP ####[address] [address] Bili Total 0.5 mg/dL Normal 0.3-1.2 [facility] Comment on above: Performed By: #### C OMP ####[address] [address] BUN/Creatinine Ratio 25.8 mg/mg High 15.0-25.0 [facility] Comment on above: Performed By: #### C OMP ####[address] [address] Calcium 9.0 mg/dL Normal 8.5-10.3 [facility] Comment on above: Performed By: #### C OMP ####[address] [address] Chloride 108 mmol/L Normal 98-110 [facility] Comment on above: Performed By: #### C OMP ####[address] [address] CO2 24 mmol/L Normal 22-32 [facility] Comment on above: Performed By: #### C OMP ####[address] [address] Creatinine 0.66 mg/dL Normal 0.44-1.03 [facility] Comment on above: Performed By: #### C OMP ####[address] [address] Glucose mass conc 95 mg/dL Normal 74-118 [facility] Comment on above: Performed By: #### C OMP ####[address] [address] Potassium molar conc 3.7 mmol/L Normal 3.4-4.8 [facility] Comment on above: Performed By: #### C OMP ####[address] [address] Protein 6.8 g/dL Normal 6.5-8.1 [facility] Comment on above: Performed By: #### C OMP ####[address] [address] Sodium 137 mmol/L Normal 133-142 [facility] Comment on above: Performed By: #### C OMP ####[address] [place] [address] Urea nitrogen 17 mg/dL Normal 8-26 [facility] Comment on above: Performed By: #### C OMP ####[address] [address] [address] Abdomen Pelvis w/ IV Cont kalyn [...] abnormality.IMPRESSION:No acute abdominal or pelvic abnormality.Radiation Dose Estimate:CTDI(mGy):0.285064 / / / kVp:120.866275 / mAs:0.710443 / / / DLP(mGy-cm):6.059866Rpra Part: AbdomenCTDI(mGy):12.614447 / / / kVp:100.153407 / mAs:167.565453 / / / DLP(mGy-cm):598.207057Zwnj Part: Abdomen Final Dictated by: Herrera House MDctated DT/TM: 06.09.2017 9:57 amSigned by: Herrera House MDigned (Electronic Signature): 06.09.2017 10:00 am(If Report Is Signed, Electronically Signed in Other Vendor System) Normal [facility] Diff Autoon 06-09-2017 Baso Absolute 0.1 x10*3/mcL Normal 0.0-0.[address] [facility] Comment on above: Performed By: #### . Automated Diff ####[address] [address] Basophils/100 WBC Auto (Bld) 1.0 % Normal 0.0-1.5 [facility] Comment on above: Performed By: #### . Automated Diff ####[address] [address] Eos Absolute 0.5 x10*3/mcL High 0.0-0.4 [facility] Comment on above: Performed By: #### . Automated Diff ####[address] [address] Eosinophils/100 leukocytes 5.4 % Normal 0.0-5.4 [facility] Comment on above: Performed By: #### . Automated Diff ####[address] [address] Lymphocytes 2.8 x10*3/mcL Normal 1.0-4.8 [facility] Comment on above: Performed By: #### . Automated Diff ####[address] [address] Lymphocytes/100 leukocytes 30.4 % Normal 27.2-40.8 [facility] Comment on above: Performed By: #### . Automated Diff ####[address] [address] [place] Absolute 0.7 x10*3/mcL Normal 0.1-1.[address] [facility] Comment on above: Performed By: #### . Automated Diff ####[address] [address] Monocytes/100 leukocytes 8.0 % Normal 3.7-11.9 [facility] Comment on above: Performed By: #### . Automated Diff ####[address] [address] Neutro Absolute 5.1 x10*3/mcL Normal 1.8-7.7 [facility] Comment on above: Performed By: #### . Automated Diff ####[address] [address] Neutro Auto 55.2 % Normal 47.2-70.8 [facility] Comment on above: Performed By: #### . Automated Diff ####[address] [address] ED Clinical Summaryon 2017 [place] [address] Clinical SummaryPerson InformationName: Keri Wright[facility] Age: 31 Years : 1985Sex: Female PCP:Marital Status:Single race:White Ethnicity:Not or Language:EnglishMRN: [id number] Reason:Abdominal pain; Abdominal pain Acuity: 3Enc Type: Emergency Med Service: Emergency MedicineArrival:06/08/2017 21:47:00 Discharge: 06/09/2017 00:51:00 LOS: 000 03:04Checkin:06/08/2017 21:47:00 Checkout: 06/09/2017 00:51:00 Dispo Type: Home or Self CareAddress:[address] [facility] [address] Provider Notes: History of Present IllnessPatient is [...] cholelithiasis 2 months ago diagnosed at [facility]. Patient???s past medical history includes cholelithiasis. Patient [...] range between ( 27.2 and 40.8 ) [place] Auto: 8.0 % -- Normal range between [...] range between ( 36.0 and 46.0 ) [place] Absolute: 0.7 x10 MCH: 29.3 pg -- [...] No Immunizations Documented This VisitFinal Med List:[facility], [address], [place] [id number], [phone] (Bentyl 20 mg oral tablet) 1 Tabs [...] as needed as needed for pain.Last Dose: [facility] [address], [address], [place] [id number], [phone] (Bentyl 20 mg oral tablet) 1 Tabs [...] as needed for pain.Care Team Members:Attending Physician: Katia Duncan MDConsulting Physician:Referring Physician:Provider Role Assigned UnassignedKatia Duncan MD ED Provider 06/08/2017 21:51:24Penny Watts ED Nurse 06/08/2017 22:10:49Follow up:With: Address: When:Please Follow up with your PCP within 2-3 dyasDischarge Orders:Discharge Patient 06/09/17 0:13:00 EST, Discharge to Home, SelfPatient Education Information:CONSTIPATION (Adult); Abdominal Pain, AdultAAPCC Poison Help line: .[facility] Hotline: [place] Tobacco Quit Line: [place], [place]) [address]: [phone], [place]) [address]: [phone] [place] [address] [address], [place]: [phone] [facility] ED Note-Physicianon 06-09-19 ED Note-Physician Chief [...] cholelithiasis 2 months ago diagnosed at [facility]. Patient?s past medical history includes cholelithiasis. Patient [...] for and in the presence of Dr. Katia Duncan.Reexamination/Reevalua tion Scribe Attestation: The information in this document, created by the medical scientific liaison for me, accurately reflects the services I [...] TID, # 21 tabs, 0 Refill(s), Pharmacy: [facility] [address] docusate, 1 caps, Oral, BID, PRN, # 20 caps, 0 Refill(s), Pharmacy: [facility] [address] ondansetron, 1 tabs, Oral, q8hr, PRN, # 15 tabs, 0 Refill(s), Pharmacy: [facility] [address] polyethylene glycol 3350, 17 g, Oral, Daily, dissolve in water before taking, # 527 g, 0 Refill(s), Pharmacy: [facility] [address] 2. Constipation 3. Gallbladder contraction Orders: sodium chloride, 10 mL, IV Push, Injection, As Indicated, PRN flush, First Dose: 06/08/17 22:02:00 EST, Dispense From Location: [id number] Abdomen Pelvis w/ IV Contrast Discharge [...] data available. ___Flaquito Monique RElectronically signed by Katia Duncan MD 06/09/2017 00:17 EST Normal [facility] Lipaseon 06-09-2017 Lipase Lvl 20 IU/L Low 22-51 [facility] Comment on above: Performed By: #### L IP ####[address] UA w Culture if Indon 2017 UA Blood Small Abnormal Negative [facility] Comment on above: Performed By: #### U CI ####[address] [address] UA Clarity Clear Normal [facility] Comment on above: Performed By: #### U CI ####[address] [address] UA Leukocyte Esterase Negative Normal Negative [facility] Comment on above: Performed By: #### U CI ####[address] [address] UA Nitrite Negative Normal Negative [facility] Comment on above: Performed By: #### U CI ####[address] [address] UA pH 5.0 Normal 4.5 - 7.8 [facility] Comment on above: Performed By: #### U CI ####[address] [address] UA Protein Negative Normal Negative [facility] Comment on above: Performed By: #### U CI ####[address] [address] UA Source Clean Catch Normal [facility] Comment on above: Performed By: #### U CI ####[address] [address] UA Spec Grav 1.034 Normal 1.003-1.035 [facility] Comment on above: Performed By: #### U CI ####[address] [place] [address] UA Urobilinogen 0.2 mg/dL Normal 0.2 - 1.0 [facility] Comment on above: Performed By: #### U CI ####[address] [place] [address] Urine, color Yellow Normal [facility] Comment on above: Performed By: #### U CI ####[address] [place] [address] Urine, glucose Negative Normal Negative [facility] Comment on above: Performed By: #### U CI ####[address] [place] [address] Urine, ketones presence Trace Abnormal Negative [facility] Comment on above: Performed By: #### U CI ####[address] [place] [address] Urine, urobilinogen Negative Normal Negative [facility] Comment on above: Performed By: #### U CI ####[address] [place] [address] Vital Signs Date Time Vital Sign Value Performing Clinician Facility 11-18-2023 10:49-0400 Body height 160.02 cm [facility] 11-18-2023 10:49-0400 Body mass index (BMI) [Ratio] 38.8 kg/m2 [facility] 11-18-2023 10:49-0400 Body temperature 97.6 [degF] [facility] 11-18-2023 10:49-0400 Body weight 99.5 kg [facility] 11-18-2023 10:49-0400 Diastolic blood pressure 86 mm[Hg] [facility] 11-18-2023 10:49-0400 Heart rate 78 /min [facility] 11-18-2023 10:49-0400 Respiratory rate 18 /min [facility] 11-18-2023 10:49-0400 SaO2% (BldA) [Mass fraction] 99 % [facility] 11-18-2023 10:49-0400 Systolic blood pressure 130 mm[Hg] [facility] 04-23-2023 09:00-0500 Body height 160.02 cm Kamila Contrerasmond Other [email or web address] Other 04-23-2023 09:00-0500 Body mass index (BMI) [Ratio] 39.14 kg/m2 Kamila Rhoda Other [email or web address] Other 04-23-2023 09:00-0500 Body temperature 97.4 [degF] Kamila Rhoad Other [email or web address] Other 04-23-2023 09:00-0500 Body weight 100.25 kg Kamila Rhoda Other [email or web address] Other 04-23-2023 09:00-0500 Diastolic blood pressure 94 mm[Hg] Kamila Rhoda Other [email or web address] Other 04-23-2023 09:00-0500 Respiratory rate 18 /min Kamila Rhoda Other [email or web address] Other 04-23-2023 09:00-0500 SaO2% (BldA) [Mass fraction] 99 % Kamila Rhoda Other [email or web address] Other 04-23-2023 09:00-0500 Systolic blood pressure 143 mm[Hg] Kamila Rhoda Other [email or web address] Other 02-09-2023 09:00-0400 Body height 160.02 cm Kamila Rhoda Other [email or web address] Other 02-09-2023 09:00-0400 Body mass index (BMI) [Ratio] 36.77 kg/m2 Kamila Rhoda Other [email or web address] Other 02-09-2023 09:00-0400 Body temperature 97.4 [degF] Kamila Duong Other [email or web address] Other 02-09-2023 09:00-0400 Body weight 94.17 kg Kamila Duong Other [email or web address] Other 02-09-2023 09:00-0400 Diastolic blood pressure 88 mm[Hg] Kamila Duong Other [email or web address] Other 02-09-2023 09:00-0400 Respiratory rate 18 /min Kamila Duong Other [email or web address] Other 02-09-2023 09:00-0400 SaO2% (BldA) [Mass fraction] 98 % Kamila Duong Other [email or web address] Other 02-09-2023 09:00-0400 Systolic blood pressure 126 mm[Hg] Kamila Duong Other [email or web address] Other 06-11-2022 10:00-0500 Body height 157.48 cm Gloria Jackson Other [email or web address] Other 06-11-2022 10:00-0500 Body mass index (BMI) [Ratio] 40.23 kg/m2 Gloria Jackson Other [email or web address] Other 06-11-2022 10:00-0500 Body temperature 97.8 [degF] Gloria Jacksno Other [email or web address] Other 06-11-2022 10:00-0500 Body weight 99.79 kg Gloria Jackson Other [email or web address] Other 06-11-2022 10:00-0500 Respiratory rate 18 /min Gloria Jackson Other [email or web address] Other 06-11-2022 10:00-0500 SaO2% (BldA) [Mass fraction] 99 % Gloria Jackson Other [email or web address] Other 10-09-2021 13:49-0400 Blood Pressure Location [facility]el [place] [facility] [place] 10-09-2021 13:49-0400 Diastolic blood pressure 80 mm[Hg] Chantel NILL [facility] [place] 10-09-2021 13:49-0400 Heart rate 72 /min Chantel NILL [facility] [place] 10-09-2021 13:49-0400 Respiratory rate 16 /min Chantel NILL [facility] 10-09-2021 13:49-0400 Systolic blood pressure 124 mm[Hg] Chantel NILL [facility] NEGATED: Highlighted row BMI (Body Mass Index) Harry [facility] NEGATED: Highlighted row Body Temperature [facility] NEGATED: Highlighted row Body weight Harry Printy [facility] NEGATED: Highlighted row BP Diastolic [facility] NEGATED: Highlighted row BP Systolic Harry [facility] NEGATED: Highlighted row Height [facility] NEGATED: Highlighted row Pulse (Heart Rate) [facility] NEGATED: Highlighted row Pulse Oximetry Harry [facility] NEGATED: Highlighted row Respiratory Rate Harry Huff[facility] Encounters Encounter Date Encounter Type Care Provider Facility Start: 11-18-2023 End: 11-18-2023 ambulatory [facility] Work Phone: Start: 11-18-2023 End: 11-18-2023 Patient encounter procedure [facility] Work Phone: Start: 08-14-2023 End: 08-14-2023 ambulatory [place] EM Not Available Start: 08-04-2023 End: 08-04-2023 ambulatory [place] MARIA ANTONIA Not Available Start: 06-23-2023 End: 06-23-2023 ambulatory DELICIA TRIPP Not Available Start: 06-03-2023 End: 06-03-2023 ambulatory DELICIA TRIPP Not Available Start: 04-23-2023 (URG) Urgent Care Visit Kamila herring [facility] Start: 04-23-2023 End: 04-23-2023 ambulatory Kamila Duong Other [email or web address] Other Start: 02-09-2023 End: 02-09-2023 ambulatory Kamila Duong Other [email or web address] Other Start: 02-09-2023 Office outpatient vi sit 15 minutes Kamila Duogn [facility] Start: 01-07-2023 ambulatory PHYSICIAN NO FAMILY Fac ility:[facility] Start: 06-17-2022 End: 06-17-2022 ambulatory CLASSIFICATION OFFICER MEKA SAÚLHEIDI Facility: Start: 06-14-2022 End: 06-14-2022 ambulatory Gloria Jackson Other [email or web address] Other Start: 06-14-2022 Telephone encounter Gloria Jackson [facility] [address] Start: 06-11-2022 Office outpatient vi sit 25 minutes Gloria Jackson [facility] Start: 06-11-2022 End: 06-11-2022 ambulatory PHYSICIAN NO FAMILY Facility:[facility] Start: 06-11-2022 End: 06-11-2022 ambulatory PHYSICIAN NO [facility] Work Phone: Start: 06-11-2022 End: 06-11-2022 Departed Referred PHYSICIAN NO [facility] [address] [place] Work Phone: Start: 11-23-2021 End: 11-23-2021 Patient encounter procedure Chantel MAYO [facility] [place] Start: 11-14-2021 End: 11-14-[address] CHANTEL MAYO Facility:[facility] Start: 11-06-2021 Encounter for other preprocedural examination DR CHANTEL MAYO [facility] Start: 11-02-2021 End: 11-03-[address] CHANTEL MAYO Facility:[facility] Start: 11-02-2021 End: 11-03-2021 Encounter for other preprocedural examination DR CHANTEL MAYO Facility:[facility] Start: 10-09-2021 End: 10-09-2021 Patient encounter procedure Chantel MAYO [facility] [place] Start: 10-02-2021 End: 10-03-2021 ambulatory RONY ROPER Facility:[facility] Start: 09-14-2021 End: 09-15-2021 ambulatory RONY ROPER Facility:[facility] Start: 01-16-2018 End: 01-16-2018 Patient encounter IZABEL EARL ([place]) [facility] Start: 01-13-2018 End: 01-14-2018 Patient encounter IZABEL EARL ([place]) [facility] Start: 06-08-2017 End: 06-09-2017 Emergency department patient visit KATIA DUNCAN Facility:[facility] Start: 10-02-2015 End: 10-03-2015 Admission to day surgery [facility] Start: 08-11-2015 End: 08-11-2015 [facility] Start: 12-01-2013 End: 12-01-2013 Emergency department patient visit Harry Huffman [facility] Start: 04-06-2013 End: 04-06-2013 Patient encounter procedure Harry Huffman [facility] Start: 04-28-2012 End: 04-28-2012 Patient encounter procedure Harry Huffman [facility] Start: 10-07-2011 End: 10-07-2011 Emergency department patient visit Harry Huffman [facility] Start: 04-23-2011 End: 04-23-2011 Emergency department patient visit Harry Huffman [facility] Start: 04-09-2011 End: 04-09-2011 Emergency department patient visit Harry Huffman [facility] Start: 12-10-2010 End: 12-10-2010 Emergency department patient visit Harry Huffman [facility] Start: 11-01-2010 End: 11-01-2010 Emergency department patient visit Harry Huffman [facility] Start: 03-05-2010 End: 03-05-2010 Emergency department patient visit Harry Huffman [facility] Start: 12-12-2009 End: 12-12-2009 Admission to day surgery Harry Huffman [facility] Start: 10-10-2009 End: 10-10-2009 Emergency department patient visit [facility] Start: 03-06-2009 End: 03-06-2009 Emergency department patient visit [facility] Start: 11-09-2008 End: 11-09-2008 Emergency department patient visit [facility] Start: 09-14-2008 Patient encounter procedure [facility] Start: 07-07-2008 End: 07-07-2008 Emergency department patient visit [facility] Start: 06-24-2008 End: 06-24-2008 Emergency department patient visit [facility] Start: 06-04-2008 End: 06-04-2008 Emergency department patient visit [facility] Start: 04-09-2008 End: 04-09-2008 Emergency department patient visit [facility] Start: 12-15-2007 End: 12-28-2007 Discharged Recurring Harry [facility] Start: 12-15-2007 End: 12-15-2007 Emergency department patient visit [facility] Start: 12-05-2007 End: 12-05-2007 [facility] Start: 10-12-2007 End: 10-12-2007 [facility] Start: 09-18-2007 End: 09-18-2007 [facility] Start: 08-16-2007 End: 08-16-2007 [facility] Start: 07-23-2007 End: 07-23-2007 [facility] Start: 06-24-2007 End: 06-25-2007 [facility] Start: 05-23-2007 End: 05-23-2007 Emergency department patient visit [facility] Start: 04-25-2007 End: 05-25-2007 [facility] Start: 04-17-2007 End: 04-17-2007 [facility] Start: 04-04-2007 End: 04-03-2007 [facility] Start: 02-23-2007 End: 03-25-2007 [facility] Start: 02-02-2007 End: 02-01-2007 [facility] Start: 01-24-2007 End: 02-22-2007 [facility]charged [facility] Start: 01-20-2007 End: 01-21-2007 [facility] Start: 01-05-2007 End: 01-23-2007 Discharged Recurring [facility] Start: 12-24-2006 End: 12-24-2006 [facility] Start: 12-18-2006 End: 12-18-2006 [facility] Start: 07-11-2006 End: 07-11-2006 [facility] Start: 03-20-2006 End: 03-20-2006 Emergency department patient visit [facility] Start: 02-27-2006 End: 02-27-2006 Emergency department patient visit [facility] Start: 02-11-2006 End: 02-11-2006 [facility] Start: 01-06-2006 End: 01-06-2006 [facility] Start: 11-23-2005 [facility] Start: 09-07-2005 End: 09-06-2005 Emergency department patient visit [facility] Start: 08-02-2005 End: 08-02-2005 Emergency department patient visit [facility] Start: 07-21-2005 End: 07-20-2005 Emergency department patient visit [facility] Start: 04-02-2005 End: 04-24-2005 Discharged Recurring [facility] Start: 02-14-2005 End: 02-14-2005 Emergency department patient visit [facility] Start: 02-02-2005 End: 02-02-2005 Emergency department patient visit [facility] Start: 11-21-2004 End: 11-21-2004 Emergency department patient visit [facility] Start: 02-23-2004 Evaluation and management of inpatient [facility] Start: 02-21-2004 Evaluation and management of inpatient [facility] Start: 02-07-2004 Evaluation and management of inpatient [facility] Start: 03-20-1993 End: 03-26-1993 Discharged Recurring [facility] Procedures Date Procedure Procedure Detail Performing Clinician Start: 03-05-2010 Other incision with drainage of skin and subcutaneous tissue Harry Nathanael Start: 12-12-2009 Arthroscopic knee operation Harry Nathanael Start: 12-12-2009 Division of joint ca psule, ligament, or cartilage, knee Harry Nathanael Arthroscopy of knee Chantel MAYO Excision of cyst Chantel Poe Comment on above: left armpit Partial hysterectomy Chantel MAYO Throat culture Gloria Jackson Other Transcervical sterilization Chantel MAYO Plan of Treatment Date Care Activity Detail Author Start: 06-11-2022 Throat culture Throat Culture [facility] Bacteria identified in Throat by Aerobe culture [facility] Immunizations Immunization Date Immunization Notes Care Provider Fa cility 03-31-2022 tetanus toxoid, redu helio diphtheria toxoid, and acellular pertussis vaccine, adsorbed Gloria Jackson Other [facility] Payers Date Payer Category Payer Self-pay 2022 Medicaid [id number] 2. [id number] 2017 Unknown 1985 Unknown [id number] 2.16.84 [id number] 1985 Unknown [id number] 2.16.84 [id number] 1985 Unknown [id number] 2.16.84 [id number] 1986 Unknown [id number] 2.16.84 [id number] 1986 Unknown [id number] 2.16.84 [id number] 1986 Unknown [id number] 2.16.84 0.1.329853.3.579.2.1259 1986 Unknown [id number] 2.16.84 [id number] 1986 Unknown [id number] 2.16.84 [id number] 1986 Unknown [id number] 2.16.84 [id number] 1959 Unknown [id number] Private Health Insurance [id number] Unknown [id number] Unknown [id number] 2.16.8 [id number] Unknown [id number] 2.16.8 [id number] Social History Date Type Detail Facility Start: 10-09-2021 Tobacco smoking status Ex-smoker (fi nding) [facility] Tobacco smoking status Smokeless tobacco user within last 30 days [facility] Sex Assigned At Female [facility] [place] Start: 12-07-2018 End: 12-07-2018 Tobacco smoking status NHIS Smoker (finding) [facility] Start: 1985 Sex Assigned At Female F [facility] Clinical Notes 10-09-2021 to 04-23-2023 [...] no improvement in 2 to 3 days [email or web address] Other 09-17-2023 Evaluation note* Encounter Date Diagnosis [...] no improvement in 2 to 3 days [email or web address] Other 01-17-2023 Evaluation note* Encounter Date Diagnosis [...] treatment plan. Patient left in stable condition [email or web address] Other 06-22-2022 NoteOPERATIVE NOTE OPERATION DATE: 11/14/2021 [...] recovery room in good condition. CC: Meka Roper CNP [facility] Signed and Approved by: DR CHANTEL MAYO . 11/15/2021 14:02:00[facility]05-17-2022 NoteChief Complaint consultation for breast mass vs infection [facility] Staff 36 year old female presents [...] Tobacco Use:. [place]ig[place], [place] (more content not included)...[facility]:Result Comment: Electronically Signed By: ALEX SINGH, Chantel R\.br\Date and Time Signed: 10/09/21 15:43 EDTEvaluation + Plan note No data available for this section General Surgery [place] Evaluation noteNo assessment information available [facility] Work Phone: Evaluation noteNo Information[facility] Other Evaluation note* Diagnosis Onset Date Resolution Status Allergic dermatitis acute [facility] Work Phone: His[place] general Narrative - Reported* Type Description Date Medical History Hypothyroidism Surgical History hysterectomy Surgical History knee arthroscopy Hospitalization History SEE ABOVE [facility] Other Hospital Discharge instructions No data available for this section General Surgery [place] Progress note No data available for this section General Surgery [place] Summary Purpose Family History Relationship Condition Age at Onset Recorded Date/T nichelle Not Specified Bipolar affective disorder Unknown father Depression Unknown Relationship Condition Age at Onset Recorded Date/T nichelle Not Specified Bipolar affective disorder Unknown father Depression Unknown father Hypertension Unknown Unknown Advance Directives Advance Directive Response Recorded Date/ Time Advance Directives No December 07 12:28am Advance Directive Response Recorded Date/ Time Advance Directives No December 07 1:28am Chief Complaint and Reason for Visit Chief Complaint very itchy rash all over Reason for Visit Allergic dermatitis Additional Source Comments INFORMATION SOURCE (unrecogn ized section and content) DATE CREATED AUTHOR 11/17/2017 [facility] DATE CREATED AUTHOR AUTHOR'S ORGANIZ ATION 01/21/2018 [facility] DATE CREATED AUTHOR AUTHOR'S ORGANIZ ATION 11/24/2021 [facility] DATE CREATED AUTHOR AUTHOR'S ORGANIZ ATION 12/29/2021 [facility] DATE CREATED AUTHOR AUTHOR'S ORGANIZ ATION 07/02/2022 [facility] DATE CREATED AUTHOR AUTHOR'S ORGANIZ ATION 05/02/2023 [facility] DATE CREATED AUTHOR AUTHOR'S ORGANIZ ATION 08/16/2023 [facility] Care Team (unrecognized sect ion and content) Team Status: Inactive Member Role Status Dates PHYSICIAN NO FAMILY Primary Care Provider Active Gloria Jackson APRN Attending Provider Active Team Status: Active Member Role Status Dates PHYSICIAN NO FAMILY Primary Care Provider Active Team Status: Inactive Member Role Status Dates PHYSICIAN NO FAMILY Primary Care Provider Active Start: November 18, 2023 End: November 18, 2023 Jasmin Murphy APRN Attending Provider Active Start: November 18, 2023 End: November 18, 2023 Goals (unrecognized section and content) Goals may [...] BE BASED ON THE PRIMARY CLINICAL RECORDS. [facility]. provides no warranty or guarantee of the accuracy or completeness of information in this document.
--- NOTE | 2023-11-26 08:58 | ED_ITS ---
HPI HPI - General Adult General Chief complaint: Skin/Abscess/Foreign Body Stated complaint: FULL BODY RASH WITH PAIN Time Seen by Provider: 11/26/23 08:16 Source: patient Mode of arrival: walk-in Limitations: no limitations History of Present Illness HPI narrative: Patient presents to ED complaining of a rash. She denies any new laundry detergents lotions soaps or anything that she can think of that she has been exposed to it. She did go to the urgent care and received a shot of steroids and she was told to take Benadryl. She then had an ER visit and they put her on a Medrol Dosepak and told her to take Benadryl. The rash is spreading and not improving. It is localized mostly in the armpits and chest area also little across the belly and now is spreading onto the neck. No fevers no shortness of breath. She is not on any new medication. 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 She denies any medical history or autoimmune disease history. Related Data Home Medications ?Medication ?Instructions ?Recorded ?Confirmed cariprazine 1.5 mg capsule 1.5 mg PO DAILY 07/04/23 07/19/23 (Vraylar) metformin 500 mg tablet,extended 500 mg PO DAILY 07/04/23 07/19/23 release 24 hr Previous Rx's ?Medication ?Instructions ?Recorded hydrocodone 5 mg-acetaminophen 325 1 tab PO Q4H PRN pain 4 days #16 07/18/23 mg tablet tabs ibuprofen 800 mg tablet 800 mg PO Q8H PRN pain 14 days #40 07/18/23 tabs ketorolac 10 mg tablet 10 mg PO TID PRN pain #10 tabs 07/19/23 lorazepam 0.5 mg tablet (Ativan) 0.5 mg PO TID PRN anxiety 3 days 07/19/23 #10 tabs ondansetron 4 mg disintegrating 4 mg PO Q6H PRN nausea and 07/19/23 tablet vomiting #12 tabs Allergies Allergy/AdvReac Type Severity Reaction Status Date / Time codeine Allergy Rash Verified 11/26/23 08:17 [email or web address] [From Nubain] AdvReac Vomiting Verified 11/26/23 08:17 Opioid HPI Opioid Management Most Recent Opioid Data: Last Pain Scale 8 07/19/23 20:21 Review of Systems ROS Status of ROS 10 or more systems reviewed and unremark able except as noted in history and below [facility] Medical History (Updated 11/26/23 @ 08:54 by Rosanna Flores DO) Anemia ?D64.9 - Anemia, unspecified (ICD-10) Insomnia ?G47.00 - Insomnia, unspecified (ICD-10) PTSD (post-traumatic stress disorder) ?F43.10 - Post-traumatic stress disorder, unspecified (ICD-10) OCD (obsessive compulsive disorder) ?F42.9 - Obsessive-compulsive disorder, unspecified (ICD-10) Bipolar disorder ?F31.9 - Bipolar disorder, unspecified (ICD-10) Depression ?F32.A - Depression, unspecified (ICD-10) Electronic cigarette use ?Z78.9 - Other specified health status (ICD-10) COVID-19 ?U07.1 - COVID-19 (ICD-10) Pelvic pain ?R10.2 - Pelvic and perineal pain (ICD-10) Heartburn ?R12 - Heartburn (ICD-10) GERD (gastroesophageal reflux disease) ?K21.9 - Gastro-esophageal reflux disease without esophagitis (ICD-10) Goiter ?E04.9 - Nontoxic goiter, unspecified (ICD-10) Hypothyroidism ?E03.9 - Hypothyroidism, unspecified (ICD-10) Panic attacks ?F41.0 - Panic disorder [episodic paroxysmal anxiety] (ICD-10) Anxiety ?F41.9 - Anxiety disorder, unspecified (ICD-10) Surgical History (Updated 07/04/23 @ 10:21 by Angelic Sears NP) H/O removal of cyst ?Z98.890 - Other specified postprocedural states (ICD-10) History of arthroscopy of knee ?Z98.890 - Other specified postprocedural states (ICD-10) History of dilation and curettage ?Z98.890 - Other specified postprocedural states (ICD-10) History of tubal ligation ?Z98.51 - Tubal ligation status (ICD-10) History of hysterectomy ?Z90.710 - Acquired absence of both cervix and uterus (ICD-10) Family History (Updated 07/04/23 @ 10:21 by Angelic Sears NP) Other Bipolar 1 disorder CHF (congestive heart failure) Family history of DVT Family history of diabetes mellitus Family history of hypertension Family history of myocardial infarction Motorcycle accident Social History Within the past year, how often did you have a drink containing alcohol: monthly or less Do you use any of these nicotine containing products: vaping products Non-prescribed substance use: cannabis (any form) 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 Respiratory: Lungs CTA, respirations non labored. Extremities: no deformity, no trauma. Neurological: oriented x 4, LOC appropriate for age. Diffuse maculopapular rash in armpits on chest and across abdomen. Slightly onto the left side of the neck. Plaque-like rash in the armpits. Blanches. No pustules. Constitutional Vital Signs, click to edit/add: Last Vital Signs Temp 98.0 F 11/26/23 08:18 Pulse 95 H 11/26/23 08:18 Resp 16 11/26/23 08:18 BP 143/96 H 11/26/23 08:18 Pulse Ox 99 11/26/23 08:18 O2 Del Method Room Air 11/26/23 08:18 Course Vital Signs Vital signs: Vital Signs Temperature 98.0 F 11/26/23 08:18 Pulse Rate 95 H 11/26/23 08:18 Respiratory Rate 16 11/26/23 08:18 Blood Pressure 143/96 H 11/26/23 08:18 Pulse Oximetry 99 11/26/23 08:18 Oxygen Delivery Method Room Air 11/26/23 08:18 Temperature 98.0 F 11/26/23 08:18 Pulse Rate 95 H 11/26/23 08:18 Respiratory Rate 16 11/26/23 08:18 Blood Pressure 143/96 H 11/26/23 08:18 Pulse Oximetry 99 11/26/23 08:18 Oxygen Delivery Method Room Air 11/26/23 08:18 Medical Decision Making MDM Narrative Medical decision making narrative: Patient most likely is not on a high enough or long enough steroid taper. I will increase her steroid taper to 60 mg for 4 days, 40 mg for 4 days, 20 mg for 4 days, 10 mg for 4 days. 16-day taper should decrease the inflammatory response and take care of the rash. If this does not work then please follow-up with dermatology as she may need a skin biopsy. This was explained to the patient. I told her to call around dermatology offices today and get on the books as soon as possible. Return to ER if fevers vomiting worsening rash or pain. Of course return if shortness of breath tongue swelling or lip swelling. She has not recently been on any new medications or antibiotics. Differential Diagnosis Differential Diagnosis: [place] area, contact dermatitis, yeast infection, Discharge Plan Discharge Stand Alone Forms: Portal Instructions Chief Complaint: Skin/Abscess/Foreign Body Clinical Impression: Dermatitis Patient Disposition: Home, Self-Care Time of Disposition Decision: 08:52 Mode of Transportation: Private Vehicle Prescriptions / Home Meds: No Action ketorolac 10 mg tablet 10 mg PO TID PRN (Reason: pain) Qty: 10 0RF Rx Instructions: Do not take with other NSAIDS lorazepam [Ativan] 0.5 mg tablet 0.5 mg PO TID PRN (Reason: anxiety) 3 Days Qty: 10 0RF Rx Instructions: DX: F41.9 ondansetron 4 mg tablet,disintegrating 4 mg PO Q6H PRN (Reason: nausea and vomiting) Qty: 12 0RF Vraylar 1.5 mg capsule 1.5 mg PO DAILY metformin 500 mg tablet extended release 24 hr 500 mg PO DAILY ibuprofen 800 mg tablet 800 mg PO Q8H PRN (Reason: pain) 14 Days Qty: 40 0RF hydrocodone-acetaminophen 5-325 mg tablet 1 tab PO Q4H PRN (Reason: pain) 4 Days Qty: 16 0RF Print Language: Marshallese Instructions: Dermatitis (ED) Referrals: Physician,Non-Staff, [Primary Care Provider] - 1 week IRMA OWENS [Physician] - 1 week
[2023-11-26 09:18] VITALS: BP 120/86; PULSE 88; O2SAT 100
== END 2023-11-26 09:10 | disposition home or self-care (01) ==
PROVIDERS: Emergency Provider Emergency Medicine
DX: L30.9 Dermatitis, unspecified (principal)
CPT/HCPCS: 99283

== ENCOUNTER 2024-02-21 17:33 | Emergency (ER) | payer OTHER, SELFPAY ==
[2024-02-21 17:39] VITALS: BP 133/101; PULSE 111; O2SAT 98; BMI 40.2
--- OUTSIDE RECORDS SUMMARY | 2024-02-21 17:39 | XMS_ITS | CCD ---
Author Organization [facility] Team Providers Care Travel Journalist Name Role Phone KATIA DUNCAN Unavailable Unavailable IZABEL EARL (OSWALDO) Unavailable UnavailIZABEL Marquez (OSWALDO) Unavailable UnavailHarry Tom Attending Physician Unavailable Doug Yeager Primary Care Physician Unavailab MEKA Sanchez Primary Care Physician NO FAMILY, PHYSICIAN Primary Care Provider Unava ilable SANDEE Jackson Attending Provider [phone] AICHHOLZ, 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 ASSISTANT MEKA Admitting Unavailable AICHHOLZ, 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 ASSISTANT MEKA Attending Unavailable AICHHOLZ, 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 ASSISTANT MEKA Primary Care Unavailable AICHHOLZ, 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 ASSISTANT MEKA Consulting Unavailable AICHHOLZ, 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 ASSISTANT MEKA Primary Care Unavailable NITISH MCCALL Admitting Unavailable NITISH MCCALL Attending Unavailable NITISH MCCALL Consulting Unavailable NILL, DR GOLDEN Admitting Unavailable NILL, DR GOLDEN Attending Unavailable AICHHOLZ, 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 ASSISTANT MEKA Primary Care Unavailable NILLDR GOLDEN Admitting Unavailable NILL, DR GOLDEN Attending Unavailable AICHHOLZ, 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 ASSISTANT MEKA Primary Care Unavailable NILL, DR GOLDEN Consulting Unavailable AGUBOSIHoracio, STEPHANIE Consulting Unavailable ANTON VELÁZQUEZ Consulting Unavailable JERRY WEBB Consulting Unavailable AICHHOLZ, 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 ASSISTANT MEKA Admitting Unavailable AICHHOLZ, 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 ASSISTANT MEKA Attending Unavailable AICHHOLZ, 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 ASSISTANT MEKA Primary Care Unavailable AICHHOLZ, 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 ASSISTANT MEKA Consulting Unavailable DR DANIELLE ROME Consulting Unavailable Gloria Jackson Unavailable Kamila Duong Unavailable NO FAMILY, PHYSICIAN Primary Care Unavailable Gloria Jackson Admitting Unavailable Gloria Jackson Attending Unavailable NO FAMILY, PHYSICIAN Primary Care Unavailable Ananda Vences Admitting Unavailab Ananda Thomson Attending Unavailab DELICIA Agrawal Attending Unavailable DELICIA ALMAGUER Attending Unavailable MONTANA EM Attending Unavailable [place]TANA EM Attending Unavailable MEKA ROPER Attending Unavailable Allergies Allergy Classification Reported Allergen(s) Allergy Type Date of Onset Reaction(s) Facility (6 sources) nalbuphine; Translations: [Nubain] Drug Allergy 4 vomiting [facility] Repository (7 sources) nalbuphine; Translations: [NALBUPHINE] Drug Allergy 4 AOF, Vomiting, Unknown [facility] Repository (1 source) NO KNOWN ALLERGIES; Translations: [NO KNOWN ALLERGIES] Propensity to adverse reactions to drug (disorder) [facility] Repository (5 sources) nu Propensity to adverse reactions 4 Unknown, Unknown Reaction [facility] Medications Current Medications Medication Drug Class(es) Dates [...] 10-08-2021 Chronic Other aftercare (1 source) Other correction (current) drug therapy; Translations: [[facility] CURRENT DRUG THERAPY] Onset: 3 Episodic Other [...] (COVID-19) RNA BRANT+probe Ql (Unsp spec) Positive [facility] [employer] Other COVID + FLU Quick Testing Negative [facility] [employer] Other Quick Strepon 06-11-2022 S. pyogenes Org specific cx Ql (Throat) Negative [facility] [employer] Other Quick Strep [facility] [employer] [facility] Other Throat Cultureon 06-11-2022 Throat culture Moderate Normal Resp iratory Marti 2 Days PERFORMED BY: [place] [address] PATHOLOGIST TUNGSTEN REFINER DOMENICO BELL M.D. [facility] Comment on above: Performed By: #### C [place] #### [address] ALDOLASE [id number] 12-18-2021 ALDOLASE 4.6 U/L Normal 1.2-7.6 [facility] Comment on above: Result Comment: REFE RENCE INTERVAL: Aldolase Access complete set of age- and/or gender-specific reference intervals for this test in the [facility] Test Directory ([facility]Vir). Performed By: [facility] [address] [place] [address] Organ Tuner Electronic: Edgar Snell MD, PhD ANAon 12-18-2021 JAMIL PATTERN HOMOGENEOUS Normal [facility] Comment on above: Result Comment: The [...] medical authority. Performed By: #### 9 9850, 91150, 16282, 18445, 84226 ####[facility] JAMIL SCREEN 1:40 Normal <1:40,1:40 [facility] Comment on above: Result Comment: Test performed using JACKI IFA JAMIL Hep-2 Test, a pre-standardized assay designed for the qualitative and semi-quantitative detection of antinuclear antibodies. Performed By: #### 9 9850, 48073, 82438, 39794, 93498 ####[facility] [facility] [place] [address], [facility] ANTI CENTROMERE ABon 022 ANTI CENT AB Negative Normal NEGATIVE [facility] Comment on above: Performed By: #### 9 9850, 76298, 11646, 04468, 60720 ####[facility] [facility] [place] [address], [facility] ANTI DNAon 12-18-2021 ANTI DNA <1:10 Normal <1:10 [facility] Comment on above: Performed By: #### 9 9850, 29632, 36460, 09753, 52643 #### [facility] [address] [place] [address], [facility] ANTI-ENAon 12-18-2021 ANTI SM Negative Normal NEG,NEGATIVE ,Neg [facility] Comment on above: Performed By: #### 9 9850, 43360, 08243, 02378, 26405 #### [facility] [address] [place] [address], [facility] ANTI SM/ANTIRNP Negative Normal NEG,NEGATIVE ,Neg [facility] Comment on above: Performed By: #### 9 9850, 47515, 84315, 95564, 41441 #### [facility] [address] [place] [address], [facility] C REACTIVE PROTEINon 022 CRP [Mass/Vol] 4.3 mg/L Normal 0.0-7.0 [facility] Comment on above: Performed By: #### 1 0204, 01038, 65147, 77896 #### [facility] [address] [place] [address], [facility] COMPLEMENT 3on 12-18-2021 COMPLEMENT 3 96 mg/dL Normal 79-152 [facility] Comment on above: Performed By: #### 1 0204, 24581, 53298, 74190 #### [facility] [address] [place] [address], [facility] COMPLEMENT 4on 12-18-2021 COMPLEMENT 4 19 mg/dL Normal 16-38 [facility] Comment on above: Performed By: #### 1 0204, 95735, 59749, 12003 #### [facility] [address] CPKon 12-18-2021 CK [Catalytic activity/Vol] 78 U/L Normal 30-223 [facility] Comment on above: Performed By: #### 2 5508 ####[facility] CYCLIC CITRULLINATED PEPTIDE [place] [id number] 12-18-2021 CYCLIC CIT PEP 1 Units Normal 0-19 [facility] Comment on above: Result Comment: INTE [...] be monitored and testing repeated. Performed By: [facility] [address] [place] [address]65 Organ Tuner Electronic: Edgar Snell MD, PhD HEPATITIS B CORE ANTIBODYon 12-18-2021 HEP B CORE AB Non-Reactive Normal NONREACTIVE [facility] Comment on above: Performed By: #### 3 1568, 47785, 15166 ####[facility] [facility].[address] HEPATITIS B SURFACE ANTIGEN QUALon 12-18-2021 HEP B SURF AG QUAL Non-Reactive Normal NONREACTIVE [facility] Comment on above: Performed By: #### 3 1568, 81190, 24426 ####[facility] [facility] [place] [address], [facility] HEPATITIS C SCREENon 022 ANTI-HCV Non-Reactive Normal NONREACTIVE [facility] Comment on above: Performed By: #### 3 1568, 57291, 54801 ####[facility] [facility] [place] [address], [facility] HIV1 AND 2 COMBO 4Gon 2021 HIV COMBO Negative Normal NEGATIVE [facility] Comment on above: Performed By: #### 3 0668 ####[facility] [facility].[address] MPO/PR3 RFLX TO ANCA [id number] on 12-18-2021 MYELOPEROX AB (41233) 0 AU/mL Normal 0-19 [facility] Comment on above: Result Comment: INTE RPRETIVE INFORMATION: Myeloperoxidase Abs, IgG 19 AU/mL or Less ......... Negative 20-25 AU/mL .............. Equivocal 26 AU/mL or Greater ...... Positive Approximately 90% of patients with a P-ANCA pattern by IFA have antibodies specific for MPO. SERINE PROTEINASE 3 0 AU/mL Normal 0-19 [facility] Comment on above: Result Comment: Myel [...] have antibodies specific for PR3. Performed By: [facility] [address] [place] [address]2020 Organ Tuner Electronic: Edgar Snell MD, PhD MYOSITIS EXTENDED PANEL 3001 781on 12-18-2021 EJ AB Negative Normal Negative [facility] FIBRILLARIN (U3 LOSS PREVENTION LEAD) AB, IgG Negative Normal Negative [facility] Comment on above: Result Comment: Inte rpretive Information: Fibrillarin (U3 LOSS PREVENTION LEAD) Antibody, IgG The presence of fibrillarin (U3-LOSS PREVENTION LEAD) IgG antibodies in association with an JAMIL [...] a multi-ethnic cohort of SSc patients (n=98), U3-LOSS PREVENTION LEAD antibodies detected by immunoblot had an agreement of 98.9 percent with the gold standard immunoprecipitation (IP) assay. Approximately 71 percent (5/7) of the borderline U3-LOSS PREVENTION LEAD results with JAMIL nucleolar pattern in this cohort were IP negative. This test was developed and its performance characteristics determined by [facility]. It has not been cleared or approved by the [place] Food and Drug Administration. This test was performed in a CLIA certified laboratory and is intended for clinical purposes. Performed By: [facility] [address] [place] [address] Organ Tuner Electronic: Edgar Snell MD, PHD ISAURA-1 AB IGG 0 AU/mL Normal 0-40 [facility] Comment on above: Result Comment: INTE RPRETIVE INFORMATION: Isaura-1 Antibody, IgG 29 AU/mL or less.........Negative 30-40 AU/mL..............Equivocal 41 AU/mL or greater......Positive Presence of Isaura-1 (antihistidyl transfer RNA [t-RNA] synthetase) antibody is associated with polymyositis and may also be seen in patients with dermatomyositis. Isaura-1 antibody is associated with pulmonary involvement (interstitial lung disease), Raynaud phenomenon, arthritis, and household appliance mechanic's hands (implicated in antisynthetase syndrome). KU AB Negative Normal Negative [facility] MDA5 AB Negative Normal Negative [facility] CO-2 AB Negative Normal Negative [facility] MYOSITIS PANEL INTERP See Note Normal [facility] Comment on above: Result Comment: INTE [...] . . . . . . X Willoughby/LOSS PREVENTION LEAD (CHRISTA) Ab, IgG . . . . [...] . . . . X Fibrillarin (U3 LOSS PREVENTION LEAD) Ab, IgG . . . . . [...] developed and its performance characteristics determined by [facility]. It has not been cleared or approved by the US Food and Drug Administration. This test was performed in a CLIA certified laboratory and is intended for clinical purposes. NXP2 AB Negative Normal Negative [facility] OJ AB Negative Normal Negative [facility] P155/140 AB Negative Normal Negative [facility] PL-12 AB Negative Normal Negative [facility] PL-7 AB Negative Normal Negative [facility] PM/SCL 100 AB, IgG Negative Normal Negative [facility] Comment on above: Result Comment: INTE [...] developed and its performance characteristics determined by [facility]. It has not been cleared or approved by the US Food and Drug Administration. This test was performed in a CLIA certified laboratory and is intended for clinical purposes. LOSS PREVENTION LEAD AB IGG (CHRISTA) 2 Units Normal 0-19 [facility] Comment on above: Result Comment: INTE RPRETIVE INFORMATION: Willoughby/LOSS PREVENTION LEAD (CHRISTA) Antibody, IgG 19 Units or Less ............. Negative 20 to 39 Units ............... Weak Positive 40 to 80 Units ............... Moderate Positive 81 Units or greater .......... Strong Positive Willoughby/LOSS PREVENTION LEAD antibodies are frequently seen in patients with mixed connective tissue disease (MCTD) and are also associated with other systemic autoimmune rheumatic diseases (SARDs) such as systemic lupus erythematosus (SLE), systemic sclerosis, and myositis. Antibodies targeting the Willoughby/LOSS PREVENTION LEAD antigenic complex also recognize Willoughby antigens, therefore, the Willoughby antibody response must be considered when interpreting these results. SAE1 AB Negative Normal Negative [facility] SRP AB Negative Normal Negative [facility] SSA (RO) AB IGG 0 AU/mL Normal 0-40 [facility] Comment on above: Result Comment: INTE [...] AB IGG 0 AU/mL Normal 0-40 [facility] Comment on above: Result Comment: REFE RENCE INTERVAL: SSA-60 (Ro60) (CHRISTA) Antibody, IgG 29 AU/mL or Less ............. Negative 30 - 40 AU/mL ................ Equivocal 41 AU/mL or Greater .......... Positive TIF-1 GAMMA AB Negative Normal Negative [facility] RHEUMATOID FACTOR SERUMon RA <20 Normal 0-20 [facility] Comment on above: Performed By: #### 1 0204, 24063, 60998, 26182 #### [facility] [address] [facility] [place] [address], [facility] SEDIMENTATION RATEon 022 SED RATE 4 mm/hr Normal 0-20 [facility] Comment on above: Performed By: #### 5 6506 #### [facility] [address] [facility] [place] [address], [facility] SJOGRENS ANTIBODIESon 2021 SS-A Negative Normal NEG,NEGATIVE ,Neg [facility] Comment on above: Performed By: #### 9 9850, 05084, 64520, 79984, 80977 #### [facility] [address] [place] [address], [facility] SS-B Negative Normal NEG,NEGATIVE ,Neg [facility] Comment on above: Performed By: #### 9 9850, 76688, 95800, 28407, 33843 #### [facility] [address] [place] [address], [facility] Ambulatory Visit Summaryon 0 11-23-2021 Ambulatory Visit Summary KERI WRIGHT:1985 Visit Date:11/23/2021 Ambulatory Visit Instructions Your Care [...] HTN (hypertension) Hypothyroidism Obesity Tobacco user Normal [facility] General Surgery Office/Clini c Noteon 11-23-2021 [...] History Alcoholism: Father. Hypertension: Mother and Father. [facility] Comment on above: Result Comment: Elec tronically Signed By: ALEX SINGH, Chantel Lindsey\.br\Date and Time Signed: 11/23/21 14:24 EDT Pathology Noteon 11-21-2021 Pathology Note [id number]#1.00CD:127 [facility] Operative Reporton Operative Report [id number]#1.00CD:127 [facility] Provider Letter FTon 11-16 Provider Letter [facility] November 16, 2021 [address] WRIGHT [address] [place], [place] [id number] KERI WRIGHT 1985 To Whom It May Concern, Please excuse above patient from work 11/16/2021. Sincerely, Dr. Chantel Mayo MD General Surgery [facility] Pre-Certification Formon Pre-Certification Form [id number]#1.00CD:127 [facility] Consent for Procedure/Surger yon 10-11-2021 Consent for Procedure/Surgery [id number]#[id number]:127 [facility] Ambulatory Visit Summaryon 0 10-09-2021 [...] HTN (hypertension) Hypothyroidism Obesity Tobacco user Normal [facility] Physician Referralon 022 Physician Referral [id number]#1.00CD:127 Normal [facility] MG MAMM TERRENCE DIAG W CADon MG MAMM TERRENCE DIAG W CAD Patient: KERI WRIGHT Exam Date: 10/02/2021 : 1985 Gender:F Ordering : [facility] Admission #: [id number] Family : Order #: [id number] CLICK HERE TO VIEW EXAM RADIOLOGY REPORT [...] Treatments None Family Cancers None LOCATION: [facility] BREAST COMPOSITION: Scattered areas fibroglandular density. [...] M.D. on 10/02/2021 at 12:01 Normal [facility] US BREAST RIGHT LIMITEDon US BREAST RIGHT LIMITED Patient: KERI WRIGHT Exam Date: 10/02/2021 : 1985 Gender:F Ordering : [facility] Admission #: [id number] Family : Order #: [id number] CLICK HERE TO VIEW EXAM RADIOLOGY REPORT [...] Treatments None Family Cancers None LOCATION: [facility] BREAST COMPOSITION: Scattered areas fibroglandular density. [...] M.D. on 10/02/2021 at 12:01 Normal [facility] CBC AUTO DIFFon 09-14-2021 BASO # 0.1 103/ul Normal 0.0-0.1 [facility] Comment on above: Performed By: #### C BC #### [facility] [address] [place] [address] Dr. Jaylan Jones Basophils/100 WBC (Bld) 0.7 % Normal 0.2-2.0 [facility] Comment on above: Performed By: #### C BC #### [facility] [address] [place] [address] Dr. Jaylan Jones EO # 0.2 103/ul Normal 0.0-0.7 [facility] Comment on above: Performed By: #### C BC #### [facility] [address] [place] [address] Dr. Jaylan Jones Eosinophils/100 WBC (Bld) 3.1 % Normal 0.9-7.0 [facility] Comment on above: Performed By: #### C BC #### [facility] [address] [place] [address] Dr. Jaylan Jones Erythrocyte distribution width (RBC) [Ratio] 13.3 % Normal 11.0-15.0 [facility] Comment on above: Performed By: #### C BC #### [facility] [address] [place] [address] Dr. Jaylan Jones Hematocrit (Bld) [Volume fraction] 40.7 % Normal 36.0-48.0 [facility] Comment on above: Performed By: #### C BC #### [facility] [address] [place] [address] Dr. Jaylan Jones Hemoglobin (Bld) [Mass/Vol] 13.4 g/dL Normal 12.0-16.0 [facility] Comment on above: Performed By: #### C BC #### [facility] [address] [place] [address] Dr. Jaylan Jones IG # 0.03 10e3/ul Normal 0.00-0.03 [facility] Comment on above: Performed By: #### C BC #### [facility] [address] [place] [address] Dr. Jaylan Jones IG % 0.4 % Normal 0.0-0.5 [facility] Comment on above: Performed By: #### C BC #### [facility] [address] [place] [address] Dr. Jaylan Jones LYMPH # 1.9 103/ul Normal 1.2-3.8 [facility] Comment on above: Performed By: #### C BC #### [facility] [address] [place] [address] Dr. Jaylan Jones Lymphocytes/100 WBC (Bld) 25.4 % Normal 20.5-60.0 [facility] Comment on above: Performed By: #### C BC #### [facility] [address] [place] [address] Dr. Jaylan Jones MANUAL DIFF REQ NO Normal [facility] Comment on above: Performed By: #### C BC #### [facility] [address] [place] [address] Dr. Jaylan Jones MCH (RBC) [Entitic mass] 28.3 pg Normal 26.7-34.0 [facility] Comment on above: Performed By: #### C BC #### [facility] [address] [place] [address] Dr. Jaylan Jones MCHC (RBC) [Mass/Vol] 32.9 g/dL Normal 29.9-35.2 [facility] Comment on above: Performed By: #### C BC #### [facility] [address] [place] [address] Dr. Jaylan Jones MCV (RBC) [Entitic vol] 86.0 fL Normal 81.0-99.0 [facility] Comment on above: Performed By: #### C BC #### [facility] [address] [address] [address] Jaylan Jones MONO # 0.5 103/ul Normal 0.3-0.8 [facility] Comment on above: Performed By: #### C BC #### [facility] [address] [address] [address] Jaylan Jones Monocytes/100 WBC (Bld) 6.6 % Normal 1.7-12.0 [facility] Comment on above: Performed By: #### C BC #### [facility] [address] [address] [address] Jaylan Jones NEUT # 4.8 103/ul Normal 1.4-6.5 [facility] Comment on above: Performed By: #### C BC #### [facility] [address] [place] [address] Dr. Jaylan Jones Neutrophils/100 WBC (Bld) 63.8 % Normal 43.0-75.0 [facility] Comment on above: Performed By: #### C BC #### [facility] [address] [place] [address] Dr. Jaylan Jones Platelet mean volume (Bld) [Entitic vol] 10.1 fL Normal 9.5-13.5 [facility] Comment on above: Performed By: #### C BC #### [facility] [address] [place] [address] Dr. Jaylan Jones PLT 290 103/ul Normal 150-450 [facility] Comment on above: Performed By: #### C BC #### [facility] [address] [place] [address] Dr. Jaylan Jones RBC 4.73 106/ul Normal 4.20-5.40 [facility] Comment on above: Performed By: #### C BC #### [facility] [address] [place] [address] Dr. Jaylan Jones WBC 7.5 103/ul Normal 4.0-11.0 [facility] Comment on above: Performed By: #### C BC #### [facility] [address] [place] [address] Dr. Jaylan Jones FREE T4on 09-14-2021 Free T4 [Mass/Vol] 0.93 ng/dL Normal 0.78-2.19 [facility] Comment on above: Performed By: #### F T4 #### [facility] [address] [place] [address] Dr. Jaylan Jones GLYCOHEMOGLOBIN A1Con 2021 ADA RECOMMENDATION ADA THERAPEUTIC TARGET 6.0 - 7.0 ACTION SUGGESTED > 7.0 Normal [facility] Comment on above: Performed By: #### A 1C #### [facility] [address] [place] [address] Dr. Jaylan Jones Glucose [Mass/Vol] 105 mg/dL Normal [facility] Comment on above: Performed By: #### A 1C #### [facility] [address] [place] [address] Dr. Jaylan Jones HbA1c (Bld) [Mass fraction] 5.3 % Normal <=6.0 [facility] Comment on above: Performed By: #### A 1C #### [facility] [address] [place] [address] Dr. Jaylan Jones LIPID PROFILEon 09-14-2021 CHOL-HDL RATIO NORM SEE BELOW Normal [facility] Comment on above: Result Comment: 3.3 - 4.4 LOW RISK 4.4 - 7.1 AVERAGE RISK 7.1 - 11.0 MODERATE RISK >11.0 HIGH RISK Performed By: #### T SH, LIPID, CMP #### [facility] [address] [place] [address] Dr. Jaylan Jones Cholesterol [Mass/Vol] 122 mg/dL Normal <=200 [facility] Comment on above: Performed By: #### T SH, LIPID, CMP #### [facility] [address] [place] [address] Dr. Jaylan Jones Cholesterol in HDL [Mass/Vol] 55 mg/dL Normal 40-60 [facility] Comment on above: Performed By: #### T SH, LIPID, CMP #### [facility] [address] [place] [address] Dr. Jaylan Jones Cholesterol in LDL [Mass/Vol] 55.2 mg/dL Normal [facility] Comment on above: Performed By: #### T SH, LIPID, CMP #### [facility] [address] [address] [address] Jaylan Jones Cholesterol.total /Cholesterol in HDL [Mass ratio] 2.2 {ratio} Normal [facility] Comment on above: Performed By: #### T SH, LIPID, CMP #### [facility] [address] [address] [address] Jaylan Jones HDL NORMAL > or = 60 mg/dl - LO W CARDIOVASCULAR RISK <40 mg/dl - HIGH CARDIOVASCULAR RISK Normal [facility] Comment on above: Performed By: #### T PRISCILA, LIPID, CMP #### [facility] [address] [place] [address] Dr. Jaylan Jones LDL CALC NORMAL SEE BELOW Normal [facility] Comment on above: Result Comment: <100 mg/dl OPTIMAL 100 - 129 mg/dl NEAR OR ABOVE OPTIMAL 130 - 159 mg/dl BORDERLINE HIGH 160 - 189 mg/dl HIGH >190 mg/dl VERY HIGH Performed By: #### T PRISCILA, LIPID, CMP #### [facility] [address] [place] [address] Dr. Jaylan Jones Triglyceride [Mass/Vol] 59 mg/dL Normal <=150 [facility] Comment on above: Performed By: #### T PRISCILA, LIPID, CMP #### [facility] [address] [place] [address] Dr. Jaylan Jones VLDL CALC 11.8 mg/dL Normal [facility] Comment on above: Performed By: #### T SH, LIPID, CMP #### [facility] [address] [place] [address] Dr. Jaylan Jones PROF 14(COMP METB)on 022 Albumin [Mass/Vol] 3.9 g/dL Normal 3.4-5.0 [facility] Comment on above: Performed By: #### T PRISCILA, LIPID, CMP #### [facility] [address] [place] [address] Dr. Jaylan Jones Albumin/Globulin [Mass ratio] 1.1 {ratio} Normal [facility] Comment on above: Performed By: #### T SH, LIPID, CMP #### [facility] [address] [place] [address] Dr. Jaylan Jones ALP [Catalytic activity/Vol] 64 U/L Normal 46-116 [facility] Comment on above: Performed By: #### T SH, LIPID, CMP #### [facility] [address] [place] [address] Dr. Jaylan Jones ALT [Catalytic activity/Vol] 26 U/L Normal 14-59 [facility] Comment on above: Performed By: #### T SH, LIPID, CMP #### [facility] [address] [place] [address] Dr. Jaylan Jones Anion gap [Moles/Vol] 13.2 mmol/L Normal [facility] Comment on above: Performed By: #### T SH, LIPID, CMP #### [facility] [address] [place] [address] Dr. Jaylan Jones AST [Catalytic activity/Vol] 16 U/L Normal 15-37 [facility] Comment on above: Performed By: #### T PRISCILA, LIPID, CMP #### [facility] [address] [place] [address] Dr. Jaylan Jones Bilirubin [Mass/Vol] 0.5 mg/dL Normal 0.2-1.3 [facility] Comment on above: Performed By: #### T SH, LIPID, CMP #### [facility] [address] [place] [address] Dr. Jaylan Jones Calcium [Mass/Vol] 8.9 mg/dL Normal 8.5-10.1 [facility] Comment on above: Performed By: #### T SH, LIPID, CMP #### [facility] [address] [place] [address] Dr. Jaylan Jones Chloride [Moles/Vol] 102 mmol/L Normal 98-107 [facility] Comment on above: Performed By: #### T SH, LIPID, CMP #### [facility] [address] [place] [address] Dr. Jaylan Jones CO2 [Moles/Vol] 25.1 mmol/L Normal 22.0-30.0 [facility] Comment on above: Performed By: #### T PRISCILA, LIPID, CMP #### [facility] [address] [address] [address] Jaylan Jones Creatinine [Mass/Vol] 0.71 mg/dL Normal 0.55-1.02 [facility] Comment on above: Performed By: #### T SH, LIPID, CMP #### [facility] [address] [address] [address] Jaylan Jones EGFR-AF BRITISH >60 Normal >=60 [facility] Comment on above: Performed By: #### T PRISCILA, LIPID, CMP #### [facility] [address] [address] [address] Jaylan Jones EGFR-NON AF BRITISH >60 Normal >=60 [facility] Comment on above: Performed By: #### T PRISCILA, LIPID, CMP #### [facility] [address] [address] [address] Jaylan Jones Globulin (S) [Mass/Vol] 3.5 g/dL Normal [facility] Comment on above: Performed By: #### T PRISCILA, LIPID, CMP #### [facility] [address] [place] [address] Dr. Jaylan Jones Glucose [Mass/Vol] 85 mg/dL Normal 74-106 [facility] Comment on above: Performed By: #### T PRISCILA, LIPID, CMP #### [facility] [address] [address] [address] Jaylan Jones Potassium [Moles/Vol] 4.3 mmol/L Normal 3.4-5.0 [facility] Comment on above: Performed By: #### T PRISCILA, LIPID, CMP #### [facility] [address] [place] [address] Dr. Jaylan Jones Protein [Mass/Vol] 7.4 g/dL Normal 6.1-8.2 [facility] Comment on above: Performed By: #### T PRISCILA, LIPID, CMP #### [facility] [address] [place] [address] Dr. Jaylan Jones Sodium [Moles/Vol] 136 mmol/L Critically low 137-145 [facility] Comment on above: Performed By: #### T SH, LIPID, CMP #### [facility] [address] [place] [address] Dr. Jaylan Jones Urea nitrogen [Mass/Vol] 14.0 mg/dL Normal 7.0-18.0 [facility] Comment on above: Performed By: #### T SH, LIPID, CMP #### [facility] [address] [place] [address] Dr. Jaylan Jones Urea nitrogen/Creatini ne [Mass ratio] 19.7 mg/mg Normal [facility] Comment on above: Performed By: #### T PRISCILA LIPID, CMP #### [facility] [address] [place] [address] Dr. Jaylan Jones SED RATE [facility] 2021 SED RATE 15 mm/hr Normal <=20 [facility] Comment on above: Performed By: #### S EDR #### [facility] [address] [place] [address] Dr. Jaylan Jones TSHon 09-14-2021 TSH 0.846 uIU/mL Normal 0.470-4.680 [facility] Comment on above: Performed By: #### T PRISCILA LIPID, CMP #### [facility] [address] [place] [address] Dr. Jaylan Jones TSH RANGE SEE BELOW Normal [facility] Comment on above: Result Comment: <0.3 4 UIU/ml HYPERTHYROID 0.34-5.60 UIU/ml EUTHYROID >5.60 UIU/ml HYPOTHYROID Performed By: #### T SH, LIPID, CMP #### [facility] [address] [place] [address] UROGRAM WO/W IVCONon - CT UROGRAM WO/W IVCON * * *Final Report* * *DATE OF EXAM: Jan 16 2018 2:44PM [facility] 0560 - CT UROGRAM WO/W [...] LOGAN MD on Jan 19 2018 4:03PM [id number] Normal [facility] PROGRESSon 01-16-2018 Protein mass conc HNO ID: [id number] thor: Hoang (Ct) Marcell Ruvalcabaice: (none)Author Type: Clinical TechnicianType: Progress NotesFiled: 01/16/2018 2:46 PMNote Text: Radiology Service Progress NotePATIENT NAME: Keri WrightMRN: [id number] OF SERVICE: January 16, 2018TIME: 2:45 PMPATIENT [...] BY: Radha ZAVALETA 2017 2:45 PM Normal [facility] CNOVon 01-13-2018 CNOV Office Visit (UROLAV) ----KERI WRIGHT ([id number]) 1985 FDate Time Provider Department01/13/18 10:20 AM [...] pain.Izabel Earl PA-C 01/13/2018 12:28 PM Signed [facility] EVALUATIONAugust 2017 ========CHIEF COMPLAINT: pelvic pressure, flank [...] or vaginal bleeding, but has had hysterectomyand decorating instructor has told her it's not from [...] get a sooner appointment.She lives in the [place] area and some results are in Care Everywhere.DTF: 10+NTF: 4-5x per nightUrgency: yesUUI: NOSUI: [id number] - vaginal birthPreeclampsiaBowel movements vary - change all the timeDiarrhea - constipation. I will go days without eatings. No appetite, sometimes in too much pain toeat.(Determine 4 of 8)1-Duration: 81698-Szuwlcgd: bladder3-Severity: worse4-Quality: Irritative5-Context: Void6-Timing: constantly7-Modifying factors: No [...] PAST MEDICAL HISTORY/COMORBIDITIES:====== Hypothyroidism, thyroid goiterDepressionHysterectomy in [address] [place] [address] surgeries for patellar dislocation.IBUPROFEN (MOTRIN ORAL) Take [...] help improve urgency3. Pelvic pain - ICD9: [id number], ICD10: R10.2- Patient with multiple year history [...] for genitourinary condition [Z13.89]Order(s):UA DIP, URINE (POC) [3742639] Order #: [id number]. #:[id number] URINALYSIS WITH MICROSCOPIC [SQUAWMIC] Order #: [id number] CYTOLOGY, URINE (XTUBE) [SQUCYTOL] Order #: [id number] FUTURE URINE CYTOLOGY VOIDED [6362962] Order #: [id number] CT UROGRAM WO/W IVCON [4341962] Order #: [id number] FUTURE iv contrast (will be provided with [...] administration guidelines link.Disp: 1 EachRfl: 0 CYSTO.PANENDO [50164HZZ] Order #: [id number] MYCOPLASMA CULT [SQMYPLAS] Order #: [id number] CONSULT TO PHYSICAL THERAPY [9032] Order #: [id number]: 1Prescriptions as of 01/13/2018 Sig: MOTRIN ORAL Take by mouth as needed. IV CONTRAST (RADIOLOGY PROCED* CT Urogram WO/W Inject, intra*Problem List As Of Date: 01/13/2018(None)Visit Notes:>> Kelly Cross Ma Barry Jan 13, 2018 10:13 AM Status: SignedPressure [...] gross hematuria.Follow-up and Disposition History RecordedEncounter Number: [id number] Status:Closed by IZABEL EARL PA-C on 01/13/18 Normal [facility] CYTOLOGYon 01-13-2018 Body mass index (BMI) [Ratio] [facility]: [id number] Physician: IZABEL EARLSPECIMEJosef SUBMITTEDA: URINE, VOIDED FINAL DIAGNOSISA. URINE, VOIDED: - Negative for malignant cells.Tate Joseph MD (Electronic Signature) CLINICAL DATA Gross hematuriaGROSS [id number] clear slight yellow tinged fluidSTAINSA: URINE, VOIDED THIN PREP Non-GynPatient ID #: [id number] of Report: 01/15/2018Date of Procedure: 01/13/2018Date of Receipt: 01/13/2018Submitted by: IZABEL EARLLocation: JOSUE [id number] interpretation performed at [facility], [address] [place] [address]. Normal [facility] Mycoplasma Culton 01-13-2018 Mycoplasma Cult Sp. Request/Comment: - Specimen received in [place] [employer] [facility]. Test Result - Culture negative for Mycoplasma hominis and Ureaplasma urealyticum Normal [facility] Comment on above: Performed By: #### M BETO ####[facility] [address] [place], [place] [phone] PROGRESSon 01-13-2018 Protein mass conc HNO ID: [id number] thor: Izabel Hamilton (Pa): (none)Author Type: Physician AssistantType: Progress NotesFiled: 01/13/2018 12:28 PMNote Text: [facility] EVALUATIONAugust 2017 ========CHIEF COMPLAINT: pelvic pressure, flank pain, urinary urgency, grosshematuriaHPI:The patient is 32 year old and is referred for evaluation of grosshematuria, urinary urgency, flank pain, and pelvic pressure.She has had gross hematuria 1-2x per week since September.Was told by multiple doctors that I have blood in my urine. Uncertain if it's blood in urine or vaginal bleeding, but has hadhysterectomy and decorating instructor has told her it's not from [...] to get a soonerappointment.She lives in the [facility] [place] and some results are in Care Everywhere.DTF: 10+NTF: 4-5x per nightUrgency: yesUUI: NOSUI: [id number] - vaginal birthPreeclampsiaBowel movements vary - change all the timeDiarrhea - constipation. I will go days without eatings. No appetite, sometimes in too much painto eat.(Determine 4 of 8)1-Duration: 55880-Pdzgfawa: bladder3-Severity: worse4-Quality: Irritative5-Context: Void6-Timing: constantly7-Modifying factors: No [...] PAST MEDICAL HISTORY/COMORBIDITIES:====== Hypothyroidism, thyroid goiterDepressionHysterectomy in [address] [place] [address] surgeries for patellar dislocation.IBUPROFEN (MOTRIN ORAL) Take [...] help improve urgency3. Pelvic pain - ICD9: [id number], ICD10: R10.2- Patient with multiple year history [...] (XTUBE)- URINE CYTOLOGY Willy Earl PA-C Normal [facility] Urinalysis with Microscopico n 01-13-2018 Bilirubin, Urine Negative Normal Negative [facility] Comment on above: Performed By: #### U AWMIC ####[facility] [address] [place], [place] [phone] Clarity Clear Normal Clear [facility] Comment on above: Performed By: #### U AWMIC ####[facility] [place], [place] [phone] Color Yellow Normal Yellow [facility] Comment on above: Performed By: #### U AWMIC ####[facility] [phone] Comments SEE COMMENT Normal [facility] Comment on above: Result Comment: N/A Performed By: #### U AWMIC ####[address] [phone] Glucose Ql (U) Negative Normal Negative [facility] Comment on above: Performed By: #### U AWMIC ####[address] [address] [address] [phone] Hemoglobin/Blood, Ur 1+ Critically abnormal Negative [facility] Comment on above: Performed By: #### U AWMIC ####[address] [address] [address] [phone] INR Coag RelTime (Bld) 0-3 Normal 0-3 [facility] Comment on above: Performed By: #### U AWMIC ####[address] [address] [address] [phone] Ketones Ql (U) Negative Normal Negative [facility] Comment on above: Performed By: #### U AWMIC ####[address] [address] [address] [phone] Leukest Negative Normal Negative [facility] Comment on above: Performed By: #### U AWMIC ####[address] [address] [address] [phone] Nitrites Negative Normal Negative [facility] Comment on above: Performed By: #### U AWMIC ####[address] [address] [address] [phone] pH 7.0 Normal 4.5-8.0 [facility] Comment on above: Performed By: #### U AWMIC ####[address] [address] [address] [phone] Protein, Urine Negative Normal Negative [facility] Comment on above: Performed By: #### U AWMIC ####[facility], [place] [phone] Specific [place], Ur 1.008 Normal 1.005-1.030 [facility] Comment on above: Performed By: #### U AWMIC ####[address] [address] [address], [place] [phone] Urine Lazaro Comment SEE COMMENT Normal [facility] Comment on above: Result Comment: N/A Performed By: #### U AWMIC ####[address] [phone] Urobilinogen Normal Normal Normal [facility] Comment on above: Performed By: #### U AWMIC ####[address] [phone] WBC 0-5 Normal 0-5 [facility] Comment on above: Performed By: #### U AWMIC ####[address] [phone] .UA Microscp Aon 06-09-2017 UA Mucus Present Abnormal Absent [facility] Comment on above: Performed By: #### C D:[id number] ####[address] [address] UA Squepi Cells Quant 7 /HPF Normal 0-29 [facility] Comment on above: Performed By: #### C D:[id number] ####[address] [address] UA WBC Quant 0 /HPF Normal 0-5 [facility] Comment on above: Performed By: #### C D:[id number] ####[address] [address] Urine, erythrocytes 17 /HPF High 0-5 [facility] Comment on above: Performed By: #### C D:[id number] ####[address] [address] .eGFRon 06-09-2017 eGFR (non-black) mL/min/{1.73_m2} Normal >=60 Bl [facility] Comment on above: Result Comment: [...] medication dosing. Performed By: #### E GFR ####[id number] Result Comment: Resu lt = 0-14.9 mL/min/1.73 m2 Kidney failure or DialysisResult = 15-29 mL/min/1.73 m2 Severe decrease in GFRResult = 30-59 mL/min/1.73 m2 Moderate decrease in GFRResult >= 60 mL/min/1.73 m2 Normal or increased GFR CBC w/ Diffon 06-09-2017 Erythrocyte distribution width Auto Ratio (RBC) 14.0 % Normal 11.6-14.8 [facility] Comment on above: Performed By: #### C BC ####[address] [id number] Erythrocytes (RBC) 5.00 x10*6/mcL Normal 3.80-5.20 [facility] Comment on above: Performed By: #### C BC ####[address] [address] Hematocrit (HCT) 42.4 % Normal 36.0-46.0 [facility] [place] [facility] Comment on above: Performed By: #### C BC ####[address] [address] Hemoglobin mass conc (Bld) 14.6 g/dL Normal 12.0-16.0 [facility] Comment on above: Performed By: #### C BC ####[address] [address] MCH 29.3 pg Normal 27.0-35.0 [facility] Comment on above: Performed By: #### C BC ####[address] [address] MCHC mass conc (RBC) 34.5 % Normal 31.0-37.0 [facility] Comment on above: Performed By: #### C BC ####[address] [address] MCV 84.9 fL Normal 80.0-100.0 [facility] Comment on above: Performed By: #### C BC ####[address] [address] Platelet mean volume (PMV) 8.1 fL Normal 6.7-10.6 [facility] Comment on above: Performed By: #### C BC ####[address] [address] Platelets 242 x10*3/mcL Normal 150-350 [facility] Comment on above: Performed By: #### C BC ####[address] [address] WBC (Leukocytes) 9.2 x10*3/mcL Normal 4.5-11.0 [facility] Comment on above: Performed By: #### C BC ####[address] [address] CMPon 06-09-2017 Alanine aminotransferase (ALT) 15 U/L Normal 14-54 [facility] Comment on above: Performed By: #### C OMP ####[address] [address] Albumin 4.0 g/dL Normal 3.2-4.9 [facility] Comment on above: Performed By: #### C OMP ####[address] [address] Albumin/Globulin Ratio 1.4 {ratio} Normal 1.1-2.2 [facility] Comment on above: Performed By: #### C OMP ####[address] [address] Alk Phos 40 IU/L Normal 32-91 [facility] Comment on above: Performed By: #### C OMP ####[address] [address] Anion gap 9 mmol/L Normal 7-17 [facility] Comment on above: Performed By: #### C OMP ####[address] [address] Aspartate aminotransferase (AST) 22 U/L Normal 15-41 [facility] Comment on above: Performed By: #### C OMP ####[address] [address] Bili Total 0.5 mg/dL Normal 0.3-1.2 [facility] Comment on above: Performed By: #### C OMP ####[address] [address] BUN/Creatinine Ratio 25.8 mg/mg High 15.0-25.0 [facility] Comment on above: Performed By: #### C OMP ####[address] [address] Calcium 9.0 mg/dL Normal 8.5-10.3 [facility] Comment on above: Performed By: #### C OMP ####[address] [address] Chloride 108 mmol/L Normal 98-110 [facility] Comment on above: Performed By: #### C OMP ####[address] [address] CO2 24 mmol/L Normal 22-32 [facility] Comment on above: Performed By: #### C OMP ####[address] [address] Creatinine 0.66 mg/dL Normal 0.44-1.03 [facility] Comment on above: Performed By: #### C OMP ####[address] [place] [address] Glucose mass conc 95 mg/dL Normal 74-118 [facility] Comment on above: Performed By: #### C OMP ####[address] [address] Potassium molar conc 3.7 mmol/L Normal 3.4-4.8 [facility] Comment on above: Performed By: #### C OMP ####[address] [address] Protein 6.8 g/dL Normal 6.5-8.1 [facility] Comment on above: Performed By: #### C OMP ####[address] [id number] Sodium 137 mmol/L Normal 133-142 [facility] Comment on above: Performed By: #### C OMP ####[address] [address] Urea nitrogen 17 mg/dL Normal 8-26 [facility] Comment on above: Performed By: #### C OMP ####[address] [address] [address] Abdomen Pelvis w/ IV Cont kalyn [...] abnormality.IMPRESSION:No acute abdominal or pelvic abnormality.Radiation Dose Estimate:CTDI(mGy):0.365808 / / / kVp:120.447991 / mAs:0.294269 / / / DLP(mGy-cm):6.713386Fysh Part: AbdomenCTDI(mGy):12.295451 / / / kVp:100.432345 / mAs:167.344632 / / / DLP(mGy-cm):598.235350Rhfs Part: Abdomen Final Dictated by: Herrera House MDctated DT/TM: 06.09.2017 9:57 amSigned by: Herrera House MDigned (Electronic Signature): 06.09.2017 10:00 am(If Report Is Signed, Electronically Signed in Other Vendor System) Normal [facility] Diff Autoon 06-09-2017 Baso Absolute 0.1 x10*3/mcL Normal 0.0-0.2 [facility] [place] [facility] Comment on above: Performed By: #### . Automated Diff ####[address] [address] Basophils/100 WBC Auto (Bld) 1.0 % Normal 0.0-1.5 [facility] Comment on above: Performed By: #### . Automated Diff ####[address] [address] Eos Absolute 0.5 x10*3/mcL High 0.0-0.4 [facility] Comment on above: Performed By: #### . Automated Diff ####[address] [address] Eosinophils/100 leukocytes 5.4 % Normal 0.0-5.4 [facility] Comment on above: Performed By: #### . Automated Diff ####[address] [address] Lymphocytes 2.8 x10*3/mcL Normal 1.0-4.8 [facility] Comment on above: Performed By: #### . Automated Diff ####[address] [address] Lymphocytes/100 leukocytes 30.4 % Normal 27.2-40.8 [facility] Comment on above: Performed By: #### . Automated Diff ####[address] [address] [place] Absolute 0.7 x10*3/mcL Normal 0.1-1.1 [facility] [place] [facility] Comment on above: Performed By: #### . Automated Diff ####[address] [address] Monocytes/100 leukocytes 8.0 % Normal 3.7-11.9 [facility] Comment on above: Performed By: #### . Automated Diff ####[address] [address] Neutro Absolute 5.1 x10*3/mcL Normal 1.8-7.7 [facility] Comment on above: Performed By: #### . Automated Diff ####[address] [address] Neutro Auto 55.2 % Normal 47.2-70.8 [facility] Comment on above: Performed By: #### . Automated Diff ####[address] [address] ED Clinical Summaryon 2017 [place] [address] Clinical SummaryPerson InformationName: Wright Keriduncan Kaiser/Mary Ellen Age: 31 Years : 1985Sex: Female PCP:Marital Status:Single race:White Ethnicity:Not or Language:EnglishMRN: [id number] Reason:Abdominal pain; Abdominal pain Acuity: 3Enc Type: Emergency Med Service: Emergency MedicineArrival:06/08/2017 21:47:00 Discharge: 06/09/2017 00:51:00 LOS: 000 03:04Checkin:06/08/2017 21:47:00 Checkout: 06/09/2017 00:51:00 Dispo Type: Home or Self CareAddress:[address] [facility] [address] Provider Notes: History of Present IllnessPatient is [...] to cholelithiasis 2 months ago diagnosed at [facility]. Patient???s past medical history includes [...] range between ( 27.2 and 40.8 ) [place] Auto: 8.0 % -- Normal range between [...] range between ( 36.0 and 46.0 ) [place] Absolute: 0.7 x10 MCH: 29.3 pg -- [...] No Immunizations Documented This VisitFinal Med List:[facility], [address] [place], [place] [id number], [phone] (Bentyl 20 mg oral tablet) 1 Tabs [...] as needed for pain.Last Dose: [facility] [address], [address] [place], [place] [id number], [phone] (Bentyl 20 mg oral tablet) 1 Tabs [...] for pain.Care Team Members:Attending Physician: Katia Duncan MDConsultbuzz Physician:Referring Physician:Provider Role Assigned UnassignedKatia Duncan MD ED Provider 06/08/2017 21:51:24Penny Watts ED Nurse 06/08/2017 22:10:49Follow up:With: Address: When:Please Follow up with your PCP within 2-3 dyasDischarge Orders:Discharge Patient 06/09/17 0:13:00 EST, Discharge to Home, SelfPatient Education Information:CONSTIPATION (Adult); Abdominal Pain, AdultAAPCC Poison Help line: .[facility] Hotline: [place] Tobacco Quit Line: [place], [place]) [address]: [phone], [place]) [address]: [phone] [address], [place]: [phone] [facility] ED Note-Physicianon 06-09-19 ED Note-Physician Chief [...] to cholelithiasis 2 months ago diagnosed at [facility]. Patient?s past medical history includes [...] in this document, created by the medical insurance coder for me, accurately reflects the services I [...] TID, # 21 tabs, 0 Refill(s), Pharmacy: [facility] [id number] docusate, 1 caps, Oral, BID, PRN, # 20 caps, 0 Refill(s), Pharmacy: [facility] [id number] ondansetron, 1 tabs, Oral, q8hr, PRN, # 15 tabs, 0 Refill(s), Pharmacy: [facility] [id number] polyethylene glycol 3350, 17 g, Oral, Daily, dissolve in water before taking, # 527 g, 0 Refill(s), Pharmacy: [facility] [id number] 2. Constipation 3. Gallbladder contraction Orders: sodium chloride, 10 mL, IV Push, Injection, As Indicated, PRN flush, First Dose: 06/08/17 22:02:00 EST, Dispense From Location: [id number] Abdomen Pelvis w/ IV Contrast Discharge [...] Magnetic Resonance Imaging No qualifying data available. ___BrennatomaszFlaquito RElectronically signed by Katia Duncan MD 06/09/2017 00:17 EST Normal [facility] Lipaseon 06-09-2017 Lipase Lvl 20 IU/L Low 22-51 [facility] Comment on above: Performed By: #### L IP ####[place] [id number] UA w Culture if Indon 2017 UA Blood Small Abnormal Negative [facility] Comment on above: Performed By: #### U CI ####[address] [address] UA Clarity Clear Normal [facility] Comment on above: Performed By: #### U CI ####[address] [address] UA Leukocyte Esterase Negative Normal Negative [facility] Comment on above: Performed By: #### U CI ####[address] [address] UA Nitrite Negative Normal Negative [facility] Comment on above: Performed By: #### U CI ####[address] [address] UA pH 5.0 Normal 4.5 - 7.8 [facility] Comment on above: Performed By: #### U CI ####[address] [address] UA Protein Negative Normal Negative [facility] Comment on above: Performed By: #### U CI ####[address] [address] UA Source Clean Catch Normal [facility] Comment on above: Performed By: #### U CI ####[address] [address] UA Spec Grav 1.034 Normal 1.003-1.035 [facility] Comment on above: Performed By: #### U CI ####[facility] [place] [address] UA Urobilinogen 0.2 mg/dL Normal 0.2 - 1.0 [facility] Comment on above: Performed By: #### U CI ####[place] [address] [place] [address] Urine, color Yellow Normal [facility] Comment on above: Performed By: #### U CI ####[address] [place] [address] Urine, glucose Negative Normal Negative [facility] Comment on above: Performed By: #### U CI ####[place] [address] [place] [address] Urine, ketones presence Trace Abnormal Negative [facility] Comment on above: Performed By: #### U CI ####[address] [place] [address] Urine, urobilinogen Negative Normal Negative [facility] Comment on above: Performed By: #### U CI ####[address] [place] [address] Vital Signs Date Time Vital Sign Value Performing Clinician Facility 11-18-2023 10:49-0400 Body height 160.02 cm [facility] 11-18-2023 10:49-0400 Body mass index (BMI) [Ratio] 38.8 kg/m2 [facility] 11-18-2023 10:49-0400 Body temperature 97.6 [degF] [facility] 11-18-2023 10:49-0400 Body weight 99.5 kg [facility] 11-18-2023 10:49-0400 Diastolic blood pressure 86 mm[Hg] [facility] 11-18-2023 10:49-0400 Heart rate 78 /min [facility] 11-18-2023 10:49-0400 Respiratory rate 18 /min [facility] 11-18-2023 10:49-0400 SaO2% (BldA) [Mass fraction] 99 % [facility] 11-18-2023 10:49-0400 Systolic blood pressure 130 mm[Hg] [facility] 04-23-2023 09:00-0500 Body height 160.02 cm Kamila Contrerasmond Other [facility] Other 04-23-2023 09:00-0500 Body mass index (BMI) [Ratio] 39.14 kg/m2 Kamila Contrerasmond Other [facility] Other 04-23-2023 09:00-0500 Body temperature 97.4 [degF] Kamila Contrerasmond Other [facility] Other 04-23-2023 09:00-0500 Body weight 100.25 kg Kamila Contrerasmond Other [facility] Other 04-23-2023 09:00-0500 Diastolic blood pressure 94 mm[Hg] Kamila Contrerasmond Other [facility] Other 04-23-2023 09:00-0500 Respiratory rate 18 /min Kamila Contrerasmond Other [facility] Other 04-23-2023 09:00-0500 SaO2% (BldA) [Mass fraction] 99 % Kamila Rhoda Other [facility] Other 04-23-2023 09:00-0500 Systolic blood pressure 143 mm[Hg] Kamila Rhoda Other [facility] Other 02-09-2023 09:00-0400 Body height 160.02 cm Kamila Rhoda Other [facility] Other 02-09-2023 09:00-0400 Body mass index (BMI) [Ratio] 36.77 kg/m2 Kamila Duong Other [facility] Other 02-09-2023 09:00-0400 Body temperature 97.4 [degF] Kamila Duong Other [facility] Other 02-09-2023 09:00-0400 Body weight 94.17 kg Kamila Duong Other [facility] Other 02-09-2023 09:00-0400 Diastolic blood pressure 88 mm[Hg] Kamila Duong Other [facility] Other 02-09-2023 09:00-0400 Respiratory rate 18 /min Kamila Duong Other [facility] Other 02-09-2023 09:00-0400 SaO2% (BldA) [Mass fraction] 98 % Kamila Duong Other [facility] Other 02-09-2023 09:00-0400 Systolic blood pressure 126 mm[Hg] Kamila Duong Other [facility] Other 06-11-2022 10:00-0500 Body height 157.48 cm Gloria Jackson Other [facility] Other 06-11-2022 10:00-0500 Body mass index (BMI) [Ratio] 40.23 kg/m2 Gloria Jackson Other [facility] Other 06-11-2022 10:00-0500 Body temperature 97.8 [degF] Gloria Jackson Other [facility] Other 06-11-2022 10:00-0500 Body weight 99.79 kg Gloria Jackson Other [facility] Other 06-11-2022 10:00-0500 Respiratory rate 18 /min Gloria Jackson Other [facility] Other 06-11-2022 10:00-0500 SaO2% (BldA) [Mass fraction] 99 % Gloria Jackson Other [facility] Other 10-09-2021 13:49-0400 Blood Pressure Location Chantel [employer] [facility] [place] 10-09-2021 13:49-0400 Diastolic blood pressure 80 mm[Hg] Chantel NILL [facility] [place] 10-09-2021 13:49-0400 Heart rate 72 /min Chantel NILL [facility] [place] 10-09-2021 13:49-0400 Respiratory rate 16 /min Chantel NILL [facility] [place] 10-09-2021 13:49-0400 Systolic blood pressure 124 mm[Hg] Chantel NILL [facility] [place] NEGATED: Highlighted row BMI (Body Mass Index) [facility] NEGATED: Highlighted row Body Temperature [facility] NEGATED: Highlighted row [facility] NEGATED: Highlighted row BP Diastolic [facility] NEGATED: Highlighted row BP Systolic [facility] NEGATED: Highlighted row Height [facility] NEGATED: Highlighted row Pulse (Heart Rate) Harry [facility] NEGATED: Highlighted row Pulse Oximetry Harry [facility] NEGATED: Highlighted row Respiratory Rate [facility] Encounters Encounter Date Encounter Type Care Provider Facility Start: 12-09-2023 End: 12-09-2023 ambulatory MEKA MOELLERMYRONPhu Not Available Start: 11-18-2023 End: 11-18-2023 ambulatory [facility] Work Phone: Start: 11-18-2023 End: 11-18-2023 Patient encounter procedure [facility] Work Phone: [...] 04-23-2023 End: 04-23-2023 ambulatory Kamila Duong Other [facility] Other Start: 02-09-2023 End: 02-09-2023 ambulatory Kamila Duong Other [facility] Other Start: 02-09-2023 Office outpatient vi sit 15 minutes Kamila Duong [facility] Start: 01-07-2023 ambulatory PHYSICIAN NO FAMILY Fac ility:[facility] Start: 06-17-2022 End: 06-17-2022 ambulatory 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 ASSISTANT MEKA MOELLERMYRONPhu Facility:[facility] Start: 06-14-2022 End: 06-14-2022 ambulatory Gloria Jackson Other [facility] Other Start: 06-14-2022 Telephone encounter Gloria Jackson [facility] [address] Start: 06-11-2022 Office outpatient vi sit 25 minutes Gloria Jackson [facility] Start: 06-11-2022 End: 06-11-2022 ambulatory PHYSICIAN NO [facility] Facility:[facility] Start: 06-11-2022 End: 06-11-2022 ambulatory PHYSICIAN NO [facility] Work Phone: Start: 06-11-2022 End: 06-11-2022 Departed Referred PHYSICIAN NO [facility] [address] [place] Work Phone: Start: 11-23-2021 End: 11-23-2021 Patient encounter procedure Chantel MAYO [facility] [employer] Start: 11-14-2021 End: 11-14-[address] CHANTEL MAYO Facility:[facility] Start: 11-06-2021 Encounter for other preprocedural examination DR CHANTEL MAYO [facility] Start: 11-02-2021 End: 11-03-[address] CHANTEL MAYO Facility:[facility] Start: 11-02-2021 End: 11-03-2021 Encounter for other preprocedural examination DR CHANTEL MAYO Facility:[facility] Start: 10-09-2021 End: 10-09-2021 Patient encounter procedure Chantel MAYO [facility] [place] Start: 10-02-2021 End: 10-03-2021 ambulatory RONY ROPER Facility:[facility] Start: 09-14-2021 End: 09-15-2021 ambulatory 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 ASSISTANT MEKA AUDREY Facility:[facility] Start: 01-16-2018 End: 01-16-2018 Patient encounter IZABEL EARL ([place]) [facility] Start: 01-13-2018 End: 01-14-2018 Patient encounter IZABEL EARL ([place]) [facility] Start: 06-08-2017 End: 06-09-2017 Emergency department patient visit KATIA DUNCAN Facility:[facility] Start: 10-02-2015 End: 10-03-2015 [facility] Start: 08-11-2015 End: 08-11-2015 Ad[facility] Start: 12-01-2013 End: 12-01-2013 Emergency department patient visit Harry Huffman [facility] Start: 04-06-2013 End: 04-06-2013 Patient encounter procedure Harry Huffman [facility] Start: 04-28-2012 End: 04-28-2012 Patient encounter procedure Harry Huffman [facility] Start: 10-07-2011 End: 10-07-2011 Emergency department patient visit Harry Huffman [facility] Start: 04-23-2011 End: 04-23-2011 Emergency department patient visit Harry Huffman [facility] Start: 04-09-2011 End: 04-09-2011 Emergency department patient visit Harry Huffman [facility] Start: 12-10-2010 End: 12-10-2010 Emergency department patient visit Harry Huffman [facility] Start: 11-01-2010 End: 11-01-2010 Emergency department patient visit Harry Huffman [facility] Start: 03-05-2010 End: 03-05-2010 Emergency department patient visit Harry Huffman [facility] Start: 12-12-2009 End: 12-12-2009 Admission [facility] Start: 10-10-2009 End: 10-10-2009 Emergency department patient visit [facility] Start: 03-06-2009 End: 03-06-2009 Emergency department patient visit [facility] Start: 11-09-2008 End: 11-09-2008 Emergency department patient visit Harry [facility] Start: 09-14-2008 Patient encounter procedure Harry [facility] Start: 07-07-2008 End: 07-07-2008 Emergency department patient visit Harry [facility] Start: 06-24-2008 End: 06-24-2008 [facility] Start: 06-04-2008 End: 06-04-2008 [facility] Start: 04-09-2008 End: 04-09-2008 Emergency department patient visit Harry [facility] Start: 12-15-2007 End: 12-28-2007 Discharged Recurring Harry [facility] Start: 12-15-2007 End: 12-15-2007 [facility] Start: 12-05-2007 End: 12-05-2007 [facility] Start: 10-12-2007 End: 10-12-2007 [facility] Start: 09-18-2007 End: 09-18-2007 [facility] Start: 08-16-2007 End: 08-16-2007 Emergency department patient visit [facility] Start: 07-23-2007 End: 07-23-2007 Emergency department patient visit [facility] Start: 06-24-2007 End: 06-25-2007 [facility] Start: 05-23-2007 End: 05-23-2007 Emergency [facility] Start: 04-25-2007 End: 05-25-2007 Discharged Recurring [facility] Start: 04-17-2007 End: 04-17-2007 Emergency department patient visit [facility] Start: 04-04-2007 End: 04-03-2007 Emergency department patient visit [facility] Start: 02-23-2007 End: 03-25-2007 Discharged Recurring [facility] Start: 02-02-2007 End: 02-01-2007 [facility] Start: 01-24-2007 End: 02-22-2007 Discharged Recurring [facility] Start: 01-20-2007 End: 01-21-2007 Emergency department patient visit [facility] Start: 01-05-2007 End: 01-23-2007 Discharged Recurring [facility] Start: 12-24-2006 End: 12-24-2006 Emergency department patient visit [facility] Start: 12-18-2006 End: 12-18-2006 Emergency department patient visit [facility] Start: 07-11-2006 End: 07-11-2006 Emergency department patient visit [facility] Start: 03-20-2006 End: 03-20-2006 [facility] Start: 02-27-2006 End: 02-27-2006 [facility] Start: 02-11-2006 End: 02-11-2006 Emergency department [facility] Start: 01-06-2006 End: 01-06-2006 [facility] Start: 11-23-2005 [facility] Start: 09-07-2005 End: 09-06-2005 Emergency department patient visit [facility] Start: 08-02-2005 End: 08-02-2005 [facility] Start: 07-21-2005 End: 07-20-2005 Emergency department patient visit [facility] Start: 04-02-2005 End: 04-24-2005 Discharged Recurring [facility] Start: 02-14-2005 End: 02-14-2005 Emergency department patient visit [facility] Start: 02-02-2005 End: 02-02-2005 Emergency department patient visit [facility] Start: 11-21-2004 End: 11-21-2004 Emergency department patient visit [facility] Start: 02-23-2004 Evaluation and management of inpatient [facility] Start: 02-21-2004 Evaluation and management of inpatient [facility] Start: 02-07-2004 Evaluation and management of inpatient [facility] Start: 03-20-1993 End: 03-26-1993 Discharged Recurring [facility] Procedures Date Procedure Procedure Detail Performing [...] Author Start: 06-11-2022 Throat culture Throat Culture [facility] Bacteria identified in Throat by Aerobe culture [facility] Immunizations Immunization Date Immunization Notes Care Provider Wendy meyer 03-31-2022 tetanus toxoid, redu helio diphtheria toxoid, and acellular pertussis vaccine, adsorbed Gloria Jackson Other [facility] Payers Date Payer Category Payer Self-pay 2022 Medicaid [id number] 2. [id number] 2017 Unknown 1985 Unknown [id number] 2.16.84 [id number] 1985 Unknown [id number] 2.16.84 [id number] 1986 Unknown [id number] 2.16.84 [id number] 1986 Unknown [id number] 2.16.84 [id number] 1986 Unknown [id number] 2.16.84 [id number] 1986 Unknown [id number] 2.16.84 [id number] 1986 Unknown [id number] 2.16.84 [id number] 1986 Unknown [id number] 2.16.84 [id number] 1986 Unknown [id number] 2.16.84 [id number] 1986 Unknown [id number] 2.16.84 [id number] 1959 Unknown [id number] Private Health Insurance [id number] Unknown [id number] Unknown [id number] 2.16.8 [id number] Unknown [id number] 2.16.8 [id number] Social History Date Type Detail Facility Start: 10-09-2021 Tobacco smoking status Ex-smoker (fi nding) [facility] Tobacco smoking status Smokeless tobacco user within last 30 days [facility] [place] Sex Assigned At Female [facility] [place] Start: 12-07-2018 End: 12-07-2018 Tobacco smoking status ALIS Smoker (finding) [facility] Start: 1985 Sex Assigned At Female [facility] Clinical Notes 10-09-2021 to 04-23-2023 Note [...] no improvement in 2 to 3 days [facility] Other 09-17-2023 Evaluation note* Encounter Date Diagnosis [...] no improvement in 2 to 3 days [facility] Other 01-17-2023 Evaluation note* Encounter Date Diagnosis [...] treatment plan. Patient left in stable condition [facility] Other 06-22-2022 NoteOPERATIVE NOTE OPERATION DATE: 11/14/2021 [...] room in good condition. CC: Meka Roper, RONY [facility] Signed and Approved by: DR CHANTEL MAYO . 11/15/2021 14:02:00[facility]05-17-2022 NoteChief Complaint consultation for breast mass vs infection [facility] Staff 36 year old female [...] Tobacco Use:. [place], [place] (more content not included)...[facility]Result Comment: Electronically Signed By: ALEX SINGH, Chantel Cuevas\Date and Time Signed: 10/09/21 15:43 EDTEvaluation + Plan note No data available for this section [facility] [place] Evaluation noteNo assessment information available [facility] Work Phone: Evaluation noteNo InformationNortJames E. Van [facility] [employer] Other Evaluation note* Diagnosis Onset Date Resolution Status Allergic dermatitis acute [facility] Work Phone: [employer] general Narrative - Reported* Type Description Date Medical History Hypothyroidism Surgical History hysterectomy Surgical History knee arthroscopy Hospitalization History SEE ABOVE [facility] [employer] Other Hospital Discharge instructions No data available for this section [facility] [place] Progress note No data available for this section [facility] [place] Summary Purpose Family History No Family History Records Found Relationship Condition Age at Onset Recorded Date/T nichelle Not Specified Bipolar affective disorder Unknown father Depression Unknown Relationship Condition Age at Onset Recorded Date/T nichelle Not Specified Bipolar affective disorder Unknown father Depression Unknown father Hypertension Unknown Unknown Advance Directives No Advanced Directives Records [...] section and content) DATE CREATED AUTHOR 11/17/2017 [facility] DATE CREATED AUTHOR AUTHOR'S ORGANIZ ATION 01/21/2018 [facility] DATE CREATED AUTHOR AUTHOR'S ORGANIZ ATION 11/24/2021 [facility] DATE CREATED AUTHOR AUTHOR'S ORGANIZ ATION 12/29/2021 [facility] DATE CREATED AUTHOR AUTHOR'S ORGANIZ ATION 07/02/2022 [facility] DATE CREATED AUTHOR AUTHOR'S ORGANIZ ATION 05/02/2023 [facility] DATE CREATED AUTHOR AUTHOR'S ORGANIZ ATION 12/13/2023 [facility] dical Specialists EPIC Care Team (unrecognized sect [...] BE BASED ON THE PRIMARY CLINICAL RECORDS. [employer] provides no warranty or guarantee of the accuracy or completeness of information in this document.
--- NOTE | 2024-02-21 17:56 | ECG_ITS ---
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
--- NOTE | 2024-02-21 17:59 | ED_ITS ---
HPI - Anxiety General Chief Complaint: Anxiety Stated Complaint: CHEST PAIN, SOB Time Seen by Provider: 02/21/24 17:39 Source: patient Mode of arrival: walk-in Limitations: no limitations History of Present Illness HPI narrative: The patient presented to us with an anxiety attack she mentioned that she has been dealing with anxiety for the last at least few months and she did had recent visit to her psychiatrist to increase some of her medication, but for the last few days the patient has not been able to sleep and she is tearful and emotional When talking about the reason for her anxiety she mentioned that she did over the last few months lose her job as well as broken up with her boyfriend The patient denies any nausea vomiting or any other complaint but she did mention that she was pacing during the last hour and she has felt some chest pain although the chest pain seems to be nonspecific not associated with any taking deep breath or nausea or vomiting Related Data Home Medications ?Medication ?Instructions ?Recorded ?Confirmed cariprazine 1.5 mg capsule 1.5 mg PO DAILY 07/04/23 07/19/23 (Vraylar) metformin 500 mg tablet,extended 500 mg PO DAILY 07/04/23 07/19/23 release 24 hr Previous Rx's ?Medication ?Instructions ?Recorded hydrocodone 5 mg-acetaminophen 325 1 tab PO Q4H PRN pain 4 days #16 07/18/23 mg tablet tabs ibuprofen 800 mg tablet 800 mg PO Q8H PRN pain 14 days #40 07/18/23 tabs ketorolac 10 mg tablet 10 mg PO TID PRN pain #10 tabs 07/19/23 lorazepam 0.5 mg tablet (Ativan) 0.5 mg PO TID PRN anxiety 3 days 07/19/23 #10 tabs ondansetron 4 mg disintegrating 4 mg PO Q6H PRN nausea and 07/19/23 tablet vomiting #12 tabs Allergies Allergy/AdvReac Type Severity Reaction Status Date / Time codeine Allergy Rash Verified 02/21/24 17:39 [email or web address] [From Nubain] AdvReac Vomiting Verified 02/21/24 17:39 Review of Systems ROS Status of ROS 10 or more systems reviewed and unremark able except as noted in history and below [facility] Medical History (Updated 11/26/23 @ 08:54 by Rosanna Flores DO) Anemia ?D64.9 - Anemia, unspecified (ICD-10) Insomnia ?G47.00 - Insomnia, unspecified (ICD-10) PTSD (post-traumatic stress disorder) ?F43.10 - Post-traumatic stress disorder, unspecified (ICD-10) OCD (obsessive compulsive disorder) ?F42.9 - Obsessive-compulsive disorder, unspecified (ICD-10) Bipolar disorder ?F31.9 - Bipolar disorder, unspecified (ICD-10) Depression ?F32.A - Depression, unspecified (ICD-10) Electronic cigarette use ?Z78.9 - Other specified health status (ICD-10) COVID-19 ?U07.1 - COVID-19 (ICD-10) Pelvic pain ?R10.2 - Pelvic and perineal pain (ICD-10) Heartburn ?R12 - Heartburn (ICD-10) GERD (gastroesophageal reflux disease) ?K21.9 - Gastro-esophageal reflux disease without esophagitis (ICD-10) Goiter ?E04.9 - Nontoxic goiter, unspecified (ICD-10) Hypothyroidism ?E03.9 - Hypothyroidism, unspecified (ICD-10) Panic attacks ?F41.0 - Panic disorder [episodic paroxysmal anxiety] (ICD-10) Anxiety ?F41.9 - Anxiety disorder, unspecified (ICD-10) Surgical History (Updated 07/04/23 @ 10:21 by Angelic Sears NP) H/O removal of cyst ?Z98.890 - Other specified postprocedural states (ICD-10) History of arthroscopy of knee ?Z98.890 - Other specified postprocedural states (ICD-10) History of dilation and curettage ?Z98.890 - Other specified postprocedural states (ICD-10) History of tubal ligation ?Z98.51 - Tubal ligation status (ICD-10) History of hysterectomy ?Z90.710 - Acquired absence of both cervix and uterus (ICD-10) Family History (Updated 07/04/23 @ 10:21 by Angelic Sears NP) Other Bipolar 1 disorder CHF (congestive heart failure) Family history of DVT Family history of diabetes mellitus Family history of hypertension Family history of myocardial infarction Motorcycle accident Social History Within the past year, how often did you have a drink containing alcohol: monthly or less Do you use any of these nicotine containing products: vaping products Non-prescribed substance use: cannabis (any form) 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 General: Well-appearing and in no apparent distress. Skin: Warm, dry, no pallor noted. No rash. Head: Normocephalic, atraumatic. Neck: Supple, non-tender. Eye: Pupils are equal, round and EOMI. No scleral icterus. Ears, Nose, Mouth, and Throat: TM are clear, no nasal mucosal hypertrophy. Oral mucosa is moist, no posterior oropharynx erythema, uvula is mid-line Cardiovascular: Regular Rate and Rhythm without murmur, gallop or rub. Respiratory: No accessory muscle use or respiratory distress. Lungs are clear to auscultation, no wheezing, rales or rhonchi Chest Wall: no tenderness Back: No midline thoracic or lumbar vertebral tenderness. No CVA tenderness Musculoskeletal: normal ROM, no calf or popliteal tenderness, no lower extremity edema/swelling GI: Abdomen is soft, non-distended. Normal bowel sounds. No masses appreciated. No tenderness to palpation. No rebound, guarding, or rigidity noted. Neurological: A&O x4. No cranial nerve dysfunction observed. No truncal ataxia. Moves all extremities. Sensation intact. Psychiatric: Cooperative and interactive. Normal mood and affect. Constitutional Vital Signs, click to edit/add: Last Vital Signs Pulse 111 H 02/21/24 17:39 Resp 20 02/21/24 17:39 BP 133/101 H 02/21/24 17:39 Pulse Ox 98 02/21/24 17:39 O2 Del Method Room Air 02/21/24 17:39 Course Vital Signs Vital signs: Vital Signs Pulse Rate 111 H 02/21/24 17:39 Respiratory Rate 20 02/21/24 17:39 Blood Pressure 133/101 H 02/21/24 17:39 Pulse Oximetry 98 02/21/24 17:39 Oxygen Delivery Method Room Air 02/21/24 17:39 Pulse Rate 111 H 02/21/24 17:39 Respiratory Rate 20 02/21/24 17:39 Blood Pressure 133/101 H 02/21/24 17:39 Pulse Oximetry 98 02/21/24 17:39 Oxygen Delivery Method Room Air 02/21/24 17:39 MDM - Anxiety MDM Narrative Medical decision making narrative: Patient EKG showing sinus rhythm with a heart rate of [address] elevation or depression Awaiting the call to the hotline for evaluation by psychiatry Lab Data Labs: Lab Results 02/21/24 02/21/24 Range/Units 18:09 18:13 WBC 12.0 H (4.0-11.0) 10^3/uL RBC 4.92 (4.20-5.40) 10^6/uL Hgb 13.9 (12.0-16.0) g/dL Hct 41.7 (36.0-48.0) % MCV 84.8 (81.0-99.0) fL MCH 28.3 (26.7-34.0) pg MCHC 33.3 (29.9-35.2) g/dL RDW 13.2 (11.0-15.0) % Plt Count 352 (150-450) 10^3/uL MPV 9.3 L (9.5-13.5) fL Neut % (Auto) 72.4 (43.0-75.0) % Lymph % (Auto) 20.4 L (20.5-60.0) % Cannon % (Auto) 5.1 (1.7-12.0) % Eos % (Auto) 1.2 (0.9-7.0) % Baso % (Auto) 0.5 (0.2-2.0) % Neut # (Auto) 8.7 H (1.4-6.5) 10^3/uL Lymph # (Auto) 2.5 (1.2-3.8) 10^3/uL Cannon # (Auto) 0.6 (0.3-0.8) 10^3/uL Eos # (Auto) 0.1 (0.0-0.7) 10^3/uL Baso # (Auto) 0.1 (0.0-0.1) 10^3/uL Abs Immat Gran (auto) 0.05 H (0.00-0.03) 10^3/uL Imm/Tot Granulo (auto) 0.4 (0.0-0.5) % Sodium 136 (136-145) mmol/L Potassium 3.9 (3.5-5.1) mmol/L Chloride 101 (98-107) mmol/L Carbon Dioxide 26.6 (21.0-32.0) mmol/L Anion Gap 12.3 BUN 12.0 (7.0-18.0) mg/dL Creatinine 0.72 (0.55-1.02) mg/dL Est GFR ( Amer) >60 (>=60) Est GFR (Non-Af Amer) >60 (>=60) BUN/Creatinine Ratio 16.7 Glucose 99 (74-106) mg/dL Calcium 9.6 (8.5-10.1) mg/dL Total Bilirubin 0.2 (0.2-1.0) mg/dL AST 7 L (15-37) U/L ALT 14 (14-59) U/L Alkaline Phosphatase 70 (46-116) U/L Troponin I High Sens <4.0 L (4.0-51.3) pg/mL Total Protein 7.3 (6.4-8.2) g/dL Albumin 3.6 (3.4-5.0) g/dL Globulin 3.7 g/dL Albumin/Globulin Ratio 1.0 Serum HCG, Qual Negative (NEGATIVE) Urine Opiates Screen Negative (NEGATIVE) Ur Buprenorphine Scrn Negative (NEGATIVE) Ur Oxycodone Screen Negative (NEGATIVE) Urine Methadone Screen Negative (NEGATIVE) Ur Barbiturates Screen Negative (NEGATIVE) U Tricyclic Antidepress Negative (NEGATIVE) Ur Phencyclidine Scrn Negative (NEGATIVE) Ur Amphetamines Screen Negative (NEGATIVE) U Methamphetamines Scrn Negative (NEGATIVE) U Benzodiazepines Scrn Negative (NEGATIVE) Urine Cocaine Screen Negative (NEGATIVE) U Cannabinoids Screen Positive A (NEGATIVE) Ethanol Quant <3 mg/dL Discharge Plan Discharge Patient Disposition: Still a Patient
[2024-02-21 18:21] LABS: Basophils Absolute Auto 0.1 10^3/uL (0.0-0.1); Basophils Percent Auto 0.5 % (0.2-2.0); Eosinophils Absolute Auto 0.1 10^3/uL (0.0-0.7); Eosinophils Percent Auto 1.2 % (0.9-7.0); Hematocrit 41.7 % (36.0-48.0); Hemoglobin 13.9 g/dL (12.0-16.0); Immature Granulocytes Abs Auto 0.05 10^3/uL (0.00-0.03); Immature Granulocytes Pct Auto 0.4 % (0.0-0.5); Lymphocytes Absolute Auto 2.5 10^3/uL (1.2-3.8); Lymphocytes Percent Auto 20.4 % (20.5-60.0); Mean Corpuscular HGB Conc 33.3 g/dL (29.9-35.2); Mean Corpuscular Hemoglobin 28.3 pg (26.7-34.0); Mean Corpuscular Volume 84.8 fL (81.0-99.0); Mean Platelet Volume 9.3 fL (9.5-13.5); Monocytes Absolute Auto 0.6 10^3/uL (0.3-0.8); Monocytes Percent Auto 5.1 % (1.7-12.0); Neutrophils Absolute Auto 8.7 10^3/uL (1.4-6.5); Neutrophils Percent Auto 72.4 % (43.0-75.0); Platelet Count 352 10^3/uL (150-450); Red Blood Count 4.92 10^6/uL (4.20-5.40); Red Cell Distribution Width 13.2 % (11.0-15.0)
[2024-02-21] MEDS: LORAZEPAM 1 MG TABLET PO (18:31)
[2024-02-21 18:37] LABS: Amphetamine Screen Urine NEGATIVE (NEGATIVE); Barbiturates Screen Urine NEGATIVE (NEGATIVE); Benzodiazepines Screen Urine NEGATIVE (NEGATIVE); Buprenorphine Screen Urine NEGATIVE (NEGATIVE); Cannabinoid Screen Urine POSITIVE (NEGATIVE); Cocaine Screen Urine NEGATIVE (NEGATIVE); Methadone Screen Urine NEGATIVE (NEGATIVE); Methamphetamines Screen Urine NEGATIVE (NEGATIVE); Opiate Screen Urine NEGATIVE (NEGATIVE); Oxycodone Screen Urine NEGATIVE (NEGATIVE); Phencyclidine Screen Urine NEGATIVE (NEGATIVE); Tricyclic Antidepressant Urine NEGATIVE (NEGATIVE)
[2024-02-21 18:38] LABS: HCG Qualitative NEGATIVE (NEGATIVE); Internal Control Within Normal Limits
[2024-02-21 18:42] LABS: Alanine Aminotransferase 14 U/L (14-59); Albumin Level 3.6 g/dL (3.4-5.0); Alkaline Phosphatase 70 U/L (46-116); Anion Gap 12.3; Aspartate Amino Transferase 7 U/L (15-37); BUN Creatinine Ratio 16.7; Bilirubin Total 0.2 mg/dL (0.2-1.0); Calcium 9.6 mg/dL (8.5-10.1); Carbon Dioxide 26.6 mmol/L (21.0-32.0); Chloride 101 mmol/L (98-107); Estimated GFR (African America >60 (>=60); Estimated GFR (Non-African Ame >60 (>=60); Ethanol <3 mg/dL; Globulin 3.7 g/dL; Glucose 99 mg/dL (74-106); Potassium 3.9 mmol/L (3.5-5.1); Sodium 136 mmol/L (136-145); Total Protein 7.3 g/dL (6.4-8.2); Troponin I High Sensitivity <4.0 pg/mL (4.0-51.3)
[2024-02-21 19:11] VITALS: BP 137/94; PULSE 81; O2SAT 99
== END 2024-02-21 19:15 | disposition home or self-care (01) ==
PROVIDERS: Emergency Provider Emergency Medicine
DX: F41.9 Anxiety disorder, unspecified (principal); F17.290 Nicotine dependence, other tobacco product, uncomplicated
CPT/HCPCS: 36415; 80053; 80307; 80320; 84484; 84703; 85025; 93005; 99284

== ENCOUNTER 2024-10-06 20:42 | Emergency (ER) | payer OTHER, SELFPAY ==
--- OUTSIDE RECORDS SUMMARY | 2024-10-06 20:47 | XMS_ITS | CCD ---
Author Organization [facility] CliniSypr Care Team Providers Care Clinical Research Tech Name Role Phone KATIA DUNCAN JAN Unavailable Unavailable IZABEL EARL (OSWALDO) Unavailable UnavailIZABEL Marquez (OSWALDO) Unavailable UnavailHarry Tom Attending Physician Unavailable Doug Yeager Primary Care Physician Unavailab MEKA Sacnhez Primary Care Physician NO FAMILY, PHYSICIAN Primary Care Provider Unava ilable SANDEE Jackson Attending Provider AICHHOLZ, ARMOR RECONNAISSANCE SPECIALIST MEKA Admitting Unavailable AICHHOLZ, ARMOR RECONNAISSANCE SPECIALIST MEKA Attending Unavailable AICHHOLZ, ARMOR RECONNAISSANCE SPECIALIST MEKA Primary Care Unavailable AICHHOLZ, ARMOR RECONNAISSANCE SPECIALIST MEKA Consulting Unavailable AICHHOLZ, ARMOR RECONNAISSANCE SPECIALIST MEKA Primary Care Unavailable NITISH MCCALL Admitting Unavailable NITISH MCCALL Attending Unavailable NITISH MCCALL Consulting Unavailable NILL, DR GOLDEN Admitting Unavailable NILL, DR GOLDEN Attending Unavailable AICHHOLZ, ARMOR RECONNAISSANCE SPECIALIST MEKA Primary Care Unavailable NILL, DR GOLDEN Admitting Unavailable NILL, DR GOLDEN Attending Unavailable AICHHOLZ, ARMOR RECONNAISSANCE SPECIALIST MEKA Primary Care Unavailable NILL, DR GOLDEN Consulting Unavailable STEPHANIE CASTRO Consulting Unavailable ANTON VELÁZQUEZ Consulting Unavailable JERRY WEBB Consulting Unavailable AICHHOLZ, ARMOR RECONNAISSANCE SPECIALIST MEKA Admitting Unavailable AICHHOLZ, ARMOR RECONNAISSANCE SPECIALIST MEKA Attending Unavailable AICHHOLZ, ARMOR RECONNAISSANCE SPECIALIST MEKA Primary Care Unavailable AICHHOLZ, ARMOR RECONNAISSANCE SPECIALIST MEKA Consulting Unavailable DR DANIELLE ROME Consulting [...] nalbuphine; Translations: [Nubain] Drug Allergy 4 vomiting [facility] Repository (8 sources) nalbuphine; Translations: [NALBUPHINE] Drug Allergy 4 AOF, Vomiting, Unknown [facility] Repository (1 source) NO KNOWN ALLERGIES; Translations: [NO KNOWN ALLERGIES] Propensity to adverse reactions to drug (disorder) [facility] Repository (6 sources) nu Propensity to adverse reactions 4 Unknown, Unknown Reaction [facility] Medications Current Medications Medication Drug Class(es) Dates Sig (Normalized) Sig (Original) ARIPiprazole 5 mg oral tablet (2 sources) Atypical Antipsychotic Start: 10-08-2021 take 1 tablet by mouth once daily Abilify 5 mg Tab 5 mg = 1 tab(s), Oral, Daily, Refills(s) 0 Start Date: 10/08/21 Status: Ordered cariprazine 3 mg oral capsule (2 sources) Atypical Antipsychotic Start: 11-18-2023 Cariprazine (Vraylar) 3 mg capsule Active MG PO November 17, 2023 11:00pm FLUoxetine 10 mg oral capsule (3 sources) Serotonin Reuptake Inhibitor Start: 04-01-2024 take 1 capsule by mouth once daily Fluoxetine 10 mg capsule Active 10 MG PO Daily April 01, 2024 12:00am Start: 10-08-2021 take 1 capsule by mo [facility] once daily FLUoxetine 10 mg Cap 10 mg = 1 cap(s), Oral, Daily, Refills(s) 0 Start Date: 10/08/21 Status: Ordered lamoTRIgine 25 mg oral tablet (1 source) Mood Stabilizer, Anti-epileptic Agent Start: 04-01-2024 take 1 tablet by mouth twice daily Lamotrigine 25 mg tablet Active 25 MG PO Twice daily April 01, 2024 12:00am propranolol hydrochloride 10 mg oral tablet (1 source) beta-Adrenergic Ethan Start: 04-01-2024 take 1 tablet by mouth three times daily as needed Propranolol 10 mg tablet Active 10 MG PO Three times daily as needed April 01, 2024 12:00am traZODone hydrochloride 100 mg oral tablet (2 sources) Serotonin Reuptake Inhibitor Start: 04-01-2024 take 1 tablet by mouth once daily at bedtime as needed Trazodone 100 mg tablet Active 100 MG PO Daily at bedtime as needed April 01, 2024 12:00am take 1 tablet by linh th at bedtime for sleep traZODone HCl 50 MG take 1 tablet by linh th at bedtime if needed for sleep Oral [...] Not-Taking busPIRone hydrochloride 10 mg oral tablet (5 sources) Start: 12-10-2018 End: 04-01-2024 take 1 tablet by mouth three times daily Buspirone 10 mg Tablet Discontinued 10 MG PO Three times daily 90 December 09, 2018 11:00pm April 01, 2024 12:32pm cephalexin 500 mg oral capsule (1 source) Cephalosporin Antibacterial Start: 04-01-2024 End: 04-14-2024 take 1 capsule by mouth three times daily Cephalexin 500 mg capsule Discontinued 500 MG PO Three times daily 13 12April 01, 2024 12:00am April 14, 2024 10:18am fluticasone propionate 0.05 mg/actuat metered dose nasal spray (2 sources) Corticosteroid Start: 02-09-2023 take 2 spray(s) nasal route once daily Fluticasone Propionate 50 MCG/ACT 2 sprays Nasally Once a day for 14 day(s) Jan, Not-Taking hydrOXYzine pamoate 50 mg oral capsule (5 sources) Antihistamine Start: 12-10-2018 End: 04-01-2024 take 1 capsule by mouth every six hours as needed for anxiety Hydroxyzine Pamoate 50 mg Capsule Discontinued 50 MG PO Q6H as needed for Anxiety December 09, 2018 11:00pm April 01, 2024 12:32pm 24 hr nicotine 0.875 mg/hr transdermal system (5 sources) Cholinergic Nicotinic Agonist Start: 12-10-2018 End: 04-01-2024 apply 1 dose transdermal route every twenty-four hours Nicotine 21 mg/24 hr Patch 24 Hour Discontinued 1 EACH TRANSDERML Daily December 09, 2018 11:00pm April 01, 2024 12:32pm Start: 12-10-2018 Nicotine Activ e 1 EACH TRANSDERML Daily December 10, 2018 12:00am predniSONE 20 mg oral tablet (2 sources) Start: 02-09-2023 take 1 tablet by mouth every twelve hours predniSONE 20 MG 1 tablet Orally bid for 5 day(s) Jan, Not-Taking sulfamethoxazole 800 mg / trimethoprim 160 mg oral tablet (1 source) Dihydrofolate Reductase Inhibitor Antibacterial, Sulfonamide Antimicrobial Start: 04-01-2024 End: 04-14-2024 take 1 tablet by mouth every twelve hours Sulfamethoxazole- Trimethoprim 800-160 mg tablet Discontinued 1 TAB PO Every 12 hours 06 12April 01, 2024 12:00am April 14, 2024 10:18am Triamcinolone (4 sources) Corticosteroid Start: 01-15-2020 Kenalog -40 mg Dec, 60 mg 24 hr venlafaxine 75 mg extended release oral capsule (5 sources) Serotonin and Norepinephrine Reuptake Inhibitor Start: 12-10-2018 End: 04-01-2024 take 1 capsule by mouth once daily Venlafaxine 75 mg Capsule,Extended Release 24hr Discontinued 75 MG PO Daily December 09, 2018 11:00pm April 01, 2024 12:31pm Problems Active Problems Problem Classification Problem Date Documented Da te Episodic/Chronic Allergic reactions (3 sources) Allergic disorder of skin; Translations: [Allergic contact dermatitis, unspecified cause] 11-18-2023 Episodic Anxiety disorders (6 sources) Generalized anxiety disorder; Translations: [Anxiety] 10-08-2021 [...] [Gross hematuria] Onset: 8 Episodic Mood disorders (6 sources) Recurrent major depressive episodes; Translations: [Depressive disorder] 10-08-2021 Chronic Other aftercare (1 source) Other fci (current) drug therapy; Translations: [OTH FACILITY ATTENDANT CURRENT DRUG THERAPY] Onset: 3 Episodic Other ear and sense organ disorders (4 sources) Otalgia, left ear; Translations: [OTALGIA LEFT EAR] Onset: 3 Episodic Other gastrointestinal disorders (4 sources) Irritable bowel syndrome; Translations: [Irritable bowel [...] unclassified (2 sources) Tobacco user 10-08-2021 Episodic Skin and subcutaneous tissue infections (2 sources) Cellulitis and abscess of chest wall ; Translations: [Abscess or cellulitis of chest wall] 04-01-2024 Episodic Substance-related disorders (1 source) Nicotine dependence, other tobacco product, uncomplicated; Translations: [NICOTINE DEPEND OTH TOB PROD UNCOMP] Onset: 3 Chronic Thyroid disorders (11 sources) Hypothyroidism; Translations: [Hypothyroidism, unspecified] Onset: 2 10-08-2021 Chronic Viral infection (1 source) Disease caused by 2019-nCoV; Translations: [COVID-19] 04-14-2024 Episodic Past or Other Problems Problem Classification Problem [...] Test Name Value Interpretation Reference Range Facility No Panel InformationOrdered By: Leslie Forrester on 04-14-2024 Quick Strep (POC) [facility] COVID + FLU Quick Testingon 04-23-2023 SARS-CoV-2 (COVID-19) RNA BRANT+probe Ql (Unsp spec) Positive [facility] Other COVID + FLU Quick Testing Negative [facility] Other Quick Strepon 06-11-2022 S. pyogenes Org specific cx Ql (Throat) Negative [facility] Other Quick Strep [facility] Other Throat Cultureon 06-11-2022 Throat culture Moderate Normal Respiratory Marti 2 Days PERFORMED BY: [place] [address] PATHOLOGIST GENERATION TECHNICIAN DOMENICO BELL M.D. Normal [facility] Comment on above: Performed By: #### C [place] #### [address] ALDOLASE [id number] 12-18-2021 ALDOLASE 4.6 U/L Normal 1.2-7.6 [facility] Comment on above: Result Comment: REFE RENCE INTERVAL: Aldolase Access complete set of age- and/or gender-specific reference intervals for this test in the [facility] Test Directory (Poxel). Performed By: [facility] [address] [place] [address] Excel Specialist: Edgar Snell MD, PhD ANAon 12-18-2021 JAMIL PATTERN HOMOGENEOUS Normal [facility] Comment on above: Result Comment: The [...] medical authority. Performed By: #### 9 9850, 86406, 92178, 57366, 85089 ####[facility] [facility].[address] JAMIL SCREEN 1:40 Normal <1:40,1:40 [facility] Comment on above: Result Comment: Test performed using JACKI IFA JAMIL Hep-2 Test, a pre-standardized assay designed for the qualitative and semi-quantitative detection of antinuclear antibodies. Performed By: #### 9 9850, 40323, 73440, 99662, 36743 ####[facility] [facility] [place] [address], [facility] ANTI CENTROMERE ABon 022 ANTI CENT AB Negative Normal NEGATIVE [facility] Comment on above: Performed By: #### 9 9850, 75249, 09275, 34247, 66051 ####[facility] [facility] [place] [address], [facility] ANTI DNAon 12-18-2021 ANTI DNA <1:10 Normal <1:10 [facility] Comment on above: Performed By: #### 9 9850, 64658, 23238, 77684, 86522 #### [facility] [address] [place] [address], [facility] ANTI-ENAon 12-18-2021 ANTI SM Negative Normal NEG,NEGATIVE ,Neg [facility] Comment on above: Performed By: #### 9 9850, 31158, 68560, 62443, 39728 #### [facility] [address] [place] [address], [facility] ANTI SM/ANTIRNP Negative Normal NEG,NEGATIVE ,Neg [facility] Comment on above: Performed By: #### 9 9850, 20847, 28439, 26049, 36503 #### [facility] [address] [place] [address], [facility] C REACTIVE PROTEINon 022 CRP [Mass/Vol] 4.3 mg/L Normal 0.0-7.0 [facility] Comment on above: Performed By: #### 1 0204, 30857, 84293, 54572 #### [facility] [address] [facility] [place] [address], [facility] COMPLEMENT 3on 12-18-2021 COMPLEMENT 3 96 mg/dL Normal 79-152 [facility] Comment on above: Performed By: #### 1 0204, 20344, 20721, 26765 #### [facility] [address] [facility] [place] [address], [facility] COMPLEMENT 4on 12-18-2021 COMPLEMENT 4 19 mg/dL Normal 16-38 [facility] Comment on above: Performed By: #### 1 0204, 37156, 76778, 70568 #### [facility] [address] [facility] [place] [address], [facility] CPKon 12-18-2021 CK [Catalytic activity/Vol] 78 U/L Normal 30-223 [facility] Comment on above: Performed By: #### 2 5508 ####[facility] [facility] [place] [address], [facility] CYCLIC CITRULLINATED PEPTIDE [place] [id number] 12-18-2021 CYCLIC CIT PEP 1 Units Normal 0-19 [facility] Comment on above: Result Comment: INTE [...] be monitored and testing repeated. Performed By: [facility] [address] [place] [address] Excel Specialist: Edgar Snell MD, PhD HEPATITIS B CORE ANTIBODYon 12-18-2021 HEP B CORE AB Non-Reactive Normal NONREACTIVE [facility] Comment on above: Performed By: #### 3 1568, 72577, 00933 ####[facility] HEPATITIS B SURFACE ANTIGEN QUALon 12-18-2021 HEP B SURF AG QUAL Non-Reactive Normal NONREACTIVE [facility] Comment on above: Performed By: #### 3 1568, 25427, 50124 ####[facility] [facility].[address] HEPATITIS C SCREENon 022 ANTI-HCV Non-Reactive Normal NONREACTIVE [facility] Comment on above: Performed By: #### 3 1568, 53627, 40387 ####[facility] [facility].[address] HIV1 AND 2 COMBO 4Gon 2021 HIV COMBO Negative Normal NEGATIVE [facility] Comment on above: Performed By: #### 3 0625 ####[facility] MPO/PR3 RFLX TO ANCA [id number] on 12-18-2021 MYELOPEROX AB (15603) 0 AU/mL Normal 0-19 [facility] Comment on above: Result Comment: INTE RPRETIVE INFORMATION: Myeloperoxidase Abs, IgG 19 AU/mL or Less ......... Negative 20-25 AU/mL .............. Equivocal 26 AU/mL or Greater ...... Positive Approximately 90% of patients with a P-ANCA pattern by IFA have antibodies specific for MPO. SERINE PROTEINASE 3 0 AU/mL Normal 0-19 [facility] Comment on above: Result Comment: Myel [...] have antibodies specific for PR3. Performed By: [facility] [address] [place] [address] Excel Specialist: Edgar Snell MD, PhD MYOSITIS EXTENDED PANEL 3001 781on 12-18-2021 EJ AB Negative Normal Negative [facility] FIBRILLARIN (U3 FISH PROCESSING SUPERVISOR) AB, IgG Negative Normal Negative [facility] Comment on above: Result Comment: Inte rpretive Information: Fibrillarin (U3 FISH PROCESSING SUPERVISOR) Antibody, IgG The presence of fibrillarin (U3-FISH PROCESSING SUPERVISOR) IgG antibodies in association with an JAMIL [...] a multi-ethnic cohort of SSc patients (n=98), U3-FISH PROCESSING SUPERVISOR antibodies detected by immunoblot had an agreement of 98.9 percent with the gold standard immunoprecipitation (IP) assay. Approximately 71 percent (5/7) of the borderline U3-FISH PROCESSING SUPERVISOR results with JAMIL nucleolar pattern in this cohort were IP negative. This test was developed and its performance characteristics determined by [facility]. It has not been cleared or approved by the [place] Food and Drug Administration. This test was performed in a CLIA certified laboratory and is intended for clinical purposes. Performed By: [facility] [address] [place] [address] Excel Specialist: Edgar Snell MD, PHD ISAURA-1 AB IGG 0 AU/mL Normal 0-40 [facility] Comment on above: Result Comment: INTE RPRETIVE INFORMATION: Isaura-1 Antibody, IgG 29 AU/mL or less.........Negative 30-40 AU/mL..............Equivocal 41 AU/mL or greater......Positive Presence of Isaura-1 (antihistidyl transfer RNA [t-RNA] synthetase) antibody is associated with polymyositis and may also be seen in patients with dermatomyositis. Isaura-1 antibody is associated with pulmonary involvement (interstitial lung disease), Raynaud phenomenon, arthritis, and voting machine mechanic's hands (implicated in antisynthetase syndrome). KU AB Negative Normal Negative [facility] MDA5 AB Negative Normal Negative [facility] LA-2 AB Negative Normal Negative [facility] MYOSITIS PANEL INTERP See Note Normal [facility] Comment on above: Result Comment: INTE [...] . . . . . . X Willoughby/FISH PROCESSING SUPERVISOR (CHRISTA) Ab, IgG . . . . [...] . . . . X Fibrillarin (U3 FISH PROCESSING SUPERVISOR) Ab, IgG . . . . . [...] developed and its performance characteristics determined by [facility]. It has not been cleared or approved by the [place] Food and Drug Administration. This test was performed in a CLIA certified laboratory and is intended for clinical purposes. NXP2 AB Negative Normal Negative [facility] OJ AB Negative Normal Negative [facility] P155/140 AB Negative Normal Negative [facility] PL-12 AB Negative Normal Negative [facility] PL-7 AB Negative Normal Negative [facility] PM/SCL 100 AB, IgG Negative Normal Negative [facility] Comment on above: Result Comment: INTE [...] developed and its performance characteristics determined by [facility]. It has not been cleared or approved by the [place] Food and Drug Administration. This test was performed in a CLIA certified laboratory and is intended for clinical purposes. FISH PROCESSING SUPERVISOR AB IGG (CHRISTA) 2 Units Normal 0-19 [facility] Comment on above: Result Comment: INTE RPRETIVE INFORMATION: Willoughby/FISH PROCESSING SUPERVISOR (CHRISTA) Antibody, IgG 19 Units or Less ............. Negative 20 to 39 Units ............... Weak Positive 40 to 80 Units ............... Moderate Positive 81 Units or greater .......... Strong Positive Willoughby/FISH PROCESSING SUPERVISOR antibodies are frequently seen in patients with mixed connective tissue disease (MCTD) and are also associated with other systemic autoimmune rheumatic diseases (SARDs) such as systemic lupus erythematosus (SLE), systemic sclerosis, and myositis. Antibodies targeting the Willoughby/FISH PROCESSING SUPERVISOR antigenic complex also recognize Willoughby antigens, therefore, the [place]by antibody response must be considered when interpreting these results. SAE1 AB Negative Normal Negative [facility] SRP AB Negative Normal Negative [facility] SSA (RO) AB IGG 0 AU/mL Normal 0-40 [facility] Comment on above: Result Comment: INTE [...] AB IGG 0 AU/mL Normal 0-40 [facility] Comment on above: Result Comment: REFE RENCE INTERVAL: SSA-60 (Ro60) (CHRISTA) Antibody, IgG 29 AU/mL or Less ............. Negative 30 - 40 AU/mL ................ Equivocal 41 AU/mL or Greater .......... Positive TIF-1 GAMMA AB Negative Normal Negative [facility] RHEUMATOID FACTOR SERUMon RA <20 Normal 0-20 [facility] Comment on above: Performed By: #### 1 0204, 32502, 20692, 55575 #### [facility] [address] [facility]. [address] SEDIMENTATION RATEon 022 SED RATE 4 mm/hr Normal 0-20 [facility] Comment on above: Performed By: #### 5 6506 #### [facility] [address] [facility] [place] [address], [facility] SJOGRENS ANTIBODIESon 2021 SS-A Negative Normal NEG,NEGATIVE ,Neg [facility] Comment on above: Performed By: #### 9 9850, 83449, 48720, 20133, 78012 #### [facility] [address] [place] [address], [facility] SS-B Negative Normal NEG,NEGATIVE ,Neg [facility] Comment on above: Performed By: #### 9 9850, 57156, 79983, 34789, 21998 #### [facility] [address] [place] [address], [facility] Ambulatory Visit Summaryon 0 11-23-2021 Ambulatory Visit [...] suppurativa HTN (hypertension) Hypothyroidism Obesity Tobacco user [facility] General Surgery Office/Clini c Noteon [...] History Alcoholism: Father. Hypertension: Mother and Father. [facility] Comment on above: Result Comment: Elec tronically Signed By: ALEX SINGH, Chantel Cuevas\Date and Time Signed: 11/23/21 14:24 EDT Pathology Noteon 11-21-2021 Pathology Note [id number]#[id number]:127 [facility] Operative Reporton Operative Report [id number]:127 [facility] Provider Letter FTon 11-16 Provider Letter [facility] [place] 16, 2021 KERI WRIGHT [address] [place] [id number] KERI WRIGHT 1985 To Whom It May Concern, Please excuse above patient from work 11/16/2021. Sincerely, Dr. Chantel Mayo MD General Surgery [facility] Pre-Certification Formon Pre-Certification Form [id number]:127 [facility] Consent for Procedure/Surger yon 10-11-2021 Consent for Procedure/Surgery [id number]#[id number]:127 [facility] Ambulatory Visit Summaryon 0 10-09-2021 Ambulatory [...] HTN (hypertension) Hypothyroidism Obesity Tobacco user Normal [facility] Physician Referralon 022 Physician Referral [id number]:127 Normal [facility] MG MAMM TERRENCE DIAG W CADon MG MAMM TERRENCE DIAG W CAD Patient: KERI WRIGHT Exam Date: 10/02/2021 : 1985 Gender:F Ordering : RONY ROPER CNP Admission #: [id number] Family : Order #: [id number] CLICK HERE TO VIEW EXAM RADIOLOGY REPORT [...] Treatments None Family Cancers None [facility] BREAST COMPOSITION: Scattered areas fibroglandular [...] M.D. on 10/02/2021 at 12:01 Normal [facility] US BREAST RIGHT LIMITEDon US BREAST RIGHT LIMITED Patient: KERI WRIGHT Exam Date: 10/02/2021 : 1985 Gender:F Ordering : RONY ROPER [facility] Admission #: [id number] Family : Order #: [id number] CLICK HERE TO VIEW EXAM RADIOLOGY REPORT [...] Treatments None Family Cancers None LOCATION: [facility] BREAST COMPOSITION: Scattered areas fibroglandular [...] M.D. on 10/02/2021 at 12:01 Normal [facility] CBC AUTO DIFFon 09-14-2021 BASO # 0.1 103/ul Normal 0.0-0.1 [facility] Comment on above: Performed By: #### C BC #### [facility] [address] [place] [address] Dr. Jaylan Jones Basophils/100 WBC (Bld) 0.7 % Normal 0.2-2.0 [facility] Comment on above: Performed By: #### C BC #### [facility] [address] [address] [address] Jaylan Jones EO # 0.2 103/ul Normal 0.0-0.7 [facility] Comment on above: Performed By: #### C BC #### [facility] [address] [address] [address] Jaylan Jones Eosinophils/100 WBC (Bld) 3.1 % Normal 0.9-7.0 [facility] Comment on above: Performed By: #### C BC #### [facility] [address] [address] [address] Jaylan Jones Erythrocyte distribution width (RBC) [Ratio] 13.3 % Normal 11.0-15.0 [facility] Comment on above: Performed By: #### C BC #### [facility] [address] [place] [address] Dr. Jaylan Jones Hematocrit (Bld) [Volume fraction] 40.7 % Normal 36.0-48.0 [facility] Comment on above: Performed By: #### C BC #### [facility] [address] [place] [address] Dr. Jaylan Jones Hemoglobin (Bld) [Mass/Vol] 13.4 g/dL Normal 12.0-16.0 [facility] Comment on above: Performed By: #### C BC #### [facility] [address] [place] [address] Dr. Jaylan Jones IG # 0.03 10e3/ul Normal 0.00-0.03 [facility] Comment on above: Performed By: #### C BC #### [facility] [address] [place] [address] Dr. Jaylan Jones IG % 0.4 % Normal 0.0-0.5 [facility] Comment on above: Performed By: #### C BC #### [facility] [address] [place] [address] Dr. Jaylan Jones LYMPH # 1.9 103/ul Normal 1.2-3.8 [facility] Comment on above: Performed By: #### C BC #### [facility] [address] [place] [address] Dr. Jaylan Jones Lymphocytes/100 WBC (Bld) 25.4 % Normal 20.5-60.0 [facility] Comment on above: Performed By: #### C BC #### [facility] [address] [place] [address] Dr. Jaylan Jones MANUAL DIFF REQ NO Normal [facility] Comment on above: Performed By: #### C BC #### [facility] [address] [place] [address] Dr. Jaylan Jones MCH (RBC) [Entitic mass] 28.3 pg Normal 26.7-34.0 [facility] Comment on above: Performed By: #### C BC #### [facility] [address] [place] [address] Dr. Jaylan Jones MCHC (RBC) [Mass/Vol] 32.9 g/dL Normal 29.9-35.2 [facility] Comment on above: Performed By: #### C BC #### [facility] [address] [address] [address] Jaylan Jones MCV (RBC) [Entitic vol] 86.0 fL Normal 81.0-99.0 [facility] Comment on above: Performed By: #### C BC #### [facility] [address] [place] [address] Dr. Jaylan Jones MONO # 0.5 103/ul Normal 0.3-0.8 [facility] Comment on above: Performed By: #### C BC #### [facility] [address] [place] [address] Dr. Jaylan Jones Monocytes/100 WBC (Bld) 6.6 % Normal 1.7-12.0 [facility] Comment on above: Performed By: #### C BC #### [facility] [address] [place] [address] Dr. Jaylan Jones NEUT # 4.8 103/ul Normal 1.4-6.5 [facility] Comment on above: Performed By: #### C BC #### [facility] [address] [place] [address] Dr. Jaylan Jones Neutrophils/100 WBC (Bld) 63.8 % Normal 43.0-75.0 [facility] Comment on above: Performed By: #### C BC #### [facility] [address] [place] [address] Dr. Jaylan Jones Platelet mean volume (Bld) [Entitic vol] 10.1 fL Normal 9.5-13.5 [facility] Comment on above: Performed By: #### C BC #### [facility] [address] [place] [address] Dr. Jayaln Jones PLT 290 103/ul Normal 150-450 [facility] Comment on above: Performed By: #### C BC #### [facility] [address] [place] [address] Dr. Jaylan Jones RBC 4.73 106/ul Normal 4.20-5.40 [facility] Comment on above: Performed By: #### C BC #### [facility] [address] [place] [address] Dr. Jaylan Jones WBC 7.5 103/ul Normal 4.0-11.0 [facility] Comment on above: Performed By: #### C BC #### [facility] [address] [place] [address] Dr. Jaylan Jones FREE T4on 09-14-2021 Free T4 [Mass/Vol] 0.93 ng/dL Normal 0.78-2.19 [facility] Comment on above: Performed By: #### F T4 #### [facility] [address] [place] [address] Dr. Jaylan Jones GLYCOHEMOGLOBIN A1Con 2021 ADA RECOMMENDATION ADA THERAPEUTIC TARG ET 6.0 - 7.0 ACTION SUGGESTED > 7.0 Normal [facility] Comment on above: Performed By: #### A 1C #### [facility] [address] [place] [address] Dr. Jaylan Jones Glucose [Mass/Vol] 105 mg/dL Normal [facility] Comment on above: Performed By: #### A 1C #### [facility] [address] [place] [address] Dr. Jaylan Jones HbA1c (Bld) [Mass fraction] 5.3 % Normal <=6.0 [facility] Comment on above: Performed By: #### A 1C #### [facility] [address] [place] [address] Dr. Jaylan Jones LIPID PROFILEon 09-14-2021 CHOL-HDL RATIO NORM SEE BELOW Normal [facility] Comment on above: Result Comment: 3.3 - 4.4 LOW RISK 4.4 - 7.1 AVERAGE RISK 7.1 - 11.0 MODERATE RISK >11.0 HIGH RISK Performed By: #### T SH, LIPID, CMP #### [facility] [address] [place] [address] Dr. Jaylan Jones Cholesterol [Mass/Vol] 122 mg/dL Normal <=200 [facility] Comment on above: Performed By: #### T SH, LIPID, CMP #### [facility] [address] [place] [address] Dr. Jaylan Jones Cholesterol in HDL [Mass/Vol] 55 mg/dL Normal 40-60 [facility] Comment on above: Performed By: #### T SH, LIPID, CMP #### [facility] [address] [address] [address] Jaylan Jones Cholesterol in LDL [Mass/Vol] 55.2 mg/dL Normal [facility] Comment on above: Performed By: #### T SH, LIPID, CMP #### [facility] [address] [place] [address] Dr. Jaylan Jones Cholesterol.total/C holesterol in HDL [Mass ratio] 2.2 {ratio} Normal [facility] Comment on above: Performed By: #### T SH, LIPID, CMP #### [facility] [address] [place] [address] Dr. Jaylan Jones HDL NORMAL > or = 60 mg/dl - LO W CARDIOVASCULAR RISK <40 mg/dl - HIGH CARDIOVASCULAR RISK Normal [facility] Comment on above: Performed By: #### T PRISCILA, LIPID, CMP #### [facility] [address] [place] [address] Dr. Jaylan Jones LDL CALC NORMAL SEE BELOW Normal [facility] Comment on above: Result Comment: <100 mg/dl OPTIMAL 100 - 129 mg/dl NEAR OR ABOVE OPTIMAL 130 - 159 mg/dl BORDERLINE HIGH 160 - 189 mg/dl HIGH >190 mg/dl VERY HIGH Performed By: #### T PRISCILA, LIPID, CMP #### [facility] [address] [address] [address] Jaylan Jones Triglyceride [Mass/Vol] 59 mg/dL Normal <=150 [facility] Comment on above: Performed By: #### T SH, LIPID, CMP #### [facility] [address] [place] [address] Dr. Jaylan Jones VLDL CALC 11.8 mg/dL Normal [facility] Comment on above: Performed By: #### T SH, LIPID, CMP #### [facility] [address] [place] [address] Dr. Jaylan Jones PROF 14(COMP METB)on 022 Albumin [Mass/Vol] 3.9 g/dL Normal 3.4-5.0 [facility] Comment on above: Performed By: #### T SH, LIPID, CMP #### [facility] [address] [address] [address] Jaylan Jones Albumin/Globulin [Mass ratio] 1.1 {ratio} Normal [facility] Comment on above: Performed By: #### T SH, LIPID, CMP #### [facility] [address] [address] [address] Jaylan Jones ALP [Catalytic activity/Vol] 64 U/L Normal 46-116 [facility] Comment on above: Performed By: #### T SH, LIPID, CMP #### [facility] [address] [address] [address] Jaylan Jones ALT [Catalytic activity/Vol] 26 U/L Normal 14-59 [facility] Comment on above: Performed By: #### T SH, LIPID, CMP #### [facility] [address] [address] [address] Jaylan Jones Anion gap [Moles/Vol] 13.2 mmol/L Normal [facility] Comment on above: Performed By: #### T SH, LIPID, CMP #### [facility] [address] [address] [address] Jaylan Jones AST [Catalytic activity/Vol] 16 U/L Normal 15-37 [facility] Comment on above: Performed By: #### T SH, LIPID, CMP #### [facility] [address] [address] [address] Jaylan Jones Bilirubin [Mass/Vol] 0.5 mg/dL Normal 0.2-1.3 [facility] Comment on above: Performed By: #### T SH, LIPID, CMP #### [facility] [address] [address] [address] Jaylan Jones Calcium [Mass/Vol] 8.9 mg/dL Normal 8.5-10.1 [facility] Comment on above: Performed By: #### T SH, LIPID, CMP #### [facility] [address] [address] [address] Jaylan Jones Chloride [Moles/Vol] 102 mmol/L Normal 98-107 [facility] Comment on above: Performed By: #### T SH, LIPID, CMP #### [facility] [address] [place] [address] Dr. Jaylan Jones CO2 [Moles/Vol] 25.1 mmol/L Normal 22.0-30.0 [facility] Comment on above: Performed By: #### T SH, LIPID, CMP #### [facility] [address] [place] [address] Dr. Jaylan Jones Creatinine [Mass/Vol] 0.71 mg/dL Normal 0.55-1.02 [facility] Comment on above: Performed By: #### T SH, LIPID, CMP #### [facility] [address] [place] [address] Dr. Jaylan Jones EGFR-AF BAHAMIAN >60 Normal >=60 [facility] Comment on above: Performed By: #### T SH, LIPID, CMP #### [facility] [address] [place] [address] Dr. Jaylan Jones EGFR-NON AF BAHAMIAN >60 Normal >=60 [facility] Comment on above: Performed By: #### T SH, LIPID, CMP #### [facility] [address] [place] [address] Dr. Jaylan Jones Globulin (S) [Mass/Vol] 3.5 g/dL Normal [facility] Comment on above: Performed By: #### T SH, LIPID, CMP #### [facility] [address] [place] [address] Dr. Jaylan Jones Glucose [Mass/Vol] 85 mg/dL Normal 74-106 [facility] Comment on above: Performed By: #### T SH, LIPID, CMP #### [facility] [address] [place] [address] Dr. Jaylan Jones Potassium [Moles/Vol] 4.3 mmol/L Normal 3.4-5.0 [facility] Comment on above: Performed By: #### T SH, LIPID, CMP #### [facility] [address] [place] [address] Dr. Jaylan Jones Protein [Mass/Vol] 7.4 g/dL Normal 6.1-8.2 [facility] Comment on above: Performed By: #### T PRISCILA LIPID, CMP #### [facility] [address] [place] [address] Dr. Jaylan Jones Sodium [Moles/Vol] 136 mmol/L Critically low 137-145 [facility] Comment on above: Performed By: #### T PRISCILA, LIPID, CMP #### [facility] [address] [place] [address] Dr. Jaylan Jones Urea nitrogen [Mass/Vol] 14.0 mg/dL Normal 7.0-18.0 [facility] Comment on above: Performed By: #### T PRISCILA LIPID, CMP #### [facility] [address] [place] [address] Dr. Jaylan Jones Urea nitrogen/Creatinine [Mass ratio] 19.7 mg/mg Normal [facility] Comment on above: Performed By: #### T PRISCILA LIPID, CMP #### [facility] [address] [place] [address] Dr. Jaylan Jones SED RATE [facility] 2021 SED RATE 15 mm/hr Normal <=20 [facility] Comment on above: Performed By: #### S EDR #### [facility] [address] [place] [address] Dr. Jaylan Jones TSHon 09-14-2021 TSH 0.846 uIU/mL Normal 0.470-4.680 [facility] Comment on above: Performed By: #### T PRISCILA, LIPID, CMP #### [facility] [address] [place] [address] Dr. Jaylan Jones TSH RANGE SEE BELOW Normal [facility] Comment on above: Result Comment: <0.3 4 UIU/ml HYPERTHYROID 0.34-5.60 UIU/ml EUTHYROID >5.60 UIU/ml HYPOTHYROID Performed By: #### T PIRSCILA, LIPID, CMP #### [facility] [address] [place] [address] UROGRAM WO/W IVCONon 12-25 CT UROGRAM WO/W IVCON * * *Final Report* * *DATE OF EXAM: Jan 16 2018 2:44PM [facility] 0560 - CT UROGRAM WO/W IVCON [...] wall thickening.Lymph nodes: No abdominal or pelvic lymphadenopathy.Mesentery/ Peritoneum: No ascites or mass.Retroperitoneum: No mass.Vasculature: The celiac axis and SMA are patent. The portal vein and branches, splenic vein, SMV, and hepatic veins are patent.Pelvis: No mass, ascites or fluid collection.Bones/Soft Tissues: Fat-containing supraumbilical hernia. Bone islands noted in the right ilium. No suspicious lytic or blastic osseous lesions.Lung Bases: No focal consolidation.IMPRESSION:1 . No evidence of renal stones, renal mass, hydronephrosis or hydroureter.2. Fat-containing supraumbilical hernia. Transcrip tionist: PSCB Transcribe Date/Time: Jan 19 2018 2:30PDictated by : VAHID LOGAN MDThis examination was interpreted and the report reviewed and electronically signed by: VAHID LOGAN MD on Jan 19 2018 4:03PM [id number] Normal [facility] PROGRESSon 01-16-2018 Protein mass conc HNO ID: [id number] thor: Hoang (Ct) SHARAD Ruvalcabaervice: (none)Author Type: Clinical TechnicianType: Progress NotesFiled: 01/16/2018 2:46 PMNote Text: Radiology Service Progress NotePATIENT NAME: Keri WrightMRN: [id number] OF SERVICE: January 16, 2018TIME: 2:45 PMPATIENT [...] BY: Radha ZAVALETA 2017 2:45 PM Normal [facility] CNOVon 01-13-2018 CNOV Office Visit (UROLAV) DREPIPERJESSIEHAYES OVIEDO ([id number]) 1985 FDate Time Provider Department01/13/18 10:20 AM [...] pain.Izabel Earl PA-C 01/13/2018 12:28 PM Signed [facility] UROLOGICAL DAWSONHEMATURIA EVALUATIONAugust 2017 CHIEF COMPLAINT: pelvic pressure, flank pain, urinary urgency, gross hematuriaHPI:The patient is 32 year old and is referred for evaluation of gross hematuria,urinary urgency, flank pain, and pelvic pressure.She has had gross hematuria 1-2x per week since September.Was told by multiple doctors that I have blood in my urine. 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 I will go days without eatings. No appetite, sometimes in too much pain toeat.(Determine 4 of 8)1-Duration: 94253-Pqwvcbya: bladder3-Severity: worse4-Quality: Irritative5-Context: Void6-Timing: constantly7-Modifying factors: No [...] inflammation.3. Status post hysterectomy.Ultrasound pelvic with transvaginal 09/27/16:IMPRESSION:1.??Stat us post hysterectomy.2.??Normal ovaries.RECENT URINALYSIS:None in our systemRECENT URINE CULTURE:None in our systemRECENT URINE CYTOLOGY:NoneRECENT CYSTOSCOPY:None PAS T MEDICAL HISTORY/COMORBIDITIES:==== ====Hypothyroidism, thyroid goiterDepressionHysterecto my in 2012Kn surgeries for patellar dislocation.IBUPROFEN (MOTRIN ORAL) Take by mouth as needed. 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 No deformities, edema, or skin discoloration.Genitourinar y: FEMALE EXAM: External genitalia: nl. Hair distribution, [...] help improve urgency3. Pelvic pain - ICD9: [id number], ICD10: R10.2- Patient with multiple year history [...] for genitourinary condition [Z13.89]Order(s):UA DIP, URINE (POC) [6853894] Order #: [id number]. #:[id number] -LAB URINALYSIS WITH MICROSCOPIC [SQUAWMIC] Order #: [id number] CYTOLOGY, URINE (XTUBE) [SQUCYTOL] Order #: [id number] FUTURE URINE CYTOLOGY VOIDED [3844411] Order #: [id number] CT UROGRAM WO/W IVCON [3496404] Order #: [id number] FUTURE iv contrast (will be provided with [...] administration guidelines link.Disp: 1 EachRfl: 0 CYSTO.PANENDO [76587YAZ] Order #: [id number] MYCOPLASMA CULT [SQMYPLAS] Order #: [id number] CONSULT TO PHYSICAL THERAPY [9032] Order #: [id number]: 1Prescriptions as of 01/13/2018 Sig: MOTRIN ORAL [...] gross hematuria.Follow-up and Disposition History RecordedEncounter Number: [id number] Status:Closed by IZABEL EARL PA-C on 01/13/18 Normal [facility] CYTOLOGYon 01-13-2018 Body mass index (BMI) [Ratio] [facility] ansonn #: [id number] Physician: IZABEL CARMEN SUBMITTEDA: URINE, VOIDED FINAL DIAGNOSISA. URINE, VOIDED: - Negative for malignant cells.Tate Joseph MD (Electronic Signature) CLINICAL DATA Gross hematuriaGROSS [id number] clear slight yellow tinged fluidSTAINSA: URINE, VOIDED THIN PREP Non-GynPatient ID #: [id number] of Report: 01/15/2018Date of Procedure: 01/13/2018Date of Receipt: 01/13/2018Submitted by: IZABEL EARLLocation: JOSUE [id number] interpretation performed at [facility], [facility] [address]. Normal [facility] Mycoplasma Culton 01-13-2018 Mycoplasma Cult Sp. Request/Comment: - Specimen received in [place] [facility]. Test Result - Culture negative for Mycoplasma hominis and Ureaplasma urealyticum Normal [facility] Comment on above: Performed By: #### M [facility] ####[facility] [place], [place] [phone] PROGRESSon 01-13-2018 Protein mass conc HNO ID: [id number] thor: Izabel Hardwick) Joy: (none)Author Type: Physician AssistantType: Progress NotesFiled: 01/13/2018 12:28 PMNote Text: [facility] DAWSONHEMATURIA EVALUATIONAugust 2017 CHIEF COMPLAINT: pelvic pressure, flank pain, urinary urgency, grosshematuriaHPI:The patient is 32 year old and is referred for evaluation of grosshematuria, urinary urgency, flank pain, and pelvic pressure.She has had gross hematuria 1-2x per week since September.Was told by multiple doctors that I have blood in my urine. Uncertain if it's blood in urine or vaginal bleeding, but has hadhysterectomy and varsity baseball coach has told her it's not from that [...] to get a soonerappointment.She lives in the [facility] and some results are in Care Everywhere.DTF: 10+NTF: 4-5x per nightUrgency: yesUUI: NOSUI: [id number] - vaginal birthPreeclampsiaBowel movements vary - change all the timeDiarrhea - constipation. I will go days without eatings. No appetite, sometimes in too much painto eat.(Determine 4 of 8)1-Duration: 88662-Ebndmibl: bladder3-Severity: worse4-Quality: Irritative5-Context: Void6-Timing: constantly7-Modifying factors: No treatment prior to referral8-Associated signs AND symptoms: irritative, obstructive and hematuriaPRESENTING HISTORY:Obstructive voiding symptoms: straining to void, feeling of incompleteemptying.Irritat venancio voiding symptoms: frequency, urgency, nocturia and dysuriaFlank [...] inflammation.3. Status post hysterectomy.Ultrasound pelvic with transvaginal 09/27/16:IMPRESSION:1.??Stat us post hysterectomy.2.??Normal ovaries.RECENT URINALYSIS:None in our systemRECENT URINE CULTURE:None in our systemRECENT URINE CYTOLOGY:NoneRECENT CYSTOSCOPY:None PAS T MEDICAL HISTORY/COMORBIDITIES:==== ====Hypothyroidism, thyroid goiterDepressionHysterecto my in 2012Kn surgeries for patellar dislocation.IBUPROFEN (MOTRIN ORAL) Take by mouth as needed. 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 No deformities, edema, or skindiscoloration.Genitour inary: FEMALE EXAM: External genitalia: nl. Hair distribution, [...] help improve urgency3. Pelvic pain - ICD9: [id number], ICD10: R10.2- Patient with multiple year history [...] (XTUBE)- URINE CYTOLOGY Willy Earl PA-C Normal [facility] Urinalysis with Microscopico n 01-13-2018 Bilirubin, Urine Negative Normal Negative Faiza herring [facility] Comment on above: Performed By: #### U AWMIC ####[facility] [address] [place], [place] [phone] Clarity Clear Normal Clear [facility] Comment on above: Performed By: #### U AWMIC ####[place] [address] [phone] Color Yellow Normal Yellow [facility] Comment on above: Performed By: #### U AWMIC ####[place] [address] [phone] Comments SEE COMMENT Normal [facility] Comment on above: Result Comment: N/A Performed By: #### U AWMIC ####[address] [place] [address] [address] [phone] Glucose Ql (U) Negative Normal Negative [facility] Comment on above: Performed By: #### U AWMIC ####[address] [place] [address] [address] [phone] Hemoglobin/Blood,Ur 1+ Critically abnormal Negative [facility] Comment on above: Performed By: #### U AWMIC ####[address] [place] [address] [address] [phone] INR Coag RelTime (Bld) 0-3 Normal 0-3 [facility] Comment on above: Performed By: #### U AWMIC ####[address] [place] [address] [address] [phone] Ketones Ql (U) Negative Normal Negative [facility] Comment on above: Performed By: #### U AWMIC ####[address] [place] [address] [address] [phone] Leukest Negative Normal Negative [facility] Comment on above: Performed By: #### U AWMIC ####[place] [address] [address] [phone] Nitrites Negative Normal Negative [facility] Comment on above: Performed By: #### U AWMIC ####[address] [address] [address] [place] [phone] pH 7.0 Normal 4.5-8.0 [facility] Comment on above: Performed By: #### U AWMIC ####[facility] [phone] Protein, Urine Negative Normal Negative [facility] Comment on above: Performed By: #### U AWMIC ####[facility] [phone] Specific [place], Ur 1.008 Normal 1.005-1.030 [facility] Comment on above: Performed By: #### U AWMIC ####[place] [address] [phone] Urine Lazaro Comment SEE COMMENT Normal [facility] Comment on above: Result Comment: N/A Performed By: #### U AWMIC ####[place] [address] [address] [phone] Urobilinogen Normal Normal Normal [facility] Comment on above: Performed By: #### U AWMIC ####[place] [address] [address] [phone] WBC 0-5 Normal 0-5 [facility] Comment on above: Performed By: #### U AWMIC ####[place] [address] [address] [phone] .UA Microscp Aon 06-09-2017 UA Mucus Present Abnormal Absent [facility] Comment on above: Performed By: #### C D:[id number] ####[address] [address] UA Squepi Cells Quant 7 /HPF Normal 0-29 [facility] Comment on above: Performed By: #### C D:[id number] ####[address] [address] UA WBC Quant 0 /HPF Normal 0-5 [facility] Comment on above: Performed By: #### C D:[id number] ####[address] [address] Urine, erythrocytes 17 /HPF High 0-5 [facility] Comment on above: Performed By: #### C D:[id number] ####[address] [address] .eGFRon 06-09-2017 eGFR (non-black) mL/min/{1.73_m2} Normal >=60 [facility] Comment on above: Result Comment: [...] medication dosing. Performed By: #### E GFR ####[place] [id number] Result Comment: Resu lt = 0-14.9 mL/min/1.73 m2 Kidney failure or DialysisResult = 15-29 mL/min/1.73 m2 Severe decrease in GFRResult = 30-59 mL/min/1.73 m2 Moderate decrease in GFRResult >= 60 mL/min/1.73 m2 Normal or increased GFR CBC w/ Diffon 06-09-2017 Erythrocyte distribution width Auto Ratio (RBC) 14.0 % Normal 11.6-14.8 [facility] Comment on above: Performed By: #### C BC ####[address] [address] Erythrocytes (RBC) 5.00 x10*6/mcL Normal 3.80-5.20 [facility] Comment on above: Performed By: #### C BC ####[address] [address] Hematocrit (HCT) 42.4 % Normal 36.0-46.0 [facility] Comment on above: Performed By: #### C BC ####[address] [address] Hemoglobin mass conc (Bld) 14.6 g/dL Normal 12.0-16.0 [facility] Comment on above: Performed By: #### C BC ####[address] [address] MCH 29.3 pg Normal 27.0-35.0 [facility] Comment on above: Performed By: #### C BC ####[address] [address] MCHC mass conc (RBC) 34.5 % Normal 31.0-37.0 [facility] Comment on above: Performed By: #### C BC ####[address] [address] MCV 84.9 fL Normal 80.0-100.0 [facility] Comment on above: Performed By: #### C BC ####[address] [address] Platelet mean volume (PMV) 8.1 fL Normal 6.7-10.6 [facility] Comment on above: Performed By: #### C BC ####[address] [address] Platelets 242 x10*3/mcL Normal 150-350 [facility] Comment on above: Performed By: #### C BC ####[address] [address] WBC (Leukocytes) 9.2 x10*3/mcL Normal 4.5-11.0 [facility] Comment on above: Performed By: #### C BC ####[address] [address] CMPon 06-09-2017 Alanine aminotransferase (ALT) 15 U/L Normal 14-54 [facility] Comment on above: Performed By: #### C OMP ####[address] [address] Albumin 4.0 g/dL Normal 3.2-4.9 [facility] Comment on above: Performed By: #### C OMP ####[address] [address] Albumin/Globulin Ratio 1.4 {ratio} Normal 1.1-2.2 [facility] Comment on above: Performed By: #### C OMP ####[address] [address] Alk Phos 40 IU/L Normal 32-91 [facility] Comment on above: Performed By: #### C OMP ####[address] [address] Anion gap 9 mmol/L Normal 7-17 [facility] Comment on above: Performed By: #### C OMP ####[address] [address] Aspartate aminotransferase (AST) 22 U/L Normal 15-41 [facility] Comment on above: Performed By: #### C OMP ####[address] [address] Bili Total 0.5 mg/dL Normal 0.3-1.2 [facility] Comment on above: Performed By: #### C OMP ####[address] [address] BUN/Creatinine Ratio 25.8 mg/mg High 15.0-25.0 [facility] Comment on above: Performed By: #### C OMP ####[address] [address] Calcium 9.0 mg/dL Normal 8.5-10.3 [facility] Comment on above: Performed By: #### C OMP ####[address] [address] Chloride 108 mmol/L Normal 98-110 [facility] Comment on above: Performed By: #### C OMP ####[address] [address] CO2 24 mmol/L Normal 22-32 [facility] Comment on above: Performed By: #### C OMP ####[address] [address] Creatinine 0.66 mg/dL Normal 0.44-1.03 [facility] Comment on above: Performed By: #### C OMP ####[address] [address] Glucose mass conc 95 mg/dL Normal 74-118 [facility] Comment on above: Performed By: #### C OMP ####[address] [address] Potassium molar conc 3.7 mmol/L Normal 3.4-4.8 [facility] Comment on above: Performed By: #### C OMP ####[address] [address] Protein 6.8 g/dL Normal 6.5-8.1 [facility] Comment on above: Performed By: #### C OMP ####[address] [address] Sodium 137 mmol/L Normal 133-142 [facility] Comment on above: Performed By: #### C OMP ####[address] [address] Urea nitrogen 17 mg/dL Normal 8-26 [facility] Comment on above: Performed By: #### C OMP ####[address] [address] [address] Abdomen Pelvis w/ IV Cont kalyn [...] abnormality.IMPRESSION:No acute abdominal or pelvic abnormality.Radiation Dose Estimate:CTDI(mGy):0.26235 0 / / / kVp:120.628697 / mAs:0.975080 / / / DLP(mGy-cm):6.895795Hxye Part: AbdomenCTDI(mGy):12.998737 / / / kVp:100.094582 / mAs:167.885684 / / / DLP(mGy-cm):598.757039Gctz Part: Abdomen Final Dictated by: Herrera House MDctated DT/TM: 06.09.2017 9:57 amSigned by: Herrera House MDigned (Electronic Signature): 06.09.2017 10:00 am(If Report Is Signed, Electronically Signed in Other Vendor System) Normal [facility] Diff Autoon 06-09-2017 Baso Absolute 0.1 x10*3/mcL Normal 0.0-0.2 [facility] Comment on above: Performed By: #### . Automated Diff ####[address] [address] Basophils/100 WBC Auto (Bld) 1.0 % Normal 0.0-1.5 [facility] Comment on above: Performed By: #### . Automated Diff ####[address] [address] Eos Absolute 0.5 x10*3/mcL High 0.0-0.4 [facility] Comment on above: Performed By: #### . Automated Diff ####[address] [address] Eosinophils/100 leukocytes 5.4 % Normal 0.0-5.4 [facility] Comment on above: Performed By: #### . Automated Diff ####[address] [address] Lymphocytes 2.8 x10*3/mcL Normal 1.0-4.8 [facility] Comment on above: Performed By: #### . Automated Diff ####[address] [address] Lymphocytes/100 leukocytes 30.4 % Normal 27.2-40.8 [facility] Comment on above: Performed By: #### . Automated Diff ####[address] [address] Throckmorton Absolute 0.7 x10*3/mcL Normal 0.1-1.1 [facility] Comment on above: Performed By: #### . Automated Diff ####[address] [address] Monocytes/100 leukocytes 8.0 % Normal 3.7-11.9 [facility] Comment on above: Performed By: #### . Automated Diff ####[address] [address] Neutro Absolute 5.1 x10*3/mcL Normal 1.8-7.7 [facility] Comment on above: Performed By: #### . Automated Diff ####[place] [id number] Neutro Auto 55.2 % Normal 47.2-70.8 [facility] Comment on above: Performed By: #### . Automated Diff ####[place] [id number] ED Clinical Summaryon 2017 ED Clinical Summary (Inserted Image. Carito ble to display) [place] [id number] ED Clinical SummaryPerson InformationName: Keri Wright Awilda/Mary Ellen Age: 31 Years : 1985Sex: Female PCP:Marital Status:Single race:White Ethnicity:Not or Language:EnglishMRN: [id number] [facility]: [id number] Reason:Abdominal pain; Abdominal pain Acuity: 3Enc Type: Emergency Med Service: Emergency MedicineArrival:06/08/2017 21:47:00 Discharge: 06/09/2017 00:51:00 LOS: 000 03:04Checkin:06/08/2017 21:47:00 Checkout: 06/09/2017 00:51:00 Dispo Type: Home or Self CareAddress[facility] [address] [facility] [address] Provider Notes: History of Present IllnessPatient is [...] [place] [facility] [place]???s past medical history includes cholelithiasis. Patient [...] ?Back:?Exam negative for acute changes, CVA tenderness. ?Musculoskeletal/extremity :?Extremities: all appear grossly normal, with no appreciated [...] ?Psych:?Exam negative for acute changes, delusions, inappropriate behavior.Diagnosis:1:Abdom inal pain; 2:Constipation; 3:Gallbladder contractionProblems No Problems DocumentedSmoking Status: Smoking Status Current every day smokerFunctional Status:Sensory Deficits:History of Falls:Mobility Assistance Prior to Admission:ADLs:Current Level of Assistance for Self-Care/Mobility:Cogniti ve Status:Allergies Nubain (Vomiting)Laboratory or Other Results This Visit (last charted value for your 06/08/2017 visit) Hematology 06/08/2017 10:17 PM WBC: 9.2 x10 RBC: 5.00 x10 Neutro Auto: 55.2 % -- Normal range between ( 47.2 and 70.8 ) Lymph Auto: 30.4 % -- Normal range between ( 27.2 and 40.8 ) Throckmorton Auto: 8.0 % -- Normal range between [...] range between ( 36.0 and 46.0 ) Throckmorton Absolute: 0.7 x10 MCH: 29.3 pg -- [...] Normal range between ( 1.1 and 2.2 )Measurements:Height:Weigh t: 86.2 kgBlood Pressure: /85 mmHgBMI:Procedures No Procedures DocumentedImmunizations No Immunizations Documented This VisitFinal Med List:[facility] [address], [address], [place] [id number], [phone] (Bentyl 20 mg oral tablet) 1 Tabs Oral (given by mouth) 3 times a day for 7 Days. Refills: 0.Last Dose: d ocusate (Colace 100 mg oral capsule) 1 Capsules Oral (given by mouth) 2 times a day as needed as needed for constipation for 10 Days. Refills: 0.Last Dose: o ndansetron (Zofran 4 mg oral tablet) 1 Tabs Oral (given by mouth) every 8 hours as needed nausea/vomiting for 5 Days. Refills: 0.Last Dose: p olyethylene glycol 3350 (MiraLax oral powder for reconstitution) 17 Gram Oral (given by mouth) every day. dissolve in water before taking. Refills: 0.Last Dose: M edications that have not changedOther Medicationsacetaminophen (Tylenol Extra Strength 500 mg oral tablet) 2 Tabs Oral (given by mouth) every 4 hours as needed as needed for fever.Last Dose: h ydrocodone-acetaminophen (Vicodin 5 mg-300 mg oral tablet) 1 Tabs Oral (given by mouth) every 6 hours.Last Dose: n aproxen (Aleve 220 mg oral tablet) 2 Tabs Oral (given by mouth) every 8 hours as needed as needed for pain.Last Dose: [facility] [address], [address] [place], [place] [phone], [phone] (Bentyl 20 mg oral tablet) 1 Tabs [...] 4 hours as needed as needed for fever.hydrocodone-acetamin ophen (Vicodin 5 mg-300 mg oral tablet) 1 [...] (Adult); Abdominal Pain, AdultAAPCC Poison Help line: .[facility] Hotline: [place] Tobacco Quit Line: [place], [place]) [address]: [phone], [place]) [address]: [phone] [place] [address] [address] [place], [place]: [phone] [facility] ED Note-Physicianon 06-09-19 ED Note-Physician Chief [...] to [place]olelithiasis 2 [place] [facility] [place] Patient?s past medical history includes cholelithiasis. Patient [...] and in the presence of Dr. Katia Duncan.Reexamination/Reeval uation Scribe Attestation: The information in this document, created by the medical equipment repairer for me, accurately reflects the services I [...] TID, # 21 tabs, 0 Refill(s), Pharmacy: [facility] [address] docusate, 1 caps, Oral, BID, PRN, # 20 caps, 0 Refill(s), Pharmacy: [facility] [address] ondansetron, 1 tabs, Oral, q8hr, PRN, # 15 tabs, 0 Refill(s), Pharmacy: [facility] [address] polyethylene glycol 3350, 17 g, Oral, Daily, dissolve in water before taking, # 527 g, 0 Refill(s), Pharmacy: [facility] [address] 2. Constipation 3. Gallbladder contraction Orders: sodium chloride, 10 mL, IV Push, Injection, As Indicated, PRN flush, First Dose: 06/08/17 22:02:00 EST, Dispense From Location: [id number] CT Abdomen Pelvis w/ IV Contrast Discharge [...] Magnetic Resonance Imaging No qualifying data available. Flaquito Monique RElectronically signed by G omaa , Mandaen Ali 06/09/2017 00:17 EST Normal [facility] Lipaseon 06-09-2017 Lipase Lvl 20 IU/L Low 22-51 [facility] Comment on above: Performed By: #### L IP ####[address] [address] UA w Culture if Indon 2017 UA Blood Small Abnormal Negative [facility] Comment on above: Performed By: #### U CI ####[address] [address] UA Clarity Clear Normal [facility] Comment on above: Performed By: #### U CI ####[address] [address] UA Leukocyte Esterase Negative Normal Negative [facility] Comment on above: Performed By: #### U CI ####[address] [address] UA Nitrite Negative Normal Negative [facility] Comment on above: Performed By: #### U CI ####[address] [address] UA pH 5.0 Normal 4.5 - 7.8 [facility] Comment on above: Performed By: #### U CI ####[address] [address] UA Protein Negative Normal Negative [facility] Comment on above: Performed By: #### U CI ####[address] [address] UA Source Clean Catch Normal [facility] Comment on above: Performed By: #### U CI ####[address] [address] UA Spec Grav 1.034 Normal 1.003-1.035 [facility] Comment on above: Performed By: #### U CI ####[address] [address] UA Urobilinogen 0.2 mg/dL Normal 0.2 - 1.0 [facility] Comment on above: Performed By: #### U CI ####[address] [address] Urine, color Yellow Normal [facility] Comment on above: Performed By: #### U CI ####[address] [address] Urine, glucose Negative Normal Negative [facility] Comment on above: Performed By: #### U CI ####[address] [address] Urine, ketones presence Trace Abnormal Negative [facility] Comment on above: Performed By: #### U CI ####[address] [address] Urine, urobilinogen Negative Normal Negative [facility] Comment on above: Performed By: #### U CI ####[address] [address] Vital Signs Date Time Vital Sign Value Performing Clinician Facility 04-14-2024 10:050 Body height 157.48 cm [facility] 04-14-2024 10:050 Body mass index (BMI) [Ratio] 41.3 kg/m2 [facility] 04-14-2024 10:050 Body temperature 98.1 [degF] [facility] 04-14-2024 10:050 Body weight 102.51 kg [facility] 04-14-2024 10:050 Diastolic blood pressure 85 mm[Hg] [facility] 04-14-2024 10:13-0500 Heart rate 90 /min [facility] 04-14-2024 10:13-0500 SaO2% (BldA) [Mass fraction] 98 % [facility] 04-14-2024 10:13-0500 Systolic blood pressure 129 mm[Hg] [facility] 04-01-2024 12:29-0500 Body height 157.48 cm [facility] 04-01-2024 12:29-0500 Body mass index (BMI) [Ratio] 41.8 kg/m2 [facility] 04-01-2024 12:29-0500 Body temperature 97.5 [degF] [facility] 04-01-2024 12:29-0500 Body weight 103.58 kg [facility] 04-01-2024 12:29-0500 Diastolic blood pressure 84 mm[Hg] [facility] 04-01-2024 12:29-0500 Heart rate 79 /min [facility] 04-01-2024 12:29-0500 Respiratory rate 18 /min [facility] 04-01-2024 12:29-0500 SaO2% (BldA) [Mass fraction] 98 % [facility] 04-01-2024 12:29-0500 Systolic blood pressure 128 mm[Hg] [facility] 11-18-2023 10:49-0400 Body height 160.02 cm [facility] 11-18-2023 10:49-0400 Body mass index (BMI) [Ratio] 38.8 kg/m2 [facility] 11-18-2023 10:49-0400 Body temperature 97.6 [degF] [facility] 11-18-2023 10:49-0400 Body weight 99.5 kg [facility] 11-18-2023 10:49-0400 Diastolic blood pressure 86 mm[Hg] [facility] 11-18-2023 10:49-0400 Heart rate 78 /min [facility] 11-18-2023 10:49-0400 Respiratory rate 18 /min [facility] 11-18-2023 10:49-0400 SaO2% (BldA) [Mass fraction] 99 % [facility] 11-18-2023 10:49-0400 Systolic blood pressure 130 mm[Hg] [facility] 04-23-2023 09:00-0500 Body height 160.02 cm Kamila Contrerasmond Other [facility] Other 04-23-2023 09:00-0500 Body mass index (BMI) [Ratio] 39.14 kg/m2 Kamila Contrerasmond Other [facility] Other 04-23-2023 09:00-0500 Body temperature 97.4 [degF] Kamila Contrerasmond Other [facility] Other 04-23-2023 09:00-0500 Body weight 100.25 kg Kamila Contrerasmond Other [facility] Other 04-23-2023 09:00-0500 Diastolic blood pressure 94 mm[Hg] Kamila Rhoda Other [facility] Other 04-23-2023 09:00-0500 Respiratory rate 18 /min Kamila Contrerasmond Other [facility] Other 04-23-2023 09:00-0500 SaO2% (BldA) [Mass fraction] 99 % Kamila Rhoda Other [facility] Other 04-23-2023 09:00-0500 Systolic blood pressure 143 mm[Hg] Kamila Rhoda Other [facility] Other 02-09-2023 09:00-0400 Body height 160.02 cm Kamila Rhoda Other [facility] Other 02-09-2023 09:00-0400 Body mass index (BMI) [Ratio] 36.77 kg/m2 Kamila Duong Other [facility] Other 02-09-2023 09:00-0400 Body temperature 97.4 [degF] Kamila Duong Other [facility] Other 02-09-2023 09:00-0400 Body weight 94.17 kg Kamila Duong Other [facility] Other 02-09-2023 09:00-0400 Diastolic blood pressure 88 mm[Hg] Kamila Duong Other [facility] Other 02-09-2023 09:00-0400 Respiratory rate 18 /min Kamila Duong Other [facility] Other 02-09-2023 09:00-0400 SaO2% (BldA) [Mass fraction] 98 % Kamila Duong Other [facility] Other 02-09-2023 09:00-0400 Systolic blood pressure 126 mm[Hg] Kamila Duong Other [facility] Other 06-11-2022 10:00-0500 Body height 157.48 cm Gloria Jackson Other [facility] Other 06-11-2022 10:00-0500 Body mass index (BMI) [Ratio] 40.23 kg/m2 Gloria Jackson Other [facility] Other 06-11-2022 10:00-0500 Body temperature 97.8 [degF] Gloria Jackson Other [facility] Other 06-11-2022 10:00-0500 Body weight 99.79 kg Gloria Jackson Other [facility] Other 06-11-2022 10:00-0500 Respiratory rate 18 /min Gloria Jackson Other [facility] Other 06-11-2022 10:00-0500 SaO2% (BldA) [Mass fraction] 99 % Gloria Jackson Other [facility] Other 10-09-2021 13:49-0400 Blood Pressure Location Chantel Long [facility] [place] 10-09-2021 13:49-0400 Diastolic blood pressure 80 mm[Hg] Chantel NILL [facility] [place] 10-09-2021 13:49-0400 Heart rate 72 /min Chantel NILL [facility] [place] 10-09-2021 13:49-0400 Respiratory rate 16 /min Chantel NILL [facility] [place] 10-09-2021 13:49-0400 Systolic blood pressure 124 mm[Hg] Chantel NILL [facility] [place] NEGATED: Highlighted row BMI (Body Mass Index) [facility] NEGATED: Highlighted row [facility] NEGATED: Highlighted row Body weight [facility] NEGATED: Highlighted row BP [facility] NEGATED: Highlighted row BP Systolic [facility] NEGATED: Highlighted row Height [facility] NEGATED: Highlighted row Pulse (Heart Rate) Harry [facility] NEGATED: Highlighted row Pulse Oximetry [facility] NEGATED: Highlighted row Respiratory Rate [facility] Encounters Encounter Date Encounter Type Care Provider Facility Start: 04-14-2024 End: 04-14-2024 ambulatory [facility] [place] Work Phone: Start: 04-14-2024 End: 04-14-2024 Patient encounter procedure [facility] Physician [facility] Work Phone: Start: 04-01-2024 End: 04-01-2024 Patient encounter procedure [facility] Work Phone: Start: 02-22-2024 Non-patient / Non-visit [facility] Work Phone: Start: 12-09-2023 End: 12-09-2023 ambulatory MEKA MOELLERMYRONPhu Not Available Start: 11-18-2023 End: 11-18-2023 ambulatory [facility] Work Phone: Start: 11-18-2023 End: 11-18-2023 Patient encounter procedure [facility] Work Phone: Start: 08-14-2023 End: 08-14-2023 ambulatory [place] MARIA ANTONIA Not Available Start: 08-04-2023 End: 08-04-2023 ambulatory [place] MARIA ANTONIA Not Available Start: 06-23-2023 End: 06-23-2023 ambulatory DELICIA TRIPP Not Available Start: 06-03-2023 End: 06-03-2023 ambulatory DELICIA TRIPP Not Available Start: 04-23-2023 (URG) Urgent Care Visit Kamila herring [facility] Start: 04-23-2023 End: 04-23-2023 ambulatory Kamila Duong Other [facility] Other Start: 02-09-2023 End: 02-09-2023 ambulatory Kamila Duong Other [facility] Other Start: 02-09-2023 Office outpatient vi sit 15 minutes Kamila Duong [facility] Start: 01-07-2023 ambulatory PHYSICIAN [facility] Fac ility:[facility] Start: 06-17-2022 End: 06-17-2022 ambulatory RONY MEKA SAÚLKathyHEIDI Facility:[facility] Start: 06-14-2022 End: 06-14-2022 ambulatory Gloria Jackson Other [facility] Other Start: 06-14-2022 Telephone encounter Gloria Jackson [facility] [address] Start: 06-11-2022 Office outpatient vi sit 25 minutes Gloria Jackson [facility] Start: 06-11-2022 End: 06-11-2022 ambulatory PHYSICIAN [facility] Facility:[facility] Start: 06-11-2022 End: 06-11-2022 ambulatory PHYSICIAN NO [facility] Work Phone: Start: 06-11-2022 End: 06-11-2022 Departed Referred PHYSICIAN NO [facility] [place] Work Phone: Start: 11-23-2021 End: 11-23-2021 Patient encounter procedure Chantel MAYO [facility]/V[facility] Start: 11-14-2021 End: 11-14-[address] CHANTEL MAYO Facility:[facility] Start: 11-06-2021 Encounter for other preprocedural examination DR CHANTEL MAYO [facility] Start: 11-02-2021 End: 11-03-[address] CHANTEL MAYO Facility:[facility] Start: 11-02-2021 End: 11-03-2021 Encounter for other preprocedural examination DR CHANTEL MAYO Facility:[facility] Start: 10-09-2021 End: 10-09-2021 Patient encounter procedure Chantel MAYO [facility] [place]/[facility] Start: 10-02-2021 End: 10-03-2021 ambulatory RONY ROPER Facility:[facility] Start: 09-14-2021 End: 09-15-2021 ambulatory [facility] MEKA ROPER Facility:[facility] Start: 01-16-2018 End: 01-16-2018 Patient encounter IZABEL HARDWICK) [facility] Start: 01-13-2018 End: 01-14-2018 Patient encounter IZABEL HARDWICK) [facility] Start: 06-08-2017 End: 06-09-2017 Emergency department patient visit KATIA DUNCAN Facility:[facility] Start: 10-02-2015 End: 10-03-2015 Ad[facility] to day [facility] Start: 08-11-2015 End: 08-11-2015 Admission to day surgery Harry [facility] Start: 12-01-2013 End: 12-01-2013 Emergency department patient visit [facility] Start: 04-06-2013 End: 04-06-2013 Patient encounter procedure [facility] Start: 04-28-2012 End: 04-28-2012 Patient encounter procedure [facility] Start: 10-07-2011 End: 10-07-2011 Emergency department patient visit [facility] Start: 04-23-2011 End: 04-23-2011 Emergency department patient visit [facility] Start: 04-09-2011 End: 04-09-2011 Emergency department patient visit [facility] Start: 12-10-2010 End: 12-10-2010 Emergency department patient visit [facility] Start: 11-01-2010 End: 11-01-2010 [facility] Start: 03-05-2010 End: 03-05-2010 [facility] Start: 12-12-2009 End: 12-12-2009 Admission to day surgery [facility] Start: 10-10-2009 End: 10-10-2009 Emergency department patient visit [facility] Start: 03-06-2009 End: 03-06-2009 [facility] Start: 11-09-2008 End: 11-09-2008 Emergency department patient visit [facility] Start: 09-14-2008 Patient encounter procedure [facility] Start: 07-07-2008 End: 07-07-2008 Emergency department patient visit [facility] Start: 06-24-2008 End: 06-24-2008 Emergency department patient visit [facility] Start: 06-04-2008 End: 06-04-2008 Emergency department patient visit [facility] Start: 04-09-2008 End: 04-09-2008 Emergency department patient visit [facility] Start: 12-15-2007 End: 12-28-2007 [facility] Start: 12-15-2007 End: 12-15-2007 Emergency department patient visit [facility] Start: 12-05-2007 End: 12-05-2007 [facility] Start: 10-12-2007 End: 10-12-2007 [facility] Start: 09-18-2007 End: 09-18-2007 [facility] Start: 08-16-2007 End: 08-16-2007 Emergency [facility] Start: 07-23-2007 End: 07-23-2007 Emergency department patient visit [facility] Start: 06-24-2007 End: 06-25-2007 Emergency department patient visit [facility] Start: 05-23-2007 End: 05-23-2007 [facility] Start: 04-25-2007 End: 05-25-2007 Discharged Recurring [facility] Start: 04-17-2007 End: 04-17-2007 Emergency department patient visit [facility] Start: 04-04-2007 End: 04-03-2007 Emergency department patient visit [facility] Start: 02-23-2007 End: 03-25-2007 Discharged Recurring [facility] Start: 02-02-2007 End: 02-01-2007 Emergency department patient visit [facility] Start: 01-24-2007 End: 02-22-2007 Discharged Recurring [facility] Start: 01-20-2007 End: 01-21-2007 Emergency department patient visit [facility] Start: 01-05-2007 End: 01-23-2007 Discharged Recurring [facility] Start: 12-24-2006 End: 12-24-2006 Emergency department patient visit [facility] Start: 12-18-2006 End: 12-18-2006 Emergency department patient visit [facility] Start: 07-11-2006 End: 07-11-2006 Emergency [facility] Start: 03-20-2006 End: 03-20-2006 Emergency department patient visit [facility] Start: 02-27-2006 End: 02-27-2006 Emergency department patient visit [facility] Start: 02-11-2006 End: 02-11-2006 Emergency department patient visit [facility] Start: 01-06-2006 End: 01-06-2006 Emergency department patient visit [facility] Start: 11-23-2005 Patient encounter procedure [facility] Start: 09-07-2005 End: 09-06-2005 Emergency department [facility] Start: 08-02-2005 End: 08-02-2005 Emergency department [facility] Start: 07-21-2005 End: 07-20-2005 Emergency department [facility] Start: 04-02-2005 End: 04-24-2005 Discharged Recurring [facility] Start: 02-14-2005 End: 02-14-2005 Emergency department patient visit [facility] Start: 02-02-2005 End: 02-02-2005 Emergency department patient visit [facility] Start: 11-21-2004 End: 11-21-2004 Emergency department patient visit [facility] Start: 02-23-2004 Evaluation and management of inpatient [facility] Start: 02-21-2004 Evaluation and management of inpatient [facility] Start: 02-07-2004 Evaluation and management of inpatient [facility] Start: 03-20-1993 End: 03-26-1993 Discharged Recurring [facility] Procedures Date Procedure Procedure Detail Performing Clinician Start: 04-14-2024 Quick Strep (POC) Start: 03-05-2010 Other incision with drainage of [...] Author Start: 06-11-2022 Throat culture Throat Culture [facility] Bacteria identified in Throat by Aerobe culture [facility] Immunizations Immunization Date Immunization Notes Care Provider Fa cility 03-31-2022 tetanus toxoid, redu helio diphtheria toxoid, and acellular pertussis vaccine, adsorbed Gloria Jackson Other [facility] Payers Date Payer Category Payer Self-pay 2022 Medicaid [id number] 2. [id number] 2017 Unknown 1986 Unknown [id number] 2.16.84 [id number] 1986 Unknown [id number] 2.16.84 [id number] 1986 Unknown [id number] 2.16.84 [id number] 1986 Unknown [id number] 2.16.84 [id number] 1986 Unknown [id number] 2.16.84 [id number] 1986 Unknown [id number] 2.16.84 [id number] 1986 Unknown [id number] 2.16.84 [id number] 1986 Unknown [id number] 2.16.84 [id number] 1986 Unknown [id number] 2.16.84 [id number] 1986 Unknown [id number] 2.16.84 [id number] 1959 Unknown [id number] Private Health Insurance [id number] Unknown [id number] Unknown [id number] 2.16.8 [id number] Unknown [id number] 2.16.8 [id number] Social History Date Type Detail Facility Start: 10-09-2021 Tobacco smoking status Ex-smoker (fi nding) [facility] Tobacco smoking status Smokeless tobacco user within last 30 days [facility] Sex Assigned At Female [facility] Start: 12-07-2018 End: 04-01-2024 Tobacco smoking status NHIS Smoker (finding) [facility] Start: 1985 Sex Assigned At Female F [facility] Start: 04-14-2024 Sex Female (finding) [facility] Clinical Notes 10-09-2021 to 04-01-2024 Note Date & Type Note Facility 04-01-2024 Evaluation note Diagnosis Onset Date Resolution Abscess or cellulitis of chest wall acute April 01 12:24pm [facility] Work Phone: [phone] 315-600911-29-2023 Evaluation note* Encounter Date Diagnosis Assessment Notes Treatment Notes Treatment Clinical Notes Mar, Contact with and (suspected) exposure [...] no improvement in 2 to 3 days [facility] Other 09-17-2023 Evaluation note* Encounter Date Diagnosis [...] no improvement in 2 to 3 days [facility] Other 01-17-2023 Evaluation note* Encounter Date Diagnosis [...] treatment plan. Patient left in stable condition [facility] Other 06-22-2022 NoteOPERATIVE NOTE OPERATION DATE: 11/14/2021 [...] room in good condition. CC: Meka Roper, [employer] [facility] Signed and Approved by: DR CHANTEL MAYO . 11/15/2021 14:02:00[facility]05-17-2022 NoteChief Complaint consultation for breast mass vs infection HPI Staff 36 year old female presents on [...] Tobacco Use:. Cigarettes, [place] (more content not included)...[facility] Comment: Electronically Signed By: ALEX SINGH, Chantel Cuevas\Date and Time Signed: 10/09/21 15:43 EDTEvaluation + Plan note No data available for this section [facility] Evaluation noteNo assessment information available [facility] Work Phone: Evaluation noteNo InformationNort [facility] Other Evaluation note* Diagnosis Onset Date Resolution Status Allergic dermatitis acute [facility] Work Phone: History general Narrative - Reported* Type Description Date Medical History Hypothyroidism Surgical History hysterectomy Surgical History knee arthroscopy Hospitalization History SEE ABOVE [facility] Other Hospital Discharge instructions No data available for this section [facility] [place] Progress note No data available for this section [facility] Summary Purpose Family History Relationship Condition Age at Onset Recorded Date/T nichelle Not Specified Bipolar affective disorder Unknown father Depression Unknown Relationship Condition Age at Onset Recorded Date/T nichelle Not Specified Bipolar affective disorder Unknown father Depression Unknown father Hypertension Unknown Unknown Relationship Condition Age at Onset Recorded Date/T nichelle mother Bipolar affective disorder Unknown father Depression Unknown father Hypertension Unknown Unknown Advance Directives Advance Directive Response Recorded Date/ Time Advance Directives No December 07 12:28am Advance Directive Response Recorded Date/ Time Advance Directives No December 07 1:28am Chief Complaint and Reason for Visit Chief Complaint very itchy rash all over Reason for Visit Allergic dermatitis Chief Complaint Admit Date boil burst, skin red April 01, 2024 12:24pm Congestion, vomiting April 14, 2024 10:06am Reason for Visit Admit Date Abscess or cellulitis of chest wall Miguel joyce 2023 12:24pm Additional Source Comments INFORMATION SOURCE (unrecogn ized section and content) DATE CREATED AUTHOR 11/17/2017 [facility] DATE CREATED AUTHOR AUTHOR'S ORGANIZ ATION 01/21/2018 [facility] DATE CREATED AUTHOR AUTHOR'S ORGANIZ ATION 11/24/2021 [facility] DATE CREATED AUTHOR AUTHOR'S ORGANIZ ATION 12/29/2021 [facility] DATE CREATED AUTHOR AUTHOR'S ORGANIZ ATION 07/02/2022 [facility] DATE CREATED AUTHOR AUTHOR'S ORGANIZ ATION 05/02/2023 [facility] DATE CREATED AUTHOR AUTHOR'S ORGANIZ ATION 12/13/2023 [facility] EPIC Care Team (unrecognized sect ion [...] November 18, 2023 End: November 18, 2023 Team Status: Active Member Role Status Dates Kam Goldberg MD Primary Care Provider Active Team Status: Active Member Role Status Dates PHYSICIAN NO FAMILY Primary Care Provider Active Start: February 22, 2024 Wili Todd DO Attending Provider Active Sta rt: February 22, 2024 Team Status: Inactive Member Role Status Dates Jasmin Murphy APRN Attending Provider Active Start: April 01, 2024 End: April 01, 2024 Kam Goldberg MD Primary Care Provider Active S tart: April 01, 2024 End: April 01, 2024 Team Status: Inactive Member Role Status Dates Kam Goldberg MD Primary Care Provider Active S tart: April 14, 2024 End: April 14, 2024 Leslie Forrester APRN Attending Provider Active S tart: April 14, 2024 End: April 14, 2024 Goals (unrecognized section and content) Goals may [...] BE BASED ON THE PRIMARY CLINICAL RECORDS. [employer] [facility]. provides no warranty or guarantee of the accuracy or completeness of information in this document.
[2024-10-06 20:58] VITALS: BP 138/95; PULSE 75; TEMP 37; O2SAT 98; BMI 42.1
--- NOTE | 2024-10-06 20:58 | ED.UPPEXIN1 ---
HPI HPI - Extremity Injury (Upper) General Chief Complaint: Extremity Injury, Upper Stated Complaint: FALL, UPPER EXTREMITY PAIN Time Seen by Provider: 10/06/24 20:55 History of Present Illness HPI narrative: patient fell this AM and jammed her left thumb. continues to have pain. neg numbness or weakness. Denies other injury Related Data Home Medications ?Medication ?Instructions ?Recorded ?Confirmed metformin 500 mg tablet,extended 500 mg PO DAILY 07/04/23 07/19/23 release 24 hr bupropion HCl 150 mg 24 hr tablet, 150 mg PO DAILY 10/06/24 10/06/24 extended release cariprazine 3 mg capsule (Vraylar) 3 mg PO Q24H 10/06/24 10/06/24 fluoxetine 40 mg capsule 40 mg PO DAILY 10/06/24 10/06/24 Previous Rx's ?Medication ?Instructions ?Recorded hydrocodone 5 mg-acetaminophen 325 1 tab PO Q4H PRN pain 4 days #16 07/18/23 mg tablet tabs ibuprofen 800 mg tablet 800 mg PO Q8H PRN pain 14 days #40 07/18/23 tabs ketorolac 10 mg tablet 10 mg PO TID PRN pain #10 tabs 07/19/23 lorazepam 0.5 mg tablet (Ativan) 0.5 mg PO TID PRN anxiety 3 days 07/19/23 #10 tabs ondansetron 4 mg disintegrating 4 mg PO Q6H PRN nausea and 07/19/23 tablet vomiting #12 tabs Allergies Allergy/AdvReac Type Severity Reaction Status Date / Time codeine Allergy Rash Verified 10/06/24 20:58 nalbuphine (From Nubain) AdvReac Vomiting Verified 10/06/24 20:58 Opioid HPI Opioid Management Most Recent Pain and Opioid Data: Last Pain Scale 8 Today, 21:08 Ur Phencyclidine Scrn, (NEGATIVE) Negative 02/21/24, 18:13 Review of Systems ROS Status of ROS 10 or more systems reviewed and unremarkable except as noted in history and below [facility] Medical History (Updated 10/06/24 @ 21:43 by Man Dukes MD) Anemia ?D64.9 - Anemia, unspecified (ICD-10) Insomnia ?G47.00 - Insomnia, unspecified (ICD-10) PTSD (post-traumatic stress disorder) ?F43.10 - Post-traumatic stress disorder, unspecified (ICD-10) OCD (obsessive compulsive disorder) ?F42.9 - Obsessive-compulsive disorder, unspecified (ICD-10) Bipolar disorder ?F31.9 - Bipolar disorder, unspecified (ICD-10) Depression ?F32.A - Depression, unspecified (ICD-10) Electronic cigarette use ?Z78.9 - Other specified health status (ICD-10) COVID-19 ?U07.1 - COVID-19 (ICD-10) Pelvic pain ?R10.2 - Pelvic and perineal pain (ICD-10) Heartburn ?R12 - Heartburn (ICD-10) GERD (gastroesophageal reflux disease) ?K21.9 - Gastro-esophageal reflux disease without esophagitis (ICD-10) Goiter ?E04.9 - Nontoxic goiter, unspecified (ICD-10) Hypothyroidism ?E03.9 - Hypothyroidism, unspecified (ICD-10) Panic attacks ?F41.0 - Panic disorder [episodic paroxysmal anxiety] (ICD-10) Anxiety ?F41.9 - Anxiety disorder, unspecified (ICD-10) Surgical History (Updated 07/04/23 @ 10:21 by Angelic Sears NP) H/O removal of cyst ?Z98.890 - Other specified postprocedural states (ICD-10) History of arthroscopy of knee ?Z98.890 - Other specified postprocedural states (ICD-10) History of dilation and curettage ?Z98.890 - Other specified postprocedural states (ICD-10) History of tubal ligation ?Z98.51 - Tubal ligation status (ICD-10) History of hysterectomy ?Z90.710 - Acquired absence of both cervix and uterus (ICD-10) Family History (Updated 07/04/23 @ 10:21 by Angelic Sears NP) Other Bipolar 1 disorder CHF (congestive heart failure) Family history of DVT Family history of diabetes mellitus Family history of hypertension Family history of myocardial infarction Motorcycle accident Social History Within the past year, how often did you have a drink containing alcohol: monthly or less Do you use any of these nicotine containing products: vaping products Non-prescribed substance use: cannabis (any form) 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 Highest level of school completed/degree received: Associate degree: academic program Little interest or pleasure in doing things: not at all Feeling down, depressed, or hopeless: not at all Exam Constitutional Vital Signs, click to edit/add: Last Vital Signs Temp 98.6 F 10/06/24 20:58 Pulse 71 10/06/24 21:08 Resp 16 10/06/24 20:58 BP 138/95 H 10/06/24 20:58 Pulse Ox 98 10/06/24 20:58 O2 Del Method Room Air 10/06/24 20:58 Common normals: no apparent distress, average body habitus, oriented x3, no limitations, healthy appearing, alert and well nourished HENMT Common normals: normocephalic and head/scalp atraumatic Eye Common normals: PERRL, EOMs intact bilaterally and conjunctivae normal Respiratory Common normals: normal respiratory effort, no retractions and no use of accessory muscles Extremity Common normals: normal to inspection Other: tenderness left thumb MC and IP joint. minor swelling. neg gamekeepers Neuro Common normals: oriented x3, CN's II-XII intact bilaterally, moves all extremities and no focal motor deficits Psych Appearance: grossly normal Course Vital Signs Vital signs: Vital Signs Temperature 98.6 F 10/06/24 20:58 Pulse Rate 75 10/06/24 20:58 Respiratory Rate 16 10/06/24 20:58 Blood Pressure 138/95 H 10/06/24 20:58 Pulse Oximetry 98 10/06/24 20:58 Oxygen Delivery Method Room Air 10/06/24 20:58 Temperature 98.6 F 10/06/24 20:58 Pulse Rate 71 10/06/24 21:08 Respiratory Rate 16 10/06/24 20:58 Blood Pressure 138/95 H 10/06/24 20:58 Pulse Oximetry 98 10/06/24 20:58 Oxygen Delivery Method Room Air 10/06/24 20:58 MDM - Extremity Injury (Upper) MDM Narrative Medical decision making narrative: patient fell earlier today and jammed her left thumb. presents for evaluation. Has tenderness at the MC and IP joint. neg gamekeepers thumb. xray per radiologist is neg. Patient informed of the diagnosis. offered a splint but she did not feel she needed it. Discharged home Discharge Plan Discharge Chief Complaint: Extremity Injury, Upper Clinical Impression: Finger sprain Patient Disposition: Home, Self-Care Prescriptions / Home Meds: No Action ketorolac 10 mg tablet 10 mg PO TID PRN (Reason: pain) Qty: 10 0RF Rx Instructions: Do not take with other NSAIDS lorazepam [Ativan] 0.5 mg tablet 0.5 mg PO TID PRN (Reason: anxiety) 3 Days Qty: 10 0RF Rx Instructions: DX: F41.9 ondansetron 4 mg tablet,disintegrating 4 mg PO Q6H PRN (Reason: nausea and vomiting) Qty: 12 0RF bupropion HCl 150 mg tablet extended release 24 hr 150 mg PO DAILY Vraylar 3 mg capsule 3 mg PO Q24H fluoxetine 40 mg capsule 40 mg PO DAILY metformin 500 mg tablet extended release 24 hr 500 mg PO DAILY ibuprofen 800 mg tablet 800 mg PO Q8H PRN (Reason: pain) 14 Days Qty: 40 0RF hydrocodone-acetaminophen 5-325 mg tablet 1 tab PO Q4H PRN (Reason: pain) 4 Days Qty: 16 0RF Print Language: Slovenian Instructions: Finger Sprain (ED) Additional Instructions: use ibuprofen or similar for pain and follow up with your doctor next week for recheck Referrals: [facility] [Primary Care Provider] - 1 week
[2024-10-06 21:08] VITALS: PULSE 71
--- NOTE | 2024-10-06 21:10 | PC.NURSE ---
pt into ED with c/o L thumb injury. states tripping over sheets and landing onto L thumb and it popping . injury occured around noon today per pt, states increasing pain and swelling since. tylenol a couple hours ago with minimal relief. MSPs intact, pain with movement of thumb joints per pt. no obvious bruising or deformity noted. swelling noted when compared to R thumb.
== END 2024-10-06 22:00 | disposition home or self-care (01) ==
PROVIDERS: Emergency Provider Internal Medicine
DX: S63.602A Unspecified sprain of left thumb, initial encounter (principal); W19.XXXA Unspecified fall, initial encounter; Z90.710 Acquired absence of both cervix and uterus; Z98.51 Tubal ligation status; F17.290 Nicotine dependence, other tobacco product, uncomplicated
CPT/HCPCS: 73130; 99283

== ENCOUNTER 2024-11-27 10:16 | Emergency (ER) | payer OTHER, SELFPAY ==
[2024-11-27 10:18] VITALS: PULSE 69; TEMP 36.4; O2SAT 100; BMI 41.8
[2024-11-27 10:20] VITALS: BP 141/99
--- NOTE | 2024-11-27 10:22 | ED.GENADUL1 ---
HPI HPI - General Adult General Chief complaint: Abdominal Pain Stated complaint: OTHER Time Seen by Provider: 11/27/24 10:17 Source: patient Mode of arrival: ambulance History of Present Illness HPI narrative: 39-year-old female presents for nausea vomiting and diarrhea as well as abdominal pain. Started in the middle of the night. She states she ate some peanut butter and jelly that did not sit well in her stomach and she started vomiting. No hematemesis or fever. Her abdomen hurts as well. She was given IV fentanyl and Zofran by the paramedics. Related Data Home Medications �Medication �Instructions �Recorded �Confirmed metformin 500 mg tablet,extended 500 mg PO DAILY 07/04/23 11/27/24 release 24 hr bupropion HCl 150 mg 24 hr tablet, 150 mg PO DAILY 10/06/24 11/27/24 extended release cariprazine 3 mg capsule (Vraylar) 3 mg PO Q24H 10/06/24 11/27/24 fluoxetine 40 mg capsule 40 mg PO DAILY 10/06/24 11/27/24 lamotrigine 150 mg tablet mg 11/27/24 Previous Rx's �Medication �Instructions �Recorded ondansetron 4 mg disintegrating 4 mg PO Q6H PRN nausea and 11/27/24 tablet vomiting #20 tabs Allergies Allergy/AdvReac Type Severity Reaction Status Date / Time codeine Allergy Rash Verified 10/06/24 20:58 [email or web address] (From Nubain) AdvReac Vomiting Verified 10/06/24 20:58 Opioid HPI Opioid Management Most Recent Opioid Data: Last Pain Scale 8 10/06/24, 21:08 Ur Phencyclidine Scrn, (NEGATIVE) Negative 02/21/24, 18:13 Review of Systems ROS Narrative A ten point review of systems is negative except as noted above. [facility] Medical History (Updated 11/27/24 @ 13:50 by Nahid Burton MD) Anemia �D64.9 - Anemia, unspecified (ICD-10) Insomnia �G47.00 - Insomnia, unspecified (ICD-10) PTSD (post-traumatic stress disorder) �F43.10 - Post-traumatic stress disorder, unspecified (ICD-10) OCD (obsessive compulsive disorder) �F42.9 - Obsessive-compulsive disorder, unspecified (ICD-10) Bipolar disorder �F31.9 - Bipolar disorder, unspecified (ICD-10) Depression �F32.A - Depression, unspecified (ICD-10) Electronic cigarette use �Z78.9 - Other specified health status (ICD-10) COVID-19 �U07.1 - COVID-19 (ICD-10) Pelvic pain �R10.2 - Pelvic and perineal pain (ICD-10) Heartburn �R12 - Heartburn (ICD-10) GERD (gastroesophageal reflux disease) �K21.9 - Gastro-esophageal reflux disease without esophagitis (ICD-10) Goiter �E04.9 - Nontoxic goiter, unspecified (ICD-10) Hypothyroidism �E03.9 - Hypothyroidism, unspecified (ICD-10) Panic attacks �F41.0 - Panic disorder [episodic paroxysmal anxiety] (ICD-10) Anxiety �F41.9 - Anxiety disorder, unspecified (ICD-10) Surgical History (Updated 07/04/23 @ 10:21 by Angelic Sears NP) H/O removal of cyst �Z98.890 - Other specified postprocedural states (ICD-10) History of arthroscopy of knee �Z98.890 - Other specified postprocedural states (ICD-10) History of dilation and curettage �Z98.890 - Other specified postprocedural states (ICD-10) History of tubal ligation �Z98.51 - Tubal ligation status (ICD-10) History of hysterectomy �Z90.710 - Acquired absence of both cervix and uterus (ICD-10) Family History (Updated 07/04/23 @ 10:21 by Angelic Sears NP) Other Bipolar 1 disorder CHF (congestive heart failure) Family history of DVT Family history of diabetes mellitus Family history of hypertension Family history of myocardial infarction Motorcycle accident Social History Within the past year, how often did you have a drink containing alcohol: monthly or less Do you use any of these nicotine containing products: vaping products Non-prescribed substance use: cannabis (any form) 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 Highest level of school completed/degree received: Associate degree: academic program Little interest or pleasure in doing things: not at all Feeling down, depressed, or hopeless: not at all Exam Constitutional Vital Signs, click to edit/add: Last Vital Signs Temp 97.5 F L 11/27/24 10:18 Pulse 69 11/27/24 10:18 Resp 22 H 11/27/24 10:18 BP 141/99 H 11/27/24 10:20 Pulse Ox 100 11/27/24 10:18 O2 Del Method Room Air 11/27/24 10:18 Course Vital Signs Vital signs: Vital Signs Temperature 97.5 F L 11/27/24 10:18 Pulse Rate 69 11/27/24 10:18 Respiratory Rate 22 H 11/27/24 10:18 Pulse Oximetry 100 11/27/24 10:18 Oxygen Delivery Method Room Air 11/27/24 10:18 Temperature 97.5 F L 11/27/24 10:18 Pulse Rate 69 11/27/24 10:18 Respiratory Rate 22 H 11/27/24 10:18 Blood Pressure 141/99 H 11/27/24 10:20 Pulse Oximetry 11/27/24 10:18 Oxygen Delivery Method Room Air 11/27/24 10:18 Medical Decision Making MDM Narrative Medical decision making narrative: The patient was given IV fluids and Zofran and feels much better now. She is tolerating p.o. liquids and states that she feels a million times better. She is able to be discharged home. I do not suspect acute intra-abdominal pathology at this point. Treatment diagnosis and follow-up were discussed with the patient. Repeat exam shows no tenderness. I have no clinical suspicion of appendicitis. Differential Diagnosis Differential Diagnosis: Gastroenteritis, food poisoning Lab Data Lab results reviewed: Yes I reviewed the patient's lab results Labs: Lab Results 11/27/24 11/27/24 11/27/24 Range/Units 10:23 10:50 11:32 WBC 16.0 H (4.0-11.0) 10^3/uL RBC 4.99 (4.20-5.40) 10^6/uL Hgb 14.0 (12.0-16.0) g/dL Hct 41.4 (36.0-48.0) % MCV 83.0 (81.0-99.0) fL MCH 28.1 (26.7-34.0) pg MCHC 33.8 (29.9-35.2) g/dL RDW 14.2 (11.0-15.0) % Plt Count 329 (150-450) 10^3/uL MPV 9.5 (9.5-13.5) fL Neut % (Auto) 85.4 H (43.0-75.0) % Lymph % (Auto) 9.9 L (20.5-60.0) % [place] % (Auto) 3.8 (1.7-12.0) % Eos % (Auto) 0.2 L (0.9-7.0) % Baso % (Auto) 0.3 (0.2-2.0) % Neut # (Auto) 13.7 H (1.4-6.5) 10^3/uL Lymph # (Auto) 1.6 (1.2-3.8) 10^3/uL Gove # (Auto) 0.6 (0.3-0.8) 10^3/uL Eos # (Auto) 0.0 (0.0-0.7) 10^3/uL Baso # (Auto) 0.1 (0.0-0.1) 10^3/uL Abs Immat Gran (auto) 0.06 H (0.00-0.03) 10^3/uL Imm/Tot Granulo (auto) 0.4 (0.0-0.5) % Sodium 142 (136-145) mmol/L Potassium 4.1 (3.5-5.1) mmol/L Chloride 106 (98-107) mmol/L Carbon Dioxide 20.6 L (21.0-32.0) mmol/L Anion Gap 19.5 BUN 17.0 (7.0-18.0) mg/dL Creatinine 0.79 (0.55-1.02) mg/dL Est GFR ( Amer) >60 (>=60 mL/min/1.73m^2) Est GFR (Non-Af Amer) >60 (>=60 mL/min/1.73m^2) BUN/Creatinine Ratio 21.5 Glucose 172 H (74-106) mg/dL Calcium 9.0 (8.5-10.1) mg/dL Urine Color Yellow (YELLOW) Urine Clarity Clear (CLEAR) Urine pH 7.5 (5.0-9.0) Ur Specific [place] 1.020 (1.005-1.025) Urine Protein 30 A (NEG/TRACE) mg/dL Urine Glucose (UA) Negative (NEGATIVE) mg/dL Urine Ketones >=80 A (NEGATIVE) mg/dL Urine Occult Blood Negative (NEGATIVE) Urine Nitrite Negative (NEGATIVE) Urine Bilirubin Negative (NEGATIVE) Urine Urobilinogen 0.2 (0.2-1.0) EU/dL Ur Leukocyte Esterase Negative (NEGATIVE) Urine RBC 2-5 A (0-2) #/HPF Urine WBC 2-5 A (NONE SEEN) #/HPF Ur Squamous Epith Cells Moderate A (NONE/RARE) #/LPF Urine Crystals None seen (None Seen) #/HPF Urine Bacteria Trace A (NONE SEEN) #/HPF Urine Casts None seen (NONE SEEN) #/LPF Urine Mucus Large A (NONE SEEN) POC Glucose 159 H (74-106) mg/dL Discharge Plan Discharge Chief Complaint: Abdominal Pain Clinical Impression: Nausea, vomiting, and diarrhea Patient Disposition: Home, Self-Care Time of Disposition Decision: 13:50 Condition: Good Mode of Transportation: Private Vehicle Prescriptions / Home Meds: New ondansetron 4 mg tablet,disintegrating 4 mg PO Q6H PRN (Reason: nausea and vomiting) Qty: 20 0RF No Action bupropion HCl 150 mg tablet extended release 24 hr 150 mg PO DAILY Vraylar 3 mg capsule 3 mg PO Q24H fluoxetine 40 mg capsule 40 mg PO DAILY lamotrigine 150 mg tablet metformin 500 mg tablet extended release 24 hr 500 mg PO DAILY Print Language: Northern Irish Instructions: Acute Nausea and Vomiting (ED), Acute Diarrhea (ED) Referrals: [facility] [Physician] - 1 week
--- OUTSIDE RECORDS SUMMARY | 2024-11-27 10:30 | XMS_ITS | CCD ---
Author Organization [facility] [employer] [facility] Clini[employer]pr Care Team Providers Care Decision Support Manager Name Role Phone KATIA DUNCAN JAN Unavailable Unavailable IZABEL EARL (OSWALDO) Unavailable UnavailIZABEL Marquez (OSWALDO) Unavailable UnavailHarry Tom Attending Physician Unavailable Doug Yeager Primary Care Physician Unavailab MEKA Sanchez Primary Care Physician NO FAMILY, PHYSICIAN Primary Care Provider Unava ilable SANDEE Jackson Attending Provider [phone] AICHHOLZ, REGRINDER OPERATOR MEKA Admitting Unavailable AICHHOLZ, REGRINDER OPERATOR MEKA Attending Unavailable AICHHOLZ, REGRINDER OPERATOR MEKA Primary Care Unavailable AICHHOLZ, REGRINDER OPERATOR MEKA Consulting Unavailable AICHHOLZ, REGRINDER OPERATOR MEKA Primary Care Unavailable NITISH MCCALL Admitting Unavailable NITISH MCCALL Attending Unavailable NITISH MCCALL Consulting Unavailable NILL, DR GOLDEN Admitting Unavailable NILL, DR GOLDEN Attending Unavailable AICHHOLZ, REGRINDER OPERATOR MEKA Primary Care Unavailable NILL, DR GOLDEN Admitting Unavailable NILL, DR GOLDEN Attending Unavailable AICHHOLZ, REGRINDER OPERATOR MEKA Primary Care Unavailable NILL, DR GOLDEN Consulting Unavailable STEPHANIE CASTRO Consulting Unavailable ANTON VELÁZQUEZ Consulting Unavailable JERRY WEBB Consulting Unavailable AICHHOLZ, REGRINDER OPERATOR MEKA Admitting Unavailable AICHHOLZ, REGRINDER OPERATOR MEKA Attending Unavailable AICHHOLZ, REGRINDER OPERATOR MEKA Primary Care Unavailable AICHHOLZ, REGRINDER OPERATOR MEKA Consulting Unavailable DR DANIELLE ROME Consulting Unavailable Gloria Jackson Unavailable Kamila Duong Unavailable NO FAMILY, PHYSICIAN Primary Care Unavailable Gloria Jackson Admitting Unavailable Gloria Jackson Attending Unavailable NO FAMILY, PHYSICIAN Primary Care Unavailable Ananda Vences Admitting Unavailab Ananda Thomson Attending Unavailab DELICIA Agrawal Attending Unavailable DELICIA ALMAGUER Attending Unavailable [place] EM Attending Unavailable [place] EM Attending Unavailable MEKA ROPER Attending Unavailable Kam Goldberg MD Primary Care Provider Leslie Forrester APRN Attending Provider Allergies Allergy Classification Reported Allergen(s) Allergy Type Date of Onset Reaction(s) Facility (6 sources) nalbuphine; Translations: [Nubain] Drug Allergy 4 vomiting [facility] Repository (9 sources) nalbuphine; Translations: [NALBUPHINE] Drug Allergy 4 AOF, Vomiting, Unknown [facility] Repository (1 source) NO KNOWN ALLERGIES; Translations: [NO KNOWN ALLERGIES] Propensity to adverse reactions to drug (disorder) [facility] Repository (7 sources) nu Propensity to adverse reactions Unknown, Unknown Reaction [facility] Medications Current Medications Medication Drug Class(es) Dates Sig (Normalized) Sig (Original) ARIPiprazole 5 mg oral tablet (2 sources) Atypical Antipsychotic Start: 10-08-2021 take 1 tablet by mouth once daily Abilify 5 mg Tab 5 mg = 1 tab(s), Oral, Daily, Refills(s) 0 Start Date: 10/08/21 Status: Ordered 24 hr buPROPion hydrochloride 150 mg extended release oral tablet (1 source) Aminoketone Start: 11-27-2024 take 1 tablet by mouth every twenty-four hours Bupropion Hcl 150 mg tablet extended release 24 hr Active MG PO November 27, 2024 12:00am Complies with drug therapy cariprazine 3 mg oral capsule (3 sources) Atypical Antipsychotic Start: 11-18-2023 Cariprazine (Vraylar) 3 mg capsule Active MG PO November 18, 2023 12:00am Complies with drug therapy FLUoxetine 40 mg oral capsule (5 sources) Serotonin Reuptake Inhibitor Start: 11-27-2024 Fluoxetine 40 mg capsule Active MG PO November 27, 2024 12:00am Complies with drug therapy Start: 04-01-2024 End: 11-27-2024 take 1 capsule by mouth once daily Fluoxetine 10 mg capsule Discontinued 10 MG PO Daily April 01, 2024 1:00am November 27, 2024 9:34am Start: 10-08-2021 take 1 capsule by mo [facility] once daily FLUoxetine 10 mg Cap 10 mg = 1 cap(s), Oral, Daily, Refills(s) 0 Start Date: 10/08/21 Status: Ordered lamoTRIgine 150 mg oral tablet (3 sources) Mood Stabilizer, Anti-epileptic Agent Start: 11-27-2024 Lamotrigine 150 mg tablet Active MG PO November 27, 2024 12:00am Complies with drug therapy Start: 04-01-2024 End: 11-27-2024 take 1 tablet by mouth twice daily Lamotrigine 25 mg tablet Discontinued 25 MG PO Twice daily April 01, 2024 1:00am November 27, 2024 9:34am omega-3 acid ethyl esters (half-way) 1000 mg oral capsule (1 source) Start: 11-27-2024 Lincoln-3 Acid E thyl Esters 1 gram capsule Active PO November 27, 2024 12:00am Complies with drug therapy propranolol hydrochloride 10 mg oral tablet (2 sources) beta-Adrenergic Ethan Start: 04-01-2024 take 1 tablet by mouth three times daily as needed Propranolol 10 mg tablet Active 10 MG PO Three times daily as needed April 01, 2024 1:00am Complies with drug therapy traZODone hydrochloride 100 mg oral tablet (3 sources) Serotonin Reuptake Inhibitor Start: 04-01-2024 take 1 tablet by mouth once daily at bedtime as needed Trazodone 100 mg tablet Active 100 MG PO Daily at bedtime as needed April 01, 2024 1:00am Complies with drug therapy take 1 tablet by linh at bedtime for sleep traZODone HCl 50 MG take 1 tablet by linh at bedtime if needed for sleep Oral [...] Not-Taking busPIRone hydrochloride 10 mg oral tablet (6 sources) Start: 12-10-2018 End: 04-01-2024 take 1 tablet by mouth three times daily Buspirone 10 mg Tablet Discontinued 10 MG PO Three times daily 90 December 10, 2018 12:00am April 01, 2024 1:32pm cephalexin 500 mg oral capsule (2 sources) Cephalosporin Antibacterial Start: 04-01-2024 End: 04-14-2024 take 1 capsule by mouth three times daily Cephalexin 500 mg capsule Discontinued 500 MG PO Three times daily 13 12April 01, 2024 1:00am April 14, 2024 11:18am fluticasone propionate 0.05 mg/actuat metered dose nasal spray (2 sources) Corticosteroid Start: 02-09-2023 take 2 spray(s) nasal route once daily Fluticasone Propionate 50 MCG/ACT 2 sprays Nasally Once a day for 14 day(s) Jan, Not-Taking hydrOXYzine pamoate 50 mg oral capsule (6 sources) Antihistamine Start: 12-10-2018 End: 04-01-2024 take 1 capsule by mouth every six hours as needed for anxiety Hydroxyzine Pamoate 50 mg Capsule Discontinued 50 MG PO Q6H as needed for Anxiety December 10, 2018 12:00am April 01, 2024 1:32pm 24 hr nicotine 0.875 mg/hr transdermal system (6 sources) Cholinergic Nicotinic Agonist Start: 12-10-2018 End: 04-01-2024 apply 1 dose transdermal route every twenty-four hours Nicotine 21 mg/24 hr Patch 24 Hour Discontinued 1 EACH TRANSDERML Daily December 10, 2018 12:00am April 01, 2024 1:32pm Start: 12-10-2018 Nicotine Activ e 1 EACH TRANSDERML Daily December 10, 2018 12:00am predniSONE 20 mg oral tablet (2 sources) Start: 02-09-2023 take 1 tablet by mouth every twelve hours predniSONE 20 MG 1 tablet Orally bid for 5 day(s) Jan, Not-Taking sulfamethoxazole 800 mg / trimethoprim 160 mg oral tablet (2 sources) Dihydrofolate Reductase Inhibitor Antibacterial, Sulfonamide Antimicrobial Start: 04-01-2024 End: 04-14-2024 take 1 tablet by mouth every twelve hours Sulfamethoxazole- Trimethoprim 800-160 mg tablet Discontinued 1 TAB PO Every 12 hours 14 April 01, 2024 1:00am April 14, 2024 11:18am Triamcinolone (4 sources) Corticosteroid Start: 01-15-2020 Kenalog -40 mg Dec, 60 mg 24 hr venlafaxine 75 mg extended release oral capsule (6 sources) Serotonin and Norepinephrine Reuptake Inhibitor Start: 12-10-2018 End: 04-01-2024 take 1 capsule by mouth once daily Venlafaxine 75 mg Capsule,Extended Release 24hr Discontinued 75 MG PO Daily December 10, 2018 12:00am April 01, 2024 1:31pm Problems Active Problems Problem Classification Problem Date Documented Da te Episodic/Chronic Allergic reactions (4 sources) Allergic disorder of skin; Translations: [Allergic contact dermatitis, unspecified cause] 11-18-2023 Episodic Anxiety disorders (7 sources) Generalized anxiety disorder; Translations: [Anxiety] 10-08-2021 [...] [Gross hematuria] Onset: 8 Episodic Mood disorders (7 sources) Recurrent major depressive episodes; Translations: [Depressive disorder] 10-08-2021 Chronic Other aftercare (1 source) 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; Translations: [OTH DEVELOPMENT PROFESSIONAL CURRENT DRUG THERAPY] Onset: 3 Episodic Other ear and sense organ disorders (4 sources) Otalgia, left ear; Translations: [OTALGIA LEFT EAR] Onset: 3 Episodic Other gastrointestinal disorders (5 sources) Irritable bowel syndrome; Translations: [Irritable bowel [...] 10-08-2021 Episodic Skin and subcutaneous tissue infections (3 sources) Cellulitis and abscess of chest wall ; Translations: [Abscess or cellulitis of chest wall] 04-01-2024 Episodic Substance-related disorders (1 source) Nicotine dependence, other tobacco product, uncomplicated; Translations: [NICOTINE DEPEND OTH TOB PROD UNCOMP] Onset: 3 Chronic Thyroid disorders (12 sources) Hypothyroidism; Translations: [Hypothyroidism, unspecified] Onset: 2 10-08-2021 Chronic Viral infection (2 sources) Disease caused by 2019-nCoV; Translations: [COVID-19] 04-14-2024 [...] Leslie Forrester on 04-14-2024 Quick Strep (POC) [facility] COVID + FLU Quick Testingon 04-23-2023 SARS-CoV-2 (COVID-19) RNA BRANT+probe Ql (Unsp spec) Positive [facility] [employer] Other COVID + FLU Quick Testing Negative [facility] [employer] Other Quick Strepon 06-11-2022 S. pyogenes Org specific cx Ql (Throat) Negative [facility] [employer] Other Quick Strep [facility] [employer] Other Throat Cultureon 06-11-2022 Throat culture Moderate Normal Respiratory Marti 2 Days PERFORMED BY: [facility] [address] [id number] PATHOLOGIST ORACLE DATABASE DEVELOPER DOMENICO BELL M.D. Normal [facility] Comment on above: Performed By: #### C NC #### [address] ALDOLASE [id number] 12-18-2021 ALDOLASE 4.6 U/L Normal 1.2-7.6 [facility] Comment on above: Result Comment: REFE RENCE INTERVAL: Aldolase Access complete set of age- and/or gender-specific reference intervals for this test in the [email or web address] [facility] Laboratory Test Directory ([employer]). Performed By: [facility] [address] [place] [address] Chrome Plater: Edgar Snell MD, PhD ANAon 12-18-2021 JAMIL PATTERN HOMOGENEOUS Normal [facility] Comment on above: Result Comment: The [...] medical authority. Performed By: #### 9 9850, 20146, 11978, 62764, 71283 ####[facility] [place], [place] [id number] [place] [address] JAMIL SCREEN 1:40 Normal <1:40,1:40 [facility] Comment on above: Result Comment: Test performed using JACKI IFA JAMIL Hep-2 Test, a pre-standardized assay designed for the qualitative and semi-quantitative detection of antinuclear antibodies. Performed By: #### 9 9850, 76474, 31009, 39648, 09082 ####[facility] [place] [address], [facility] ANTI CENTROMERE ABon 022 ANTI CENT AB Negative Normal NEGATIVE [facility] Comment on above: Performed By: #### 9 9850, 51585, 78365, 85509, 51605 ####[facility] [facility] [place] [address], [facility] ANTI DNAon 12-18-2021 ANTI DNA <1:10 Normal <1:10 [facility] Comment on above: Performed By: #### 9 9850, 38243, 27904, 58364, 38216 #### [facility] [address] [place] [id number], [facility] ANTI-ENAon 12-18-2021 ANTI SM Negative Normal NEG,NEGATIVE ,Neg [facility] Comment on above: Performed By: #### 9 9850, 32911, 35164, 55576, 84068 #### [facility] [address] [place] [id number], [facility] ANTI SM/ANTIRNP Negative Normal NEG,NEGATIVE ,Neg [facility] Comment on above: Performed By: #### 9 9850, 82370, 80606, 02795, 27495 #### [facility] [address] [place] [address], [facility] C REACTIVE PROTEINon 022 CRP [Mass/Vol] 4.3 mg/L Normal 0.0-7.0 [facility] Comment on above: Performed By: #### 1 0204, 20805, 14310, 98841 #### [facility] [address] [place] [address], [facility] COMPLEMENT 3on 12-18-2021 COMPLEMENT 3 96 mg/dL Normal 79-152 [facility] Comment on above: Performed By: #### 1 0204, 74332, 51478, 87212 #### [facility] [address] [place]. [address] COMPLEMENT 4on 12-18-2021 COMPLEMENT 4 19 mg/dL Normal 16-38 [facility] Comment on above: Performed By: #### 1 0204, 92791, 42152, 00345 #### [facility] [address] [facility]. [address] CPKon 12-18-2021 CK [Catalytic activity/Vol] 78 U/L Normal 30-223 [facility] Comment on above: Performed By: #### 2 5508 ####[facility] [place]CLIC [place]INATED PEPT[place] [id number] 12-18-2021 CYCLIC CIT PEP 1 Units Normal 0-19 [facility] Comment on above: Result Comment: INTE [...] be monitored and testing repeated. Performed By: [facility] [address] [place] [address] Chrome Plater: Edgar Snell MD, PhD HEPATITIS B CORE ANTIBODYon 12-18-2021 HEP B CORE AB Non-Reactive Normal NONREACTIVE [facility] Comment on above: Performed By: #### 3 1568, 95933, 98153 ####[facility] HEPATITIS B SURFACE ANTIGEN QUALon 12-18-2021 HEP B SURF AG QUAL Non-Reactive Normal NONREACTIVE [facility] Comment on above: Performed By: #### 3 1568, 32783, 25691 ####[facility] [facility].[address] HEPATITIS C SCREENon 022 ANTI-HCV Non-Reactive Normal NONREACTIVE [facility] Comment on above: Performed By: #### 3 1568, 01550, 06412 ####[facility] [facility].[address] HIV1 AND 2 COMBO 4Gon 2021 HIV COMBO Negative Normal NEGATIVE [facility] Comment on above: Performed By: #### 3 0625 ####[facility] [facility].[address] MPO/PR3 RFLX TO ANCA [id number] on 12-18-2021 MYELOPEROX AB (07695) 0 AU/mL Normal 0-19 [facility] Comment on above: Result Comment: INTE RPRETIVE INFORMATION: Myeloperoxidase Abs, IgG 19 AU/mL or Less ......... Negative 20-25 AU/mL .............. Equivocal 26 AU/mL or Greater ...... Positive Approximately 90% of patients with a P-ANCA pattern by IFA have antibodies specific for MPO. SERINE PROTEINASE 3 0 AU/mL Normal 0-19 [facility] Comment on above: Result Comment: Myel [...] have antibodies specific for PR3. Performed By: [facility] [address] [place] [address] Chrome Plater: Edgar Snell MD, PhD MYOSITIS EXTENDED PANEL 3001 781on 12-18-2021 EJ AB Negative Normal Negative [facility] FIBRILLARIN (U3 REPOSSESSOR) AB, IgG Negative Normal Negative [facility] Comment on above: Result Comment: Inte rpretive Information: Fibrillarin (U3 REPOSSESSOR) Antibody, IgG The presence of fibrillarin (U3-REPOSSESSOR) IgG antibodies in association with an JAMIL [...] a multi-ethnic cohort of [facility]Sc patients (n=98), U3-REPOSSESSOR antibodies detected by immunoblot had an agreement of 98.9 percent with the gold standard immunoprecipitation (IP) assay. Approximately 71 percent (5/7) of the borderline U3-REPOSSESSOR results with JAMIL nucleolar pattern in this cohort were IP negative. This test was developed and its performance characteristics determined by [facility]. It has not been cleared or approved by the [place] Food and Drug Administration. This test was performed in a CLIA certified laboratory and is intended for clinical purposes. Performed By: [facility] [address] [place] [address] Chrome Plater: Edgar Snell MD, PHD ISAURA-1 AB IGG 0 AU/mL Normal 0-40 [facility] Comment on above: Result Comment: INTE RPRETIVE INFORMATION: Isaura-1 Antibody, IgG 29 AU/mL or less.........Negative 30-40 AU/mL..............Equivocal 41 AU/mL or greater......Positive Presence of Isaura-1 (antihistidyl transfer RNA [t-RNA] synthetase) antibody is associated with polymyositis and may also be seen in patients with dermatomyositis. Isaura-1 antibody is associated with pulmonary involvement (interstitial lung disease), Raynaud phenomenon, arthritis, and geothermal powerplant mechanic's hands (implicated in antisynthetase syndrome). KU AB Negative Normal Negative [facility] MDA5 AB Negative Normal Negative [facility] WV-2 AB Negative Normal Negative [facility] MYOSITIS PANEL INTERP See Note Normal [facility] Comment on above: Result Comment: INTE [...] . . . . . . X Willoughby/REPOSSESSOR (CHRISTA) Ab, IgG . . . . [...] . . . . X Fibrillarin (U3 REPOSSESSOR) Ab, IgG . . . . . [...] developed and its performance characteristics determined by [facility]. It has not been cleared or approved by the [place] Food and Drug Administration. This test was performed in a CLIA certified laboratory and is intended for clinical purposes. NXP2 AB Negative Normal Negative [facility] OJ AB Negative Normal Negative [facility] P155/140 AB Negative Normal Negative [facility] PL-12 AB Negative Normal Negative [facility] PL-7 AB Negative Normal Negative [facility] PM/SCL 100 AB, IgG Negative Normal Negative [facility] Comment on above: Result Comment: INTE [...] developed and its performance characteristics determined by [facility]. It has not been cleared or approved by the US Food and Drug Administration. This test was performed in a CLIA certified laboratory and is intended for clinical purposes. REPOSSESSOR AB IGG (CHRISTA) 2 Units Normal 0-19 [facility] Comment on above: Result Comment: INTE RPRETIVE INFORMATION: Willoughby/REPOSSESSOR (CHRISTA) Antibody, IgG 19 Units or Less ............. Negative 20 to 39 Units ............... Weak Positive 40 to 80 Units ............... Moderate Positive 81 Units or greater .......... Strong Positive Willoughby/REPOSSESSOR antibodies are frequently seen in patients with mixed connective tissue disease (MCTD) and are also associated with other systemic autoimmune rheumatic diseases (SARDs) such as systemic lupus erythematosus (SLE), systemic sclerosis, and myositis. Antibodies targeting the Willoughby/REPOSSESSOR antigenic complex also recognize Willoughby antigens, therefore, the Willoughby antibody response must be considered when interpreting these results. SAE1 AB Negative Normal Negative [facility] SRP AB Negative Normal Negative [facility] SSA (RO) AB IGG 0 AU/mL Normal 0-40 [facility] Comment on above: Result Comment: INTE [...] AB IGG 0 AU/mL Normal 0-40 [facility] Comment on above: Result Comment: REFE RENCE INTERVAL: SSA-60 (Ro60) (CHRISTA) Antibody, IgG 29 AU/mL or Less ............. Negative 30 - 40 AU/mL ................ Equivocal 41 AU/mL or Greater .......... Positive TIF-1 GAMMA AB Negative Normal Negative [facility] RHEUMATOID FACTOR SERUMon 07 -26-2022 RA <20 Normal 0-20 [facility] Comment on above: Performed By: #### 1 0204, 64681, 36396, 60677 #### [facility] [address] [facility]. [address] SEDIMENTATION RATEon 022 SED RATE 4 mm/hr Normal 0-20 [facility] Comment on above: Performed By: #### 5 6506 #### [facility] [address] [facility]. [address] SJOGRENS ANTIBODIESon 2021 SS-A Negative Normal NEG,NEGATIVE ,Neg [facility] Comment on above: Performed By: #### 9 9850, 16543, 91224, 75825, 38009 #### [facility] [address] [facility]. [address] SS-B Negative Normal NEG,NEGATIVE ,Neg [facility] Comment on above: Performed By: #### 9 9850, 19652, 88746, 68982, 96493 #### [facility] [address] [facility]. [address] Ambulatory Visit Summaryon 0 11-23-2021 Ambulatory Visit Summary KERI WRIGHT :1985 Visit Date:11/23/2021 Ambulatory Visit Instructions Your Care Team Attending Physician - Chantel MAYO MD Primary Care Physician - MEKA ROPER CNP [...] HTN (hypertension) Hypothyroidism Obesity Tobacco user Normal [facility] General Surgery Office/Clini c Noteon [...] Alcoholism: Father. Hypertension: Mother and Father. Normal [facility] Comment on above: Result Comment: Elec tronically Signed By: ALEX SINGH, Chantel Cuevas\Date and Time Signed: 11/23/21 14:24 EDT Pathology Noteon 11-21-2021 Pathology Note [id number]:127 Normal [facility] Operative Reporton 2 Operative Report [id number]:127 [facility] Provider Letter FTon 11-16 Provider Letter [facility] November 16, 2021 KERI WRIGHT [address] [place] [id number] KERI WRIGHT 1985 To Whom It May Concern, Please excuse above patient from work 11/16/2021. Sincerely, Dr. Chantel Mayo MD General Surgery [facility] Pre-Certification Formon Pre-Certification Form [id number]:127 [facility] Consent for Procedure/Surger yon 10-11-2021 Consent for Procedure/Surgery [id number]:127 [facility] Ambulatory Visit Summaryon 0 10-09-2021 Ambulatory Visit [...] HTN (hypertension) Hypothyroidism Obesity Tobacco user Normal [facility] Physician Referralon 022 Physician Referral [id number]:127 Normal [facility] MG MAMM TERRENCE DIAG W CADon MG MAMM TERRENCE DIAG W CAD Patient: KERI WRIGHT Exam Date: 10/02/2021 : 1985 Gender:F Ordering : RONY ROPER [facility] Admission #: [id number] Family : Order #: [id number] CLICK HERE TO VIEW EXAM RADIOLOGY REPORT [...] No Treatments None Family Cancers None LOCATION: [facility] BREAST COMPOSITION: Scattered areas fibroglandular density. FINDINGS: [...] [place] M.D. 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 on 10/02/2021 at 12:01 Normal [facility] CBC AUTO DIFFon 09-14-2021 BASO # 0.1 103/ul Normal 0.0-0.1 [facility] Comment on above: Performed By: #### C BC #### [facility] [address] [address] [address] Jaylan Jones Basophils/100 WBC (Bld) 0.7 % Normal 0.2-2.0 [facility] Comment on above: Performed By: #### C BC #### [facility] [address] [place] [address] Dr. Jaylan Jones EO # 0.2 103/ul Normal 0.0-0.7 [facility] Comment on above: Performed By: #### C BC #### [facility] [address] [place] [address] Dr. aJylan Jones Eosinophils/100 WBC (Bld) 3.1 % Normal 0.9-7.0 [facility] Comment on above: Performed By: #### C BC #### [facility] [address] [place] [address] Dr. Jaylan Jones Erythrocyte distribution width (RBC) [Ratio] 13.3 % Normal 11.0-15.0 [facility] Comment on above: Performed By: #### C BC #### [facility] [address] [place] [address] Dr. Jaylan Jones Hematocrit (Bld) [Volume fraction] 40.7 % Normal 36.0-48.0 [facility] Comment on above: Performed By: #### C BC #### [facility] [address] [place] [address] Dr. Jaylan Jones Hemoglobin (Bld) [Mass/Vol] 13.4 g/dL Normal 12.0-16.0 [facility] Comment on above: Performed By: #### C BC #### [facility] [address] [place] [address] Dr. Jaylan Jones IG # 0.03 10e3/ul Normal 0.00-0.03 [facility] Comment on above: Performed By: #### C BC #### [facility] [address] [place] [address] Dr. Jaylan Jones IG % 0.4 % Normal 0.0-0.5 [facility] Comment on above: Performed By: #### C BC #### [facility] [address] [place] [address] Dr. Jaylan Jones LYMPH # 1.9 103/ul Normal 1.2-3.8 [facility] Comment on above: Performed By: #### C BC #### [facility] [address] [place] [address] Dr. Jaylan Jones Lymphocytes/100 WBC (Bld) 25.4 % Normal 20.5-60.0 [facility] Comment on above: Performed By: #### C BC #### [facility] [address] [place] [address] Dr. Jaylan Jones MANUAL DIFF REQ NO Normal [facility] Comment on above: Performed By: #### C BC #### [facility] [address] [place] [address] Dr. Jaylan Jones MCH (RBC) [Entitic mass] 28.3 pg Normal 26.7-34.0 [facility] Comment on above: Performed By: #### C BC #### [facility] [address] [place] [address] Dr. Jaylan Jones MCHC (RBC) [Mass/Vol] 32.9 g/dL Normal 29.9-35.2 [facility] Comment on above: Performed By: #### C BC #### [facility] [address] [place] [address] Dr. Jaylan Jones MCV (RBC) [Entitic vol] 86.0 fL Normal 81.0-99.0 [facility] Comment on above: Performed By: #### C BC #### [facility] [address] [place] [address] Dr. Jaylan Jones MONO # 0.5 103/ul Normal 0.3-0.8 [facility] Comment on above: Performed By: #### C BC #### [facility] [address] [place] [address] Dr. Jaylan Jones Monocytes/100 WBC (Bld) 6.6 % Normal 1.7-12.0 [facility] Comment on above: Performed By: #### C BC #### [facility] [address] [place] [address] Dr. Jaylan Jones NEUT # 4.8 103/ul Normal 1.4-6.5 [facility] Comment on above: Performed By: #### C BC #### [facility] [address] [address] [address] Jaylan Jones Neutrophils/100 WBC (Bld) 63.8 % Normal 43.0-75.0 [facility] Comment on above: Performed By: #### C BC #### [facility] [address] [address] [address] Jaylan Jones Platelet mean volume (Bld) [Entitic vol] 10.1 fL Normal 9.5-13.5 [facility] Comment on above: Performed By: #### C BC #### [facility] [address] [place] [address] Dr. Jaylan Jones PLT 290 103/ul Normal 150-450 [facility] Comment on above: Performed By: #### C BC #### [facility] [address] [place] [address] Dr. Jaylan Jones RBC 4.73 106/ul Normal 4.20-5.40 [facility] Comment on above: Performed By: #### C BC #### [facility] [address] [place] [address] Dr. Jaylan Jones WBC 7.5 103/ul Normal 4.0-11.0 [facility] Comment on above: Performed By: #### C BC #### [facility] [address] [place] [address] Dr. Jalyan Jones FREE T4on 09-14-2021 Free T4 [Mass/Vol] 0.93 ng/dL Normal 0.78-2.19 [facility] Comment on above: Performed By: #### F T4 #### [facility] [address] [place] [address] Dr. Jaylan Jones GLYCOHEMOGLOBIN A1Con 2021 ADA RECOMMENDATION ADA THERAPEUTIC TARG ET 6.0 - 7.0 ACTION SUGGESTED > 7.0 Normal [facility] Comment on above: Performed By: #### A 1C #### [facility] [address] [place] [address] Dr. Jaylan Jones Glucose [Mass/Vol] 105 mg/dL Normal [facility] Comment on above: Performed By: #### A 1C #### [facility] [address] [address] [address] Jaylan Jones HbA1c (Bld) [Mass fraction] 5.3 % Normal <=6.0 [facility] Comment on above: Performed By: #### A 1C #### [facility] [address] [address] [address] Jaylan Jones LIPID PROFILEon 09-14-2021 CHOL-HDL RATIO NORM SEE BELOW Normal [facility] Comment on above: Result Comment: 3.3 - 4.4 LOW RISK 4.4 - 7.1 AVERAGE RISK 7.1 - 11.0 MODERATE RISK >11.0 HIGH RISK Performed By: #### T SH, LIPID, CMP #### [facility] [address] [place] [address] Dr. Jaylan Jones Cholesterol [Mass/Vol] 122 mg/dL Normal <=200 [facility] Comment on above: Performed By: #### T SH, LIPID, CMP #### [facility] [address] [place] [address] Dr. Jaylan Jones Cholesterol in HDL [Mass/Vol] 55 mg/dL Normal 40-60 [facility] Comment on above: Performed By: #### T PRISCILA, LIPID, CMP #### [facility] [address] [place] [address] Dr. Jaylan Jones Cholesterol in LDL [Mass/Vol] 55.2 mg/dL Normal [facility] Comment on above: Performed By: #### T SH, LIPID, CMP #### [facility] [address] [address] [address] Jaylan Jones Cholesterol.total/C holesterol in HDL [Mass ratio] 2.2 {ratio} Normal [facility] Comment on above: Performed By: #### T SH, LIPID, CMP #### [facility] [address] [place] [address] Dr. Jaylan Jones HDL NORMAL > or = 60 mg/dl - LO W CARDIOVASCULAR RISK <40 mg/dl - HIGH CARDIOVASCULAR RISK Normal [facility] Comment on above: Performed By: #### T SH, LIPID, CMP #### [facility] [address] [address] [address] Jaylan Jones LDL CALC NORMAL SEE BELOW Normal [facility] Comment on above: Result Comment: <100 mg/dl OPTIMAL 100 - 129 mg/dl NEAR OR ABOVE OPTIMAL 130 - 159 mg/dl BORDERLINE HIGH 160 - 189 mg/dl HIGH >190 mg/dl VERY HIGH Performed By: #### T SH, LIPID, CMP #### [facility] [address] [address] [address] Jaylan Jones Triglyceride [Mass/Vol] 59 mg/dL Normal <=150 [facility] Comment on above: Performed By: #### T PRISCILA, LIPID, CMP #### [facility] [address] [address] [address] Jaylan Jones VLDL CALC 11.8 mg/dL Normal [facility] Comment on above: Performed By: #### T PRISCILA, LIPID, CMP #### [facility] [address] [place] [address] Dr. Jaylan Jones PROF 14(COMP METB)on 022 Albumin [Mass/Vol] 3.9 g/dL Normal 3.4-5.0 [facility] Comment on above: Performed By: #### T PRISCILA, LIPID, CMP #### [facility] [address] [place] [address] Dr. Jaylan Jones Albumin/Globulin [Mass ratio] 1.1 {ratio} Normal [facility] Comment on above: Performed By: #### T PRISCILA, LIPID, CMP #### [facility] [address] [address] [address] Jaylan Jones ALP [Catalytic activity/Vol] 64 U/L Normal 46-116 [facility] Comment on above: Performed By: #### T PRISCILA, LIPID, CMP #### [facility] [address] [place] [address] Dr. Jaylan Jones ALT [Catalytic activity/Vol] 26 U/L Normal 14-59 [facility] Comment on above: Performed By: #### T PRISCILA, LIPID, CMP #### [facility] [address] [address] [address] Jaylan Jones Anion gap [Moles/Vol] 13.2 mmol/L Normal [facility] Comment on above: Performed By: #### T PRISCILA, LIPID, CMP #### [facility] [address] [place] [address] Dr. Jaylan Jones AST [Catalytic activity/Vol] 16 U/L Normal 15-37 [facility] Comment on above: Performed By: #### T PRISCILA, LIPID, CMP #### [facility] [address] [place] [address] Dr. Jaylan Jones Bilirubin [Mass/Vol] 0.5 mg/dL Normal 0.2-1.3 [facility] Comment on above: Performed By: #### T PRISCILA LIPID, CMP #### [facility] [address] [place] [address] Dr. Jaylan Jones Calcium [Mass/Vol] 8.9 mg/dL Normal 8.5-10.1 [facility] Comment on above: Performed By: #### T PRISCILA, LIPID, CMP #### [facility] [address] [place] [address] Dr. Jaylan Jones Chloride [Moles/Vol] 102 mmol/L Normal 98-107 [facility] Comment on above: Performed By: #### T PRISCILA LIPID, CMP #### [facility] [address] [place] [address] Dr. Jaylan Jones CO2 [Moles/Vol] 25.1 mmol/L Normal 22.0-30.0 [facility] Comment on above: Performed By: #### T SH, LIPID, CMP #### [facility] [address] [place] [address] Dr. Jaylan Jones Creatinine [Mass/Vol] 0.71 mg/dL Normal 0.55-1.02 [facility] Comment on above: Performed By: #### T SH, LIPID, CMP #### [facility] [address] [place] [address] Dr. Jaylan Jones EGFR-AF [place] >60 Normal >=60 [facility] Comment on above: Performed By: #### T SH, LIPID, CMP #### [facility] [address] [place] [address] Dr. Jaylan Jones EGFR-NON AF [place] >60 Normal >=60 [facility] Comment on above: Performed By: #### T PRISCILA, LIPID, CMP #### [facility] [address] [address] [address] Jaylan Jones Globulin (S) [Mass/Vol] 3.5 g/dL Normal [facility] Comment on above: Performed By: #### T PRISCILA, LIPID, CMP #### [facility] [address] [address] [address] Jaylan Jnoes Glucose [Mass/Vol] 85 mg/dL Normal 74-106 [facility] Comment on above: Performed By: #### T PRISCILA LIPID, CMP #### [facility] [address] [place] [address] Dr. Jaylan Jones Potassium [Moles/Vol] 4.3 mmol/L Normal 3.4-5.0 [facility] Comment on above: Performed By: #### T PRISCILA LIPID, CMP #### [facility] [address] [place] [address] Dr. Jaylan Jones Protein [Mass/Vol] 7.4 g/dL Normal 6.1-8.2 [facility] Comment on above: Performed By: #### T PRISCILA LIPID, CMP #### [facility] [address] [place] [address] Dr. Jaylan Jones Sodium [Moles/Vol] 136 mmol/L Critically low 137-145 [facility] Comment on above: Performed By: #### T PRISCILA, LIPID, CMP #### [facility] [address] [place] [address] Dr. Jaylan Jones Urea nitrogen [Mass/Vol] 14.0 mg/dL Normal 7.0-18.0 [facility] Comment on above: Performed By: #### T PRISCILA, LIPID, CMP #### [facility] [address] [place] [address] Dr. Jaylan Jones Urea nitrogen/Creatinine [Mass ratio] 19.7 mg/mg Normal [facility] Comment on above: Performed By: #### T PRISCILA, LIPID, CMP #### [facility] [address] [address] [address] Jaylan Jones SED RATE WESTERGRENon 2021 SED RATE 15 mm/hr Normal <=20 [facility] Comment on above: Performed By: #### S EDR #### [facility] [address] [address] [address] Jaylan Jones TSHon 09-14-2021 TSH 0.846 uIU/mL Normal 0.470-4.680 [facility] Comment on above: Performed By: #### T SH, LIPID, CMP #### [facility] [address] [address] [address] Jaylan Jones TSH RANGE SEE BELOW Normal [facility] Comment on above: Result Comment: <0.3 4 UIU/ml HYPERTHYROID 0.34-5.60 UIU/ml EUTHYROID >5.60 UIU/ml HYPOTHYROID Performed By: #### T SH, LIPID, CMP #### [facility] [address] [place] [address] UROGRAM WO/W IVCONon -2 CT UROGRAM WO/W IVCON * * *Final Report* * *DATE OF EXAM: Jan 16 2018 2:44PM [facility] 0560 - CT UROGRAM WO/W [...] LOGAN MD on Jan 19 2018 4:03PM [id number] Normal [facility] PROGRESSon 01-16-2018 Protein mass conc HNO ID: [id number] thor: Hoang (Ct) SHARAD Ruvalcabaervice: (none)Author Type: Clinical TechnicianType: Progress NotesFiled: 01/16/2018 2:46 PMNote Text: Radiology Service Progress NotePATIENT NAME: Keri WrightMRN: [id number] OF SERVICE: January 16, 2018TIME: 2:45 PMPATIENT [...] BY: Radha ZAVALETA 2017 2:45 PM Normal [facility] CNOVon 01-13-2018 CNOV Office Visit (UROLAV) JESSIE WRIGHT ([id number]) 1985 FDate Time Provider Department01/13/18 10:20 AM [...] [facility] INSTITUTEHEMATURIA EVALUATIONAugust 2017 CHIEF COMPLAINT: pelvic pressure, flank [...] or vaginal bleeding, but has had hysterectomyand mortuary technician has told her it's not from that [...] get a sooner appointment.She lives in the [facility] and some results are in Care Everywhere.DTF: 10+NTF: 4-5x per nightUrgency: yesUUI: NOSUI: odkeawH1D0 - vaginal birthPreeclampsiaBowel movements vary - change all the timeDiarrhea - constipation. I will go days without eatings. No appetite, sometimes in too much pain toeat.(Determine 4 of 8)1-Duration: 21776-Rhuzfdmk: bladder3-Severity: worse4-Quality: Irritative5-Context: Void6-Timing: constantly7-Modifying factors: No [...] MEDICAL HISTORY/COMORBIDITIES:==== ====Hypothyroidism, thyroid goiterDepressionHysterecto my in 2012Knee surgeries for patellar dislocation.IBUPROFEN (MOTRIN ORAL) Take [...] help improve urgency3. Pelvic pain - ICD9: [id number], ICD10: R10.2- Patient with multiple year history [...] WITH MICROSCOPIC- CYTOLOGY, URINE (XTUBE)- URINE CYTOLOGY VOIDEDEliOSWALDO Steen-CReferring Provider: SELF [200]Allergies As of Date: 01/13/2018 Noted Allergy ReactionNALBUPHINE 06/09/2017 11 - VomitingDate Reviewed: 01/13/2018Reviewed by: Kelly Cross Ma - Fully AssessedReason for Visit: Initial Consult [665] Cmt: Gross hematuriaPrimary Visit Diagnosis:Gross hematuria [R31.0] Other Visit Diagnoses:Urinary urgency [R39.15] Pelvic pain [R10.2] Pelvic floor dysfunction [M62.89] Screening for genitourinary condition [Z13.89]Order(s):UA DIP, URINE (POC) [1986804] Order #: [id number]. #:[id number] -LAB URINALYSIS WITH MICROSCOPIC [SQUAWMIC] Order #: [id number] CYTOLOGY, URINE (XTUBE) [SQUCYTOL] Order #: [id number] FUTURE URINE CYTOLOGY VOIDED [0516990] Order #: [id number] CT UROGRAM WO/W IVCON [9248502] Order #: [id number] FUTURE iv contrast (will be provided with [...] administration guidelines link.Disp: 1 EachRfl: 0 CYSTO.PANENDO [65027WJU] Order #: [id number] MYCOPLASMA CULT [SQMYPLAS] Order #: [id number] CONSULT TO PHYSICAL THERAPY [9032] Order #: [id number]: 1Prescriptions as of 01/13/2018 Sig: MOTRIN ORAL [...] gross hematuria.Follow-up and Disposition History RecordedEncounter Number: [id number] Status:Closed by IZABEL EARL PA-C on 01/13/18 Normal [facility] CYTOLOGYon 01-13-2018 Body mass index (BMI) [Ratio] [facility]: [id number] Physician: IZABEL EARLSPECNESTOR SUBMITTEDA: URINE, VOIDED FINAL DIAGNOSISA. URINE, VOIDED: - Negative for malignant cells.Tate Joseph MD (Electronic Signature) CLINICAL DATA Gross hematuriaGROSS [id number] clear slight yellow tinged fluidSTAINSA: URINE, VOIDED THIN PREP Non-GynPatient ID #: [id number] of Report: 01/15/2018Date of Procedure: 01/13/2018Date of Receipt: 01/13/2018Submitted by: IZABEL EARLLocation: JOSUE [id number] interpretation performed at [facility], [address] [place] [address]. Normal [facility] Mycoplasma Culton 01-13-2018 Mycoplasma Cult Sp. Request/Comment: - Specimen received in [place] [employer] [facility]. Test Result - Culture negative for Mycoplasma hominis and Ureaplasma urealyticum Normal [facility] Comment on above: Performed By: #### M YPLAS ####[facility] [address] [place], [place] [phone] PROGRESSon 01-13-2018 Protein mass conc HNO ID: [id number] thor: Izabel Hamilton (Pa): (none)Author Type: Physician AssistantType: Progress NotesFiled: 01/13/2018 12:28 PMNote Text: [facility]ITALICAL NOTREESHEMATURIA EVALUATIONAugust 2017 CHIEF COMPLAINT: pelvic pressure, flank pain, urinary urgency, grosshematuriaHPI:The patient is 32 year old and is referred for evaluation of grosshematuria, urinary urgency, flank pain, and pelvic pressure.She has had gross hematuria 1-2x per week since September.Was told by multiple doctors that I have blood in my urine. Uncertain if it's blood in urine or vaginal bleeding, but has hadhysterectomy and mortuary technician has told her it's not from that [...] to get a soonerappointment.She lives in the [facility] and some results are in Care Everywhere.DTF: 10+NTF: 4-5x per nightUrgency: yesUUI: NOSUI: gyevjrX2X3 - vaginal birthPreeclampsiaBowel movements vary - change all the timeDiarrhea - constipation. I will go days without eatings. No appetite, sometimes in too much painto eat.(Determine 4 of 8)1-Duration: 42666-Xwhaarmi: bladder3-Severity: worse4-Quality: Irritative5-Context: Void6-Timing: constantly7-Modifying factors: No [...] MEDICAL HISTORY/COMORBIDITIES:==== ====Hypothyroidism, thyroid goiterDepressionHysterecto my in 2012Knee surgeries for patellar dislocation.IBUPROFEN (MOTRIN ORAL) Take [...] help improve urgency3. Pelvic pain - ICD9: [id number], ICD10: R10.2- Patient with multiple year history [...] (XTUBE)- URINE CYTOLOGY Willy Earl PA-C Normal [facility] Urinalysis with Microscopico n 01-13-2018 Bilirubin, Urine Negative [facility] Comment on above: Performed By: #### U AWMIC ####[address] [phone] Clarity Clear Normal Clear [facility] Comment on above: Performed By: #### U AWMIC ####[facility] [phone] Color Yellow Normal Yellow [facility] Comment on above: Performed By: #### U AWMIC ####[facility] [phone] Comments SEE COMMENT Normal [facility] Comment on above: Result Comment: N/A Performed By: #### U AWMIC ####[facility] [address] [phone] Glucose Ql (U) Negative Normal Negative [facility] Comment on above: Performed By: #### U AWMIC ####[address] [address] [place] [phone] Hemoglobin/Blood,Ur 1+ Critically abnormal Negative [facility] Comment on above: Performed By: #### U AWMIC ####[address] [place] [address] [phone] INR Coag RelTime (Bld) 0-3 Normal 0-3 [facility] Comment on above: Performed By: #### U AWMIC ####[address] [place] [address] [phone] Ketones Ql (U) Negative Normal Negative [facility] Comment on above: Performed By: #### U AWMIC ####[address] [address] [address] [phone] Leukest Negative Normal Negative [facility] Comment on above: Performed By: #### U AWMIC ####[address] [place] [phone] Nitrites Negative Normal Negative [facility] Comment on above: Performed By: #### U AWMIC ####[address] [place] [phone] pH 7.0 Normal 4.5-8.0 [facility] Comment on above: Performed By: #### U AWMIC ####[place] [phone] Protein, Urine Negative Normal Negative [facility] Comment on above: Performed By: #### U AWMIC ####[place] [phone] Specific [place], Ur 1.008 Normal 1.005-1.030 [facility] Comment on above: Performed By: #### U AWMIC ####[address] [address] [phone] Urine Lazaro Comment SEE COMMENT Normal [facility] Comment on above: Result Comment: N/A Performed By: #### U AWMIC ####[address] [place] [address] [place] [phone] Urobilinogen Normal Normal Normal [facility] Comment on above: Performed By: #### U AWMIC ####[facility] [address] [place], [place] [phone] WBC 0-5 Normal 0-5 [facility] Comment on above: Performed By: #### U AWMIC ####[facility] [place], [place] [phone] .UA Microscp Aon 06-09-2017 UA Mucus Present Abnormal Absent [facility] Comment on above: Performed By: #### C [id number] ####[address] [address] UA Squepi Cells Quant 7 /HPF Normal 0-29 [facility] Comment on above: Performed By: #### C [id number] ####[address] [address] UA WBC Quant 0 /HPF Normal 0-5 [facility] Comment on above: Performed By: #### C D:[id number] ####[address] [address] Urine, erythrocytes 17 /HPF High 0-5 [facility] Comment on above: Performed By: #### C D:[id number] ####[address] [address] .eGFRon 06-09-2017 eGFR (non-black) mL/min/{1.73_m2} Normal >=60 [facility] Comment on above: Result Comment: Resu lt [...] medication dosing. Performed By: #### E GFR ####[address] [address] Result Comment: Resu lt = 0-14.9 mL/min/1.73 m2 Kidney failure or DialysisResult = 15-29 mL/min/1.73 m2 Severe decrease in GFRResult = 30-59 mL/min/1.73 m2 Moderate decrease in GFRResult >= 60 mL/min/1.73 m2 Normal or increased GFR CBC w/ Diffon 06-09-2017 Erythrocyte distribution width Auto Ratio (RBC) 14.0 % Normal 11.6-14.8 [facility] Comment on above: Performed By: #### C BC ####[place] [address] Erythrocytes (RBC) 5.00 x10*6/mcL Normal 3.80-5.20 [facility] Comment on above: Performed By: #### C BC ####[place] [address] Hematocrit (HCT) 42.4 % Normal 36.0-46.0 [facility] Comment on above: Performed By: #### C BC ####[address] [address] Hemoglobin mass conc (Bld) 14.6 g/dL Normal 12.0-16.0 [facility] Comment on above: Performed By: #### C BC ####[place] [id number] MCH 29.3 pg Normal 27.0-35.0 [facility] Comment on above: Performed By: #### C BC ####[address] [address] MCHC mass conc (RBC) 34.5 % Normal 31.0-37.0 [facility] Comment on above: Performed By: #### C BC ####[place] [id number] MCV 84.9 fL Normal 80.0-100.0 [facility] Comment on above: Performed By: #### C BC ####[address] [place] [address] Platelet mean volume (PMV) 8.1 fL Normal 6.7-10.6 [facility] Comment on above: Performed By: #### C BC ####[address] [address] Platelets 242 x10*3/mcL Normal 150-350 [facility] Comment on above: Performed By: #### C BC ####[address] [address] WBC (Leukocytes) 9.2 x10*3/mcL Normal 4.5-11.0 [facility] Comment on above: Performed By: #### C BC ####[place] [address] CMPon 06-09-2017 Alanine aminotransferase (ALT) 15 U/L Normal 14-54 [facility] Comment on above: Performed By: #### C OMP ####[place] [id number] Albumin 4.0 g/dL Normal 3.2-4.9 [facility] Comment on above: Performed By: #### C OMP ####[place] [id number] Albumin/Globulin Ratio 1.4 {ratio} Normal 1.1-2.2 [facility] Comment on above: Performed By: #### C OMP ####[place] [id number] Alk Phos 40 IU/L Normal 32-91 [facility] Comment on above: Performed By: #### C OMP ####[place] [id number] Anion gap 9 mmol/L Normal 7-17 [facility] Comment on above: Performed By: #### C OMP ####[place] [id number] Aspartate aminotransferase (AST) 22 U/L Normal 15-41 [facility] Comment on above: Performed By: #### C OMP ####[address] [place] [address] Bili Total 0.5 mg/dL Normal 0.3-1.2 [facility] Comment on above: Performed By: #### C OMP ####[address] [address] BUN/Creatinine Ratio 25.8 mg/mg High 15.0-25.0 [facility] Comment on above: Performed By: #### C OMP ####[address] [address] Calcium 9.0 mg/dL Normal 8.5-10.3 [facility] Comment on above: Performed By: #### C OMP ####[address] [address] Chloride 108 mmol/L Normal 98-110 [facility] Comment on above: Performed By: #### C OMP ####[place] [address] CO2 24 mmol/L Normal 22-32 [facility] Comment on above: Performed By: #### C OMP ####[place] [id number] Creatinine 0.66 mg/dL Normal 0.44-1.03 [facility] Comment on above: Performed By: #### C OMP ####[address] [address] Glucose mass conc 95 mg/dL Normal 74-118 [facility] Comment on above: Performed By: #### C OMP ####[address] [address] Potassium molar conc 3.7 mmol/L Normal 3.4-4.8 [facility] Comment on above: Performed By: #### C OMP ####[address] [address] Protein 6.8 g/dL Normal 6.5-8.1 [facility] Comment on above: Performed By: #### C OMP ####[address] [address] Sodium 137 mmol/L Normal 133-142 [facility] Comment on above: Performed By: #### C OMP ####[facility] [place] [address] Urea nitrogen 17 mg/dL Normal 8-26 [facility] Comment on above: Performed By: #### C OMP ####[place] [address] [place] [address] CT Abdomen Pelvis w/ IV Cont kalyn [...] abnormality.IMPRESSION:No acute abdominal or pelvic abnormality.Radiation Dose Estimate:CTDI(mGy):0.41654 0 / / / kVp:120.345061 / mAs:0.231252 / / / DLP(mGy-cm):6.852249Ibgt Part: AbdomenCTDI(mGy):12.701506 / / / kVp:100.496371 / mAs:167.183234 / / / DLP(mGy-cm):598.355694Rkgp Part: Abdomen Final Dictated by: Herrera House MDctated DT/TM: 06.09.2017 9:57 amSigned by: Herrera House MDigned (Electronic Signature): 06.09.2017 10:00 am(If Report Is Signed, Electronically Signed in Other Vendor System) Normal [facility] Diff Autoon 06-09-2017 Baso Absolute 0.1 x10*3/mcL Normal 0.0-0.2 [facility] Comment on above: Performed By: #### . Automated Diff ####[address] [address] Basophils/100 WBC Auto (Bld) 1.0 % Normal 0.0-1.5 [facility] Comment on above: Performed By: #### . Automated Diff ####[address] [address] Eos Absolute 0.5 x10*3/mcL High 0.0-0.4 [facility] Comment on above: Performed By: #### . Automated Diff ####[address] [address] Eosinophils/100 leukocytes 5.4 % Normal 0.0-5.4 [facility] Comment on above: Performed By: #### . Automated Diff ####[address] [address] Lymphocytes 2.8 x10*3/mcL Normal 1.0-4.8 [facility] Comment on above: Performed By: #### . Automated Diff ####[address] [address] Lymphocytes/100 leukocytes 30.4 % Normal 27.2-40.8 [facility] Comment on above: Performed By: #### . Automated Diff ####[address] [address] [place] Absolute 0.7 x10*3/mcL Normal 0.1-1.1 [facility] Comment on above: Performed By: #### . Automated Diff ####[address] [address] Monocytes/100 leukocytes 8.0 % Normal 3.7-11.9 [facility] Comment on above: Performed By: #### . Automated Diff ####[place] [address] Neutro Absolute 5.1 x10*3/mcL Normal 1.8-7.7 [facility] Comment on above: Performed By: #### . Automated Diff ####[address] [address] Neutro Auto 55.2 % Normal 47.2-70.8 [facility] Comment on above: Performed By: #### . Automated Diff ####[place] [address] ED Clinical Summaryon 2017 ED Clinical Summary (Inserted Image. Carito ble to display) [place] [address] ed Clinical SummaryPerson InformationName: Keri Wright Awilda/Mary Ellen Age: 31 Years : 1985Sex: Female PCP:Marital Status:Single race:White Ethnicity:Not or Language:EnglishMRN: [id number] Reason:Abdominal pain; Abdominal pain Acuity: 3Enc Type: Emergency Med Service: Emergency MedicineArrival:06/08/2017 21:47:00 Discharge: 06/09/2017 00:51:00 LOS: 000 03:04Checkin:06/08/2017 21:47:00 Checkout: 06/09/2017 00:51:00 Dispo Type: Home or Self CareAddress:[address] [place] [id number] Provider Notes: History of Present IllnessPatient is [...] to cholelithiasis 2 months ago diagnosed at [facility]. Patient???s past medical history includes cholelithiasis. Patient [...] range between ( 27.2 and 40.8 ) [place] Auto: 8.0 % -- Normal range between [...] range between ( 36.0 and 46.0 ) [place] Absolute: 0.7 x10 MCH: 29.3 pg -- [...] No Immunizations Documented This VisitFinal Med List:[facility], [address], [place] [id number], [phone] (Bentyl 20 mg oral tablet) 1 Tabs [...] needed as needed for pain.Last Dose: [facility] [address], [address] [place], [place] [id number], [phone] 4435dicyclomine (Bentyl 20 mg oral tablet) 1 Tabs [...] for pain.Care Team Members:Attending Physician: Dakota SINGH, Katia MortonConsulting Physician:Referring Physician:Provider Role Assigned UnassignedDakota SINGH, Katia Morton ED Provider 06/08/2017 21:51:24Penny Watts ED Nurse 06/08/2017 22:10:49Follow up:With: Address: When:Please Follow up with your PCP within 2-3 dyasDischarge Orders:Discharge Patient 06/09/17 0:13:00 EST, Discharge to Home, SelfPatient Education Information:CONSTIPATION (Adult); Abdominal Pain, AdultAAPCC Poison Help line: .[facility] Hotline: [place] Tobacco Quit Line: [facility] ([place], [place]) [address]: [phone] ([place], [place]) [address]: [phone] [address] [place], [place]: [phone] Normal [facility] ED Note-Physicianon 06-09-19 18 ED Note-Physician Chief Complaint lowe r right [...] to cholelithiasis 2 months ago diagnosed at [facility]. Patient?s past medical history includes cholelithiasis. Patient [...] information in this document, created by the director of medical services for me, accurately reflects the services I [...] TID, # 21 tabs, 0 Refill(s), Pharmacy: [facility] [address] [address] docusate, 1 caps, Oral, BID, PRN, # 20 caps, 0 Refill(s), Pharmacy: [facility] [address] [address] ondansetron, 1 tabs, Oral, q8hr, PRN, # 15 tabs, 0 Refill(s), Pharmacy: [facility] [address] [address] polyethylene glycol 3350, 17 g, Oral, Daily, dissolve in water before taking, # 527 g, 0 Refill(s), Pharmacy: [facility] [address] 2. Constipation 3. Gallbladder contraction Orders: sodium chloride, 10 mL, IV Push, Injection, As Indicated, PRN flush, First Dose: 06/08/17 22:02:00 EST, Dispense From Location: [id number] CT Abdomen Pelvis w/ IV Contrast Discharge [...] data available. Flaquito Monique RElectronically signed by Katia Colindres MD 06/09/2017 00:17 EST Normal [facility] Lipaseon 06-09-2017 Lipase Lvl 20 IU/L Low 22-51 [facility] Comment on above: Performed By: #### L IP ####[address] [address] UA w Culture if Indon 2017 UA Blood Small Abnormal Negative [facility] Comment on above: Performed By: #### U CI ####[address] [place] [address] UA Clarity Clear Normal [facility] Comment on above: Performed By: #### U CI ####[address] [place] [address] UA Leukocyte Esterase Negative Normal Negative [facility] Comment on above: Performed By: #### U CI ####[address] [place] [address] UA Nitrite Negative Normal Negative [facility] Comment on above: Performed By: #### U CI ####[address] [place] [address] UA pH 5.0 Normal 4.5 - 7.8 [facility] Comment on above: Performed By: #### U CI ####[address] [place] [address] UA Protein Negative Normal Negative [facility] Comment on above: Performed By: #### U CI ####[address] [place] [address] UA Source Clean Catch Normal [facility] Comment on above: Performed By: #### U CI ####[address] [address] UA Spec Grav 1.034 Normal 1.003-1.035 [facility] Comment on above: Performed By: #### U CI ####[address] [place] [address] UA Urobilinogen 0.2 mg/dL Normal 0.2 - 1.0 [facility] Comment on above: Performed By: #### U CI ####[address] [address] Urine, color Yellow Normal [facility] Comment on above: Performed By: #### U CI ####[address] [address] Urine, glucose Negative Normal Negative [facility] Comment on above: Performed By: #### U CI ####[facility] [place] [address] Urine, ketones presence Trace Abnormal Negative [facility] Comment on above: Performed By: #### U CI ####[facility] [place] [address] Urine, urobilinogen Negative Normal Negative [facility] Comment on above: Performed By: #### U CI ####[facility] [place] [address] Vital Signs Date Time Vital Sign Value Performing Clinician Facility 11-27-2024 09:38-0400 Body height 157.48 cm Kam Goldberg MD Work Phone: [facility] 11-27-2024 09:38-0400 Body mass index (BMI) [Ratio] 43.2 kg/m2 Kam Goldberg MD Work Phone: [facility] 11-27-2024 09:38-0400 Body temperature 97.7 [degF] Kam Goldberg MD Work Phone: [facility] 11-27-2024 09:38-0400 Body weight 107.21 kg Kam Goldberg MD Work Phone: [facility] 11-27-2024 09:38-0400 Heart rate 67 /min Kam Goldberg MD Work Phone: [facility] 11-27-2024 09:38-0400 Respiratory rate 18 /min Kam Goldberg MD Work Phone: [facility] 11-27-2024 09:38-0400 SaO2% (BldA) [Mass fraction] 99 % Kam Goldberg MD Work Phone: [facility] 04-14-2024 10:13-0500 Body height 157.48 cm [facility] 04-14-2024 10:13-0500 Body mass index (BMI) [Ratio] 41.3 kg/m2 [facility] 04-14-2024 10:13-0500 Body temperature 98.1 [degF] [facility] 04-14-2024 10:13-0500 Body weight 102.51 kg [facility] 04-14-2024 10:13-0500 Diastolic blood pressure 85 mm[Hg] [facility] 04-14-2024 10:13-0500 Heart rate 90 /min [facility] 04-14-2024 10:13-0500 SaO2% (BldA) [Mass fraction] 98 % [facility] 04-14-2024 10:13-0500 Systolic blood pressure 129 mm[Hg] [facility] 04-01-2024 12:29-0500 Body height 157.48 cm [facility] 04-01-2024 12:29-0500 Body mass index (BMI) [Ratio] 41.8 kg/m2 [facility] 04-01-2024 12:29-0500 Body temperature 97.5 [degF] [facility] 04-01-2024 12:29-0500 Body weight 103.58 kg [facility] 04-01-2024 12:29-0500 Diastolic blood pressure 84 mm[Hg] [facility] 04-01-2024 12:29-0500 Heart rate 79 /min [facility] 04-01-2024 12:29-0500 Respiratory rate 18 /min [facility] 04-01-2024 12:29-0500 SaO2% (BldA) [Mass fraction] 98 % [facility] 04-01-2024 12:29-0500 Systolic blood pressure 128 mm[Hg] [facility] 11-18-2023 10:49-0400 Body height 160.02 cm [facility] 11-18-2023 10:49-0400 Body mass index (BMI) [Ratio] 38.8 kg/m2 [facility] 11-18-2023 10:49-0400 Body temperature 97.6 [degF] [facility] 11-18-2023 10:49-0400 Body weight 99.5 kg [facility] 11-18-2023 10:49-0400 Diastolic blood pressure 86 mm[Hg] [facility] 11-18-2023 10:49-0400 Heart rate 78 /min [facility] 11-18-2023 10:49-0400 Respiratory rate 18 /min [facility] 11-18-2023 10:49-0400 SaO2% (BldA) [Mass fraction] 99 % [facility] 11-18-2023 10:49-0400 Systolic blood pressure 130 mm[Hg] [facility] 04-23-2023 09:00-0500 Body height 160.02 cm Kamila Contrerasmond Other [facility] Other 04-23-2023 09:00-0500 Body mass index (BMI) [Ratio] 39.14 kg/m2 Kamila Contrerasmond Other [facility] 04-23-2023 09:00-0500 Body temperature 97.4 [degF] Kamila Contrerasmond Other [facility] Other 04-23-2023 09:00-0500 Body weight 100.25 kg Kamila Contrerasmond Other [facility] Other 04-23-2023 09:00-0500 Diastolic blood pressure 94 mm[Hg] Kamila Rhoda Other [facility] Other 04-23-2023 09:00-0500 Respiratory rate 18 /min Kamila Contrerasmond Other [facility] Other 04-23-2023 09:00-0500 SaO2% (BldA) [Mass fraction] 99 % Kamila Rhoda Other [facility] 04-23-2023 09:00-0500 Systolic blood pressure 143 mm[Hg] Kamila Rhoda Other [facility] 02-09-2023 09:00-0400 Body height 160.02 cm Kamila Duong Other [facility] 02-09-2023 09:00-0400 Body mass index (BMI) [Ratio] 36.77 kg/m2 Kamila Contrerasmond Other [facility] 02-09-2023 09:00-0400 Body temperature 97.4 [degF] Kamila Duong Other [facility] 02-09-2023 09:00-0400 Body weight 94.17 kg Kamila Duong Other [facility] Other 02-09-2023 09:00-0400 Diastolic blood pressure 88 mm[Hg] Kamila Duong Other [facility] Other 02-09-2023 09:00-0400 Respiratory rate 18 /min Kamila Duong Other [facility] Other 02-09-2023 09:00-0400 SaO2% (BldA) [Mass fraction] 98 % Kamila Duong Other [facility] Other 02-09-2023 09:00-0400 Systolic blood pressure 126 mm[Hg] Kamila Rhoda Other [facility] Other 06-11-2022 10:00-0500 Body height 157.48 cm Gloria Jackson Other [facility] Other 06-11-2022 10:00-0500 Body mass index (BMI) [Ratio] 40.23 kg/m2 Gloria Jackson Other [facility] Other 06-11-2022 10:00-0500 Body temperature 97.8 [degF] Gloria Jackson Other [facility] Other 06-11-2022 10:00-0500 Body weight 99.79 kg Gloria Jackson Other [facility] Other 06-11-2022 10:00-0500 Respiratory rate 18 /min Gloria Jackson Other [facility] Other 06-11-2022 10:00-0500 SaO2% (BldA) [Mass fraction] 99 % Gloria Jackson Other [facility] Other 10-09-2021 13:49-0400 Blood Pressure Location Chantel NILL [facility] [place] 10-09-2021 13:49-0400 Diastolic blood pressure 80 mm[Hg] Chantel NILL [facility] [place] 10-09-2021 13:49-0400 Heart rate 72 /min Chantel NILL [facility] [place] 10-09-2021 13:49-0400 Respiratory rate 16 /min Chantel NILL [facility] [place] 10-09-2021 13:49-0400 Systolic blood pressure 124 mm[Hg] Chantel NILL [facility] [place] NEGATED: Highlighted row BMI (Body Mass Index) [facility] NEGATED: Highlighted row Body Temperature [facility] NEGATED: Highlighted row Body weight [facility] NEGATED: Highlighted row BP Diastolic [facility] NEGATED: Highlighted row BP Systolic [facility] NEGATED: Highlighted row Height Harry Printy [facility] NEGATED: Highlighted row Pulse (Heart Rate) [facility] NEGATED: Highlighted row Pulse Oximetry [facility] NEGATED: Highlighted row Respiratory Rate [facility] Encounters Encounter Date Encounter Type Care Provider Facility Start: 11-27-2024 End: 11-27-2024 ambulatory Kam Goldberg MD Work Phone: [facility] Work Phone: Start: 11-27-2024 End: 11-27-2024 Patient encounter procedure Leslie Leonard [facility] Work Phone: Start: 04-14-2024 End: 04-14-2024 ambulatory [facility] Work Phone: Start: 04-14-2024 End: 04-14-2024 Patient encounter procedure [facility] Work Phone: Start: 04-01-2024 End: 04-01-2024 Patient encounter procedure [facility] Work Phone: Start: 02-22-2024 Non-patient / Non-visit [facility] Work Phone: Start: 12-09-2023 End: 12-09-2023 ambulatory MEKA SAÚLHMYRONZ Not Available Start: 11-18-2023 End: 11-18-2023 ambulatory [facility] Work Phone: Start: 11-18-2023 End: 11-18-2023 Patient encounter procedure [facility] Work Phone: Start: 08-14-2023 End: 08-14-2023 ambulatory [place] EM Not Available Start: 08-04-2023 End: 08-04-2023 ambulatory [place] COLVINEY Not Available Start: 06-23-2023 End: 06-23-2023 ambulatory DELICIA TRIPP Not Available Start: 06-03-2023 End: 06-03-2023 ambulatory DELICIA TRIPP Not Available Start: 04-23-2023 (URG) Urgent Care Visit Kamila herring [facility] Start: 04-23-2023 End: 04-23-2023 ambulatory Kamila Rhoda Other [facility] Other Start: 02-09-2023 End: 02-09-2023 ambulatory Kamila Rhoda Other [facility] Other Start: 02-09-2023 Office outpatient vi sit 15 minutes Kamila Duong [facility] Start: 01-07-2023 ambulatory PHYSICIAN NO FAMILY Fac ility:[facility] Start: 06-17-2022 End: 06-17-2022 ambulatory REGRINDER OPERATOR MEKA SAÚLKathyMYRONPhu Facility: Start: 06-14-2022 End: 06-14-2022 ambulatory Gloria Jackson Other [facility] Other Start: 06-14-2022 Telephone encounter Gloria Jackson [facility] [address] Start: 06-11-2022 Office outpatient vi sit 25 minutes Gloria Jackson [facility] Start: 06-11-2022 End: 06-11-2022 ambulatory PHYSICIAN NO FAMILY Facility:[facility] Start: 06-11-2022 End: 06-11-2022 ambulatory PHYSICIAN NO [facility] Work Phone: Start: 06-11-2022 End: 06-11-2022 Departed Referred PHYSICIAN NO [facility] [place] Work Phone: Start: 11-23-2021 End: 11-23-2021 Patient encounter procedure Chantel MAYO [facility]/Viri Lucas Start: 11-14-2021 End: 11-14-[address] CHANTEL MAYO Facility:[facility] Start: 11-06-2021 Encounter for other preprocedural examination DR CHANTEL MAYO [facility] Start: 11-02-2021 End: 11-03-[address] CHANTEL MAYO Facility:[facility] Start: 11-02-2021 End: 11-03-2021 Encounter for other preprocedural examination DR CHANTEL MAYO Facility:[facility] Start: 10-09-2021 End: 10-09-2021 Patient encounter procedure Chantel MAYO General Surgery Alex/Viri Lucas Start: 10-02-2021 End: 10-03-2021 ambulatory RONY CABEZAS SAÚLKathyHEIDI Facility:[facility] Start: 09-14-2021 End: 09-15-2021 ambulatory RONY CABEZAS SAÚLKathyMYRONPhu Facility:[facility] Start: 01-16-2018 End: 01-16-2018 Patient encounter IZABEL HARDWICK) [facility] Start: 01-13-2018 End: 01-14-2018 Patient encounter IZABEL HARDWICK) [facility] Start: 06-08-2017 End: 06-09-2017 Emergency department patient visit KATIA DUNCAN Facility:[facility] Start: 10-02-2015 End: 10-03-2015 Admission to day surgery [facility] Start: 08-11-2015 End: 08-11-2015 Admission to day surgery [facility] Start: 12-01-2013 End: 12-01-2013 Emergency department patient visit Harry [facility] Start: 04-06-2013 End: 04-06-2013 Patient encounter procedure Harry [facility] Start: 04-28-2012 End: 04-28-2012 Patient encounter procedure Harry [facility] Start: 10-07-2011 End: 10-07-2011 Emergency department patient visit [facility] Start: 04-23-2011 End: 04-23-2011 Emergency department patient visit Harry [facility] Start: 04-09-2011 End: 04-09-2011 Emergency department patient visit [facility] Start: 12-10-2010 End: 12-10-2010 Emergency department patient visit [facility] Start: 11-01-2010 End: 11-01-2010 Emergency department patient visit [facility] Start: 03-05-2010 End: 03-05-2010 Emergency department patient visit Harry [facility] Start: 12-12-2009 End: 12-12-2009 Admission to day surgery [facility] Start: 10-10-2009 End: 10-10-2009 [facility] Start: 03-06-2009 End: 03-06-2009 Emergency department patient visit [facility] Start: 11-09-2008 End: 11-09-2008 [facility] Start: 09-14-2008 Patient encounter procedure [facility] Start: 07-07-2008 End: 07-07-2008 [facility] Start: 06-24-2008 End: 06-24-2008 Emergency department patient visit [facility] Start: 06-04-2008 End: 06-04-2008 Emergency department patient visit [facility] Start: 04-09-2008 End: 04-09-2008 Emergency department patient visit [facility] Start: 12-15-2007 End: 12-28-2007 [facility] Start: 12-15-2007 End: 12-15-2007 [facility] Start: 12-05-2007 End: 12-05-2007 [facility] Start: 10-12-2007 End: 10-12-2007 [facility] Start: 09-18-2007 End: 09-18-2007 Emergency department [facility] Start: 08-16-2007 End: 08-16-2007 [facility] Start: 07-23-2007 End: 07-23-2007 [facility] Start: 06-24-2007 End: 06-25-2007 Emergency department [facility] Start: 05-23-2007 End: 05-23-2007 Emergency department [facility] Start: 04-25-2007 End: 05-25-2007 Discharged Recurring [facility] Start: 04-17-2007 End: 04-17-2007 Emergency department [facility] Start: 04-04-2007 End: 04-03-2007 Emergency department patient visit [facility] Start: 02-23-2007 End: 03-25-2007 Discharged Recurring [facility] Start: 02-02-2007 End: 02-01-2007 Emergency department patient visit [facility] Start: 01-24-2007 End: 02-22-2007 Discharged [facility] Start: 01-20-2007 End: 01-21-2007 Emergency department [facility] Start: 01-05-2007 End: 01-23-2007 Discharged Recurring [facility] Start: 12-24-2006 End: 12-24-2006 Emergency department [facility] Start: 12-18-2006 End: 12-18-2006 Emergency department [facility] Start: 07-11-2006 End: 07-11-2006 Emergency department [facility] Start: 03-20-2006 End: 03-20-2006 Emergency department [facility] Start: 02-27-2006 End: 02-27-2006 Emergency department [facility] Start: 02-11-2006 End: 02-11-2006 Emergency department patient visit [facility] Start: 01-06-2006 End: 01-06-2006 Emergency department patient visit [facility] Start: 11-23-2005 Patient encounter [facility] Start: 09-07-2005 End: 09-06-2005 Emergency department patient visit [facility] Start: 08-02-2005 End: 08-02-2005 Emergency department patient visit [facility] Start: 07-21-2005 End: 07-20-2005 Emergency department patient visit [facility] Start: 04-02-2005 End: 04-24-2005 Discharged Recurring [facility] Start: 02-14-2005 End: 02-14-2005 Emergency department patient visit [facility] Start: 02-02-2005 End: 02-02-2005 Emergency department patient visit [facility] Start: 11-21-2004 End: 11-21-2004 Emergency department patient visit [facility] Start: 02-23-2004 Evaluation and management of inpatient [facility] Start: 02-21-2004 Evaluation and management of inpatient [facility] Start: 02-07-2004 Evaluation and management of inpatient [facility] Start: 03-20-1993 End: 03-26-1993 Discharged Recurring [facility] Procedures Date Procedure Procedure [...] Author Start: 06-11-2022 Throat culture Throat Culture [facility] Bacteria identified in Throat by Aerobe culture [facility] Immunizations Immunization Date Immunization Notes Care Provider Fa cility 03-31-2022 tetanus toxoid, redu helio diphtheria toxoid, and acellular pertussis vaccine, adsorbed Gloria Jackson Other [facility] Payers Date Payer Category Payer Self-pay 2022 Medicaid [id number] 2. [id number] 2017 Unknown 1986 Unknown [id number] 2.16.84 [id number] 1986 Unknown [id number] 2.16.84 [id number] 1986 Unknown [id number] 2.16.84 [id number] 1986 Unknown [id number] 2.16.84 [id number] 1986 Unknown [id number] 2.16.84 [id number] 1986 Unknown [id number] 2.16.84 [id number] 1986 Unknown [id number] 2.16.84 0.1.270950.3.579.2.9 1986 Unknown [id number] 2.16.84 [id number] 1986 Unknown [id number] 2.16.84 0.1.005588.3.579.2.1259 1986 Unknown [id number] 2.16.84 [id number] 1959 Unknown [id number] Private Health Insurance [id number] Unknown [id number] Unknown [id number] 2.16.8 [id number] Unknown [id number] 2.16.8 [id number] Social History Date Type Detail Facility Start: 10-09-2021 Tobacco smoking status Ex-smoker (fi nding) [facility] [place] [facility] Tobacco smoking status Smokeless tobacco user within last 30 days [facility] [place] Sex Assigned At Female [facility] [place] [facility] Start: 12-07-2018 End: 04-01-2024 Tobacco smoking status NHIS Smoker (finding) [facility] Start: 1985 Sex Assigned At Female [facility] Start: 04-14-2024 Sex Female (finding) [facility] Start: 04-01-2024 Tobacco smoking stat us NHIS Smokes tobacco daily (finding) [facility] Clinical Notes 10-09-2021 to 04-01-2024 Note Date & Type Note Facility 04-01-2024 Evaluation note Diagnosis Onset Date Resolution Abscess or cellulitis of chest wall acute April 01 12:24pm [facility] Work Phone: 1(256) 880-555211-29-2023 Evaluation note* Encounter Date Diagnosis Assessment Notes [...] no improvement in 2 to 3 days [facility] Other 09-17-2023 Evaluation note* Encounter Date Diagnosis [...] no improvement in 2 to 3 days [facility] Other 01-17-2023 Evaluation note* Encounter Date Diagnosis [...] treatment plan. Patient left in stable condition [facility] Other 06-22-2022 NoteOPERATIVE NOTE OPERATION DATE: 11/14/2021 [...] room in good condition. CC: Meka Roper, [facility] Signed and Approved by: DR CHANTEL MAYO . 11/15/2021 14:02:00[facility]05-17-2022 NoteChief Complaint consultation for breast mass vs infection [facility] Staff 36 year old female presents [...] Tobacco Use:. Cig[place], [place] (more content not included)...[facility]Result Comment: Electronically Signed By: ALEX SINGH, Chantel Cuevas\Date and Time Signed: 10/09/21 15:43 EDTEvaluation + Plan note No data available for this section [facility] [place] Evaluation noteNo assessment information available [facility] Work Phone: Evaluation noteNo InformationNortSelect [facility] [employer] Other Evaluation note* Diagnosis Onset Date Resolution Status Allergic dermatitis acute [facility] Work Phone: History general Narrative - Reported* Type Description Date Medical History Hypothyroidism Surgical History hysterectomy Surgical History knee arthroscopy Hospitalization History SEE ABOVE [facility] [employer] Other Hospital Discharge instructions No data available for this section [facility] [place] Progress note No data available for this section [facility] [place] Reason for referral (narrative)No reason for referral information available[facility] Work Phone: Summary Purpose Family History Relationship Condition Age [...] of chest wall Miguel joyce 2023 12:24pm Chief Complaint Admit Date vomiting, nausea November 27, 2024 9:32a m Additional Source Comments INFORMATION SOURCE (unrecogn ized section and content) DATE CREATED AUTHOR 11/17/2017 [facility] DATE CREATED AUTHOR AUTHOR'S ORGANIZ ATION 01/21/2018 [facility] DATE CREATED AUTHOR AUTHOR'S ORGANIZ ATION 11/24/2021 [facility] DATE CREATED AUTHOR AUTHOR'S ORGANIZ ATION 12/29/2021 [facility] DATE CREATED AUTHOR AUTHOR'S ORGANIZ ATION 07/02/2022 [facility] DATE CREATED AUTHOR AUTHOR'S ORGANIZ ATION 05/02/2023 [facility] DATE CREATED AUTHOR AUTHOR'S ORGANIZ ATION 12/13/2023 [facility] EPIC Care Team (unrecognized sect ion and content) Team Status: Active Member Role Status Dates Kam Goldberg MD Primary Care Provider Active Team Status: Inactive Member Role Status Dates Kam Goldberg MD Primary Care Provider Active S tart: November 27, 2024 End: November 27, 2024 Leslie Forrester APRN Attending Provider Active S tart: November 27, 2024 End: November 27, 2024 Team Status: Inactive Member Role Status [...] April 14, 2024 End: April 14, 2024 Team Status: Inactive Member Role Status Dates Kam Goldberg MD Primary Care Provider Active S tart: November 27, 2024 End: November 27, 2024 Leslie Forrester APRN Attending Provider Active S tart: November 27, 2024 End: November 27, 2024 Goals (unrecognized section and content) Goals [...] BE BASED ON THE PRIMARY CLINICAL RECORDS. [employer] provides no warranty or guarantee of the accuracy or completeness of information in this document.
[2024-11-27] MEDS: 0.9 % SODIUM CHLORIDE 1,000 ML 1000 ML IV (10:44)
[2024-11-27 10:59] LABS: Hematocrit 41.4 % (36.0-48.0); Hemoglobin 14.0 g/dL (12.0-16.0); Immature Granulocytes Abs Auto 0.06 10^3/uL (0.00-0.03); Immature Granulocytes Pct Auto 0.4 % (0.0-0.5); Lymphocytes Absolute Auto 1.6 10^3/uL (1.2-3.8); Mean Corpuscular HGB Conc 33.8 g/dL (29.9-35.2); Mean Corpuscular Hemoglobin 28.1 pg (26.7-34.0); Mean Corpuscular Volume 83.0 fL (81.0-99.0); Platelet Count 329 10^3/uL (150-450); Red Blood Count 4.99 10^6/uL (4.20-5.40); White Blood Count 16.0 10^3/uL (4.0-11.0)
[2024-11-27] MEDS: MORPHINE SULFATE 4 MG/ML VIAL IV (11:02)
[2024-11-27 11:09] LABS: Anion Gap 19.5; Blood Urea Nitrogen 17.0 mg/dL (7.0-18.0); Calcium 9.0 mg/dL (8.5-10.1); Carbon Dioxide 20.6 mmol/L (21.0-32.0); Chloride 106 mmol/L (98-107); Estimated GFR (African America >60 (>=60 mL/min/1.73m^2); Estimated GFR (Non-African Ame >60 (>=60 mL/min/1.73m^2); Glucose 172 mg/dL (74-106); Potassium 4.1 mmol/L (3.5-5.1); Sodium 142 mmol/L (136-145)
[2024-11-27] MEDS: PROMETHAZINE HCL 12.5 MG in 0.9 % SODIUM CHLORIDE 50 ML 202 MG IV (11:44)
[2024-11-27 11:55] LABS: Glucose Urine UA NEGATIVE (NEGATIVE)
[2024-11-27 12:01] LABS: Cast Seen? NONE SEEN #/LPF (NONE SEEN); Crystals Seen? None Seen #/HPF (None Seen)
== END 2024-11-27 13:56 | disposition home or self-care (01) ==
PROVIDERS: Emergency Provider Emergency Medicine
DX: R11.2 Nausea with vomiting, unspecified (principal); R19.7 Diarrhea, unspecified; Z98.51 Tubal ligation status; Z90.710 Acquired absence of both cervix and uterus; F17.290 Nicotine dependence, other tobacco product, uncomplicated
CPT/HCPCS: 36415; 80048; 81001; 85025; 96361; 96365; 96375; 99284; J2270; J2405; J2550